=== PATIENT | female | born 1945 | race Caucasian/White ===

== ENCOUNTER → 2024-03-29 11:32 | Outpatient (REF) | payer MEDICARE, SELFPAY | LOC: RAD 11:32 | PROVIDERS: ATTENDING PHYSICIAN Internal Medicine Gastroenterology; FAMILY PHYSICIAN Nurse Practitioner Adult Health | DX: R63.4 Abnormal weight loss (principal) | CPT/HCPCS: 74176 ==

== ENCOUNTER → 2024-04-11 08:55 | Outpatient (REF) | payer MEDICARE, SELFPAY | LOC: RAD 08:55 | PROVIDERS: ATTENDING PHYSICIAN Internal Medicine Gastroenterology; FAMILY PHYSICIAN Nurse Practitioner Adult Health; REFERRING PHYSICIAN Internal Medicine Rheumatology | DX: R93.5 Abnormal findings on diagnostic imaging of other abdominal regions, including retroperitoneum (principal) | CPT/HCPCS: 74246 ==

== ENCOUNTER 2024-07-08 07:26 | Inpatient (IN) | payer MEDICARE, SELFPAY ==
[2024-07-07 23:28] VITALS: BP 122/85
[2024-07-08] VITALS (19 sets, daily range): BP systolic 82–179; BP diastolic 34–108; BMI 23.9; BMI 19.0
[2024-07-08 00:41] LABS: ALT (SGPT) 11 U/L (0-35); AST (SGOT) 27 U/L (14-36); Albumin 4.5 g/dl (3.5-5.0); Alkaline Phosphatase 62 U/L (38-126); Blood Urea Nitrogen 41 mg/dl (7-17); Calcium 9.6 mg/dl (8.4-10.2); Carbon Dioxide 23 mmol/L (22-30); Chloride 105 mmol/L (98-107); Glucose 106 mg/dl (70-99); Potassium 4.6 mmol/L (3.5-5.1); Sodium 137 mmol/L (135-145); Total Bilirubin 0.5 mg/dl (0.2-1.3); Total Protein 6.7 g/dl (6.3-8.2)
[2024-07-08 00:42] LABS: % Basophils 0.6 % (0-2); % Immature Granulocytes 0.3 % (0-0.5); % Lymphocytes 10.4 % (20.5-51.1); % Monocytes 7.2 % (1.7-9.3); % Neutrophils 81.5 % (42.2-75.2); Absolute Lymphocytes 0.4 10^3/uL (1.2-3.4); Absolute Monocytes 0.3 10^3/uL (0.1-0.6); Absolute Neutrophils 2.8 10^3/uL (1.4-6.5); Hematocrit 34.2 % (37.0-47.0); Hemoglobin 11.2 g/dL (12.0-16.0); Mean Corp Hgb Conc. 32.7 g/dL (33.0-37.0); Mean Corpuscular Hgb 29.6 pg (27.0-31.0); Mean Corpuscular Volume 90.2 fL (81.0-99.0); Mean Platelet Volume 10.8 fL (7.4-10.4); Nucleated Red Blood Cells % 0 %; Platelet Count 127 10^3/uL (130-400); Red Blood Cell Count 3.79 10^6/uL (4.20-5.40); Red Cell Dist. Width 12.5 % (11.5-14.5); White Blood Cell Count 3.5 10^3/uL (4.8-10.8)
[2024-07-08 00:43] LABS: COVID-19 Antigen Positive (Negative)
[2024-07-08] MEDS: NSS 1000 IV ×2 (01:50→05:08)
--- NOTE | 2024-07-08 04:37 | ED.GENMED ---
History of Present Illness
General
Chief Complaint: Weakness
Source: patient
Exam Limitations: none
Time Seen by Provider: 07/08/24 04:16
Nursing documentation reviewed up to this point in time: agreed with
History of Present Illness
History of Present Illness:
78-year-old female brought in by family for increased weakness. Nursing states that she was unable to stand up under her own power. Multiple headset to help her into the structure. Patient states that this morning she awakened and had difficulty
trying to make coffee. She states that she just felt entirely weak. Patient had a fall this morning slipping from the rollator onto the floor. Denies headache or loss of consciousness. Patient has had diarrhea. Denies fever or chills. Patient
was incontinent of stool tonight. She states that she attended a [employer] party where there were sick contacts.
Review of Systems
Review of Systems
Allergies reviewed?: Yes
All Other Systems: ROS reviewed and negative except as documented in HPI and ROS
Constitutional: Reports fatigue and sleep disturbance
ABD/GI: Reports abdominal pain and diarrhea
Psychiatric: Reports no symptoms
Phy Exam
General Physical Exam
General Presentation: well appearing and mild distress
General age: appears stated age
General Skin: warm and dry
General Habitus: elderly
General Mental: alert
General Hydration: dry mucous membranes
ENT Exam
ENT Exam: EOMI, pharynx normal, neck supple and normocephalic
Eye Exam
Eye Exam: PERRL, cornea clear and conjunctiva normal
Cardiovascular Exam
Cardiovascular Exam: regular rate/rhythm, no edema, no murmur and normal peripheral pulses
Pulmonary Exam
Pulmonary Exam: lungs clear and no respiratory distress
Cough: coarse cough and non productive cough
Gastrointestinal Exam
Gastrointestinal Exam: normal bowel sounds, non tender, soft, no organomegaly, no pulsatile mass and non distended
Neurological Exam
Neurological Exam: alert, oriented x3, no motor deficits and speech normal
Musculoskeletal Exam
Musculoskeletal Exam: full ROM and no edema
Skin Exam
Skin Exam: normal color, warm/dry, no rash and no petechia
Psychiatric Exam
Psychiatric Exam: normal mood/affect
Course
Orders/Labs/Results
Orders:
Orders
07/08/24 00:05
Electrocardiogram (*1) Urgent
Reason for Study: Fatigue / Weakness
EKG- Treatment ONCE
07/08/24 00:14
CMP [Comprehensive Metabolic Panel] Urgent
Complete Blood Count/With Diff Urgent
Troponin I Urgent
07/08/24 00:26
COVID-19 Antigen Urgent
Source: Nasal Swab
Influenza A+B Rapid Molecular Urgent
LETI Source: Nasal Swab
Specimen Description:
07/08/24 01:45
0.9% Sodium Chloride 1000 ml [Nss] 1,000 ml IV BOLUS
07/08/24 04:37
Ambulate Patient-Treatment ONCE
Abnormal Lab Results
07/08/24 07/08/24
00:14 00:26
WBC 3.5 L 10^3/uL
(4.8-10.8)
RBC 3.79 L 10^6/uL
(4.20-5.40)
Hgb 11.2 L g/dL
(12.0-16.0)
Hct 34.2 L %
(37.0-47.0)
MCHC 32.7 L g/dL
(33.0-37.0)
Plt Count 127 L 10^3/uL
(130-400)
MPV 10.8 H fL
(7.4-10.4)
Absolute Lymphs (auto) 0.4 L 10^3/uL
(1.2-3.4)
Neutrophils % 81.5 H %
(42.2-75.2)
Lymphocytes % 10.4 L %
(20.5-51.1)
BUN 41 H mg/dl
(7-17)
Creatinine 1.6 H mg/dL
(0.6-1.0)
Glucose 106 H mg/dl
(70-99)
SARS-CoV-2 Antigen Positive A
(Negative)
07/08/24 00:14
07/08/24 00:14
Vital Signs
Initial and Last Documented VS:
Initial Vital Signs
Temp Pulse Resp BP Pulse Ox
99.0 F 104 20 122/85 95
07/07/24 23:28 07/07/24 23:28 07/07/24 23:28 07/07/24 23:28 07/07/24 23:28
Last Documented Vital Signs
Temp Pulse Resp BP Pulse Ox
99.0 F 91 18 143/92 100
07/08/24 02:42 07/08/24 02:42 07/08/24 02:42 07/08/24 02:42 07/08/24 02:42
*Critical Care Note
Total Time (30-74mins, 75-104mins- exclusive of procedures): Not Applicable
Patient Management
Social determinants of health affecting care: Living situation and Strong social support
Escalation/DeEscalation of care consider admission/obs:
78-year-old female with new onset COVID. Unable to ambulate on her own. Lives with daughter and her family. Patient to be brought into the hospital for continued hydration and precautions that she cannot ambulate
ED Attending Note
-
Portions of this chart may have been created with voice recognition software.� Occasional wrong word or��sound alike� substitutions may have occurred due to the inherent limitations of voice recognition software.
Discharge Plan
Departure
Patient Disposition: Admit
Date of Disposition: 07/08/24
Time of Disposition: 04:56
Admit to: Telemetry
Presentation/result/management discussed w/ accepting MD/DO: Hospitalist
Covid-19: Confirmed COVID-19
Discharge Problem:
Ambulatory dysfunction, Generalized weakness, COVID-19
Instructions: Generalized Weakness (DC)
Referrals:
Jessie Gonzales CRNP [Family Provider] -
Interventions
Interventions:
*Risk Screen - Suicide Last Done: 07/07/24 23:28
*General Assessment Last Done: 07/07/24 23:28
*Neglect/Abuse Screening Last Done: 07/07/24 23:28
*ED COVID-19 Vaccine History Last Done: 07/07/24 23:28
Discharge Date and Time
Print Language: ALBANIAN
--- NOTE | 2024-07-08 06:18 | HPS.HSE ---
Addendum entered and electronically signed by Citlalli Parikh MD 07/15/24 21:38:
HOME MEDICATIONS addendum
Allergies
Allergy/AdvReac Type Severity Reaction Status Date / Time
ciprofloxacin Allergy Severe Hallucinati Verified 07/09/24 12:57
on
gabapentin Allergy Anaphylaxis Verified 07/07/24 23:27
Home Medications
ascorbic acid (vitamin C) 500 mg tablet (Vitamin C) 500 mg PO DAILY Supplement 07/08/24
brimonidine 0.2 %-timolol 0.5 % eye drops 1 drp BOTH EYES BID Eye Condition 07/08/24
cholecalciferol (vitamin D3) 50 mcg (2,000 unit) capsule (Vitamin D3) 50 mcg PO DAILY Supplement 07/08/24
cyanocobalamin (vitamin B-12) 100 mcg tablet (Vitamin B-12) 100 mcg PO DAILY Supplement 07/08/24
diltiazem HCl 120 mg capsule,extended release 24 hr, controlled (DILT-XR) 120 mg PO DAILY Rate control 07/08/24
docosahexaenoic acid (dha)-epa 120 mg-180 mg capsule (Fish Oil) 1 cap PO DAILY Supplement 07/08/24
fluticasone 100 mcg-salmeterol 50 mcg/dose blistr powdr for inhalation (Advair Diskus) 1 inh inhalation BID Lung/Breathing Issues 07/08/24
hydroxychloroquine 200 mg tablet 200 mg PO DAILY Rheumatoid arthritis 07/08/24
pravastatin 20 mg tablet 20 mg PO DAILY High Cholesterol 07/08/24
Original Note:
Family Physician
-
Family Physician: Jessie Gonzales
Chief Complaint
-
Generalized weakness
History of Present Illness
This is an 78-year-old female with past medical history of anemia, prior DVT, rheumatoid arthritis Plaquenil, history of heart block status post PPM presenting to the emergency department with generalized weakness.
Patient recalls that she started feeling sick about 1 days ago. She reports nasal stuffiness and congestion. She denies cough. She denies fevers or chills. She denies feeling short of breath. She lost her appetite and was not able to eat
anything today. She became very lethargic and unable to ambulate. Daughter noticed that she was having failure to thrive and decided bring her to the ED. She denies any dysuria hematuria. There has been no nausea vomiting but she does have prior
history of diarrhea recently. She reports history of mild dyspepsia. Denies any nausea or vomiting. After arriving in the emergency department the patient complained of right-sided hip pain. She pointed to her groin and anterior proximal femur.
She denied any falls. She had apparently slipped from a chair and scraped the back but did not have any fall. She denies any recent injuries or falls. She denies any lower extremity swelling numbness or tingling.
In the ED she was afebrile, blood pressure was 140/92 with a pulse of 91 and regular. She was satting 99% on room air. ECG shows sinus tachycardia at [address] or T wave changes. CBC was unremarkable. Chemistries were notable for
a BUN of 41 and creatinine of 1.6 (unknown baseline). COVID test was positive.
Medical History
Past Medical History
Past Medical History: Reports Arrhythmia (AV block status post pacemaker placement), HTN and Other (Rheumatoid arthritis)
Past Surgical History: Reports Appendectomy and Orthopedic (Right hip surgery)
Social History
Tobacco: Non-smoker
Alcohol: None
Drug: None
Personal:
Living: With Family
Employment: Retired
Family History
Family History: Not pertinent
Allergies / Home Medications
Allergies reflects when Allergies were last updated in [employer] ([employer]).
Home Medications with original date entered in [employer] ([employer])
Allergy/Medication List:
Allergies
Allergy/AdvReac Type Severity Reaction Status Date / Time
gabapentin Allergy Anaphylaxis Verified 07/07/24 23:27
Review of Systems
-
Constitutional: Reports Fatigue
EENT: Reports Runny Nose
Respiratory: Reports No Symptoms
Cardiac: Reports No Symptoms
Abdomen/GI: Reports No Symptoms
: Reports No Symptoms
Musculoskeletal: Reports No Symptoms
Skin: Reports No Symptoms
Neurological: Reports No Symptoms
Endocrine: Reports No Symptoms
Hematologic/Lymphatic: Reports No Symptoms
Psych: Reports No Symptoms
Physical Exam
Vital Signs
Vital Signs
Temp Pulse Resp BP Pulse Ox
98.6 F 103 18 173/103 98
07/08/24 05:00 07/08/24 06:00 07/08/24 06:00 07/08/24 06:00 07/08/24 06:00
Physical Exam
General: Well Developed and No Apparent Distress
HEENT: NormoCephalic, Anicteric, Moist mucous membranes, Atraumatic and PERRLA
Respiratory: Clear
Cardiac: S1/S2 and Regular Rhythm
Breast: Deferred by me
GI: Soft, Non Tender, Non Distended and Normal Bowel Sounds
Rectal: Deferred by Provider
Genito-urinary: Deferred by me
Musculoskeletal: No Clubbing, No Cyanosis, No Edema and Other (Right hip tenderness to palpation. Decreased range of motion on external rotation.)
Skin: Warm
Neuro: AO x 3
Hematologic/Lymphatic: No Lymphadenopathy
Psych: Calm
Laboratory Results
-
07/08/24 00:14
07/08/24 00:14
Laboratory Results
Total Bilirubin 0.5 mg/dl (0.2-1.3) 07/08/24 00:14
AST 27 U/L (14-36) 07/08/24 00:14
ALT 11 U/L (0-35) 07/08/24 00:14
Alkaline Phosphatase 62 U/L (38-126) 07/08/24 00:14
Troponin I 0.030 ng/ml 07/08/24 00:14
Data Reviewed
-
Lab Data: Labs Reviewed by me
Old Records: Reviewed
Impression/Plan
-
IMPRESSION:
78-year-old with COVID-19 infection, lethargy and ambulatory dysfunction. Found to have elevated creatinine but unknown baseline.
PLAN:
1. COVID 19 - Lethargic, but afebrile and has no oxygen requirement. Mostly nasal congestion and some rhinorrhea.
- admit to med/surg
- candidate for paxlovid treatment, will start renal dose regimen
- supportive care with nasal decongestion, antitussives and antiemetics
- continue gentle hydration
- DVT PPX with heparin sq
- PT evaluation
2. Renal dysfunction - Unclear baseline but suspect likely prerenal complicated CKD
- IV fluids, hold lisinopril
- renal bladder u/s
- obtain records from pmd
- follow i/o
3. HTN
- continue diltiazem 120 mg daiily
- prn hydralazine 20mg po q 8 hours for SBP > 180
4. Hip pain
- rule out occult fracture with CT pelvis w/o oral or iv contrast
Code status - Full Code
[2024-07-08] MEDS: CARDIZEM CD 120 MG PO (08:36)
[2024-07-08] MEDS: HEPARIN 5000 UNITS SC ×2 (08:37→17:29)
[2024-07-08] MEDS: VITAMIN D3 (cholecalciferol) 50 MCG PO (08:38)
[2024-07-08] MEDS: SYMBICORT 80/4.5 MCG INHALER 2 PUFF INH ×2 (08:51→20:11)
[2024-07-08] MEDS: ProAIR HFA INHALER 2 PUFF INH (08:56)
[2024-07-08] MEDS: LR 1000 IV (09:20)
[2024-07-08] MEDS: PLAQUENIL 200 MG PO (09:53)
[2024-07-08] MEDS: PAXLOVID 150-100 MG DOSE PACK 1 DOSE PO ×2 (09:54→21:10)
[2024-07-08] MEDS: TIMOPTIC 0.5% OPHTHALMIC SOLUTION 1 DROP BOTH EYES ×2 (09:59→21:10)
[2024-07-08] MEDS: ALPHAGAN 0.2% EYE DROPS 1 DROP BOTH EYES ×2 (09:59→21:10)
[2024-07-08] MEDS: TYLENOL 650 MG PO (10:22)
--- NOTE | 2024-07-08 10:30 | EDRN ---
Pt complained of groin and hip pain at 10:00. Pt was administered tylenol.
--- NOTE | 2024-07-08 10:58 | EDRN ---
Dr. Joiner in room w/pt.
--- NOTE | 2024-07-08 12:15 | EDRN ---
Pt eating the sandwich she ordered for lunch. Pt will be changed to hospital bed when done eating.
--- NOTE | 2024-07-08 13:00 | EDRN ---
Pt moved from ER stretcher to hospital bed. Pt was incontinent of large amount of urine and stool. Pt was cleansed w/ good evan care and placed on a purewyck. Pt was tilted facing toward her R w/ chair air cushion.
--- NOTE | 2024-07-08 13:10 | W.PN.UPDATE ---
Update Note
Progress Note Update
Patient seen and examined today. Refer to H&P dictated today a few hours ago. No changes to plan for now and will reevaluate tomorrow.
--- NOTE | 2024-07-08 14:40 | EDRN ---
Amanda from physical therapy in room w/ pt at this time. Family just arrived to visit w/ pt.
--- NOTE | 2024-07-08 15:00 | EDRN ---
Pt stated to this RN pt too weak to get up out of bed during their eval.
--- NOTE | 2024-07-08 15:24 | EDRN ---
Pt marquis some lower BPs while sleeping. Pt just transported in bed to admission room 2132 at this time.
--- NOTE | 2024-07-08 15:28 | EDRN ---
Pt's daughter called after pt said okay for this RN to speak to daughter at [phone]
[2024-07-08 17:05] LABS: Urine Albumin 1+ (Neg - Trace); Urine Bilirubin Negative (Negative); Urine Character Slightly Cloudy (Clear); Urine Color Yellow; Urine Glucose Negative (Negative); Urine Ketone Negative (Negative); Urine Leukocyte Trace (Negative); Urine Nitrite Negative (Negative); Urine Occult Blood 2+ (Negative); Urine Urobilinogen Negative (Neg - 1+)
[2024-07-08 17:24] LABS: Urine Bacteria Many (Negative); Urine White Cell 0-2 /HPF (0-5)
[2024-07-08 17:26] LABS: Urine Epithelial Cast 0-2 /LPF
[2024-07-08] MEDS: PRAVACHOL 20 MG PO (17:29)
[2024-07-09] MEDS: HEPARIN 5000 UNITS SC ×3 (00:54→17:11)
[2024-07-09] MEDS: ROBITUSSIN DM 10 ML PO ×2 (01:02→13:29)
[2024-07-09] MEDS: TYLENOL 650 MG PO ×3 (01:02→17:15)
[2024-07-09] MEDS: LR 1000 IV ×2 (01:05→17:13)
[2024-07-09 06:00] VITALS: BMI 18.8
[2024-07-09 06:52] LABS: % Basophils 0.6 % (0-2); % Eosinophils 0.9 % (0-6); % Immature Granulocytes 0.3 % (0-0.5); % Lymphocytes 18.8 % (20.5-51.1); % Monocytes 12.5 % (1.7-9.3); % Neutrophils 66.9 % (42.2-75.2); Absolute Lymphocytes 0.6 10^3/uL (1.2-3.4); Absolute Monocytes 0.4 10^3/uL (0.1-0.6); Absolute Neutrophils 2.2 10^3/uL (1.4-6.5); Hematocrit 35.4 % (37.0-47.0); Hemoglobin 11.7 g/dL (12.0-16.0); Mean Corp Hgb Conc. 33.1 g/dL (33.0-37.0); Mean Corpuscular Hgb 29.3 pg (27.0-31.0); Mean Corpuscular Volume 88.5 fL (81.0-99.0); Mean Platelet Volume 10.3 fL (7.4-10.4); Nucleated Red Blood Cells % 0 %; Platelet Count 99 10^3/uL (130-400); Red Cell Dist. Width 12.5 % (11.5-14.5); White Blood Cell Count 3.3 10^3/uL (4.8-10.8)
[2024-07-09 07:12] LABS: Blood Urea Nitrogen 29 mg/dl (7-17); Calcium 8.7 mg/dl (8.4-10.2); Carbon Dioxide 21 mmol/L (22-30); Chloride 105 mmol/L (98-107); Estimated Creatinine Clearance 30 ml/min; Glucose 89 mg/dl (70-99); Iron 62 ug/dl (37-170); Potassium 4.4 mmol/L (3.5-5.1); Sodium 134 mmol/L (135-145); eGFR 45.76
[2024-07-09 07:21] LABS: Percent Saturation 26 % (20-50); Total Iron Binding Capacity 232 ug/dl (265-497)
[2024-07-09 08:04] VITALS: BP 139/87
[2024-07-09] MEDS: SYMBICORT 80/4.5 MCG INHALER 2 PUFF INH ×2 (08:04→18:25)
[2024-07-09 08:23] LABS: Folate 6.9 ng/ml (2.76-20); Vitamin B12 341 pg/ml (239-931)
[2024-07-09] MEDS: PAXLOVID 150-100 MG DOSE PACK 1 DOSE PO ×2 (08:25→20:25)
[2024-07-09] MEDS: PLAQUENIL 200 MG PO (08:26)
[2024-07-09] MEDS: VITAMIN D3 (cholecalciferol) 50 MCG PO (08:26)
[2024-07-09] MEDS: CARDIZEM CD 120 MG PO (08:26)
[2024-07-09] MEDS: TIMOPTIC 0.5% OPHTHALMIC SOLUTION 1 DROP BOTH EYES ×2 (08:28→20:27)
[2024-07-09] MEDS: ALPHAGAN 0.2% EYE DROPS 1 DROP BOTH EYES ×2 (08:28→20:27)
--- NOTE | 2024-07-09 09:37 | W.PN.HOSP.TC ---
Today's Communication/Plan
-
IVF. IV antibiotics. PT OT
Assessment / Plan
Assessment / Plan
Physical exam:
General: Acutely ill
HEENT: Normocephalic, Atraumatic and Moist Mucous Membranes
Respiratory: Clear to Auscultation; Negative Wheezes, Rales or Rhonchi
Cardiac: Regular Rhythm and S1/S2
GI: Soft, Nontender and Nondistended
Musculoskeletal: No Clubbing, No Cyanosis and No Edema
Neuro: Awake, Alert and Oriented, generalized weakness, no gross neurodeficits
Psych: Calm
A/P:
COVID-19:
Continue Paxlovid renally dose
Add Cepacol lozenges
Supportive care
Discussed with daughter over the phone today
PT OT eval
UTI:
Started IV ceftriaxone today
Urine culture with gram-negative rods
Follow-up cultures and temperature curve
KAREN:
On IV fluids
Creatinine 1.2 today after hydration
Creatinine 1.6 yesterday
Avoid nephrotoxic
Monitor renal function
Pancytopenia:
All numbers remain low but stable
Continue to monitor
B12 normal
Obtain old records
Family states they can not r/o lymphoma as OP-by GI/radiology-recommend hematology as OP
Hyponatremia:
Continue to monitor
Rheumatoid arthritis:
Cont hydroxychloroquine 200 mg po daily
Recent fall:
CT pelvis no evidence of fracture
Family mention something about arms no extending all the way but she does not have any tenderness on shoulders at all or trauma so we will encourage to continue physical therapy.
Hypertension:
Continue diltiazem
Hyperlipidemia:
Continue pravastatin
COPD/asthma:
Continue Symbicort
DVT prophylaxis:
Heparin SQ
CODE STATUS:
Full code
Time spent 55 minutes
Anticipated Discharge: > 48 hours
Subjective/Interval History
-
Date of Service: July 09, 2024
Patient with generalized weakness, complains of sore throat, generalized malaise. Afebrile.
Objective Data
-
Labs:
Laboratory Results
07/09/24
05:48
WBC 3.3 L
Hgb 11.7 L
Hct 35.4 L
Plt Count 99 L D
Sodium 134 L
Potassium 4.4
Chloride 105
Carbon Dioxide 21 L
BUN 29 H
Creatinine 1.2 H
Glucose 89
Calcium 8.7
Vital Signs:
Vital Signs
Temp Pulse Resp BP Pulse Ox
97.7 F 66 16 139/87 96
07/09/24 08:04 07/09/24 08:26 07/09/24 08:13 07/09/24 08:26 07/09/24 08:13
I&O
07/08/24 07/09/24 07/10/24
06:59 06:59 06:59
Intake Total 1200 / 1200
Output Total 930 / 930
Balance 270 / 270
[2024-07-09] MEDS: ROCEPHIN 1000 MG IV (11:00)
[2024-07-09] MEDS: STERILE WATER FOR INJECTION 10 ML IV (11:00)
[2024-07-09] MEDS: FLUSH (NSS) 1 FLUSH IV ×2 (11:00)
[2024-07-09] MEDS: ANESTHETIC LOZENGE 1 LOZENGE PO ×2 (11:22→17:11)
[2024-07-09 12:24] VITALS: BP 102/57; PULSE 60; O2SAT 97
[2024-07-09 16:00] VITALS: BP 117/74
[2024-07-09] MEDS: PRAVACHOL 20 MG PO (17:11)
[2024-07-09 23:39] VITALS: BP 103/58
[2024-07-10] MEDS: HEPARIN 5000 UNITS SC ×3 (00:09→15:01)
[2024-07-10 06:55] LABS: % Basophils 0.5 % (0-2); % Eosinophils 3.3 % (0-6); % Monocytes 11.3 % (1.7-9.3); % Neutrophils 46.9 % (42.2-75.2); Absolute Eosinophils 0.1 10^3/uL (0-0.7); Absolute Lymphocytes 0.8 10^3/uL (1.2-3.4); Absolute Monocytes 0.2 10^3/uL (0.1-0.6); Hematocrit 31.7 % (37.0-47.0); Hemoglobin 10.9 g/dL (12.0-16.0); Mean Corp Hgb Conc. 34.4 g/dL (33.0-37.0); Mean Corpuscular Hgb 30.3 pg (27.0-31.0); Mean Corpuscular Volume 88.1 fL (81.0-99.0); Mean Platelet Volume 11.4 fL (7.4-10.4); Nucleated Red Blood Cells % 0 %; Platelet Count 86 10^3/uL (130-400); Red Cell Dist. Width 12.5 % (11.5-14.5); White Blood Cell Count 2.1 10^3/uL (4.8-10.8)
[2024-07-10 07:37] LABS: Blood Urea Nitrogen 25 mg/dl (7-17); Calcium 8.2 mg/dl (8.4-10.2); Carbon Dioxide 25 mmol/L (22-30); Chloride 106 mmol/L (98-107); Creatine Phosphokinase 36 U/L (30-135); Estimated Creatinine Clearance 28 ml/min; Glucose 84 mg/dl (70-99); Potassium 4.7 mmol/L (3.5-5.1); Sodium 137 mmol/L (135-145); eGFR 41.57
[2024-07-10] MEDS: PAXLOVID 150-100 MG DOSE PACK 1 DOSE PO ×2 (08:15→20:39)
[2024-07-10] MEDS: TIMOPTIC 0.5% OPHTHALMIC SOLUTION 1 DROP BOTH EYES ×2 (08:15→20:39)
[2024-07-10] MEDS: ALPHAGAN 0.2% EYE DROPS 1 DROP BOTH EYES ×2 (08:15→20:39)
[2024-07-10] MEDS: CARDIZEM CD 120 MG PO (08:16)
[2024-07-10] MEDS: VITAMIN D3 (cholecalciferol) 50 MCG PO (08:16)
[2024-07-10] MEDS: PLAQUENIL 200 MG PO (08:16)
[2024-07-10 08:17] VITALS: BP 150/84
--- NOTE | 2024-07-10 08:20 | W.PN.HOSP.TC ---
Addendum entered and electronically signed by Mikael Aranda MD 07/10/24 16:42:
Had some diarrhea (could be from covid)-->check noro virus, c diff, and orthostatics; give some fluid today.
Original Note:
Today's Communication/Plan
-
IV antibiotics. Continue Paxlovid.
Assessment / Plan
Assessment / Plan
Physical exam:
General: Acutely ill
HEENT: Normocephalic, Atraumatic and Moist Mucous Membranes
Respiratory: Clear to Auscultation; Negative Wheezes, Rales or Rhonchi
Cardiac: Regular Rhythm and S1/S2
GI: Soft, Nontender and Nondistended
Musculoskeletal: No Clubbing, No Cyanosis and No Edema
Neuro: Awake, Alert and Oriented, generalized weakness, no gross neurodeficits
Psych: Calm
A/P:
COVID-19:
Continue Paxlovid renally dose
Added Cepacol lozenges
Supportive care
Continue isolation
Discussed with daughter over the phone yesterday
PT OT recommend skilled rehab
UTI:
Continue IV ceftriaxone
Urine culture with E. coli, pansensitive
Follow-up WBC and temperature curve
KAREN on CKD stage III:
Stop IV fluids today and encourage oral intake
Creatinine 1.3 today after hydration
Creatinine 1.6 day before yesterday
Avoid nephrotoxic
Monitor renal function
Pancytopenia:
All numbers remain low but stable
Continue to monitor
B12 normal
Obtain old records
Family states they can not r/o lymphoma as OP-by GI/radiology
Recommend hematology as OP after current acute issues improved
Hyponatremia:
Continue to monitor
Rheumatoid arthritis:
Cont hydroxychloroquine 200 mg po daily
Recent fall:
CT pelvis no evidence of fracture
Family mention something about arms no extending all the way but she does not have any tenderness on shoulders at all or trauma so we will encourage to continue physical therapy.
Hypertension:
Continue diltiazem
Hyperlipidemia:
Continue pravastatin
COPD/asthma:
Continue Symbicort
DVT prophylaxis:
Heparin SQ
CODE STATUS:
Full code
Anticipated Discharge: 24 - 48 hours
Subjective/Interval History
-
Date of Service: July 10, 2024
Patient feels slightly better but not quite yet. Afebrile.
Objective Data
-
Labs:
Laboratory Results
07/10/24
05:29
WBC 2.1 L*
Hgb 10.9 L
Hct 31.7 L
Plt Count 86 L
Sodium 137
Potassium 4.7
Chloride 106
Carbon Dioxide 25
BUN 25 H
Creatinine 1.3 H
Glucose 84
Calcium 8.2 L
Vital Signs:
Vital Signs
Temp Pulse Resp BP Pulse Ox
97.5 F 67 14 150/84 96
07/10/24 08:17 07/10/24 08:17 07/10/24 08:17 07/10/24 08:17 07/10/24 08:17
I&O
07/09/24 07/10/24 07/11/24
06:59 06:59 06:59
Intake Total 1200 / 1200 1500 / 1500
Output Total 930 / 930
Balance 270 / 270 1500 / 1500
[2024-07-10] MEDS: ANESTHETIC LOZENGE 1 LOZENGE PO ×2 (08:21→13:56)
[2024-07-10] MEDS: ROBITUSSIN DM 10 ML PO ×2 (08:24→13:56)
[2024-07-10] MEDS: TYLENOL 650 MG PO ×2 (08:24→17:59)
[2024-07-10] MEDS: LR 1000 IV (08:32)
[2024-07-10] MEDS: SYMBICORT 80/4.5 MCG INHALER 2 PUFF INH ×2 (08:36→17:51)
[2024-07-10] MEDS: STERILE WATER FOR INJECTION 10 ML IV (09:56)
[2024-07-10] MEDS: ROCEPHIN 1000 MG IV (09:56)
[2024-07-10] MEDS: FLUSH (NSS) 1 FLUSH IV ×2 (09:57)
--- NOTE | 2024-07-10 15:32 | CM ---
Spoke with daughter Araceli to complete assessment
Pt lives in a guest house - 1 story dwelling, on daughters property; no steps to enter
Independent with ADL's, uses rollator to ambulate
DME - rollator
SNF -one in [facility] in past
HH - has has Pal in past
PCP - Jessie Gonzales
Pharm - [facility]
Discussed SNF options in area. Requested time to review. CM will follow for choice
Plan - anticipate SNF when bed obtained and medically ready
[2024-07-10 15:55] VITALS: BP 116/63
[2024-07-10] MEDS: NSS 250 IV (17:25)
[2024-07-10] MEDS: PRAVACHOL 20 MG PO (17:25)
[2024-07-10] MEDS: ProAIR HFA INHALER 2 PUFF INH (17:50)
[2024-07-10] MEDS: IMODIUM 2 MG PO (17:59)
--- NOTE | 2024-07-10 18:25 | PTCARENOTE ---
Patient OOB to chair for lunch this shift, x2 assist with RW, patient c/o generalized weakness when ambulating. BP sitting in chair taken three times by tech, 91/59 RUE, 72/53 RUE, 80/53 LUE. Patient c/o lightheadedness while sitting in chair,
assisted back to bed by this RN and tech, BP taken while patient supine 116/63 LUE HR 88. Patient states lightheadedness improved when back in bed. MD made aware of BP results, 250 ml NSS bolus ordered per MD. Stool sample sent earlier in shift by
this RN d/t patient having frequent loose stools, stool sample noro negative, cdiff antigen positive toxin negative. Patient denies any abd pain/nausea. MD aware. Patient with occasional wheezing, moist nonproductive cough, PRN resp treatment
administered by respiratory therapist.
[2024-07-10 23:28] VITALS: BP 116/77
[2024-07-11 07:37] LABS: Blood Urea Nitrogen 33 mg/dl (7-17); Calcium 8.5 mg/dl (8.4-10.2); Carbon Dioxide 24 mmol/L (22-30); Chloride 105 mmol/L (98-107); Estimated Creatinine Clearance 28 ml/min; Glucose 95 mg/dl (70-99); Potassium 4.7 mmol/L (3.5-5.1); Sodium 135 mmol/L (135-145); eGFR 41.57
[2024-07-11 07:45] LABS: Hematocrit 30.7 % (37.0-47.0); Hemoglobin 10.3 g/dL (12.0-16.0); Mean Corp Hgb Conc. 33.6 g/dL (33.0-37.0); Mean Corpuscular Hgb 29.5 pg (27.0-31.0); Mean Platelet Volume 11.5 fL (7.4-10.4); Platelet Count 93 10^3/uL (130-400); Red Blood Cell Count 3.49 10^6/uL (4.20-5.40); Red Cell Dist. Width 12.8 % (11.5-14.5); White Blood Cell Count 2.1 10^3/uL (4.8-10.8)
[2024-07-11 07:48] VITALS: BP 157/77
[2024-07-11] MEDS: SYMBICORT 80/4.5 MCG INHALER 2 PUFF INH ×2 (07:52→19:57)
[2024-07-11] MEDS: PAXLOVID 150-100 MG DOSE PACK 1 DOSE PO ×2 (09:38→21:15)
[2024-07-11] MEDS: ALPHAGAN 0.2% EYE DROPS 1 DROP BOTH EYES ×2 (09:39→20:39)
[2024-07-11] MEDS: CARDIZEM CD 120 MG PO (09:39)
[2024-07-11] MEDS: ROCEPHIN 1000 MG IV (09:39)
[2024-07-11] MEDS: TIMOPTIC 0.5% OPHTHALMIC SOLUTION 1 DROP BOTH EYES ×2 (09:39→20:40)
[2024-07-11] MEDS: STERILE WATER FOR INJECTION 10 ML IV (09:39)
[2024-07-11] MEDS: VITAMIN D3 (cholecalciferol) 50 MCG PO (09:40)
[2024-07-11] MEDS: PLAQUENIL 200 MG PO (09:40)
[2024-07-11] MEDS: HEPARIN 5000 UNITS SC ×3 (09:40→17:00)
[2024-07-11] MEDS: FLUSH (NSS) 1 FLUSH IV ×2 (09:44)
--- NOTE | 2024-07-11 10:58 | W.PN.HOSP.TC ---
Today's Communication/Plan
-
Discharge planning for rehab
Assessment / Plan
Assessment / Plan
COVID-19 viral infection
Continue Paxlovid renally dose
Added Cepacol lozenges
Supportive care
Continue isolation
PT OT recommend skilled rehab
Uncomplicated UTI
Finished 3 days of Rocephin, discontinue further antibiotic as patient is C. difficile antigen positive
Urine culture with E. coli, pansensitive
KAREN on CKD stage III:
Stop further IV fluid.
Renal function has stabilized around 1.3. Continue monitoring
Avoid nephrotoxic
Monitor renal function
Pancytopenia:
All numbers remain low but stable
Continue to monitor
B12 normal
Obtain old records
Family states they can not r/o lymphoma as OP-by GI/radiology
Recommend hematology as OP after current acute issues improved
C. difficile antigen positive
Chronic Diarrhea
Use as needed Imodium
Avoid unnecessary antibiotics
Probiotics ordered
Hyponatremia -resolved
Continue to monitor
Rheumatoid arthritis:
Cont hydroxychloroquine 200 mg po daily
Recent fall:
CT pelvis no evidence of fracture
Family mention something about arms no extending all the way but she does not have any tenderness on shoulders at all or trauma so we will encourage to continue physical therapy.
Hypertension:
Continue diltiazem
Hyperlipidemia:
Continue pravastatin
COPD/asthma:
Continue Symbicort
DVT prophylaxis:
Heparin SQ
CODE STATUS:
Full code
Anticipated Discharge: Within 24 hours
Subjective/Interval History
-
Date of Service: July 11, 2024
Clinical feeling better
having some diarrhea
afebrile in night
Objective Data
-
Labs:
Laboratory Results
07/11/24
06:17
WBC 2.1 L*
Hgb 10.3 L
Hct 30.7 L
Plt Count 93 L
Sodium 135
Potassium 4.7
Chloride 105
Carbon Dioxide 24
BUN 33 H
Creatinine 1.3 H
Glucose 95
Calcium 8.5
Vital Signs:
Vital Signs
Temp Pulse Resp BP Pulse Ox
97.8 F 89 16 157/77 96
07/11/24 07:48 07/11/24 09:39 07/11/24 08:02 07/11/24 09:39 07/11/24 08:02
I&O
07/10/24 07/11/24 07/12/24
06:59 06:59 06:59
Intake Total 1500 / 1500 780 / 780
Balance 1500 / 1500 780 / 780
Review of Systems
-
Respiratory: Reports No Symptoms
Cardiac: Reports No Symptoms
Abdomen/GI: Reports Diarrhea; Denies Abdominal Pain
Physical Exam
-
HEENT: Negative Oxygen
Respiratory: Clear to Auscultation
Cardiac: Regular Rhythm and S1/S2; Negative Murmur
GI: Soft, Nontender and Nondistended
Neuro: Awake, Alert and Oriented
[2024-07-11 11:09] LABS: % Basophils 0.5 % (0-2); % Eosinophils 2.4 % (0-6); % Lymphocytes 39.6 % (20.5-51.1); % Monocytes 11.6 % (1.7-9.3); % Neutrophils 45.9 % (42.2-75.2); Absolute Eosinophils 0.1 10^3/uL (0-0.7); Absolute Lymphocytes 0.8 10^3/uL (1.2-3.4); Absolute Monocytes 0.2 10^3/uL (0.1-0.6); Nucleated Red Blood Cells % 0 %
[2024-07-11] MEDS: IMODIUM 2 MG PO (11:26)
[2024-07-11] MEDS: VISBIOME 2 CAP PO (11:26)
[2024-07-11] MEDS: TYLENOL 650 MG PO (11:26)
--- NOTE | 2024-07-11 12:29 | PN.CDI ---
CDI
- -
CDI:
Physician Documentation Request
Admit Date: 07/08/24 07:26
Dear Doctor Ant,
Please review the following and provide your response in the progress notes.
Clinical Indicators:
Height: 5'5
Weight: 113lbs
BMI: 18.8
If possible, please provide an associated diagnosis related to the abnormal BMI, such as:
Cachectic
Underweight
BMI is not significant
Other (please specify)
Use of terms such as suspected, likely, concern for, or probable (associated with a specific diagnosis that is being evaluated, monitored, or treated as if it exists) are acceptable and can be coded in the inpatient setting, when documented at the
time of discharge.
Thank you,
Alyssa Denny RN
CDI Specialist
Please use your independent medical judgment in providing your response.
--- NOTE | 2024-07-11 14:21 | CM ---
Reviewed the chart notes and left voice message for the patient's daughter to discuss SNF/rehabs. No precert will be required. Barrier is that the patient is Covid + and will be limited to facilities willing to accept. CM continues to be
available to patient/family and is monitoring medical plan for needs at discharge.
Plan: Discharge to SNF/rehab once bed found. No precert required.
[2024-07-11 15:24] VITALS: BP 120/69; PULSE 69; O2SAT 97
[2024-07-11 16:12] VITALS: BP 120/69
[2024-07-11] MEDS: PRAVACHOL 20 MG PO (17:22)
[2024-07-11 23:55] VITALS: BP 119/76
[2024-07-12] MEDS: HEPARIN 5000 UNITS SC ×4 (00:37→23:41)
[2024-07-12 07:35] VITALS: BP 170/99
[2024-07-12] MEDS: SYMBICORT 80/4.5 MCG INHALER 2 PUFF INH ×2 (07:45→19:34)
[2024-07-12 08:25] LABS: Hematocrit 33.7 % (37.0-47.0); Mean Corp Hgb Conc. 32.6 g/dL (33.0-37.0); Mean Corpuscular Hgb 29.2 pg (27.0-31.0); Mean Corpuscular Volume 89.4 fL (81.0-99.0); Mean Platelet Volume 10.8 fL (7.4-10.4); Platelet Count 101 10^3/uL (130-400); Red Blood Cell Count 3.77 10^6/uL (4.20-5.40); Red Cell Dist. Width 12.8 % (11.5-14.5); White Blood Cell Count 2.3 10^3/uL (4.8-10.8)
[2024-07-12 08:40] LABS: Blood Urea Nitrogen 26 mg/dl (7-17); Calcium 8.7 mg/dl (8.4-10.2); Carbon Dioxide 24 mmol/L (22-30); Chloride 105 mmol/L (98-107); Estimated Creatinine Clearance 28 ml/min; Glucose 72 mg/dl (70-99); Potassium 4.9 mmol/L (3.5-5.1); Sodium 136 mmol/L (135-145); eGFR 41.57
[2024-07-12] MEDS: VISBIOME 2 CAP PO (09:40)
[2024-07-12] MEDS: CARDIZEM CD 120 MG PO (09:40)
[2024-07-12] MEDS: PLAQUENIL 200 MG PO (09:40)
[2024-07-12] MEDS: ALPHAGAN 0.2% EYE DROPS 1 DROP BOTH EYES ×2 (09:40→21:29)
[2024-07-12] MEDS: TIMOPTIC 0.5% OPHTHALMIC SOLUTION 1 DROP BOTH EYES ×2 (09:41→21:29)
[2024-07-12] MEDS: PAXLOVID 150-100 MG DOSE PACK 1 DOSE PO ×2 (09:41→21:30)
[2024-07-12] MEDS: VITAMIN D3 (cholecalciferol) 50 MCG PO (09:41)
[2024-07-12] MEDS: FLUSH (NSS) IV ×2 (09:57→10:39)
[2024-07-12 11:51] VITALS: BP 140/84; PULSE 76; O2SAT 98
--- NOTE | 2024-07-12 12:38 | W.PN.HOSP.TC ---
Today's Communication/Plan
-
d/c planning for snf rehab
Assessment / Plan
Assessment / Plan
COVID-19 viral infection
Continue Paxlovid renally dose
Added Cepacol lozenges
Supportive care
Continue isolation
PT OT recommend skilled rehab
Uncomplicated UTI
Finished 3 days of Rocephin, discontinue further antibiotic as patient is C. difficile antigen positive
Urine culture with E. coli, pansensitive
KAREN on CKD stage III:
Stop further IV fluid.
Renal function has stabilized around 1.3. Continue monitoring
Avoid nephrotoxic
Monitor renal function
Pancytopenia:
All numbers remain low but stable
Continue to monitor
B12 normal
Obtain old records
Family states they can not r/o lymphoma as OP-by GI/radiology
Recommend hematology as OP after current acute issues improved
C. difficile antigen positive
Chronic Diarrhea
Use as needed Imodium
Avoid unnecessary antibiotics
Probiotics ordered
Hyponatremia -resolved
Continue to monitor
Rheumatoid arthritis:
Cont hydroxychloroquine 200 mg po daily
Recent fall:
CT pelvis no evidence of fracture
Family mention something about arms no extending all the way but she does not have any tenderness on shoulders at all or trauma so we will encourage to continue physical therapy.
Hypertension:
Continue diltiazem
Hyperlipidemia:
Continue pravastatin
COPD/asthma:
Continue Symbicort
DVT prophylaxis: Heparin SQ
CODE STATUS: Full code
Anticipated Discharge: Today
Subjective/Interval History
-
Date of Service: July 12, 2024
no new issues overnight
diarrhea better
afebrile, off o2
Objective Data
-
Labs:
Laboratory Results
07/12/24
07:17
WBC 2.3 L*
Hgb 11.0 L
Hct 33.7 L
Plt Count 101 L
Sodium 136
Potassium 4.9
Chloride 105
Carbon Dioxide 24
BUN 26 H
Creatinine 1.3 H
Glucose 72
Calcium 8.7
Vital Signs:
Vital Signs
Temp Pulse Resp BP Pulse Ox
98.1 F 87 16 170/99 96
07/12/24 07:35 07/12/24 07:49 07/12/24 07:49 07/12/24 09:40 07/12/24 07:49
I&O
07/11/24 07/12/24 07/13/24
06:59 06:59 06:59
Intake Total 780 / 780 1620 / 1620
Balance 780 / 780 1620 / 1620
Review of Systems
-
Respiratory: Reports No Symptoms
Cardiac: Reports No Symptoms
Abdomen/GI: Reports No Symptoms
Physical Exam
-
HEENT: Negative Oxygen
Respiratory: Clear to Auscultation
Cardiac: Regular Rhythm and S1/S2; Negative Murmur
GI: Soft, Nontender and Nondistended
Neuro: Awake, Alert and Oriented
--- NOTE | 2024-07-12 13:16 | PTCARENOTE ---
pt a one assist in the room to the chair with PT. pt with urinary frequency and incontinence. pt is aaox and pleasant- full bed bath completed by pct this morning. See Worklist for proper documentation
--- NOTE | 2024-07-12 14:32 | CM ---
Addendum entered by Valeria Mederos RN 07/12/24 14:54:
IMM reviewed with the patient. Copy left at bedside.
Original Note:
Reviewed the chart notes and spoke with the patient and the patient's daughter via telephone. Patient's daughter requested referral be sent to [facility] unable to accept Covid + patient's. [facility] able to accept. Patient and daughter
agreeable to [facility] tomorrow. IMM reviewed. CM continues to be available to patient/family and is monitoring medical plan for needs at discharge.
Plan: Discharge to [facility] on Thursday.
Call report to: [phone]
Fax report to: [phone]
Medical necessity and transport form on chart.
[2024-07-12 15:25] VITALS: BP 102/68
[2024-07-12] MEDS: PRAVACHOL 20 MG PO (17:07)
[2024-07-12 23:24] VITALS: BP 103/54
[2024-07-13 07:30] VITALS: BP 136/78
[2024-07-13] MEDS: SYMBICORT 80/4.5 MCG INHALER 2 PUFF INH (07:37)
[2024-07-13 08:25] LABS: Hemoglobin 10.5 g/dL (12.0-16.0); Mean Corp Hgb Conc. 32.8 g/dL (33.0-37.0); Mean Corpuscular Hgb 29.5 pg (27.0-31.0); Mean Corpuscular Volume 89.9 fL (81.0-99.0); Mean Platelet Volume 10.7 fL (7.4-10.4); Platelet Count 112 10^3/uL (130-400); Red Blood Cell Count 3.56 10^6/uL (4.20-5.40); Red Cell Dist. Width 12.8 % (11.5-14.5)
[2024-07-13 08:48] LABS: Blood Urea Nitrogen 26 mg/dl (7-17); Calcium 8.8 mg/dl (8.4-10.2); Carbon Dioxide 25 mmol/L (22-30); Chloride 104 mmol/L (98-107); Estimated Creatinine Clearance 24 ml/min; Glucose 85 mg/dl (70-99); Potassium 4.7 mmol/L (3.5-5.1); Sodium 137 mmol/L (135-145); eGFR 35.01
[2024-07-13] MEDS: CARDIZEM CD 120 MG PO (09:08)
[2024-07-13] MEDS: PLAQUENIL 200 MG PO (09:08)
[2024-07-13] MEDS: VITAMIN D3 (cholecalciferol) 50 MCG PO (09:08)
[2024-07-13] MEDS: VISBIOME 2 CAP PO (09:08)
[2024-07-13] MEDS: ROBITUSSIN DM 10 ML PO ×2 (09:09→17:30)
[2024-07-13] MEDS: TYLENOL 650 MG PO (09:09)
[2024-07-13] MEDS: TIMOPTIC 0.5% OPHTHALMIC SOLUTION 1 DROP BOTH EYES (09:10)
[2024-07-13] MEDS: ALPHAGAN 0.2% EYE DROPS 1 DROP BOTH EYES (09:10)
[2024-07-13] MEDS: HEPARIN 5000 UNITS SC ×2 (09:10→17:27)
--- NOTE | 2024-07-13 13:58 | CM ---
Reviewed the chart notes and spoke with the patient's daughter at the bedside. Patient will be transported to [facility] today by ambulance at 6pm.
Plan: Discharge to [facility].
Call report to: [phone]
Fax report to: [phone]
Medical necessity and transport form on chart.
--- NOTE | 2024-07-13 14:02 | W.PN.HOSP.TC ---
Addendum entered and electronically signed by Crispin Cain MD 07/14/24 07:51:
Add on to diagnosis list:
Underweight
Original Note:
Today's Communication/Plan
-
d/c snf rehab
Assessment / Plan
Assessment / Plan
COVID-19 viral infection
finished paxlovid course
Added Cepacol lozenges
Supportive care
Continue isolation
PT OT recommend skilled rehab
Uncomplicated UTI
Finished 3 days of Rocephin, discontinue further antibiotic as patient is C. difficile antigen positive
Urine culture with E. coli, pansensitive
KAREN on CKD stage III:
Stop further IV fluid.
Renal function has stabilized around 1.3. Continue monitoring
Avoid nephrotoxic
f/u script for BMP provided
Pancytopenia:
All numbers remain low but stable
Continue to monitor
B12 normal
Obtain old records
Family states they can not r/o lymphoma as OP-by GI/radiology
Recommend hematology as OP after current acute issues improved
C. difficile antigen positive
Chronic Diarrhea
Use as needed Imodium
Avoid unnecessary antibiotics
Probiotics ordered
GI office number provided for follow up
Hyponatremia -resolved
Continue to monitor
Rheumatoid arthritis:
Cont hydroxychloroquine 200 mg po daily
Recent fall:
CT pelvis no evidence of fracture
Family mention something about arms no extending all the way but she does not have any tenderness on shoulders at all or trauma so we will encourage to continue physical therapy.
Hypertension:
Continue diltiazem
Hyperlipidemia:
Continue pravastatin
COPD/asthma:
Continue Symbicort
DVT prophylaxis: Heparin SQ
CODE STATUS: Full code
More than 30 minutes spent in discharge including
Final examination of the patient
Summarizing hospital stay
Instructions for continuing care to all relevant caregivers
Preparation of discharge records, prescriptions, and referral forms
Total time spent (in minutes): 38 mins
Anticipated Discharge: Today
Subjective/Interval History
-
Date of Service: July 13, 2024
no hypoxia
afebrile in night
no new reported issues
Objective Data
-
Labs:
Laboratory Results
07/13/24
07:46
WBC 3.0 L
Hgb 10.5 L
Hct 32.0 L
Plt Count 112 L
Sodium 137
Potassium 4.7
Chloride 104
Carbon Dioxide 25
BUN 26 H
Creatinine 1.5 H
Glucose 85
Calcium 8.8
Vital Signs:
Vital Signs
Temp Pulse Resp BP Pulse Ox
98.2 F 72 16 136/78 98
07/13/24 07:30 07/13/24 09:08 07/13/24 07:40 07/13/24 09:08 07/13/24 08:00
I&O
07/12/24 07/13/24 07/14/24
06:59 06:59 06:59
Intake Total 1620 / 1620 770 / 770
Balance 1620 / 1620 770 / 770
Review of Systems
-
Respiratory: Reports No Symptoms
Cardiac: Reports No Symptoms
Abdomen/GI: Reports No Symptoms
Physical Exam
-
General: Comfortable
HEENT: Negative Oxygen
Neuro: Awake, Alert, Oriented and No Motor Deficits
[2024-07-13 15:35] VITALS: BP 100/58
--- NOTE | 2024-07-13 16:34 | W.DCSUMMARY ---
Discharge Summary
Discharge Data
Date of Admission: 07/08/24
Date of Discharge: 07/13/24
-
Pending Results: No
Hospital Course
Discharging Physician : Dr Crispin Cain
Disposition : To SNF rehab
Primary care physician : Dr Jessie Gonzales
Principal Discharge diagnosis :
COVID-19 viral infection
Uncomplicated urinary tract infection from Escherichia coli
Acute kidney injury on chronic disease stage III
Clostridium difficile antigen positive
Hyponatremia
Chronic Discharge diagnosis :
Rheumatoid arthritis
Essential Hypertension
Hyperlipidemia
Chronic obstructive pulmonary disease
Hospital Course :
Patient is 78-year-old female with no mentioned past medical history came to ER for generalized weakness. Patient have reportedly some nasal stuffiness and congestion, no fever chills/shortness of breath reported. Patient was found to be
COVID-positive and was admitted for further care. Patient was started on Paxlovid therapy and finished a course in hospital. Patient did not require oxygen support during the stay. Patient also was noted to having uncomplicated urinary tract
infection from E. coli and finished 3-day course of Rocephin. Associated with this patient had acute kidney injury which resolved with IV fluid. Patient also have some persistent pancytopenia and B12/folate levels were within normal limit.
Patient will require follow-up with hematology in office for further testing with possibly need of bone marrow biopsy.
Patient also have chronic diarrhea and was found to be C. difficile antigen positive only. Patient will require follow-up with gastroenterology in office for further evaluation with possible colonoscopy and mucosal biopsy.
Post medical stabilization patient was discharged to residential facility for rehab.
Important imaging findings :
None
Procedure findings :
None
Discharge Plan
-
Patient Disposition: Custodial/SNF
Discharge Diagnosis/Procedures: COVID 19 viral infection
Condition: Fair
Diet: Regular
Activity: As tolerated
Driving Restrictions: No driving
Bathing Restrictions: OK to Shower
Activity Restrictions/Additional Instructions:
Please make an appointment with Dr Garcia ( laboratory monitor ) for evaluation of chronic diarrhea.
Referrals:
Jessie Gonzales CRNP [Family Provider] - in one week
Sofiya Garcia MD [Active] -
Prescriptions:
Continued
diltiazem HCl [DILT-XR] 120 mg capsule,ext.rel 24h degradable
120 mg PO DAILY
pravastatin 20 mg tablet
20 mg PO DAILY
hydroxychloroquine 200 mg tablet
200 mg PO DAILY
brimonidine-timolol 0.2-0.5 % drops
1 drp BOTH EYES BID
cyanocobalamin (vitamin B-12) [Vitamin B-12] 100 mcg Tablet
100 mcg PO DAILY
ascorbic acid (vitamin C) [Vitamin C] 500 mg Tablet
500 mg PO DAILY
fluticasone propion-salmeterol [Advair Diskus] 100-50 mcg/dose Blister With Device
1 inh INHALATION BID
Fish Oil 120-180 mg Capsule
1 cap PO DAILY
cholecalciferol (vitamin D3) [Vitamin D3] 50 mcg (2,000 unit) Capsule
50 mcg PO DAILY
Discontinued
lisinopril 5 mg tablet
5 mg PO DAILY
Discharge Orders:
Discharge Patient (As Directed); Ordered 07/13/24
Ordered By: Crispin Cain
Discharge Date and Time
Print Language: PASHTO
[2024-07-13] MEDS: PRAVACHOL 20 MG PO (17:27)
== END 2024-07-13 18:25 | DRG 178 ==
LOC: 2 NORTH 07:26
PROVIDERS: Hospitalist; ADMITTING PHYSICIAN Internal Medicine; ATTENDING PHYSICIAN Hospitalist; EMERGENCY PHYSICIAN Student in an Organized Health Care Education/Training Program; FAMILY PHYSICIAN Nurse Practitioner Adult Health
DX: U07.1 COVID-19 (principal); A04.72 Enterocolitis due to Clostridium difficile, not specified as recurrent; D61.818 Other pancytopenia; E87.1 Hypo-osmolality and hyponatremia; N17.9 Acute kidney failure, unspecified; N39.0 Urinary tract infection, site not specified; Z68.1 Body mass index [BMI] 19.9 or less, adult; B96.20 Unspecified Escherichia coli [E. coli] as the cause of diseases classified elsewhere; N18.30 Chronic kidney disease, stage 3 unspecified; M06.9 Rheumatoid arthritis, unspecified; I12.9 Hypertensive chronic kidney disease with stage 1 through stage 4 chronic kidney disease, or unspecified chronic kidney disease; E78.5 Hyperlipidemia, unspecified; J44.9 Chronic obstructive pulmonary disease, unspecified; R62.7 Adult failure to thrive; Z95.0 Presence of cardiac pacemaker; I44.30 Unspecified atrioventricular block; Z90.49 Acquired absence of other specified parts of digestive tract; R63.6 Underweight; W19.XXXA Unspecified fall, initial encounter; Z86.718 Personal history of other venous thrombosis and embolism
CPT/HCPCS: 72192; 80048; 80053; 81003; 81015; 82550; 82607; 82728; 82746; 83540; 83550; 84484; 85025; 85027; 87077; 87086; 87186; 87324; 87449; 87502; 87798; 87811; 93005; 94640; 97110; 97166; 97530

== ENCOUNTER 2024-07-20 11:35 | Inpatient (IN) | payer MEDICARE, SELFPAY ==
[2024-07-17] VITALS (13 sets, daily range): BP systolic 98–157; BP diastolic 58–94
--- NOTE | 2024-07-17 13:55 | ED.GENMED ---
History of Present Illness
<Ramya Hampton, INTERNATIONAL FLIGHT ATTENDANT - Last Filed: 07/18/24 20:57>
General
Chief Complaint: Change in Mental Status
Source: patient and ambulance crew
Time Seen by Provider: 07/17/24 13:55
Nursing documentation reviewed up to this point in time: agreed with
History of Present Illness
History of Present Illness:
78 yo female w h/o migraines, RA, HTN, HLD, COPD, pancytopenia, pacemaker, R hip replaced, presents via EMS from [facility] for reported increased confusion, urine frequency, transfer sheet stating 'generalized weakness.'Pt denies CP, SOB,
Abdominal pain.
Pt is oriented x 3 and states she is here because she feels weak, vomited 4 times this a.m. and does not feel like eating. Denies nausea presently, Denies CP, SOB or abdominal pain. Denies diarrhea. Pt denies dysuria, frequency or urgency.
Admitted 07/08-07/13: Covid, UTI, KAREN, Hyponatremia, DC'd to SNF where she has been since.
Past History
<Ramya Hampton, INTERNATIONAL FLIGHT ATTENDANT - Last Filed: 07/18/24 20:57>
Past History
ED Past Medical History: Other (migraines)
ED Past Surgical History: Cardiac (pacemaker)
Social History
Tobacco: Non-smoker
Alcohol: None
Living: assisted (rehab facility)
Review of Systems
<Ramya Hampton, INTERNATIONAL FLIGHT ATTENDANT - Last Filed: 07/18/24 20:57>
Review of Systems
Allergies reviewed?: Yes
All Other Systems: ROS reviewed and negative except as documented in HPI and ROS
Constitutional: Denies fever
Respiratory: Denies trouble breathing
Cardiac: Denies chest pain
ABD/GI: Reports vomiting (earlier today, none since); Denies abdominal pain or nausea
: Denies dysuria, frequency or difficulty voiding
Musculoskeletal: Denies edema
Skin: Reports no symptoms
Neurological: Reports weakness (generalized)
Phy Exam
<Ramya Hampton, INTERNATIONAL FLIGHT ATTENDANT - Last Filed: 07/18/24 20:57>
Physical Exam
Physical Exam:
GENERAL: No acute distress. A&Ox3.
CONSTITUTIONAL: Afebrile.
EYES: clear, conjunctivae normal
ENMT: moist mucus membranes, Pharynx nl
RESPIRATORY: Regular respirations, nonlabored, lungs clear.
CARDIOVASCULAR: Regular rate and rhythm, no murmurs, no rubs.
GI: Soft, nontender, normal BS
MUSCULOSKELETAL: Moves arms and left leg at baseline with adequate ROM for age, unable to lift right leg due to weakness No bony tenderness. Passive ROM of the leg with no pain of hip, knee, ankle. Leg flops to bed when lifted, unable to hold it up.
Well perfused. No edema
SKIN: Warm, dry, pink
PSYCH: Normal mood and affect. Well kept, interactive and appropriate
NEUROLOGIC: Awake, alert and oriented. speech clear, hand grasps equal. Strength LLE 4/5, able to lift leg off bed and hold it there, unable to lift right leg, states it hurts to move it. Plantar flexion intact and equal bilaterally strength 4/5.
Course
<Ramya Hampton, INTERNATIONAL FLIGHT ATTENDANT - Last Filed: 07/18/24 20:57>
Orders/Labs/Results
Orders:
Orders
07/17/24 13:56
Electrocardiogram (*1) Urgent
Reason for Study: Fatigue / Weakness
07/17/24 13:57
EKG- Treatment ONCE
07/17/24 13:58
Complete Blood Count/With Diff Urgent
Comprehensive Metabolic Panel Urgent
Urine Culture Reflexed from UA [Urinalysis Reflex To Culture] Urgent
Date Specimen was Collected: 07/17/24
Time Specimen was Collected: 13:54
07/17/24 14:56
0.9% Sodium Chloride 500 ml [Nss] 500 ml IV BOLUS
07/17/24 Dinner
Clear Liquid
At Your Request: Full Participation
07/17/24 15:26
CT Head W/o Iv Contrast Urgent
Comment:
Reason For Exam: R leg weakness, general weakness
CR Chest - 2 Views Urgent
Comment:
Reason For Exam: change in mental states
07/17/24 17:39
Admit/Transfer Patient As Directed
Co-Sign Provider:
Level of Care: Observation services
Assign to:: Medical/Surgical
Physician / Group: Kaela Hernandez
Diagnosis: viral gastroenteritis
07/17/24 17:40
Code Status As Directed
Resuscitation Status: Full Code
PRN Pain Medication Management As Directed
May give lesser potent ordered pain med per pt: Yes
preference::
Protocol:: Medication orders for pain may be administered in a
manner that supports deferring to patient preference
when the pt is:
- Requesting an ordered lesser potent pain medication.
Least to most potent pain medications are defined
as: acetaminophen < NSAID < tramadol < opioids
(morphine, oxycodone, hydromorphone).
- Requesting a lesser dose of the same medication IF
ORDERED.
- Requesting a less intrusive route of administration
if both routes are prescribed by the provider (PO <
IV).
07/17/24 21:15
0.9% Sodium Chloride 1000 ml [Nss] 1,000 ml IV 85 mls/hr
Acetaminophen [Tylenol] 650 mg PO Q4HPRN PRN
07/17/24 21:15
Activity As Directed
Activity Level: Out of Bed-Early Mobility
Vital Signs As Directed
Frequency: Per unit guidelines
Weight As Directed
Frequency: Once
DX Deep Vein Thrombosis Video Routine
07/18/24 00:00
Heparin 5,000 units SC Q8
07/18/24 08:00
Cholecalciferol (Vitamin D3) [VITAMIN D3 (cholecalciferol)] 50 mcg PO DAILY
Cyanocobalamin [Vitamin B-12] 100 mcg PO DAILY
Diltiazem Extended Release [Cardizem Cd] 120 mg PO DAILY
Hydroxychloroquine [Plaquenil] 200 mg PO DAILY
Lisinopril [Zestril] 5 mg PO DAILY
Pravastatin Sodium [Pravachol] 20 mg PO DAILY
docosahexaenoic acid-epa [Fish Oil] 1 cap PO DAILY
07/18/24 12:25
Brimonidine [Alphagan 0.2% Eye Drops] 1 drop BOTH EYES BID
Abnormal Lab Results
07/17/24
13:58
RBC 4.09 L 10^6/uL
(4.20-5.40)
Hct 36.5 L %
(37.0-47.0)
Absolute Neuts (auto) 8.0 H 10^3/uL
(1.4-6.5)
Absolute Lymphs (auto) 0.5 L 10^3/uL
(1.2-3.4)
Absolute Monos (auto) 0.8 H 10^3/uL
(0.1-0.6)
Neutrophils % 85.9 H %
(42.2-75.2)
Lymphocytes % 5.2 L %
(20.5-51.1)
BUN 28 H mg/dl
(7-17)
Creatinine 1.1 H mg/dL
(0.6-1.0)
Glucose 150 H mg/dl
(70-99)
07/17/24 13:58
07/17/24 13:58
Vital Signs
Initial and Last Documented VS:
Initial Vital Signs
Temp Pulse Resp BP Pulse Ox
98.1 F 120 20 147/89 99
07/17/24 13:55 07/17/24 13:55 07/17/24 13:55 07/17/24 13:55 07/17/24 13:55
Last Documented Vital Signs
Temp Pulse Resp BP Pulse Ox
100.1 F 80 18 137/77 94
07/18/24 15:17 07/18/24 20:46 07/18/24 20:46 07/18/24 15:17 07/18/24 20:46
<Susan Mercer, DO - Last Filed: 07/17/24 16:53>
Orders/Labs/Results
Orders:
Orders
07/17/24 13:56
Electrocardiogram (*1) Urgent
Reason for Study: Fatigue / Weakness
07/17/24 13:57
EKG- Treatment ONCE
07/17/24 13:58
Complete Blood Count/With Diff Urgent
Comprehensive Metabolic Panel Urgent
Urine Culture Reflexed from UA [Urinalysis Reflex To Culture] Urgent
Date Specimen was Collected: 07/17/24
Time Specimen was Collected: 13:54
07/17/24 14:56
0.9% Sodium Chloride 500 ml [Nss] 500 ml IV BOLUS
07/17/24 Dinner
Clear Liquid
At Your Request: Full Participation
07/17/24 15:26
CT Head W/o Iv Contrast Urgent
Comment:
Reason For Exam: R leg weakness, general weakness
CR Chest - 2 Views Urgent
Comment:
Reason For Exam: change in mental states
07/17/24 17:39
Admit/Transfer Patient As Directed
Co-Sign Provider:
Level of Care: Observation services
Assign to:: Medical/Surgical
Physician / Group: Kaela Hernandez
Diagnosis: viral gastroenteritis
07/17/24 17:40
Code Status As Directed
Resuscitation Status: Full Code
PRN Pain Medication Management As Directed
May give lesser potent ordered pain med per pt: Yes
preference::
Protocol:: Medication orders for pain may be administered in a
manner that supports deferring to patient preference
when the pt is:
- Requesting an ordered lesser potent pain medication.
Least to most potent pain medications are defined
as: acetaminophen < NSAID < tramadol < opioids
(morphine, oxycodone, hydromorphone).
- Requesting a lesser dose of the same medication IF
ORDERED.
- Requesting a less intrusive route of administration
if both routes are prescribed by the provider (PO <
IV).
07/17/24 21:15
0.9% Sodium Chloride 1000 ml [Nss] 1,000 ml IV 85 mls/hr
Acetaminophen [Tylenol] 650 mg PO Q4HPRN PRN
07/17/24 21:15
Activity As Directed
Activity Level: Out of Bed-Early Mobility
Vital Signs As Directed
Frequency: Per unit guidelines
Weight As Directed
Frequency: Once
DX Deep Vein Thrombosis Video Routine
07/18/24 00:00
Heparin 5,000 units SC Q8
07/18/24 08:00
Cholecalciferol (Vitamin D3) [VITAMIN D3 (cholecalciferol)] 50 mcg PO DAILY
Cyanocobalamin [Vitamin B-12] 100 mcg PO DAILY
Diltiazem Extended Release [Cardizem Cd] 120 mg PO DAILY
Hydroxychloroquine [Plaquenil] 200 mg PO DAILY
Lisinopril [Zestril] 5 mg PO DAILY
Pravastatin Sodium [Pravachol] 20 mg PO DAILY
docosahexaenoic acid-epa [Fish Oil] 1 cap PO DAILY
07/18/24 12:25
Brimonidine [Alphagan 0.2% Eye Drops] 1 drop BOTH EYES BID
Abnormal Lab Results
07/17/24
13:58
RBC 4.09 L 10^6/uL
(4.20-5.40)
Hct 36.5 L %
(37.0-47.0)
Absolute Neuts (auto) 8.0 H 10^3/uL
(1.4-6.5)
Absolute Lymphs (auto) 0.5 L 10^3/uL
(1.2-3.4)
Absolute Monos (auto) 0.8 H 10^3/uL
(0.1-0.6)
Neutrophils % 85.9 H %
(42.2-75.2)
Lymphocytes % 5.2 L %
(20.5-51.1)
BUN 28 H mg/dl
(7-17)
Creatinine 1.1 H mg/dL
(0.6-1.0)
Glucose 150 H mg/dl
(70-99)
07/17/24 13:58
07/17/24 13:58
Vital Signs
Initial and Last Documented VS:
Initial Vital Signs
Temp Pulse Resp BP Pulse Ox
98.1 F 120 20 147/89 99
07/17/24 13:55 07/17/24 13:55 07/17/24 13:55 07/17/24 13:55 07/17/24 13:55
Last Documented Vital Signs
Temp Pulse Resp BP Pulse Ox
100.1 F 80 18 137/77 94
07/18/24 15:17 07/18/24 20:46 07/18/24 20:46 07/18/24 15:17 07/18/24 20:46
<Ramya Hampton, INTERNATIONAL FLIGHT ATTENDANT - Last Filed: 07/18/24 20:57>
MDM/Problems Addressed
Differential Diagnosis Includes:
dehydration, UTI, CVA
MDM/Problems Addressed:
78 yo female w h/o migraines, RA, HTN, HLD, COPD, pancytopenia, pacemaker, R hip replaced, presents via EMS from [facility] for reported increased confusion, urine frequency, transfer sheet stating 'generalized weakness.'Pt denies CP, SOB,
Abdominal pain.
Pt is oriented x 3 and states she is here because she feels weak, vomited 4 times this a.m. and does not feel like eating. Denies nausea presently, Denies CP, SOB or abdominal pain. Denies diarrhea. Pt denies dysuria, frequency or urgency.
Admitted 07/08-07/13: Covid, UTI, KAREN, Hyponatremia, DC'd to SNF where she has been since.
Afebrile, mildly tachycardic,
CBC normal
CMP: BUN Creat 28/1.1 her baseline otherwise normal
Straight cathed U/A neg
IVFs infusing for tachycardia most likely mild dehydration
4:30 p.m.
Unremarkable workup save for right leg weakness. Dr. Mercer in to evaluate.
Daughter at bedside states for past 3 days she's been having pt do leg exercises and pt has been able to lift the legs equally, today she notes pt unable to lift the R leg.
Head CT: Radiology IMPRESSION:No acute intracranial abnormality noted. Mild atrophy. Severe periventricular small vessel ischemic disease.
CXR: NAD
<Ramya Hampton INTERNATIONAL FLIGHT ATTENDANT - Last Filed: 07/18/24 20:57>
*Critical Care Note
Total Time (30-74mins, 75-104mins- exclusive of procedures): Not Applicable
ED Attending Note
<Ramya Hampton INTERNATIONAL FLIGHT ATTENDANT - Last Filed: 07/18/24 20:57>
-
Portions of this chart may have been created with voice recognition software.� Occasional wrong word or��sound alike� substitutions may have occurred due to the inherent limitations of voice recognition software.
<Susan Mercer DO - Last Filed: 07/17/24 16:53>
ED Attending Note
Patient seen and examined by attending physician: Yes
I performed the substantive portion of visit, reviewed & personally made and approve the management plan that is documented in note by myself or JENNIE.: Yes
I performed a history and physical exam of patient and discussed management with resident, I reviewed resident's note and agree with documented findings and plan of care.: Yes
ED Attending Note:
78-year-old female history of hypertension, hyperlipidemia, arthritis with ambulatory issues at baseline presenting for generalized weakness. Patient presents from nursing facility where she was noted to be weak, frequent urination and had 4
episodes of vomiting. Patient had recent hospitalization from 07/08 to 07/13 for weakness, at which time she was found to be COVID-positive and also treated for UTI. Patient arrives with daughter who notes that yesterday patient was not moving her
right lower extremity which is not for her. Patient does agree that her right lower extremity feels weak. No report of recent fall or trauma. Denies pain to the right lower extremity. Patient denying any chest pain or difficulty breathing
Vital signs initially show tachycardia, however resolved without intervention. On exam patient is awake, alert, answering questions appropriately. Benign cardiac, pulmonary, abdominal exam. Patient does have a weakness to the right lower
extremity in comparison to the left which is reportedly new, however new from yesterday. CVA is a consideration, however will not be a tPA candidate given symptoms yesterday. Labs obtained prior to my assessment, unremarkable. Urine without sign
of infection. CT imaging obtained, no acute intracranial abnormality. Will clarify with nursing facility regarding patient's right lower extremity weakness, new versus chronic and determine admission needs.
Discharge Plan
Departure
Patient Disposition: Admit
Date of Disposition: 07/17/24
Time of Disposition: 16:59
Admit to: Med/Surg
Presentation/result/management discussed w/ accepting MD/DO: Hospitalist
Condition: Fair
Discharge Problem:
New onset RLE weakness, Right leg weakness, Generalized weakness
Interventions
Interventions:
*Risk Screen - Suicide Last Done: 07/17/24 13:55
*General Assessment Last Done: 07/17/24 13:55
*Neglect/Abuse Screening Last Done: 07/17/24 13:55
ED- Fall Risk Assessment Last Done: 07/17/24 23:24
*ED COVID-19 Vaccine History Last Done: 07/17/24 13:55
*Nursing Disposition Last Done: 07/18/24 06:44
ED- Pulmonary Assessment Last Done: 07/17/24 23:24
ED- Neurological Assessment Last Done: 07/17/24 23:24
ED- Cardiac Assessment Last Done: 07/17/24 14:04
ED Swallowing Screen Last Done: 07/17/24 14:24
[2024-07-17 14:20] LABS: % Basophils 0.2 % (0-2); % Eosinophils 0.1 % (0-6); % Immature Granulocytes 0.4 % (0-0.5); % Lymphocytes 5.2 % (20.5-51.1); % Monocytes 8.2 % (1.7-9.3); % Neutrophils 85.9 % (42.2-75.2); Absolute Lymphocytes 0.5 10^3/uL (1.2-3.4); Absolute Monocytes 0.8 10^3/uL (0.1-0.6); Hematocrit 36.5 % (37.0-47.0); Hemoglobin 12.1 g/dL (12.0-16.0); Mean Corp Hgb Conc. 33.2 g/dL (33.0-37.0); Mean Corpuscular Hgb 29.6 pg (27.0-31.0); Mean Corpuscular Volume 89.2 fL (81.0-99.0); Mean Platelet Volume 9.9 fL (7.4-10.4); Nucleated Red Blood Cells % 0 %; Platelet Count 167 10^3/uL (130-400); Red Blood Cell Count 4.09 10^6/uL (4.20-5.40); Red Cell Dist. Width 12.8 % (11.5-14.5); White Blood Cell Count 9.3 10^3/uL (4.8-10.8)
[2024-07-17 14:21] LABS: Urine Albumin Trace (Neg - Trace); Urine Bilirubin Negative (Negative); Urine Character Clear (Clear); Urine Color Yellow; Urine Glucose Negative (Negative); Urine Ketone Negative (Negative); Urine Leukocyte Negative (Negative); Urine Nitrite Negative (Negative); Urine Occult Blood Negative (Negative); Urine Specific Gravity 1.015 (<1.030); Urine Urobilinogen Negative (Neg - 1+); Urine pH 6.5 (5.0-9.0)
[2024-07-17 14:40] LABS: ALT (SGPT) 25 U/L (0-35); AST (SGOT) 31 U/L (14-36); Albumin 4.1 g/dl (3.5-5.0); Alkaline Phosphatase 70 U/L (38-126); Blood Urea Nitrogen 28 mg/dl (7-17); Calcium 9.2 mg/dl (8.4-10.2); Carbon Dioxide 26 mmol/L (22-30); Chloride 99 mmol/L (98-107); Glucose 150 mg/dl (70-99); Sodium 135 mmol/L (135-145); Total Bilirubin 0.9 mg/dl (0.2-1.3); Total Protein 6.4 g/dl (6.3-8.2)
[2024-07-17] MEDS: NSS 500 IV (15:01)
--- NOTE | 2024-07-17 17:08 | HPS.HSE ---
Family Physician
-
Family Physician: Jessie Gonzales
Chief Complaint
-
generalized weakness/vomiting
History of Present Illness
Patient is a 78-year-old female with past medical history significant for hypertension, hyperlipidemia, CKD, COPD, and RA who presented to [facility] for evaluation of generalized weakness and emesis this morning. Patient recently discharged
following stay for Covid, treated with Paxlovid. Although patient AAOx3, does limit answers with assessment. Patient states this morning she started feeling weaker and had vomited. She reports she has not vomited since and does not have any nausea.
She denies any fever, chills, cough, shortness of breath, chest pain, abdominal pain, constipation, diarrhea or urinary symptoms.
Medical History
Past Medical History
Past Medical History: Reports Other
Additional Past Medical History:
benign hypertension
hyperlipidemia
CKD
COPD
RA
Past Surgical History: Reports Other
Additional Past Surgical History:
pacemaker
right hip replacement
Social History
Tobacco: Non-smoker
Alcohol: None
Drug: None
Personal:
Living: Longterm
Employment: Retired
Family History
Family History: Not pertinent
Allergies / Home Medications
Allergies reflects when Allergies were last updated in [facility].
Home Medications with original date entered in [facility]
Allergy/Medication List:
Allergies
Allergy/AdvReac Type Severity Reaction Status Date / Time
ciprofloxacin Allergy Severe Hallucinati Verified 07/09/24 12:57
on
gabapentin Allergy Anaphylaxis Verified 07/07/24 23:27
Home Medications
brimonidine 0.2 %-timolol 0.5 % eye drops 1 drp BOTH EYES BID Eye Condition 07/08/24
cholecalciferol (vitamin D3) 50 mcg (2,000 unit) capsule (Vitamin D3) 50 mcg PO DAILY Supplement 07/08/24
cyanocobalamin (vitamin B-12) 100 mcg tablet (Vitamin B-12) 100 mcg PO DAILY Supplement 07/08/24
diltiazem HCl 120 mg capsule,extended release 24 hr, controlled (DILT-XR) 120 mg PO DAILY Rate control 07/08/24
docosahexaenoic acid (dha)-epa 120 mg-180 mg capsule (Fish Oil) 1 cap PO DAILY Supplement 07/08/24
fluticasone 100 mcg-salmeterol 50 mcg/dose blistr powdr for inhalation (Advair Diskus) 1 inh inhalation R BIDPRN PRN sob 07/08/24
hydroxychloroquine 200 mg tablet 200 mg PO DAILY Rheumatoid arthritis 07/08/24
pravastatin 20 mg tablet 20 mg PO DAILY High Cholesterol 07/08/24
lisinopril 5 mg tablet 5 mg PO DAILY 07/17/24
Review of Systems
-
History Source: Patient
Constitutional: Reports No Symptoms
EENT: Reports No Symptoms
Respiratory: Reports No Symptoms
Cardiac: Reports No Symptoms
Abdomen/GI: Reports Vomiting
: Reports No Symptoms
Musculoskeletal: Reports No Symptoms
Skin: Reports No Symptoms
Neurological: Reports Weakness
Endocrine: Reports No Symptoms
Hematologic/Lymphatic: Reports No Symptoms
Psych: Reports No Symptoms
Physical Exam
Vital Signs
Vital Signs
Temp Pulse Resp BP Pulse Ox
98.1 F 87 16 123/80 98
07/17/24 13:55 07/17/24 15:31 07/17/24 15:30 07/17/24 16:12 07/17/24 16:30
Physical Exam
General: Well Developed, Well Nourished, No Apparent Distress, Comfortable and Conversant
HEENT: NormoCephalic, Moist mucous membranes, Atraumatic, PERRLA, [place] Conjunctivae, Nose Appears Normal and Neck Nontender
Respiratory: Clear, Wheezes, Non Labored Respirations and Decreased Breath Sounds
Cardiac: S1/S2 and Regular Rhythm; No Murmur, Rub or Gallop
Breast: Deferred by me
GI: Soft, Non Tender, Non Distended and Normal Bowel Sounds; No Organomegaly
Rectal: Deferred by Provider
Genito-urinary: Deferred by me
Musculoskeletal: No Clubbing, No Cyanosis and No Edema
Skin: No Rash
Neuro: Awake, Alert, AO x 3 and Nonfocal/grossly intact
Hematologic/Lymphatic: No Lymphadenopathy
Psych: Calm
Laboratory Results
-
07/17/24 13:58
07/17/24 13:58
Laboratory Results
Total Bilirubin 0.9 mg/dl (0.2-1.3) 07/17/24 13:58
AST 31 U/L (14-36) 07/17/24 13:58
ALT 25 U/L (0-35) 07/17/24 13:58
Alkaline Phosphatase 70 U/L (38-126) 07/17/24 13:58
Data Reviewed
-
Diagnostic Radiology: Report Reviewed by me (CXR: No acute disease of the chest)
CT Scan: Report Reviewed by me (Head CT: No acute intracranial abnormality noted. Mild atrophy. Severe periventricular small vessel ischemic disease.)
Lab Data: Labs Reviewed by me
Impression/Plan
-
IMPRESSION/PLAN:
#viral gastroenteritis
Generalized weakness, emesis x4 this morning
- Admit to med/surg for observation
- rajendra IVF
- clear liquid diet as tolerated
#benign hypertension
- continue lisinopril
#AV block
s/p pacemaker placement
- continue diltiazem
#hyperlipidemia
- continue pravastatin
#CKD
BUN 28, Creat 1.1 (baseline)
- monitor BMP
#COPD
- continue Advair
#RA
- continue hydroxychloroquine
Code Status: Full Code
DVT Prophylaxis: Heparin Sq
--- NOTE | 2024-07-17 17:42 | W.PN.UPDATE ---
Update Note
Progress Note Update
This is an addendum to the H&P written by patient Janna on 07/17/2024.� Patient seen and examined independently with METALLURGICAL INSPECTOR.
78-year-old female past medical history of CKD 3, pancytopenia, C. difficile antigen positive, chronic diarrhea, rheumatoid arthritis, hypertension, hyperlipidemia, COPD/asthma, presenting with increased confusion, urinary frequency, generalized
weakness as per EMS.� She reports vomiting and decreased p.o. intake but denies urinary symptoms.� Also complains of cough.
Recent admission from 07/08 to 07/13 for COVID treated with Paxlovid.
Patient with normal blood pressure apart from isolated blood pressure of 98/60.
Chest x-ray unremarkable.
No focal neurological deficits.� Suspect possible mild viral gastroenteritis.� IV fluids.� Clear liquid diet, advance diet as tolerated.
[2024-07-17] MEDS: NSS 1000 IV (22:10)
[2024-07-18] VITALS: BP 102/59
[2024-07-18] MEDS: HEPARIN 5000 UNITS SC ×4 (00:51→23:33)
[2024-07-18] MEDS: NSS 1000 IV ×2 (08:24→22:12)
[2024-07-18] MEDS: TYLENOL 650 MG PO ×3 (08:26→23:48)
[2024-07-18] MEDS: PLAQUENIL 200 MG PO (08:27)
[2024-07-18] MEDS: VITAMIN B-12 100 MCG PO (08:30)
[2024-07-18] MEDS: CARDIZEM CD 120 MG PO (08:31)
[2024-07-18] MEDS: PRAVACHOL 20 MG PO (08:31)
[2024-07-18] MEDS: ZESTRIL 5 MG PO (08:32)
[2024-07-18] MEDS: VITAMIN D3 (cholecalciferol) 50 MCG PO (08:33)
[2024-07-18 08:43] VITALS: BP 136/74
--- NOTE | 2024-07-18 09:07 | PTCARENOTE ---
(+) Covid test 10 days ago, course of Paxlovid completed. C. Diff antigen (+), C. Diff antigen (-). Pt denying diarrhea. Cleared to standard precautions by Infection Prevention.
--- NOTE | 2024-07-18 09:27 | W.PN.HOSP.TC ---
Today's Communication/Plan
-
GI consult. Check inflammatory markers. PT OT eval
Assessment / Plan
Assessment / Plan
Physical exam:
General: Acute on chronically ill
HEENT: Normocephalic, Atraumatic and Moist Mucous Membranes
Respiratory: Clear to Auscultation; Negative Wheezes, Rales or Rhonchi
Cardiac: Regular Rhythm and S1/S2
GI: Soft, tender and Nondistended
Musculoskeletal: Joint deformities related to RA. No Clubbing, No Cyanosis and No Edema
Neuro: Awake, Alert and Oriented
Psych: Calm
A/P:
Recurrent nausea and vomiting:
Unclear etiology
On clear liquid diet
On IV fluid
History of recent C. difficile antigen positive and toxin negative
Monitor for recurrent symptoms
GI consult for further eval
PT OT eval
Generalized myalgias and arthralgias:
Possibility of COVID-19 rebound syndrome versus inflammatory poly-arthropathy
Will check sed rate and CRP; also check CPK while on statins
In any event, supportive treatment would be indicated. If Inflammatory markers elevated might consider steroids
Oral candidiasis:
Nystatin swish and swallow
Recent COVID-19:
Completed course of Paxlovid
Recent UTI:
Finished course of treatment with antibiotics recently
CKD:
Avoid nephrotoxic
Monitor renal function
Pancytopenia:
Chronic
Recommend hematology eval as outpatient
Hyponatremia:
Monitor trend
Rheumatoid arthritis:
Continue hydroxychloroquine 200 mg p.o. daily
Hypertension:
Continue usual meds
Hyperlipidemia:
Continue statins
COPD/asthma:
Continue inhalers
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
Underweight
DVT prophylaxis:
Heparin SQ
CODE STATUS:
Full code
Anticipated Discharge: 24 - 48 hours
Subjective/Interval History
-
Date of Service: July 18, 2024
Patient with abdominal discomfort nausea and vomiting. Afebrile. Reevaluated later in patient complains of generalized myalgia and arthralgias.
Objective Data
-
Vital Signs:
Vital Signs
Temp Pulse Resp BP Pulse Ox
99.1 F 86 20 136/74 98
07/18/24 08:43 07/18/24 08:43 07/18/24 08:43 07/18/24 08:43 07/18/24 08:43
[2024-07-18] MEDS: ADVAIR HFA 45/21 MCG INHALER 2 PUFF INH ×2 (09:53→20:44)
[2024-07-18 10:42] LABS: Blood Urea Nitrogen 35 mg/dl (7-17); Calcium 7.9 mg/dl (8.4-10.2); Carbon Dioxide 22 mmol/L (22-30); Chloride 105 mmol/L (98-107); Glucose 106 mg/dl (70-99); Potassium 4.5 mmol/L (3.5-5.1); Sodium 134 mmol/L (135-145); eGFR 41.57
[2024-07-18 10:46] LABS: % Basophils 0.2 % (0-2); % Immature Granulocytes 0.5 % (0-0.5); % Lymphocytes 5.4 % (20.5-51.1); % Monocytes 10.3 % (1.7-9.3); % Neutrophils 83.6 % (42.2-75.2); Absolute Lymphocytes 0.5 10^3/uL (1.2-3.4); Absolute Monocytes 0.9 10^3/uL (0.1-0.6); Hematocrit 29.4 % (37.0-47.0); Hemoglobin 9.6 g/dL (12.0-16.0); Mean Corp Hgb Conc. 32.7 g/dL (33.0-37.0); Mean Corpuscular Hgb 29.6 pg (27.0-31.0); Mean Corpuscular Volume 90.7 fL (81.0-99.0); Mean Platelet Volume 9.8 fL (7.4-10.4); Nucleated Red Blood Cells % 0 %; Platelet Count 152 10^3/uL (130-400); Red Blood Cell Count 3.24 10^6/uL (4.20-5.40); Red Cell Dist. Width 13.2 % (11.5-14.5); White Blood Cell Count 8.4 10^3/uL (4.8-10.8)
--- NOTE | 2024-07-18 11:46 | CON.GI ---
Addendum entered and electronically signed by Minerva Escoto DO 07/18/24 16:13:
The patient was seen and examined by me independently in collaboration with the nurse practitioner.
Past medical history/social history/medications/allergies/family history reviewed.
Lab data and imaging data reviewed.
Lisa is an 78-year-old female with past medical history of rheumatoid arthritis on Plaquenil, heart block status post pacemaker, anemia, hx DVT who was recently admitted to from 07/08-07/13 with COVID tx with paxlovid and UTI treated with Rocephin
who returns with myalgias, confusion and increased urinary frequency. There were reports of emesis prior to arrival. Currently, patient denies any nausea, vomiting, abdominal pain or diarrhea. She complains of left arm pain, then points to her
pelvis where she also has pain. She has a very difficult time describing the character and quality of pain. She also complains of head and neck pain.
Hgb initially 9.6, improved to 11 on repeat.
Unclear etiology of current symptoms but at this time patient does not offer GI complaints. Will defer further workup to primary team.
Original Note:
Consultation
-
Date/Time Consultation Requested: 07/18/24 1006
Date/Time Consultation Performed: 07/18/24 1140
Requesting Provider: Dr. Aranda
Performing Provider: Dr. Escoto/GIL Rojas
Reason for Consultation: N/V
Medical History
Chief Complaint / HPI
Chief Complaint: pain
History of Present Illness:
78-year-old female with past medical history of rheumatoid arthritis on Plaquenil, history of heart block status post pacemaker, anemia, prior DVT, who was recently admitted 07/08/2024 through 07/13/2024 for COVID treated with Paxlovid, UTI treated
with Rocephin x 3 days, C. difficile antigen positive toxin negative did not receive any treatment and KAREN. She was discharged to SNF for rehab. She presents back to the emergency room on 07/17/2024 for confusion, urinary frequency and weakness.
There was report that she had vomiting in the morning prior to arrival in the emergency room. She has had no further vomiting is asking to have something to eat. She has been placed on clear liquid diet yet to trial. The patient states to me that
she feels 'achy all over'. More specifically she states that her left shoulder and arm feel very sore. Both of her shoulders and upper body feel extremely sore. She has neck pain and head pain. Tmax here has been 99.6. She denies any further
nausea. She has had no vomiting here. She denies any abdominal pain. She has not had any bowel movements. Prior to yesterday she was eating and drinking without any difficulty but did have a poor appetite while at the SNF facility. She does
have some mild thrush on her tongue. WBC 8.4, hemoglobin 9.6, hematocrit 29.4, platelets 152, sodium 134, potassium 4.5, BUN 35, creatinine 1.3, glucose 106, total bilirubin 0.9, AST 31, ALT 25, alk phos 70, albumin 4.1. UA negative. The patient
does have a routine follow-up with Dr. Ortega planned on 07/29/2024 at 11:30 AM.
Past Medical History
Past Medical History: Other (Rheumatoid arthritis, heart block, DVT, anemia, COVID, UTI, C. difficile antigen positive)
Past Surgical History: Other (Pacemaker, appendectomy, right hip)
Social History
Tobacco: Non-Smoker
Alcohol: None
Drug: None
Personal:
Living: With Family
Family History
Family History: Other (Family history of gastrointestinal malignancy or IBD)
Allergies / Home Medications
Allergy/AdvReac Type Severity Reaction Status Date / Time
ciprofloxacin Allergy Severe Hallucinati Verified 07/09/24 12:57
on
gabapentin Allergy Anaphylaxis Verified 07/07/24 23:27
�Medication �Instructions �Recorded
brimonidine 0.2 %-timolol 0.5 % 1 drp BOTH EYES BID Eye Condition 07/08/24
eye drops
cholecalciferol (vitamin D3) 50 50 mcg PO DAILY Supplement 07/08/24
mcg (2,000 unit) capsule (Vitamin
D3)
cyanocobalamin (vitamin B-12) 100 100 mcg PO DAILY Supplement 07/08/24
mcg tablet (Vitamin B-12)
diltiazem HCl 120 mg 120 mg PO DAILY Rate control 07/08/24
capsule,extended release 24 hr,
controlled (DILT-XR)
docosahexaenoic acid (dha)-epa 120 1 cap PO DAILY Supplement 07/08/24
mg-180 mg capsule (Fish Oil)
fluticasone 100 mcg-salmeterol 50 1 inh inhalation R BIDPRN PRN sob 07/08/24
mcg/dose blistr powdr for
inhalation (Advair Diskus)
hydroxychloroquine 200 mg tablet 200 mg PO DAILY Rheumatoid 07/08/24
arthritis
pravastatin 20 mg tablet 20 mg PO DAILY High Cholesterol 07/08/24
lisinopril 5 mg tablet 5 mg PO DAILY 07/17/24
Review of Systems
-
All other systems: A 12 pt ROS was Negative except as stated above in HPI
Vital Signs
Temp Pulse Resp BP Pulse Ox
99.1 F 86 20 136/74 98
07/18/24 08:43 07/18/24 08:43 07/18/24 08:43 07/18/24 08:43 07/18/24 09:54
Physical Exam
Exam
General: Other (Appears weak)
HEENT: Anicteric
Respiratory: Clear (Anterior)
Cardiac: Regular Rhythm
GI: Soft, Non Tender, Non Distended and Normal Bowel Sounds
Musculoskeletal: Other (Rheumatoid changes to hands, left greater than right)
Skin: Warm and Dry
Neuro: AO x 3
Psych: Calm
Results
WBC 8.4 10^3/uL (4.8-10.8) 07/18/24 10:21
Hgb 9.6 g/dL (12.0-16.0) L D 07/18/24 10:21
Hct 29.4 % (37.0-47.0) L 07/18/24 10:21
MCV 90.7 fL (81.0-99.0) 07/18/24 10:21
Plt Count 152 10^3/uL (130-400) 07/18/24 10:21
Absolute Neuts (auto) 7.0 10^3/uL (1.4-6.5) H 07/18/24 10:21
Sodium 134 mmol/L (135-145) L 07/18/24 10:21
Potassium 4.5 mmol/L (3.5-5.1) 07/18/24 10:21
Chloride 105 mmol/L (98-107) 07/18/24 10:21
Carbon Dioxide 22 mmol/L (22-30) 07/18/24 10:21
BUN 35 mg/dl (7-17) H 07/18/24 10:21
Creatinine 1.3 mg/dL (0.6-1.0) H 07/18/24 10:21
Calcium 7.9 mg/dl (8.4-10.2) L 07/18/24 10:21
Total Bilirubin 0.9 mg/dl (0.2-1.3) 07/17/24 13:58
AST 31 U/L (14-36) 07/17/24 13:58
ALT 25 U/L (0-35) 07/17/24 13:58
Alkaline Phosphatase 70 U/L (38-126) 07/17/24 13:58
Diagnostic Image Results:
CXR 07/17/24:
IMPRESSION:
No acute disease of the chest
CT Head without IV contrast 07/18/24:
IMPRESSION:
No acute intracranial abnormality noted.
Mild atrophy.
Severe periventricular small vessel ischemic disease.
04/11/2024 UGI:
IMPRESSION: Mild gastroesophageal reflux disease.
No definitive abnormality in the region of the gastric antrum corresponding to the recent CT finding. Repeat CT examination is recommended. If the finding resolves, this suggests peristalsis or resolved gastritis. The patient states her symptoms are
less frequent but not completely resolved. If the CT finding persists, direct visualization again recommended.
Electronically signed by Lexie Heart DO, 04/11/2024 12:[address] abdomen and pelvis with oral contrast 03/29/2024:
IMPRESSION: Gastric wall thickening as described above. This may be due to gastritis or peristalsis. Other etiologies such as lymphoma cannot be excluded. Direct visualization recommended.
Findings suggesting fecal impaction.
Prior GI Procedures:
EGD: Never had
Colonoscopy: She had a colonoscopy in 2019 in [place] which was essentially unremarkable by report.
Assessment / Plan
-
78-year-old female with past medical history of rheumatoid arthritis on Plaquenil, history of heart block status post pacemaker, anemia, prior DVT, who was recently admitted 07/08/2024 through 07/13/2024 for COVID treated with Paxlovid, UTI treated
with Rocephin x 3 days, C. difficile antigen positive toxin negative did not receive any treatment and KAREN. She was discharged to SNF for rehab. She presents back to the emergency room on 07/17/2024 for confusion, urinary frequency and weakness.
There was report that she had vomiting in the morning prior to arrival in the emergency room. She has had no further vomiting is asking to have something to eat. She has been placed on clear liquid diet yet to trial. The patient states to me that
she feels 'achy all over'. More specifically she states that her left shoulder and arm feel very sore. Both of her shoulders and upper body feel extremely sore. She has neck pain and head pain. Tmax here has been 99.6. She denies any further
nausea. She has had no vomiting here. She denies any abdominal pain. She has not had any bowel movements.
Impression:
N/V-> prior to arrival
Mild thrush on tongue
Weakness
Recent Covid s/p Paxlovid treatment
Anemia
RA on Plaquenil
Recent UTI s/p Rocephin tx
Hx Diarrhea with CDiff Ag positive toxin Negative
Plan:
-Continue clear liquid, no red
-Recommend Nystatin swish and spit
-Repeat CBC as Hgb 9.6, not her baseline, but no signs of bleeding. Will check at 3 pm. Then in am.
-Add Famotidine 20 mg BID.
-If patient with diarrhea would check for CDiff as she has recent Abx use, Immunosuppressed.
-Patient has follow up appt with Dr. Villaseñor 07/29/24 at 11:30 am.
-Further recommendations to be forthcoming
-
-
Thank you for consultation and allowing me to participate in the patient's care. Please call the decontamination worker GI physician during the after hours with any questions or concerns.
[2024-07-18 11:47] VITALS: BP 102/54
--- NOTE | 2024-07-18 12:16 | TRANSFER ---
Pt admitted from ED, pulled over from stretcher to bed. AAOx3, complaining of generalized pain all over body but no nausea. Assisted patient in ordering clear liquid lunch. PRN tylenol to be give when due. Daughter Araceli updated over the phone, plan
of care ongoing.
[2024-07-18 12:20] VITALS: BMI 18.0
[2024-07-18] MEDS: MYCOSTATIN ORAL SUSPENSION 5 ML PO ×3 (12:46→22:14)
[2024-07-18] MEDS: TIMOPTIC 0.5% OPHTHALMIC SOLUTION 1 DROP OPHTH ×2 (13:21→20:23)
[2024-07-18 14:51] LABS: Hematocrit 33.2 % (37.0-47.0); Mean Corp Hgb Conc. 33.1 g/dL (33.0-37.0); Mean Corpuscular Hgb 29.7 pg (27.0-31.0); Mean Corpuscular Volume 89.7 fL (81.0-99.0); Mean Platelet Volume 10.1 fL (7.4-10.4); Platelet Count 179 10^3/uL (130-400); Red Cell Dist. Width 13.3 % (11.5-14.5); White Blood Cell Count 9.4 10^3/uL (4.8-10.8)
[2024-07-18 15:17] VITALS: BP 137/77
[2024-07-18] MEDS: ALPHAGAN 0.2% EYE DROPS 1 DROP BOTH EYES (20:23)
[2024-07-18] MEDS: PEPCID 20 MG PO (20:23)
[2024-07-18 23:15] VITALS: BP 114/56
[2024-07-19] MEDS: TYLENOL 650 MG PO ×4 (05:37→21:02)
[2024-07-19 05:55] LABS: COVID-19 Antigen Negative (Negative)
[2024-07-19 06:50] LABS: Urine Albumin Trace (Neg - Trace); Urine Bilirubin Negative (Negative); Urine Character Clear (Clear); Urine Color Yellow; Urine Glucose Negative (Negative); Urine Ketone Negative (Negative); Urine Leukocyte Negative (Negative); Urine Nitrite Negative (Negative); Urine Occult Blood Negative (Negative); Urine Specific Gravity 1.015 (<1.030); Urine Urobilinogen 1+ (Neg - 1+)
[2024-07-19 07:07] LABS: Hematocrit 29.5 % (37.0-47.0); Hemoglobin 9.9 g/dL (12.0-16.0); Mean Corp Hgb Conc. 33.6 g/dL (33.0-37.0); Mean Corpuscular Hgb 29.6 pg (27.0-31.0); Mean Corpuscular Volume 88.3 fL (81.0-99.0); Mean Platelet Volume 10.7 fL (7.4-10.4); Platelet Count 166 10^3/uL (130-400); Red Blood Cell Count 3.34 10^6/uL (4.20-5.40); Red Cell Dist. Width 13.2 % (11.5-14.5); White Blood Cell Count 9.9 10^3/uL (4.8-10.8)
[2024-07-19 07:51] VITALS: BP 108/63
[2024-07-19 08:13] LABS: ALT (SGPT) 17 U/L (0-35); AST (SGOT) 24 U/L (14-36); Alkaline Phosphatase 78 U/L (38-126); Blood Urea Nitrogen 27 mg/dl (7-17); Calcium 7.7 mg/dl (8.4-10.2); Carbon Dioxide 18 mmol/L (22-30); Chloride 106 mmol/L (98-107); Creatine Phosphokinase 139 U/L (30-135); Estimated Creatinine Clearance 35 ml/min; Glucose 89 mg/dl (70-99); Potassium 4.2 mmol/L (3.5-5.1); Sodium 135 mmol/L (135-145); Total Bilirubin 0.7 mg/dl (0.2-1.3); Total Protein 5.2 g/dl (6.3-8.2); Uric Acid 3.4 mg/dl (2.5-6.2); eGFR 56.95
[2024-07-19] MEDS: ADVAIR HFA 45/21 MCG INHALER 2 PUFF INH ×2 (08:14→20:44)
--- NOTE | 2024-07-19 08:26 | W.PN.HOSP.TC ---
Today's Communication/Plan
-
Doppler and x-rays LUE. GI reeval. Oncology evaluation
Assessment / Plan
Assessment / Plan
Physical exam:
General: Acute on chronically ill
HEENT: Normocephalic, Atraumatic and Moist Mucous Membranes
Respiratory: Clear to Auscultation; Negative Wheezes, Rales or Rhonchi
Cardiac: Regular Rhythm and S1/S2
GI: Soft, tender and Nondistended
Musculoskeletal: Joint deformities related to RA. No Clubbing, No Cyanosis and No Edema
Neuro: Awake, Alert and Oriented
Psych: Calm
A/P:
Recurrent nausea and vomiting:
Unclear etiology but seems to be improving overall
On Pepcid
Advance diet today
History of recent C. difficile antigen positive and toxin negative
Monitor for recurrent symptoms
GI consult-discussed in person
PT OT eval
Discussed with family at bedside including son who also has sister on the phone and [id number] and we had lengthy discussions.
Generalized myalgias and arthralgias:
Suspect rheumatoid arthritis flare
Ideally when she was started on steroids but hold off until her GI symptoms settle.
In the meantime we will check Doppler ultrasound and x-rays.
No evidence of COVID-19 rebound [id number] test negative
Checked sed rate and CRP and they are elevated; also check CPK while on statins and that is mildly elevated but not significantly.
Prior CT images brought up concerns for lymphoma:
Family request oncology evaluation- consult in place
Oral candidiasis:
Nystatin swish and swallow
Recent COVID-19:
Completed course of Paxlovid
Recent UTI:
Finished course of treatment with antibiotics recently
Rechecked UA and it is normal
CKD:
Avoid nephrotoxic
Monitor renal function
Pancytopenia:
Chronic
Recommend hematology eval as outpatient
Hyponatremia:
Monitor trend
Rheumatoid arthritis:
Continue hydroxychloroquine 200 mg p.o. daily
Hypertension:
Continue usual meds
Hyperlipidemia:
Continue statins
COPD/asthma:
Continue inhalers
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
Underweight
DVT prophylaxis:
Heparin SQ
CODE STATUS:
Full code
Total time spent on today's encounter was 52 minutes which included time spent in counseling the patient/family regarding diagnosis and treatment plan as listed above, goals of care, and symptom management. Case was discussed with nursing staff,
specialists, and care coordinators/case management. All labs and imaging personally reviewed by me. Remainder the time spent in detailed review of previous records, lab data, imaging, and other medical provider documentation.
Anticipated Discharge: 24 - 48 hours
Subjective/Interval History
-
Date of Service: July 19, 2024
Patient denies any nausea or vomiting today. Denies any abdominal pain to me. No chest pain or shortness of breath. Her main concern is pain in her left arm.
Objective Data
-
Labs:
Laboratory Results
07/19/24
06:12
WBC 9.9
Hgb 9.9 L
Hct 29.5 L
Plt Count 166
Sodium 135
Potassium 4.2
Chloride 106
Carbon Dioxide 18 L
BUN 27 H
Creatinine 1.0
Glucose 89
Calcium 7.7 L
Total Bilirubin 0.7
AST 24
ALT 17
Alkaline Phosphatase 78
Vital Signs:
Vital Signs
Temp Pulse Resp BP Pulse Ox
98.6 F 82 16 108/63 98
07/19/24 07:51 07/19/24 08:16 07/19/24 08:16 07/19/24 07:51 07/19/24 08:16
I&O
07/18/24 07/19/24 07/20/24
06:59 06:59 06:59
Intake Total 1979
Output Total 150 / 150
Balance 1829
[2024-07-19] MEDS: ZESTRIL PO (08:53)
[2024-07-19 08:55] LABS: TSH Reflex To Free T4 3.66 uIU/ml (0.47-4.68)
[2024-07-19] MEDS: VITAMIN B-12 100 MCG PO (08:59)
[2024-07-19] MEDS: MYCOSTATIN ORAL SUSPENSION 5 ML PO ×3 (08:59→21:02)
[2024-07-19] MEDS: HEPARIN 5000 UNITS SC ×3 (09:00→23:40)
[2024-07-19] MEDS: CARDIZEM CD 120 MG PO (09:00)
[2024-07-19] MEDS: PRAVACHOL 20 MG PO (09:00)
[2024-07-19] MEDS: VITAMIN D3 (cholecalciferol) 50 MCG PO (09:00)
[2024-07-19] MEDS: ALPHAGAN 0.2% EYE DROPS 1 DROP BOTH EYES ×2 (09:01→19:56)
[2024-07-19] MEDS: TIMOPTIC 0.5% OPHTHALMIC SOLUTION 1 DROP OPHTH ×2 (09:02→19:56)
[2024-07-19 09:17] LABS: Erythrocyte Sed Rate 54 mm/hour (0-20)
[2024-07-19 11:03] VITALS: BP 99/59; PULSE 71; O2SAT 100
--- NOTE | 2024-07-19 11:43 | CON.ONC ---
Impression
Impression
anemia, mild, with normal hgb at admission
RA
? abnormal gastric wall noted on 03/2024 CT scan, not appreciated on UGI series in 04/2024
Plan
Plan
No evidence for lymphoma at this time. It appears abnormality seen on CT in 03/2024 did not persist on UGI series. No plans for EGD at this time. She has f/u with Dr. Villaseñor later this month. GI has signed off.
Anemia is likely related to RA (high ESR/CRP noted), meds, recent COVID
Check iron stores, B12, folate, FOBT - ordered
Hematology will sign off, please call w/ questions
Patient History
History of Present Illness
This is an 78 yo F, recently admitted w/ COVID in early Jul 2024, now readmitted with weakness and vomiting.
Hematology consulted for 'anemia and concerns for lymphoma from prior abd images'
Hgb was 12.1 at admission on 07/17, down to 9.9 today[address]
She had CT scans done in 03/2024 for 'weight loss' which showed 'gastric wall thickening. This may be due to gastritis or peristalsis. Other etiologies such as lymphoma cannot be excluded. Direct visualization recommended.' She underwent UGI series
in Apr 2024, ordered by Dr. Villaseñor, which showed 'Mild gastroesophageal reflux disease. No definitive abnormality in the region of the gastric antrum corresponding to the recent CT finding. Repeat CT examination is recommended. If the finding
resolves, this suggests peristalsis or resolved gastritis. The patient states her symptoms are less frequent but not completely resolved. If the CT finding persists, direct visualization again recommended.'
She denies nausea at this time. She's fatigued from recent COVID. She also notes increased joint pain. She has a fruit plate on her bedside table.
Past-Medical/Surgical History
benign hypertension
hyperlipidemia
CKD
COPD
RA
Past Surgical History: Reports Other
Additional Past Surgical History:
pacemaker
right hip replacement
Social History
Tobacco: Non-smoker
Alcohol: None
Drug: None
Personal:
Living: Skilled Nursing
Employment: Retired
Family History
Family History: Not pertinent
Patient Medication
�Medication �Instructions �Recorded �Confirmed �Last Taken �Type
brimonidine 0.2 %-timolol 0.5 % 1 drp BOTH EYES BID Eye Condition 07/08/24 07/17/24 Unknown History
eye drops
cholecalciferol (vitamin D3) 50 50 mcg PO DAILY Supplement 07/08/24 07/17/24 Unknown History
mcg (2,000 unit) capsule (Vitamin
D3)
cyanocobalamin (vitamin B-12) 100 100 mcg PO DAILY Supplement 07/08/24 07/17/24 Unknown History
mcg tablet (Vitamin B-12)
diltiazem HCl 120 mg 120 mg PO DAILY Rate control 07/08/24 07/17/24 Unknown History
capsule,extended release 24 hr,
controlled (DILT-XR)
docosahexaenoic acid (dha)-epa 120 1 cap PO DAILY Supplement 07/08/24 07/17/24 Unknown History
mg-180 mg capsule (Fish Oil)
fluticasone 100 mcg-salmeterol 50 1 inh inhalation R BIDPRN PRN sob 07/08/24 07/17/24 Unknown History
mcg/dose blistr powdr for
inhalation (Advair Diskus)
hydroxychloroquine 200 mg tablet 200 mg PO DAILY Rheumatoid 07/08/24 07/17/24 Unknown History
arthritis
pravastatin 20 mg tablet 20 mg PO DAILY High Cholesterol 07/08/24 07/17/24 Unknown History
lisinopril 5 mg tablet 5 mg PO DAILY 07/17/24 07/17/24 Unknown History
Active Medications
Generic Name Dose Route Start Last Admin
Trade Name Freq PRN Reason Stop Dose Admin
Acetaminophen 650 mg 07/17/24 21:15 07/19/24 05:37
Acetaminophen 325 Mg Tablet PO 08/14/24 21:14 650 mg
Q4HPRN PRN Administration
mild pain/MAY/temp> 100.4F
Brimonidine Tartrate 0 drop 07/18/24 12:28 07/19/24 09:01
Brimonidine 0.2% (Ophthalmic Solution) Bottle BOTH EYES 08/15/24 12:24 1 drop
BID PATTY Administration
Cholecalciferol 50 mcg 07/18/24 08:00 07/19/24 09:00
Cholecalciferol (Vitamin D3) 50 Mcg Tablet (2,000 Units) PO 08/15/24 07:59 50 mcg
DAILY PATTY Administration
Cyanocobalamin 100 mcg 07/18/24 08:00 07/19/24 08:59
Cyanocobalamin (Vitamin B-12) 100 Mcg Tablet PO 08/15/24 07:59 100 mcg
DAILY PATTY Administration
Diltiazem HCl 120 mg 07/18/24 08:00 07/19/24 09:00
Diltiazem 120 Mg Extended Release (24 H) Capsule PO 08/15/24 07:59 120 mg
DAILY PATTY Administration
Famotidine 20 mg 07/18/24 20:00 07/18/24 20:23
Famotidine 20 Mg Tablet PO 08/15/24 19:59 20 mg
Q48H PATTY Administration
Heparin Sodium 5,000 units 07/18/24 00:00 07/19/24 09:00
Heparin 5,000 Units/Ml 1 Ml Vial SC 08/15/24 00:00 5,000 units
Q8 PATTY Administration
Hydroxychloroquine Sulfate 200 mg 07/18/24 08:00 07/18/24 08:27
Hydroxychloroquine 200 Mg Tablet PO 08/15/24 07:59 200 mg
DAILY PATTY Administration
Lisinopril 5 mg 07/18/24 08:00 07/19/24 08:53
Lisinopril 5 Mg Tablet PO 08/15/24 07:59 Not Given
DAILY PATTY
Nystatin 5 ml 07/18/24 13:00 07/19/24 08:59
Nystatin Oral Suspension 500,000 Units/5 Ml PO 08/15/24 12:59 5 ml
QID PATTY Administration
Pravastatin Sodium 20 mg 07/18/24 08:00 07/19/24 09:00
Pravastatin 20 Mg Tablet PO 08/15/24 07:59 20 mg
DAILY PATTY Administration
Fluticasone/Salmeterol 2 puff 07/18/24 08:00 07/19/24 08:14
Advair Hfa 45/21 Inhaler INH 08/15/24 07:59 2 puff
R BID PATTY Administration
Sodium Chloride 0 flush 07/17/24 22:00
Sodium Chloride 0.9% (Flush) Syringe IV 08/14/24 21:59
PER PROTOCOL PATTY
Timolol Maleate 0 drop 07/18/24 12:26 07/19/24 09:02
Timolol 0.5% (Ophthalmic Solution) Bottle OPHTH 08/15/24 12:25 1 drop
BID PATTY Administration
Review of Systems
-
All Other Systems: Not reviewed unless documented
Physical Exam
-
General: No Apparent Distress; Negative Well Developed
HEENT: Negative Jaundice
Skin: Warm; Negative No Ecchymosis
Psych: Intact Judgement/Insight
Labs
Lab Results
WBC 9.9 10^3/uL (4.8-10.8) 07/19/24 06:12
RBC 3.34 10^6/uL (4.20-5.40) L 07/19/24 06:12
Hgb 9.9 g/dL (12.0-16.0) L 07/19/24 06:12
Hct 29.5 % (37.0-47.0) L 07/19/24 06:12
MCV 88.3 fL (81.0-99.0) 07/19/24 06:12
MCH 29.6 pg (27.0-31.0) 07/19/24 06:12
MCHC 33.6 g/dL (33.0-37.0) 07/19/24 06:12
RDW 13.2 % (11.5-14.5) 07/19/24 06:12
Plt Count 166 10^3/uL (130-400) 07/19/24 06:12
MPV 10.7 fL (7.4-10.4) H 07/19/24 06:12
Abs Immat Gran (auto) 0.0 10^3/uL (0-0.05) 07/18/24 10:21
Absolute Neuts (auto) 7.0 10^3/uL (1.4-6.5) H 07/18/24 10:21
Absolute Lymphs (auto) 0.5 10^3/uL (1.2-3.4) L 07/18/24 10:21
Absolute Monos (auto) 0.9 10^3/uL (0.1-0.6) H 07/18/24 10:21
Absolute Eos (auto) 0.0 10^3/uL (0-0.7) 07/18/24 10:21
Absolute Basos (auto) 0.0 10^3/uL (0-0.2) 07/18/24 10:21
Immature Gran % 0.5 % (0-0.5) 07/18/24 10:21
Neutrophils % 83.6 % (42.2-75.2) H 07/18/24 10:21
Lymphocytes % 5.4 % (20.5-51.1) L 07/18/24 10:21
Monocytes % 10.3 % (1.7-9.3) H 07/18/24 10:21
Eosinophils % 0.0 % (0-6) 07/18/24 10:21
Basophils % 0.2 % (0-2) 07/18/24 10:21
Creatinine 1.0 mg/dL (0.6-1.0) 07/19/24 06:12
Vital Signs
Vital Signs
Temp Pulse Resp BP Pulse Ox
98.6 F 82 16 108/63 98
07/19/24 07:51 07/19/24 08:16 07/19/24 08:16 07/19/24 07:51 07/19/24 08:16
[2024-07-19] MEDS: PLAQUENIL 200 MG PO (12:32)
[2024-07-19 12:37] LABS: Total Iron Binding Capacity 197 ug/dl (265-497)
[2024-07-19 12:39] LABS: Iron < 20 ug/dl (37-170)
--- NOTE | 2024-07-19 13:52 | CM ---
Initial assessment completed. Admitted for generalized weakness/vomiting.
Pt lives w/ daughter in an in law suite- no steps to enter. Pt prev independent w/ walker to ambulate. No other DME identified
Pt recently was at [facility] for skilled rehab. No VN/PT hx.
Address, point of contact and insurance verified. Son, Magdi to be added to contact list ([phone]). Magdi currently resides in [place], [place]. Left message for admissions to update.
Pt's daughter who is listed as contact, primarily is the decision maker for pt. Magdi is currently working on getting access to pt's care portal.
PCP: Dr. Gonzales
Pharmacy: [facility]
PT/OT evaluated pt and is currently recommending skilled rehab at this time.
Pt currently admitted in OBS status. MARTINEZ form reviewed, copy in chart.
CM spoke w/ son, Magdi, at length regarding potential d/c plan for pt.
Magdi stated pt was previously at [facility] for rehab but only for a couple of days. Pt disliked the food and essentially became worse while she was there. Family is unsure at this time if they will explore rehab as it is being recommended
again. Magdi shared he and his family are possibly leaning more towards pt to d/c home w/ home PT and VN. Magdi stated pt would need support going to the bathroom and would need some support in the home. CM discussed the option of caregivers/[employer]
for additional support in the home for pt. CM provided information on [employer] and [employer]. Magdi stated he will have to discuss w/ family and begin researching caregivers as well as contacting pt's insurance to see
her coverage benefits w/ home care support.
Plan: SNF (being recommended) VS Home w/ HH and caregiver/[employer] support. Family will have to confirm plan of choice closer to d/c
--- NOTE | 2024-07-19 14:16 | W.PN.UPDATE ---
Update Note
Progress Note Update
Discussed with patient son Carlos Kerns, he was unaware of GI follow up on 07/29/[address] Villaseñor. He would like to keep that appt and will come with her. Please call back if GI can be of further assistance.
[2024-07-19] MEDS: MYCOSTATIN ORAL SUSPENSION PO (14:20)
[2024-07-19] MEDS: NSS IV (14:21)
[2024-07-19 15:27] VITALS: BP 107/65
[2024-07-19] MEDS: SOLU-CORTEF 50 MG IV ×2 (16:18→19:55)
[2024-07-19 16:28] LABS: Folate 8.7 ng/ml (2.76-20); Vitamin B12 367 pg/ml (239-931)
[2024-07-19 22:37] VITALS: BP 96/52
[2024-07-20] MEDS: TYLENOL 650 MG PO ×2 (05:31→20:17)
[2024-07-20 07:37] LABS: % Basophils 0.1 % (0-2); % Immature Granulocytes 0.3 % (0-0.5); % Lymphocytes 2.9 % (20.5-51.1); % Monocytes 4.3 % (1.7-9.3); % Neutrophils 92.4 % (42.2-75.2); Absolute Lymphocytes 0.3 10^3/uL (1.2-3.4); Absolute Monocytes 0.4 10^3/uL (0.1-0.6); Absolute Neutrophils 8.6 10^3/uL (1.4-6.5); Hemoglobin 10.5 g/dL (12.0-16.0); Mean Corp Hgb Conc. 33.9 g/dL (33.0-37.0); Mean Corpuscular Volume 88.6 fL (81.0-99.0); Mean Platelet Volume 10.9 fL (7.4-10.4); Nucleated Red Blood Cells % 0 %; Platelet Count 188 10^3/uL (130-400); Red Cell Dist. Width 13.2 % (11.5-14.5); White Blood Cell Count 9.3 10^3/uL (4.8-10.8)
[2024-07-20 08:08] VITALS: BP 123/68
[2024-07-20 08:10] LABS: Blood Urea Nitrogen 31 mg/dl (7-17); Calcium 8.4 mg/dl (8.4-10.2); Carbon Dioxide 19 mmol/L (22-30); Chloride 106 mmol/L (98-107); Estimated Creatinine Clearance 32 ml/min; Glucose 122 mg/dl (70-99); Potassium 4.9 mmol/L (3.5-5.1); Sodium 136 mmol/L (135-145)
[2024-07-20] MEDS: ADVAIR HFA 45/21 MCG INHALER 2 PUFF INH ×2 (08:12→20:25)
[2024-07-20] MEDS: ALPHAGAN 0.2% EYE DROPS 1 DROP BOTH EYES ×2 (08:25→20:08)
[2024-07-20] MEDS: SOLU-CORTEF 50 MG IV ×2 (08:26→20:08)
[2024-07-20] MEDS: MYCOSTATIN ORAL SUSPENSION 5 ML PO ×4 (08:27→21:04)
[2024-07-20] MEDS: ZESTRIL 5 MG PO (08:29)
[2024-07-20] MEDS: HEPARIN 5000 UNITS SC ×3 (08:29→23:10)
[2024-07-20] MEDS: PRAVACHOL 20 MG PO (08:29)
[2024-07-20] MEDS: VITAMIN D3 (cholecalciferol) 50 MCG PO (08:29)
[2024-07-20] MEDS: PLAQUENIL 200 MG PO (08:29)
[2024-07-20] MEDS: VITAMIN B-12 100 MCG PO (08:29)
[2024-07-20] MEDS: CARDIZEM CD 120 MG PO (08:30)
[2024-07-20] MEDS: TIMOPTIC 0.5% OPHTHALMIC SOLUTION 1 DROP OPHTH ×2 (08:31→20:08)
--- NOTE | 2024-07-20 09:48 | W.PN.HOSP.TC ---
Today's Communication/Plan
-
IV steroids. PT OT.
Assessment / Plan
Assessment / Plan
Physical exam:
General: Acute on chronically ill
HEENT: Normocephalic, Atraumatic and Moist Mucous Membranes
Respiratory: Clear to Auscultation; Negative Wheezes, Rales or Rhonchi
Cardiac: Regular Rhythm and S1/S2
GI: Soft, Non-tender and Nondistended
Musculoskeletal: Joint deformities related to RA. Left upper extremity less swollen and less pain. No Clubbing, No Cyanosis and No Edema
Neuro: Awake, Alert and Oriented
Psych: Calm
A/P:
Rheumatoid arthritis flare:
Initiated on IV Solu-Cortef 50 mg every 12 hours since yesterday and plan to switch to oral tomorrow
Inflammatory markers elevated
X-rays no fracture
Doppler no DVT
PT OT eval
Discussed with son at bedside today
Acute gastritis:
On Pepcid
GI will follow-up as outpatient
Previous images with concerns of lymphoma but unclear at this point:
Oncology consult appreciated
Follow-up with oncology and GI as outpatient for further evaluation if required
Oral candidiasis:
Nystatin swish and swallow
Recent COVID-19:
Completed course of Paxlovid
Repeated COVID-19 test negative
No issues with rebound
Recent UTI:
Finished course of treatment with antibiotics recently
Rechecked UA and it is normal
CKD:
Avoid nephrotoxic
Monitor renal function
Pancytopenia:
Chronic
Recommend hematology eval as outpatient
Hyponatremia:
Monitor trend
Rheumatoid arthritis:
Continue hydroxychloroquine 200 mg p.o. daily
Hypertension:
Continue usual meds
Hyperlipidemia:
Continue statins
COPD/asthma:
Continue inhalers
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
Underweight
DVT prophylaxis:
Heparin SQ
CODE STATUS:
Full code
Anticipated Discharge: 24 - 48 hours
Subjective/Interval History
-
Date of Service: July 20, 2024
Patient feels her arm pain is much improved today. She has some generalized fatigue. Afebrile
Objective Data
-
Labs:
Laboratory Results
07/20/24
06:36
WBC 9.3
Hgb 10.5 L
Hct 31.0 L
Plt Count 188
Sodium 136
Potassium 4.9
Chloride 106
Carbon Dioxide 19 L
BUN 31 H
Creatinine 1.1 H
Glucose 122 H
Calcium 8.4
Vital Signs:
Vital Signs
Temp Pulse Resp BP Pulse Ox
97.7 F 78 16 123/68 99
07/20/24 08:08 07/20/24 08:14 07/20/24 08:14 07/20/24 08:08 07/20/24 08:14
I&O
07/19/24 07/20/24 07/21/24
06:59 06:59 06:59
Intake Total 1979 / 1979 100 / 100
Output Total 150 / 150
Balance 1830 / 1830 100 / 100
[2024-07-20 15:00] VITALS: BP 95/52
--- NOTE | 2024-07-20 15:50 | CM ---
account development manager reviewed patient's chart and met with patient and reviewed patient progress with physical therapy and patient is currently Max assist X 2, and physical therapy are recommending skilled placement, patient's son, Carlos does not want
skilled placement but wants home with [facility] visiting nurses. Per sonCarlos plan is to hire private caregivers also for patient.
Plan; Home with [facility] visiting Nurses v's skilled placement.
[2024-07-20] MEDS: PEPCID 20 MG PO (20:07)
[2024-07-20 23:14] VITALS: BP 107/58
[2024-07-21] MEDS: TYLENOL 650 MG PO ×2 (03:48→08:04)
[2024-07-21 07:00] VITALS: BP 136/75
[2024-07-21] MEDS: ADVAIR HFA 45/21 MCG INHALER 2 PUFF INH ×2 (07:24→19:33)
[2024-07-21] MEDS: SOLU-CORTEF 50 MG IV (08:05)
[2024-07-21] MEDS: HEPARIN 5000 UNITS SC ×3 (08:06→23:50)
[2024-07-21] MEDS: PLAQUENIL 200 MG PO (08:09)
[2024-07-21] MEDS: ZESTRIL 5 MG PO (08:09)
[2024-07-21] MEDS: VITAMIN B-12 100 MCG PO (08:09)
[2024-07-21] MEDS: MYCOSTATIN ORAL SUSPENSION 5 ML PO ×4 (08:09→21:06)
[2024-07-21] MEDS: VITAMIN D3 (cholecalciferol) 50 MCG PO (08:09)
[2024-07-21] MEDS: PRAVACHOL 20 MG PO (08:09)
[2024-07-21] MEDS: ALPHAGAN 0.2% EYE DROPS 1 DROP BOTH EYES ×2 (08:10→19:53)
[2024-07-21] MEDS: TIMOPTIC 0.5% OPHTHALMIC SOLUTION 1 DROP OPHTH ×2 (08:10→19:54)
[2024-07-21] MEDS: CARDIZEM CD 120 MG PO (08:11)
--- NOTE | 2024-07-21 08:57 | W.PN.HOSP.TC ---
Today's Communication/Plan
-
Oral steroids and muscle relaxant
Assessment / Plan
Assessment / Plan
Physical exam:
General: Acute on chronically ill
HEENT: Normocephalic, Atraumatic and Moist Mucous Membranes
Respiratory: Clear to Auscultation; Negative Wheezes, Rales or Rhonchi
Cardiac: Regular Rhythm and S1/S2
GI: Soft, Non-tender and Nondistended
Musculoskeletal: Joint deformities related to RA. Left upper extremity less swollen and less pain. No Clubbing, No Cyanosis and No Edema
Neuro: Awake, Alert and Oriented
Psych: Calm
A/P:
Rheumatoid arthritis flare:
Initiated on IV Solu-Cortef 50 mg every 12 hours since yesterday and plan to switch to oral today
Add Flexeril
Inflammatory markers elevated
X-rays no fracture
Doppler no DVT
PT OT eval
Discussed with son at bedside today
Acute gastritis:
On Pepcid
GI will follow-up as outpatient
Previous images with concerns of lymphoma but unclear at this point:
Oncology consult appreciated
Follow-up with oncology and GI as outpatient for further evaluation if required
Oral candidiasis:
Nystatin swish and swallow
Recent COVID-19:
Completed course of Paxlovid
Repeated COVID-19 test negative
No issues with rebound
Recent UTI:
Finished course of treatment with antibiotics recently
Rechecked UA and it is normal
CKD:
Avoid nephrotoxic
Monitor renal function
Pancytopenia:
Chronic
Recommend hematology eval as outpatient
Hyponatremia:
Monitor trend
Rheumatoid arthritis:
Continue hydroxychloroquine 200 mg p.o. daily
Hypertension:
Continue usual meds
Hyperlipidemia:
Continue statins
COPD/asthma:
Continue inhalers
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
Underweight
DVT prophylaxis:
Heparin SQ
CODE STATUS:
Full code
Anticipated Discharge: 24 - 48 hours
Subjective/Interval History
-
Date of Service: July 21, 2024
Her pain fluctuates up and down. Could not sleep well last night. Afebrile
Objective Data
-
Vital Signs:
Vital Signs
Temp Pulse Resp BP Pulse Ox
97.6 F 76 16 107/58 98
07/20/24 23:14 07/21/24 07:25 07/21/24 07:25 07/20/24 23:14 07/21/24 07:25
I&O
07/20/24 07/21/24 07/22/24
06:59 06:59 06:59
Intake Total 100 / 100 960 / 960
Balance 100 / 100 960 / 960
[2024-07-21 10:46] VITALS: BP 116/66; O2SAT 98
--- NOTE | 2024-07-21 12:03 | CM ---
Addendum entered by Mindy Hunter 07/21/24 14:18:
Per son and daughter they are also interested in referrals to [facility] and [facility], referrals sent.
Addendum entered by Mindy Hunter 07/21/24 12:12:
[facility]
[phone]

Original Note:
Updated physical therapy completed recommendation is still for skilled placement discharge planning options reviewed with daughter and son Carlos and they have decided to take patient home with [facility] visiting nurses, and private caregivers, they are
hoping that patient will be cleared for discharge tomorrow, and they are having the laboratory aide come to the hospital tomorrow, after to 2pm to meet with patient.
Plan; Home with [facility] visiting nurses and laboratory aide
[2024-07-21] MEDS: DELTASONE 40 MG PO (12:36)
[2024-07-21] MEDS: FLEXERIL 10 MG PO (12:37)
[2024-07-21 15:00] VITALS: BP 131/76
[2024-07-21] MEDS: TYLENOL 1000 MG PO ×2 (15:46→23:49)
[2024-07-21] MEDS: MELATONIN 5 MG PO (21:05)
[2024-07-21 23:40] VITALS: BP 118/74
[2024-07-22 07:00] VITALS: BP 132/95
[2024-07-22] MEDS: ADVAIR HFA 45/21 MCG INHALER 2 PUFF INH (08:17)
[2024-07-22] MEDS: TYLENOL 1000 MG PO ×2 (08:56→15:16)
[2024-07-22] MEDS: MYCOSTATIN ORAL SUSPENSION 5 ML PO ×2 (08:56→13:57)
[2024-07-22] MEDS: DELTASONE 40 MG PO (08:57)
[2024-07-22] MEDS: ZESTRIL 5 MG PO (08:58)
[2024-07-22] MEDS: VITAMIN B-12 100 MCG PO (08:58)
[2024-07-22] MEDS: VITAMIN D3 (cholecalciferol) 50 MCG PO (08:59)
[2024-07-22] MEDS: ALPHAGAN 0.2% EYE DROPS 1 DROP BOTH EYES (08:59)
[2024-07-22] MEDS: CARDIZEM CD 120 MG PO (08:59)
[2024-07-22] MEDS: PRAVACHOL 20 MG PO (08:59)
[2024-07-22] MEDS: PLAQUENIL 200 MG PO (08:59)
[2024-07-22] MEDS: HEPARIN 5000 UNITS SC ×2 (09:00→15:16)
[2024-07-22] MEDS: TIMOPTIC 0.5% OPHTHALMIC SOLUTION 1 DROP OPHTH (09:00)
--- NOTE | 2024-07-22 10:23 | W.PN.HOSP.TC ---
Addendum entered and electronically signed by Mikael Aranda MD 07/22/24 17:01:
Underweight
Original Note:
Today's Communication/Plan
-
Discharge planning
Assessment / Plan
Assessment / Plan
Physical exam:
General: Acute on chronically ill
HEENT: Normocephalic, Atraumatic and Moist Mucous Membranes
Respiratory: Clear to Auscultation; Negative Wheezes, Rales or Rhonchi
Cardiac: Regular Rhythm and S1/S2
GI: Soft, Non-tender and Nondistended
Musculoskeletal: Joint deformities related to RA. Left upper extremity less swollen and less pain. No Clubbing, No Cyanosis and No Edema
Neuro: Awake, Alert and Oriented
Psych: Calm
A/P:
Rheumatoid arthritis flare:
Initiated on IV Solu-Cortef 50 mg every 12 hours and yesterday transitioned to oral
Added Flexeril
Inflammatory markers elevated
X-rays no fracture
Doppler no DVT
PT OT eval
Discussed with son at bedside prior
Acute gastritis:
On Pepcid
GI will follow-up as outpatient
Previous images with concerns of lymphoma but unclear at this point:
Oncology consult appreciated
Follow-up with oncology and GI as outpatient for further evaluation if required
Oral candidiasis:
Nystatin swish and swallow
Recent COVID-19:
Completed course of Paxlovid
Repeated COVID-19 test negative
No issues with rebound
Recent UTI:
Finished course of treatment with antibiotics recently
Rechecked UA and it is normal
CKD:
Avoid nephrotoxic
Monitor renal function
Pancytopenia:
Chronic
Recommend hematology eval as outpatient
Hyponatremia:
Monitor trend
Rheumatoid arthritis:
Continue hydroxychloroquine 200 mg p.o. daily
Hypertension:
Continue usual meds
Hyperlipidemia:
Continue statins
COPD/asthma:
Continue inhalers
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
Underweight
DVT prophylaxis:
Heparin SQ
CODE STATUS:
Full code
Anticipated Discharge: Today
Subjective/Interval History
-
Date of Service: July 22, 2024
Patient feels medications that I started her yesterday are working very well. Afebrile
Objective Data
-
Vital Signs:
Vital Signs
Temp Pulse Resp BP Pulse Ox
97.9 F 78 20 132/95 100
07/22/24 07:00 07/22/24 07:00 07/22/24 07:00 07/22/24 07:00 07/22/24 07:00
I&O
07/21/24 07/22/24 07/23/24
06:59 06:59 06:59
Intake Total 960 / 960 720 / 720
Balance 960 / 960 720 / 720
--- NOTE | 2024-07-22 13:39 | W.DCSUMMARY ---
Discharge Summary
Discharge Data
Date of Admission: 07/20/24
Date of Discharge: 07/22/24
-
Pending Results: No
Hospital Course
Patient 78 years old female with history of hypertension, hyperlipidemia, CKD, COPD, rheumatoid arthritis came into the hospital with nausea and found generalized myalgias and significant amount of pain in left upper extremity neck and other major
joints. This was a readmission since patient had a recent hospitalization with UTI, nausea and vomiting, and COVID-19. This time she was tested for COVID-19 and it was negative and also she had a clean UA. Patient was seen by GI in consultation.
She was started on H2 abiola and was advised to follow-up with GI as outpatient. She also was seen by hematology oncology due to concerns of images suggestive of lymphoma and she will follow-up also with oncology as outpatient to be evaluated
further workup would be required. Patient was diagnosed with a flare of her rheumatoid arthritis along with consistent elevated inflammatory markers. She was started on IV steroids and switched to oral steroids and she was placed on antispasmodics
and pain medications. She did improve with these measures. PT OT worked with her and she is a candidate for rehab since she is going to a skilled facility. Otherwise, patient is hemodynamically stable and afebrile. She will be discharged to
skilled facility for further rehabilitation.
Discharge duration: 35 minutes
Discharge Plan
-
Patient Disposition: [facility]SNF
Discharge Diagnosis/Procedures: Rheumatoid arthritis flare. Acute gastritis. Oral candidiasis.
Diet: Low Cholesterol
Activity: As tolerated
Referrals:
Klaus Villaseñor MD [Active] - 07/29/24
Laura Mckeon MD [Active] - in two to four weeks
Jessie Gonzales CRNP [Family Provider] - in less than 1 week
Prescriptions:
New
melatonin 5 mg Tablet
5 mg PO HS Qty: 30 0RF
nystatin 100,000 unit/mL Suspension
5 ml PO QID 5 Days Qty: 100 0RF
acetaminophen [Tylenol Extra Strength] 500 mg Tablet
1,000 mg PO Q8H 14 Days Qty: 84 0RF
cyclobenzaprine 10 mg Tablet
5 mg PO Q8HPRN PRN (Reason: muscle spasm) 10 Days Qty: 14 0RF
famotidine 20 mg Tablet
20 mg PO Q48H 30 Days Qty: 15 0RF
prednisone 10 mg Tablet
See Rx Instructions .ROUTE .COMPLEX Qty: 45 0RF
Rx Instructions:
Take By Mouth:
50 mg daily x3 days, 40 mg daily x3 days,
30 mg daily x3 days, 20 mg daily x3 days,
10 mg daily x3 days
Continued
diltiazem HCl [DILT-XR] 120 mg capsule,ext.rel 24h degradable
120 mg PO DAILY
pravastatin 20 mg tablet
20 mg PO DAILY
hydroxychloroquine 200 mg tablet
200 mg PO DAILY
brimonidine-timolol 0.2-0.5 % drops
1 drp BOTH EYES BID
cyanocobalamin (vitamin B-12) [Vitamin B-12] 100 mcg Tablet
100 mcg PO DAILY
fluticasone propion-salmeterol [Advair Diskus] 100-50 mcg/dose Blister With Device
1 inh INHALATION R BIDPRN PRN (Reason: sob)
Fish Oil 120-180 mg Capsule
1 cap PO DAILY
cholecalciferol (vitamin D3) [Vitamin D3] 50 mcg (2,000 unit) Capsule
50 mcg PO DAILY
lisinopril 5 mg Tablet
5 mg PO DAILY
Discharge Orders:
Discharge Patient (As Directed); Ordered 07/22/24
Ordered By: Mikael Aranda
Discharge Date and Time
Discharge Date/Time: 07/22/24 18:01
Print Language: LUXEMBOURGER
[2024-07-22] MEDS: FLUAD (65 yr+) 2024-2025 FORMULA 0.5 ML IM (13:57)
--- NOTE | 2024-07-22 14:01 | CM ---
Patient is now for skilled placement at [facility], patient has been approved and bed is available today at [facility]. supervisor capacitor processing by w/braulio pickens has been arranged for 4:45pm, IMM completed.
Plan; Patient to transfer to [facility] today 4:45pm sisal picker.
[facility]
Report [phone]
[2024-07-22 15:00] VITALS: BP 108/75
--- NOTE | 2024-07-22 16:43 | PN.CDI ---
CDI
- -
CDI:
Physician Documentation Request
Admit Date: 07/20/24 11:35
Dear Doctor Manoj ,
Please review the following and provide your response in the progress notes.
Clinical Indicators:
Height: 5 ft 6 in
Weight:108 lb
BMI:17
Other Clinical Notes:
Nutrition consult 07/18 ' BMI 18-underweight. As per current clinical data pt indciated wt loss greater than 33lbs and eating poorly. RD reviewed previous admission wts- note on 07/09 pt weighed 113lbs 1.6oz (BMI18.8) and per external medical summary
report pt weighed on 04/05/24-114lbs. CBW reflects 5lbs loss or 4% change in 8 days- suspect related to fluid loss'
If possible, please provide an associated diagnosis related to the abnormal BMI, such as:
BMI < or = to 19
Underweight
Cachectic
Use of terms such as suspected, likely, concern for, or probable (associated with a specific diagnosis that is being evaluated, monitored, or treated as if it exists) are acceptable and can be coded in the inpatient setting, when documented at the
time of discharge.
Thank you,
Susan Polanco RN
CDI Specialist
[facility]
Please use your independent medical judgment in providing your response.
== END 2024-07-22 18:01 | DRG 546 ==
LOC: 4 WEST ACU 11:35
PROVIDERS: Nurse Practitioner; ADMITTING PHYSICIAN Hospitalist; ATTENDING PHYSICIAN Hospitalist; CONSULT PHYSICIAN Internal Medicine; EMERGENCY PHYSICIAN Student in an Organized Health Care Education/Training Program; FAMILY PHYSICIAN Nurse Practitioner Adult Health; OTHER PHYSICIAN Internal Medicine Hematology & Oncology
PROC: 3E02340 Introduction of Influenza Vaccine into Muscle, Percutaneous Approach (ICD-10-PCS; 2024-07-22)
DX: M06.89 Other specified rheumatoid arthritis, multiple sites (principal); B37.0 Candidal stomatitis; E87.1 Hypo-osmolality and hyponatremia; Z68.1 Body mass index [BMI] 19.9 or less, adult; D61.818 Other pancytopenia; M06.9 Rheumatoid arthritis, unspecified; J44.9 Chronic obstructive pulmonary disease, unspecified; E78.00 Pure hypercholesterolemia, unspecified; D63.8 Anemia in other chronic diseases classified elsewhere; I12.9 Hypertensive chronic kidney disease with stage 1 through stage 4 chronic kidney disease, or unspecified chronic kidney disease; N18.9 Chronic kidney disease, unspecified; G43.909 Migraine, unspecified, not intractable, without status migrainosus; I44.30 Unspecified atrioventricular block; K21.9 Gastro-esophageal reflux disease without esophagitis; K29.00 Acute gastritis without bleeding; N18.30 Chronic kidney disease, stage 3 unspecified; J44.89 Other specified chronic obstructive pulmonary disease; R63.6 Underweight; Z88.1 Allergy status to other antibiotic agents; Z79.899 Other long term (current) drug therapy; Z11.52 Encounter for screening for COVID-19; Z96.641 Presence of right artificial hip joint; Z95.0 Presence of cardiac pacemaker; Z86.718 Personal history of other venous thrombosis and embolism; Z86.16 Personal history of COVID-19; Z79.51 Long term (current) use of inhaled steroids; Z23 Encounter for immunization
CPT/HCPCS: 70450; 71046; 73030; 73080; 73100; 80048; 80053; 81003; 82550; 82607; 82728; 82746; 83540; 83550; 84443; 84550; 85025; 85027; 85652; 86140; 87502; 87811; 93005; 93971; 94640; 96360; 97163; 97167; 97530; 99285

== ENCOUNTER → 2024-08-12 11:44 | Outpatient (REF) | payer OTHER, MEDICARE, SELFPAY ==
[2024-08-12 12:07] LABS: % Basophils 0.5 % (0-2); % Eosinophils 2.2 % (0-6); % Immature Granulocytes 0.7 % (0-0.5); % Lymphocytes 21.6 % (20.5-51.1); Absolute Eosinophils 0.1 10^3/uL (0-0.7); Absolute Lymphocytes 0.9 10^3/uL (1.2-3.4); Absolute Monocytes 0.4 10^3/uL (0.1-0.6); Absolute Neutrophils 2.7 10^3/uL (1.4-6.5); Hematocrit 29.8 % (37.0-47.0); Hemoglobin 9.6 g/dL (12.0-16.0); Mean Corp Hgb Conc. 32.2 g/dL (33.0-37.0); Mean Corpuscular Hgb 30.1 pg (27.0-31.0); Mean Corpuscular Volume 93.4 fL (81.0-99.0); Mean Platelet Volume 10.8 fL (7.4-10.4); Nucleated Red Blood Cells % 0 %; Platelet Count 108 10^3/uL (130-400); Red Blood Cell Count 3.19 10^6/uL (4.20-5.40)
[2024-08-12 12:41] LABS: ALT (SGPT) 24 U/L (0-35); AST (SGOT) 25 U/L (14-36); Albumin 2.8 g/dl (3.5-5.0); Alkaline Phosphatase 97 U/L (38-126); Blood Urea Nitrogen 27 mg/dl (7-17); Calcium 8.6 mg/dl (8.4-10.2); Carbon Dioxide 25 mmol/L (22-30); Chloride 108 mmol/L (98-107); GGTP 24 U/L (12-43); Glucose 117 mg/dl (70-99); Lipase 123 U/L (23-300); Potassium 4.7 mmol/L (3.5-5.1); Sodium 136 mmol/L (135-145); Total Bilirubin 0.4 mg/dl (0.2-1.3); eGFR 56.95
== END ==
LOC: OLABN 11:44
PROVIDERS: ATTENDING PHYSICIAN Student in an Organized Health Care Education/Training Program
DX: D64.9 Anemia, unspecified (principal); J44.9 Chronic obstructive pulmonary disease, unspecified; N18.9 Chronic kidney disease, unspecified; E46 Unspecified protein-calorie malnutrition; R10.12 Left upper quadrant pain
CPT/HCPCS: 36415; 80053; 82977; 83690; 85025

== ENCOUNTER → 2024-09-09 11:28 | Outpatient (REF) | payer OTHER, MEDICARE, SELFPAY ==
[2024-09-09 12:54] LABS: % Basophils 1.2 % (0-2); % Eosinophils 3.2 % (0-6); % Immature Granulocytes 0.3 % (0-0.5); % Lymphocytes 31.5 % (20.5-51.1); % Monocytes 12.9 % (1.7-9.3); % Neutrophils 50.9 % (42.2-75.2); Absolute Eosinophils 0.1 10^3/uL (0-0.7); Absolute Lymphocytes 1.1 10^3/uL (1.2-3.4); Absolute Monocytes 0.4 10^3/uL (0.1-0.6); Absolute Neutrophils 1.7 10^3/uL (1.4-6.5); Hematocrit 26.2 % (37.0-47.0); Hemoglobin 8.4 g/dL (12.0-16.0); Mean Corp Hgb Conc. 32.1 g/dL (33.0-37.0); Mean Corpuscular Hgb 29.4 pg (27.0-31.0); Mean Corpuscular Volume 91.6 fL (81.0-99.0); Mean Platelet Volume 10.6 fL (7.4-10.4); Nucleated Red Blood Cells % 0 %; Platelet Count 157 10^3/uL (130-400); Red Blood Cell Count 2.86 10^6/uL (4.20-5.40); Red Cell Dist. Width 14.2 % (11.5-14.5); White Blood Cell Count 3.4 10^3/uL (4.8-10.8)
[2024-09-09 12:57] LABS: ALT (SGPT) < 10 U/L (0-35); AST (SGOT) 19 U/L (14-36); Alkaline Phosphatase 78 U/L (38-126); Blood Urea Nitrogen 26 mg/dl (7-17); Calcium 9.1 mg/dl (8.4-10.2); Carbon Dioxide 21 mmol/L (22-30); Chloride 108 mmol/L (98-107); Glucose 84 mg/dl (70-99); Magnesium 1.9 mg/dl (1.6-2.3); Potassium 4.8 mmol/L (3.5-5.1); Sodium 136 mmol/L (135-145); Total Bilirubin 0.6 mg/dl (0.2-1.3); Total Protein 5.2 g/dl (6.3-8.2)
== END ==
LOC: OLABN 11:28
PROVIDERS: ATTENDING PHYSICIAN Student in an Organized Health Care Education/Training Program
DX: D64.9 Anemia, unspecified (principal); N18.9 Chronic kidney disease, unspecified; E87.1 Hypo-osmolality and hyponatremia
CPT/HCPCS: 36415; 80053; 83735; 85025

== ENCOUNTER 2024-10-27 20:04 | Inpatient (IN) | payer MEDICARE, SELFPAY ==
[2024-10-27] VITALS (36 sets, daily range): BP systolic 65–151; BP diastolic 40–129; PULSE 2–135; BMI 18.4
--- NOTE | 2024-10-27 17:18 | ED.GENMED ---
History of Present Illness
General
Chief Complaint: Breathing Problem
Time Seen by Provider: 10/27/24 17:09
History of Present Illness
History of Present Illness:
TIME OF INITIAL ENCOUNTER: 5:15 PM
HPI: patient came in by ambulance due to severe shortness of breath. Due to the acuity of condition, the details are very limited at this time. She cannot tell me that she was never intubated in the past but would agree for intubation if her
symptoms continue to worsen. She denies using CPAP or BiPAP in the past as well. She denies weight gain or swelling.
At 6 PM: I spoke to the daughter who tells me the patient was doing well this morning and at some point between 12 and 4 PM she developed rather significant shortness of breath. Of note there was an injury to her left hand as she does have a small
cut and swelling without bony tenderness that was present upon arrival that we suspect is related to EMS.
EXAM:
GENERAL: The patient is ill-appearing in severe respiratory distress
HEENT: Moist oral mucosa
CARDIOVASCULAR: No murmurs, normal heart rate, regular rhythm, No chest wall tenderness
PULMONARY: Severe respiratory distress, breath sounds are equally decreased with wheeze heard more on the left
ABDOMEN: Soft with no peritoneal signs, no tenderness
NEUROLOGIC: Fair strength all extremities, no coordination deficits
PSYCHIATRIC: Appears somewhat anxious
EXTREMITIES: Left hand soft tissue swelling with small laceration does not require repair and there is no bony tenderness
SKIN: No rash, no lesions
NUMBER AND COMPLEXITY OF PROBLEMS ADDRESSED AT THE ENCOUNTER
� Chronic conditions affecting care: Has pacemaker related to syncope, high blood pressure, hyperlipidemia, CKD, asthma (COPD is listed in the chart however the daughter states that she does not have COPD)
� Acute Exacerbation and/or Progression of Chronic Illness: This is an acute problem
� Differential Diagnosis includes: Asthma exacerbation dysrhythmia, volume overload, CHF
AMOUNT AND/OR COMPLEXITY OF DATA TO BE REVIEWED AND ANALYZED
� I performed an independent evaluation of and my interpretation is:
EKG: Sinus versus SVT, ventricular rate 144, on 07/17/2024, the patient was in sinus tachycardia with a rate of 108
CT:
X-rays: Chest x-ray shows right-sided pneumonia; left hand x-ray unremarkable
Laboratory Studies: White count normal, hemoglobin normal, ABG 7.38/
Other:
� Review of other/old records: She was admitted here in July 2024 and was felt to have a flare of her rheumatoid arthritis and was on steroids and analgesia
� Clinical information was obtained by an independent historian: EMS
� Prescriptions/Medications Considered but not given:
� Further testing considered but not performed:
RISK OF COMPLICATIONS AND/OR MORBIDITY OR MORTALITY OF PATIENT MANAGEMENT
� Social determinants of health affecting care: Lives in the guest house on her daughter's property
� Discussion with other providers: Dr. Salamanca for admission
� Escalation of care including admission/observation vs risk of discharge considered: The patient was ill-appearing upon arrival. She had increased work of breathing and was tachycardic and tachypneic. She had decreased breath
sounds with wheeze. She has history of either asthma and/or COPD. We have ordered nebs and steroids. She did receive 2 nebs prior to arrival as well. Given the severity of illness, I have also ordered magnesium.
ANY OTHER UPDATES:
Chest x-ray shows signs of pneumonia. Will place on antibiotics. She has not been in the hospital for just over 90 days. Given the persistently elevated heart rate, will add diltiazem. The patient is found to be at least borderline febrile�I
have ordered Tylenol and fluids. She is overall improved on BiPAP. Blood pressures did drop while in the emergency department. She was given 2 L of fluid which is over 30 mL/kg.
Past History
Past History
ED Past Medical History: Other (migraines)
ED Past Surgical History: Cardiac (pacemaker)
Social History
Tobacco: Non-smoker
Alcohol: None
[facility]
Phy Exam
Physical Exam
Physical Exam:
See HPI
Scores
Heart Failure Risk
Heart Failure Risk Score: Not Applicable
Sepsis
Sepsis Screening
Sepsis Assessment: Severe Sepsis
Sepsis Screening: Lactate >2mmol/L and Hypotension
Sepsis Screen
Sepsis Screen: Severe Sepsis
Date: 10/27/24
Time: 19:58
Course
Orders/Labs/Results
Orders:
Orders
10/27/24 17:12
Electrocardiogram (*1) Urgent
Reason for Study: Other
Other Reason for Exam: Respiratory Distress
Electrocardiogram (*1) Urgent
Reason for Study: Shortness of Breath
Cardiac Monitoring- Treatment ONCE
EKG- Treatment ONCE
IV Insert/Care/Rem.- Treatment PRN
CR Chest Portable - 1 View Urgent
Comment:
Reason For Exam: respiratory distress
Reason Study Needs to be Portable: Patient Unstable
O2 Therapy [RESP] Urgent
Titrate/Wean O2 to maintain O2 sat greater than (%): 93
Special Instructions: TO MAINTAIN CONTINUOUS O2 SATS >/= 93%
Pulse Ox/cont/shift [RESP] Urgent
Quantity: 1
Special Instructions: continuous pulse ox
10/27/24 17:16
Ipratropium/Albuterol Sulfate [Duoneb] 3 ml INH R NOW STA
MethylPREDNISolone PF [Solu-Medrol Pf] 125 mg IV NOW STA
Bipap [RESP] Urgent
Patient to use own unit?: No
Inspiratory Pressure (cm H2O): 12
Expiratory Pressure (cm H2O): 5
10/27/24 17:17
Magnesium Sulfate 2 Gram/50 ml [Magnesium Sulfate] 2 gram in 50 ml IV NOW
10/27/24 17:39
CR Hand - Left Min 3 Views Urgent
Comment:
Reason For Exam: trauma
10/27/24 17:41
Complete Blood Count/With Diff Urgent
Comprehensive Metabolic Panel Urgent
Lactic Acid Q4H
Comment: WITH 1ST SET OF BLOOD CULTURES,CANCEL 2ND LACTIC ACID IF FIRST <2
Magnesium Urgent
NT-proBNP Urgent
Troponin I Urgent
10/27/24 17:47
ABG [Arterial Blood Gas] Urgent
%Oxygen/Room Air: 60%
10/27/24 17:58
Diltiazem HCl [Cardizem] 10 mg IV NOW STA
10/27/24 18:00
Diltiazem 125 mg/125 ml Nss [Cardizem] 125 mg in 125 ml IV PER PROTOCOL
Initial dose in mg/hr, then titrate:: 5
Titrate to keep:: Heart rate 80-100 bpm
Titrate by mg/hr:: 5 mg/hr
Frequency of titrations (minutes):: 15
Maximum dose in mg/hr:: 15
10/27/24 18:02
Azithromycin 500 mg/250 ml [Zithromax Infusion] 500 mg in 250 ml IV NOW
CefTRIAXone [Rocephin] 1,000 mg IV NOW STA
10/27/24 18:14
Acetaminophen [Tylenol] 1,000 mg PO NOW STA
10/27/24 18:15
0.9% Sodium Chloride 1000 ml [Nss] 1,000 ml IV BOLUS
10/27/24 18:36
Blood Culture Q30M
LETI Source: Blood/Venous
Specimen Description:
Blood Culture Q30M
LETI Source: Blood/Venous
Specimen Description:
10/27/24 18:53
COVID-19 Antigen Stat
Source: Nasal Swab
Influenza A+B Rapid Molecular Stat
LETI Source: Nasal Swab
Specimen Description:
10/27/24 19:01
0.9% Sodium Chloride 1000 ml [Nss] 1,000 ml IV BOLUS
10/27/24 19:15
0.9% Sodium Chloride 1000 ml [Nss] 1,000 ml IV 100 mls/hr
NORepinephrine 4 MG/250 ML [Levophed] 4 mg in 250 ml IV PER PROTOCOL
Initial dose in mcg/min, then titrate:: 2
Titrate to keep:: MAP > 65 mmHg
Titrate by mcg/min:: 1-2 mcg/min
Frequency of titrations (minutes):: 5
Maximum dose in ICU in mcg/min:: 30
Maximum dose in IMU in mcg/min:: 8
Maximum dose in IVU in mcg/min:: 4
Begin to taper infusion when:: Remained at goal for 4hrs
Taper by mcg/min:: 1-2 mcg/min
Frequency of taper (minutes) if patient maintains goal:: 30
Taper to off?: Yes
If infusion off & no longer maintaining goal:: Contact Provider
10/27/24 19:18
Admit/Transfer Patient As Directed
Co-Sign Provider:
Level of Care: Inpatient admission
Assign to:: ICU
Physician / Group: hospitalist
Diagnosis: sepsis
Reason for Hospitalization: sepsis
Expected length of stay greater than two midnights?: Yes
ELOS- Estimated Length of Stay in days: 2
I certify the patient meets the requirements for IP care: Yes
10/27/24 19:22
PRN Pain Medication Management As Directed
May give lesser potent ordered pain med per pt: Yes
preference::
Protocol:: Medication orders for pain may be administered in a
manner that supports deferring to patient preference
when the pt is:
- Requesting an ordered lesser potent pain medication.
Least to most potent pain medications are defined
as: acetaminophen < NSAID < tramadol < opioids
(morphine, oxycodone, hydromorphone).
- Requesting a lesser dose of the same medication IF
ORDERED.
- Requesting a less intrusive route of administration
if both routes are prescribed by the provider (PO <
IV).
10/27/24 19:23
Code Status As Directed
Resuscitation Status: Full Code
10/27/24 19:28
STOOL [C difficile Antigen & Toxins] Stat
LETI Source: Feces/Stool
Specimen Description:
Stool Culture Stat
LETI Source: Feces/Stool
Specimen Description:
Stool For WBC Stat
LETI Source: Feces/Stool
Specimen Description:
10/27/24 21:15
Lactic Acid Q4H
Comment: WITH 1ST SET OF BLOOD CULTURES,CANCEL 2ND LACTIC ACID IF FIRST <2
Abnormal Lab Results
10/27/24 10/27/24
17:41 17:47
MCHC 32.8 L g/dL
(33.0-37.0)
Neutrophils % 79.6 H %
(42.2-75.2)
Lymphocytes % 16.1 L %
(20.5-51.1)
pCO2 26 L mmHg
(32-35)
pO2 75 L mmHg
(83-108)
HCO3 15.4 L* mmol/L
(21-28)
Carbon Dioxide 20 L mmol/L
(22-30)
BUN 36 H mg/dl
(7-17)
Creatinine 1.1 H mg/dL
(0.6-1.0)
Glucose 172 H mg/dl
(70-99)
Lactic Acid 2.2 H mmol/L
(0.7-2.0)
Troponin I 0.037 H* ng/ml
10/27/24 17:41
10/27/24 17:41
Vital Signs
Initial and Last Documented VS:
Initial Vital Signs
Temp Pulse Resp BP Pulse Ox
37.7 C 143 30 151/129 88
10/27/24 17:15 10/27/24 17:15 10/27/24 17:15 10/27/24 17:15 10/27/24 17:15
Last Documented Vital Signs
Temp Pulse Resp BP Pulse Ox
37.7 C 107 25 71/60 97
10/27/24 17:15 10/27/24 19:30 10/27/24 19:30 10/27/24 19:30 10/27/24 19:20
*Pulse Oximetry
Patient hypoxic: yes
*Critical Care Note
Total Time (30-74mins, 75-104mins- exclusive of procedures): 60min
comment:
The patient was in moderate to severe distress upon arrival. She was immediately placed on BiPAP and is overall improving. Will admit to the hospital for pneumonia. She has history of asthma and was also emergently given nebs, steroids as well as
magnesium.
ED Attending Note
-
Portions of this chart may have been created with voice recognition software.� Occasional wrong word or��sound alike� substitutions may have occurred due to the inherent limitations of voice recognition software.
Discharge Plan
Departure
Patient Disposition: Admit
Date of Disposition: 10/27/24
Time of Disposition: 19:41
Presentation/result/management discussed w/ accepting MD/DO: Hospitalist
Discharge Problem:
Sepsis due to pneumonia
Prescriptions:
No Action
diltiazem HCl [DILT-XR] 120 mg capsule,ext.rel 24h degradable
120 mg PO DAILY
pravastatin 20 mg tablet
20 mg PO DAILY
hydroxychloroquine 200 mg tablet
200 mg PO DAILY
brimonidine-timolol 0.2-0.5 % drops
1 drp BOTH EYES BID
cyanocobalamin (vitamin B-12) [Vitamin B-12] 100 mcg Tablet
100 mcg PO DAILY
fluticasone propion-salmeterol [Advair Diskus] 100-50 mcg/dose Blister With Device
1 inh INHALATION R BIDPRN PRN (Reason: sob)
Fish Oil 120-180 mg Capsule
1 cap PO DAILY
cholecalciferol (vitamin D3) [Vitamin D3] 50 mcg (2,000 unit) Capsule
50 mcg PO DAILY
lisinopril 5 mg Tablet
5 mg PO DAILY
melatonin 5 mg Tablet
5 mg PO HS Qty: 30 0RF
nystatin 100,000 unit/mL Suspension
5 ml PO QID 5 Days Qty: 100 0RF
acetaminophen [Tylenol Extra Strength] 500 mg Tablet
1,000 mg PO Q8H 14 Days Qty: 84 0RF
cyclobenzaprine 10 mg Tablet
5 mg PO Q8HPRN PRN (Reason: muscle spasm) 10 Days Qty: 14 0RF
famotidine 20 mg Tablet
20 mg PO Q48H 30 Days Qty: 15 0RF
prednisone 10 mg Tablet
See Rx Instructions .ROUTE .COMPLEX Qty: 45 0RF
Rx Instructions:
Take By Mouth:
50 mg daily x3 days, 40 mg daily x3 days,
30 mg daily x3 days, 20 mg daily x3 days,
10 mg daily x3 days
Referrals:
Jessie Gonzales CRNP [Family Provider] -
Interventions
Interventions:
*Risk Screen - Suicide Last Done: 10/27/24 17:15
*General Assessment Last Done: 10/27/24 17:15
*Neglect/Abuse Screening Last Done: 10/27/24 17:15
*ED- Fall Risk Assessment Last Done: 10/27/24 17:15
*ED COVID-19 Vaccine History Last Done: 10/27/24 17:15
ED- Cardiac Assessment Last Done: 10/27/24 17:28
ED- Pulmonary Assessment Last Done: 10/27/24 17:28
Discharge Date and Time
Print Language: POLISH
[2024-10-27] MEDS: MAGNESIUM SULFATE 50 IV (17:22)
[2024-10-27] MEDS: DUONEB 3 ML INH (17:22)
[2024-10-27] MEDS: SOLU-MEDROL PF 125 MG IV (17:23)
[2024-10-27 17:57] LABS: Hematocrit 40.2 % (37.0-47.0); Hemoglobin 13.2 g/dL (12.0-16.0); Mean Corp Hgb Conc. 32.8 g/dL (33.0-37.0); Mean Corpuscular Hgb 30.1 pg (27.0-31.0); Mean Corpuscular Volume 91.8 fL (81.0-99.0); Mean Platelet Volume 10.3 fL (7.4-10.4); Platelet Count 244 10^3/uL (130-400); Red Blood Cell Count 4.38 10^6/uL (4.20-5.40); White Blood Cell Count 7.5 10^3/uL (4.8-10.8)
[2024-10-27 18:04] LABS: B.E. -8.1 mmol/L; O2 Saturation % 97.4 % (94-98); PCO2 26 mmHg (32-35); PO2 75 mmHg (83-108); pH 7.38 (7.35-7.45)
[2024-10-27 18:05] LABS: HCO3 15.4 mmol/L (21-28)
[2024-10-27 18:08] LABS: Lactic Acid 2.2 mmol/L (0.7-2.0)
[2024-10-27 18:09] LABS: ALT (SGPT) 14 U/L (0-35); AST (SGOT) 24 U/L (14-36); Alkaline Phosphatase 76 U/L (38-126); Blood Urea Nitrogen 36 mg/dl (7-17); Calcium 9.5 mg/dl (8.4-10.2); Carbon Dioxide 20 mmol/L (22-30); Chloride 106 mmol/L (98-107); Estimated Creatinine Clearance 34 ml/min; Glucose 172 mg/dl (70-99); Magnesium 1.7 mg/dl (1.6-2.3); Potassium 4.8 mmol/L (3.5-5.1); Sodium 138 mmol/L (135-145); Total Bilirubin 0.7 mg/dl (0.2-1.3); Total Protein 6.3 g/dl (6.3-8.2)
[2024-10-27 18:12] LABS: % Basophils 0.5 % (0-2); % Eosinophils 0.8 % (0-6); % Immature Granulocytes 0.1 % (0-0.5); % Lymphocytes 16.1 % (20.5-51.1); % Monocytes 2.9 % (1.7-9.3); % Neutrophils 79.6 % (42.2-75.2); Absolute Eosinophils 0.1 10^3/uL (0-0.7); Absolute Lymphocytes 1.2 10^3/uL (1.2-3.4); Absolute Monocytes 0.2 10^3/uL (0.1-0.6); Nucleated Red Blood Cells % 0 %
[2024-10-27 18:22] LABS: NT-proBNP 147 pg/ml; Troponin I 0.037 ng/ml
[2024-10-27] MEDS: NSS 1000 IV ×3 (18:41→20:55)
[2024-10-27] MEDS: TYLENOL 1000 MG PO (18:41)
[2024-10-27] MEDS: ZITHROMAX INFUSION 250 IV (18:44)
[2024-10-27] MEDS: CARDIZEM 10 MG IV (18:44)
[2024-10-27] MEDS: ROCEPHIN 1000 MG IV (18:44)
[2024-10-27] MEDS: CARDIZEM 125 IV (18:45)
--- NOTE | 2024-10-27 19:06 | HPS.HSE ---
Family Physician
-
Family Physician: Jessie Gonzales
Chief Complaint
-
Acute respiratory distress
History of Present Illness
This is a 78 y.o female with past medical history significant for asthma/COPD (not on home oxygen and remote history of smoking, denies COPD), hypertension, hyperlipidemia, rheumatoid arthritis, recent admission in July for COVID-19 infection who
presents to the emergency department with acute respiratory distress.
Patient lives with daughter. She has a history of intermittent diarrhea for which she has been on Imodium. Daughter reports that since 2 days ago she has been having increased diarrhea and has been using more doses of Imodium. She has loose
nonbloody stools. She has not had fevers or chills at home. Apparently she awoke her usual state of health this a.m. but has been having weakness. Was showing images of her walking with a walker at noon.
Immediately after noon the patient became acutely short of breath. They denied any complaints of chest pain. They denied measured fevers at home. There is no known sick contacts. Patient decompensated rapidly and was immediately transferred to
the emergency department. There was question of being transferred to the emergency department about a day or 2 ago as well.
On arrival in the ED she was hypoxic and placed on BiPAP currently satting 97% on supplemental oxygen and BiPAP. Blood pressure has trended down to the 70s systolic with MAP of 68, she was tachycardic to the 130s, temp was 100 �F. ECG shows
irregular's supraventricular tachycardia anemia, unclear whether this is sinus versus atrial flutter, troponin was 0.037. BNP was negative. Chest x-ray shows a right basilar infiltrate. CBC was completely unremarkable stop electrolytes
BUN/creatinine were stable compared to prior.
Medical History
Past Medical History
Past Medical History: Reports Other
Additional Past Medical History:
benign hypertension
hyperlipidemia
CKD
COPD
RA
Past Surgical History: Reports Other
Additional Past Surgical History:
pacemaker
right hip replacement
Social History
Tobacco: Non-smoker
Alcohol: None
Drug: None
Personal:
Living: Long Term
Employment: Retired
Family History
Family History: Not pertinent
Allergies / Home Medications
Allergies reflects when Allergies were last updated in [facility].
Home Medications with original date entered in [facility]
Allergy/Medication List:
Allergies
Allergy/AdvReac Type Severity Reaction Status Date / Time
ciprofloxacin Allergy Severe Hallucinati Verified 07/09/24 12:57
on
gabapentin Allergy Anaphylaxis Verified 07/07/24 23:27
Home Medications
brimonidine 0.2 %-timolol 0.5 % eye drops 1 drp BOTH EYES BID Eye Condition 07/08/24
cholecalciferol (vitamin D3) 50 mcg (2,000 unit) capsule (Vitamin D3) 50 mcg PO DAILY Supplement 07/08/24
cyanocobalamin (vitamin B-12) 100 mcg tablet (Vitamin B-12) 100 mcg PO DAILY Supplement 07/08/24
diltiazem HCl 120 mg capsule,extended release 24 hr, controlled (DILT-XR) 120 mg PO DAILY Rate control 07/08/24
docosahexaenoic acid (dha)-epa 120 mg-180 mg capsule (Fish Oil) 1 cap PO DAILY Supplement 07/08/24
fluticasone 100 mcg-salmeterol 50 mcg/dose blistr powdr for inhalation (Advair Diskus) 1 inh inhalation R BIDPRN PRN sob 07/08/24
hydroxychloroquine 200 mg tablet 200 mg PO DAILY Rheumatoid arthritis 07/08/24
pravastatin 20 mg tablet 20 mg PO DAILY High Cholesterol 07/08/24
lisinopril 5 mg tablet 5 mg PO DAILY 07/17/24
acetaminophen 500 mg tablet (Tylenol Extra Strength) 1,000 mg (2 x 500 mg) PO Q8H 14 days #84 tabs 07/22/24
cyclobenzaprine 10 mg tablet 5 mg (1/2 x 10 mg) PO Q8HPRN PRN muscle spasm 10 days #14 tabs 07/22/24
famotidine 20 mg tablet 20 mg PO Q48H 30 days #15 tabs 07/22/24
melatonin 5 mg tablet 5 mg PO HS #30 tabs 07/22/24
nystatin 100,000 unit/mL oral suspension 5 ml PO QID 5 days #100 mL 07/22/24
prednisone 10 mg tablet See Rx Instructions .Route .COMPLEX #45 tabs 07/22/24
Review of Systems
-
Unable to obtain full review of systems at this time due to: Acuity
Physical Exam
Vital Signs
Vital Signs
Temp Pulse Resp BP Pulse Ox
100 F 136 25 88/64 93
10/27/24 17:15 10/27/24 18:44 10/27/24 18:00 10/27/24 18:44 10/27/24 17:30
Physical Exam
General: Well Developed and No Apparent Distress
HEENT: NormoCephalic, Anicteric, Moist mucous membranes, Atraumatic, PERRLA and Oxygen
Respiratory: Clear, Accessory Resp Muscle Use and Decreased Breath Sounds
Cardiac: S1/S2 and Regular Rhythm
Breast: Deferred by me
GI: Soft, Non Tender, Non Distended and Normal Bowel Sounds
Rectal: Deferred by Provider
Genito-urinary: Deferred by me
Musculoskeletal: No Clubbing, No Cyanosis, No Edema and Other (Right hip tenderness to palpation. Decreased range of motion on external rotation.)
Skin: Warm
Neuro: Alert and Nonfocal/grossly intact
Hematologic/Lymphatic: No Lymphadenopathy
Psych: Calm
Laboratory Results
-
10/27/24 17:41
10/27/24 17:41
Laboratory Results
pH 7.38 (7.35-7.45) 10/27/24 17:47
pCO2 26 mmHg (32-35) L 10/27/24 17:47
pO2 75 mmHg (83-108) L 10/27/24 17:47
HCO3 15.4 mmol/L (21-28) L* 10/27/24 17:47
Lactic Acid Cancelled 10/27/24 22:15
Total Bilirubin 0.7 mg/dl (0.2-1.3) 10/27/24 17:41
AST 24 U/L (14-36) 10/27/24 17:41
ALT 14 U/L (0-35) 10/27/24 17:41
Alkaline Phosphatase 76 U/L (38-126) 10/27/24 17:41
Troponin I Cancelled 10/27/24 23:15
Data Reviewed
-
Diagnostic Radiology: Image Personally Visualized and interpreted and Report Reviewed by me
Medical Tests (Nuc Med, Echo, EKG etc): Image Personally Visualized and interpreted
Lab Data: Labs Reviewed by me
Old Records: Reviewed
Impression/Plan
-
IMPRESSION:
Acute respiratory failure on BIPAP. Patient not wheezing, moving air and ABG is acceptable with mixed picture of metabolic acidosis with incomplete respiratory compensation. Suspect Pneumonia (likely of viral etiology) as the primary process. No
evidence of CHF. She is septic with low grade temps, tachycardia, hypotensive and respiratory failure.
PLAN:
1. Sepsis - Suspect secondary to bacterial pneumonia. Recent history of diarrhea and patient may have additional hypovolemia contributing.
- admit to ICU given multiorgan dysfunction
- Will give 30ml/kg crystalloid with additional 500 ml bolus and continue at 100 ml/hr given h/o diarrhea
- blood cultures sent, check am procalcitonin (sepsis vs hypovolemia)
- Given recent hospitalizations will treat with cefepime/azithromycin and vancomycin pending MRSA swab
- stool studies
2. Respiratory failure - Pneumonia, mild evidence for asthma
- BIPAP for now to reduce wob
- repeat gas in 2 hours (respiratory rate ok for now)
- NPO for now
- checking covid/flu
- minimal wheezing will continue nebs and solumderol 40 q 6
- keep sat > 93
- mortgage loan interviewer consult
3. Uncontrolled tachycardia - h/o SVT but no known afib/flutter. When slowed down, sinus tachy. Suspect hypovolemic/sepsis related rate changes
- IV fluids and pressors as above
- no diltiazem for now, if BP improves will restart home cardizem in am
4. NIMI/NSTEMI - Trop 0.037. Suspect hypoxia induced but cannot rule out stemi. No h/o CP. No acute edema. BNP still normal.
- treating underlying causes as above
- trend trops
- echo
- cardiology consultation
DVT PPX - heparin sq
Code status - Full Code
[2024-10-27] MEDS: LEVOPHED 250 IV (19:10)
[2024-10-27 20:14] LABS: Glucose - Point of Care 130 mg/dl (70-99)
--- NOTE | 2024-10-27 20:34 | W.PN.SEPSIS ---
Sepsis
Vital Signs
Temp Pulse Resp BP Pulse Ox
99.0 F 109 22 74/45 97
10/27/24 20:16 10/27/24 20:15 10/27/24 20:15 10/27/24 20:15 10/27/24 19:20
Physical Exam
Physical Exam:
A focused exam was performed after fluid resuscitation.
Capillary Refill
Bilateral Upper Extremity:
Meche Time: Less than 3 sec
Bilateral Lower Extremity:
Meche Time: Less than 3 sec
Pulse Evaluation
Bilateral Radial:
Pulse Evaluation: Present
Bilateral Dorsalis Pedis:
Pulse Evaluation: Present
--- NOTE | 2024-10-27 20:54 | PHA.VAN.IN ---
Assessment
- Assessment
Renal Function: Appears similar to baseline (08/12/24 BASELINE SCR: 1.0)
Concomitant Antimicrobials: CEFEPIME, DOXYCYCLINE
- Previous Dosing Experience
Previous Regimen: NONE
AUC Dosing Plan
- Dosing Variables
Dosing Weight (kg): 61.6
Dosing CrCl (ml/min): 40
Vd coefficient (L/kg): 0.7
- Empiric Dosing
Initial / Loading Dose: 1500MG
Maintenance Regimen: 750MG IV Q24H
Estimated AUC (mcg*h/mL): 471
Estimated Peak (mcg*h/mL): 29.3
Estimated Trough (mcg/ml): 12.3
Estimated Half Life (H): 18.4
Pharmacokinetics Vancomycin I
- -
Patient Age: 78
Patient Sex: Female
Vancomycin Day #: 1
Indication: Pulmonary/Respiratory (SEPSIS)
Requesting Provider: REJI
Pertinent Antimicrobial Allergies:
Allergies
ciprofloxacin Allergy (Verified 10/27/24 20:36)
Hallucination
Extreme Fatigue, Confusion
Height / Weight:
Height 5 ft 7 in
Actual Weight 53.3 kg
IBW in k.6
- Vital Signs / Lab Results
Temp Pulse Resp BP Pulse Ox
99.0 F 109 22 74/45 97
10/27/24 20:16 10/27/24 20:15 10/27/24 20:15 10/27/24 20:15 10/27/24 19:20
Lab Results - Hematology
10/27/24
17:41
WBC 7.5
Lab Results - Chemistry
10/27/24
17:41
BUN 36 H
Creatinine 1.1 H
Estimated Creat Clear 34
Albumin 4.0
10/27/24 10/27/24 10/27/24
17:41 18:15 22:15
Lactic Acid 2.2 H Cancelled Cancelled
--- NOTE | 2024-10-27 21:00 | PTCARENOTE ---
Received patient AAOx3, following commands, denying pain. NS/ST 80s-100s. Titrating norepinephrine to maintain MAP>65. Normothermic, weak pedal pulses b/l. On bipap /, denture and mouth care provided. Saturating 100%, lung sounds diminished
throughout. Abdomen soft, positive bowel sounds, patient reports ongoing diarrhea. Stress incontinence of urine, purewick in place. Left hand has multiple skin tears present on admission, cleansed with saline and band aid applied. PIVs patent, WNL.
Labs sent, flu/covid/MRSA sent, blood cultures x2 sent. IVF bolus and gtt hung. Vancomycin hung. CHG bath done, repositioned. Daughter at bedside updated, questions answered. Call yang within reach.
[2024-10-27 21:20] LABS: Lactic Acid 1.5 mmol/L (0.7-2.0)
[2024-10-27] MEDS: VANCOCIN 530 MG IV (21:43)
[2024-10-27] MEDS: ALPHAGAN 0.2% EYE DROPS 1 DROP BOTH EYES (21:43)
[2024-10-27] MEDS: NSS 500 IV (21:43)
[2024-10-27] MEDS: TIMOPTIC 0.5% OPHTHALMIC SOLUTION 1 DROP BOTH EYES (21:44)
[2024-10-27 22:06] LABS: COVID-19 Antigen Negative (Negative)
[2024-10-27] MEDS: PEPCID 20 MG PO (22:12)
[2024-10-28] VITALS (95 sets, daily range): BP systolic 65–123; BP diastolic 43–96; PULSE 2–121; BMI 18.6
[2024-10-28] MEDS: MAXIPIME 1000 MG IV ×4 (00:06→22:24)
[2024-10-28] MEDS: STERILE WATER FOR INJECTION 10 ML IV ×4 (00:06→22:24)
[2024-10-28] MEDS: HEPARIN 5000 UNITS SC ×2 (00:06→08:18)
[2024-10-28] MEDS: LEVOPHED 250 IV (00:07)
[2024-10-28 00:25] LABS: Venous Blood Gas B.E. -11.4 mmol/L (-4 to +4); Venous Blood Gas HCO3 13.9 mmol/L (22-27); Venous Blood Gas pCO2 29 mmHg (35-48); Venous Blood Gas pH 7.29 (7.32-7.43); Venous Blood Gas pO2 172 mmHg (30-50)
--- NOTE | 2024-10-28 00:30 | PTCARENOTE ---
Patient assessment unchanged from previous, labs sent. Bladder scanned for 105 mls for decreased urine output. Patient resting comfortably, call yang within reach.
[2024-10-28 00:35] LABS: Venous Blood Gas O2 Therapy 100
[2024-10-28] MEDS: SODIUM BICARBONATE 1150 MEQ IV (01:46)
[2024-10-28 04:14] LABS: Venous Blood Gas B.E. -7.5 mmol/L (-4 to +4); Venous Blood Gas HCO3 17.3 mmol/L (22-27); Venous Blood Gas O2 Sat % 99.8 %; Venous Blood Gas pCO2 32 mmHg (35-48); Venous Blood Gas pH 7.34 (7.32-7.43); Venous Blood Gas pO2 143 mmHg (30-50)
[2024-10-28 04:23] LABS: INR 1.18; PT 15.5 Sec (11.4-14.6)
[2024-10-28 04:24] LABS: APTT 30.7 Sec (23.4-35.0)
[2024-10-28 04:31] LABS: Venous Blood Gas O2 Therapy BIPAP
[2024-10-28 04:32] LABS: Hematocrit 30.5 % (37.0-47.0); Hemoglobin 10.3 g/dL (12.0-16.0); Mean Corp Hgb Conc. 33.8 g/dL (33.0-37.0); Mean Corpuscular Hgb 30.6 pg (27.0-31.0); Mean Corpuscular Volume 90.5 fL (81.0-99.0); Mean Platelet Volume 10.1 fL (7.4-10.4); Platelet Count 171 10^3/uL (130-400); Red Blood Cell Count 3.37 10^6/uL (4.20-5.40); Red Cell Dist. Width 13.2 % (11.5-14.5); White Blood Cell Count 17.9 10^3/uL (4.8-10.8)
[2024-10-28 04:59] LABS: Procalcitonin 12.06 ng/ml (0.0-0.25)
[2024-10-28 05:03] LABS: Phosphorus 3.5 mg/dl (2.5-4.5)
[2024-10-28 05:12] LABS: Cortisol, Random 31.3 ug/dl
[2024-10-28] MEDS: VANCOCIN 150 IV (05:13)
[2024-10-28] MEDS: SOLU-MEDROL PF 40 MG IV (05:13)
[2024-10-28] MEDS: MORPHINE SULFATE 1 MG IV (06:06)
--- NOTE | 2024-10-28 06:19 | PTCARENOTE ---
Patient off norepinephrine drip since 0500, maintaining MAP>65. Urine labs sent. Patient reporting chest pain with inspiration, EKG done, morphine given. Repositioned, incontinence care done, mouth care done. Call yang within reach.
[2024-10-28 06:29] LABS: Urine Albumin 2+ (Neg - Trace); Urine Bilirubin Negative (Negative); Urine Character Clear (Clear); Urine Color Yellow; Urine Glucose Negative (Negative); Urine Ketone 1+ (Negative); Urine Leukocyte Negative (Negative); Urine Nitrite Negative (Negative); Urine Occult Blood Negative (Negative); Urine Specific Gravity 1.025 (<1.030); Urine Urobilinogen Negative (Neg - 1+)
--- NOTE | 2024-10-28 07:36 | W.PN.HOSP.TC ---
Today's Communication/Plan
-
See plan
Assessment / Plan
Assessment / Plan
Physical Exam
General: Well Developed and No Apparent Distress
HEENT: Normocephalic
Respiratory: Clear to Auscultation Bilaterally
Cardiac: S1/S2 and Regular Rhythm
GI: Soft, Non Tender, Non Distended and Normal Bowel Sounds
Musculoskeletal: No Cyanosis. No Edema and Other (Right hip tenderness to palpation. Decreased range of motion on external rotation.)
Skin: Warm. Dry.
Neuro: Alert and Nonfocal/grossly intact
Psych: Calm
Assessment/Plan
78 y.o female with past medical history significant for asthma/COPD (not on home oxygen and remote history of smoking, denies COPD), hypertension, hyperlipidemia, rheumatoid arthritis, recent admission in July for COVID-19 infection and history
of intermittent diarrhea for which she has been on Imodium, who presented to the emergency department with acute respiratory distress. Patient lives with daughter. Daughter reports that since 2 days ago she has been having increased diarrhea and has
been using more doses of Imodium. She has loose nonbloody stools. She has not had fevers or chills at home. More generalized weakness. Immediately after noon the patient became acutely short of breath. They denied any complaints of chest pain.
They denied measured fevers at home. Patient decompensated rapidly and was immediately transferred to the emergency department. On arrival in the ED she was hypoxic and placed on BiPAP. Blood pressure trended down to the 70s systolic with MAP of 68,
she was tachycardic to the 130s, temp was 100 �F. ECG shows irregular's supraventricular tachycardia anemia, unclear whether this was sinus versus atrial flutter, troponin was 0.037. BNP was negative. Chest x-ray showed a right basilar
infiltrate. CBC was completely unremarkable stop electrolytes BUN/creatinine were stable compared to prior.
Presentation with worsening shortness of breath
Acute hypoxic respiratory failure with right lower lobe pneumonia
Septic and Hypovolemic Shock Secondary to Pneumonia and Diarrhea
Lactic Acidosis - IMPROVING
- COVID and Influenza negative
- Initially needed BiPAP, now off BiPAP and doing well
- Vasopressors have been weaned off
- IV fluids given
- Follow blood cultures
- Given recent hospitalizations will treat with cefepime/azithromycin and vancomycin pending MRSA swab
- Stool studies
Asthma
-Questionable asthma exacerbation
-Decrease Solumedrol to daily
-Switch Advair to scheduled twice daily, and add albuterol on an as-needed basis
Acute on Chronic Diarrhea, Severe Dehydration
-Possibly Legionella? Since pneumonia and diarrhea.
-Continue Azithromycin
-Continue IV fluids but with Lactated Ringer's IV fluids
NSTEMI
-Troponin noted to be above 2, patient currently chest pain-free and EKG without any ST elevation.
-Aspirin given, initiated on heparin infusion considering patient reported left-sided transient chest pain earlier
-Continue to trend troponin, add statin, cardiology consultation, echocardiogram ordered
-Patient not on beta-blockers due to hypotension and brief pressor requirement
History of rheumatoid arthritis
-Takes Hydroxychloroquine at home and Prednisone
-Currently on Solumedrol
DVT Prophylaxis: Heparin Drip
Code Status: Full Code
Anticipated Discharge: > 48 hours
Subjective/Interval History
-
Date of Service: October 28, 2024
Patient was seen and examined. No new symptoms or complaints.
Objective Data
-
Labs:
Laboratory Results
10/28/24
04:05
WBC 17.9 H
Hgb 10.3 L D
Hct 30.5 L
Plt Count 171 D
PT 15.5 H
INR 1.18
APTT 30.7
Vital Signs:
Vital Signs
Temp Pulse Resp BP Pulse Ox
97 F 68 17 81/61 100
10/28/24 04:10 10/28/24 06:30 10/28/24 06:30 10/28/24 06:30 10/28/24 06:30
I&O
10/27/24 10/28/24 10/29/24
06:59 06:59 06:59
Intake Total 2455.0 / 2455.0
Output Total 300 / 300
Balance 2155.0 / 2155.0
[2024-10-28 08:06] LABS: Urine Bacteria Moderate (Negative)
[2024-10-28 08:07] LABS: Urine Red Blood Cell None Seen /HPF (0-2)
[2024-10-28 08:08] LABS: Urine Hyaline Cast 0-2 /LPF (0-2)
--- NOTE | 2024-10-28 08:14 | CON.INTV ---
Consultation
Consultation Request
Date/Time Consultation Requested: 10/27/2024
Date/Time Consultation Performed: 10/28/2024
Medical History
-
Chief Complaint: sepsis
History of Present Illness:
Ms. Lisa Kerns is an 78yoF pmh HTN, HLD, CKD, asthma who presented to ED with dyspnea and increased diarrhea. Pt septic with low grade temperatures, tachycardia, HoTN, and respiratory. Placed on BiPAP, transferred to the ICU for respiratory
failure. Denies melena, +weakness, -fever, no known sick contacts. Overnight, pt endorsed L-sided CP which resolved with morphine. Additionally, she required a levophed drip for HoTN, but no longer requires it.
Past Medical History
Past Medical History: Asthma, HTN, Hypercholesterolemia and Other (pacemaker for syncope, CKD, rheumatoid arthritis)
Past Surgical History: Cardiac (pacemaker )
Social History
Tobacco: Former Smoker
Alcohol: None
Drug: None
Personal:
Living: With Family
Employment: Retired
Family History
Family History: Reviewed & Not Pertinent
Allergies / Home Medications
Allergies
Allergy/AdvReac Type Severity Reaction Status Date / Time
ciprofloxacin Allergy Hallucinati Verified 10/27/24 20:36
on
gabapentin Allergy Anaphylaxis Verified 07/07/24 23:27
Home Medications
�Medication �Instructions �Recorded �Confirmed �Last Taken �Type
brimonidine 0.2 %-timolol 0.5 % 1 drp BOTH EYES BID Eye Condition 07/08/24 07/17/24 Unknown History
eye drops
cholecalciferol (vitamin D3) 50 50 mcg PO DAILY Supplement 07/08/24 07/17/24 Unknown History
mcg (2,000 unit) capsule (Vitamin
D3)
cyanocobalamin (vitamin B-12) 100 100 mcg PO DAILY Supplement 07/08/24 07/17/24 Unknown History
mcg tablet (Vitamin B-12)
diltiazem HCl 120 mg 120 mg PO DAILY Rate control 07/08/24 07/17/24 Unknown History
capsule,extended release 24 hr,
controlled (DILT-XR)
docosahexaenoic acid (dha)-epa 120 1 cap PO DAILY Supplement 07/08/24 07/17/24 Unknown History
mg-180 mg capsule (Fish Oil)
fluticasone 100 mcg-salmeterol 50 1 inh inhalation R BIDPRN PRN sob 07/08/24 07/17/24 Unknown History
mcg/dose blistr powdr for
inhalation (Advair Diskus)
hydroxychloroquine 200 mg tablet 200 mg PO DAILY Rheumatoid 07/08/24 07/17/24 Unknown History
arthritis
pravastatin 20 mg tablet 20 mg PO DAILY High Cholesterol 07/08/24 07/17/24 Unknown History
lisinopril 5 mg tablet 5 mg PO DAILY 07/17/24 07/17/24 Unknown History
acetaminophen 500 mg tablet 1,000 mg (2 x 500 mg) PO Q8H 14 07/22/24 Unknown Rx
(Tylenol Extra Strength) days #84 tabs
cyclobenzaprine 10 mg tablet 5 mg (1/2 x 10 mg) PO Q8HPRN PRN 07/22/24 Unknown Rx
muscle spasm 10 days #14 tabs
famotidine 20 mg tablet 20 mg PO Q48H 30 days #15 tabs 07/22/24 Unknown Rx
melatonin 5 mg tablet 5 mg PO HS #30 tabs 07/22/24 Unknown Rx
nystatin 100,000 unit/mL oral 5 ml PO QID 5 days #100 mL 07/22/24 Unknown Rx
suspension
prednisone 10 mg tablet See Rx Instructions .Route 07/22/24 Unknown Rx
.COMPLEX #45 tabs
Review of Systems
-
History Source: Patient
Constitutional: No Symptoms
EENT: No Symptoms
Respiratory: No Symptoms
Cardiac: No Symptoms
Abdomen/GI: Diarrhea
: No Symptoms
Musculoskeletal: No Symptoms
Skin: No Symptoms
Neuro: No Symptoms
Hematologic/Lymphatic: No Symptoms
Vitals / Labs / Diagnostic Testing
Vital Signs
Temp Pulse Resp BP Pulse Ox
97 F 68 17 81/61 100
10/28/24 04:10 10/28/24 06:30 10/28/24 06:30 10/28/24 06:30 10/28/24 06:30
Lab Data
10/28/24 04:05
Laboratory Results
10/27/24 10/28/24
17:47 04:05
PT 15.5 H
INR 1.18
APTT 30.7
pH 7.38
pCO2 26 L
pO2 75 L
HCO3 15.4 L*
O2 Delivery Level
Microbiology
10/27/24 21:19 Nasal Swab Influenza Types A & B (FEDERICO) - Final
Negative for Influenza A & B, NAAT
Negative results must be combined with clinical observations
and patient history.
Nucleic Acid Amplification test (NAAT)performed on the
[employer] NOW platform.
Diagnostic Testing:
Physical Exam
-
HEENT: Normocephalic and Anicteric
Cardiovascular: S1/S2 and Regular Rhythm
Respiratory: Clear and Accessory Resp Muscle Use
GI: Soft, Non Distended, Flat, Non Tender and Normal Bowel Sounds
Neurology: Awake and AO x 3
Skin: Warm and Dry
Assessment
-
Assessment: 78yoF pmh HTN, HLD, CKD, asthma who presented to ED with dyspnea and increased diarrhea. Pt septic with low rad temperatures, tacchycardia, HoTN, and respiratory. Placed on BiPAP, transferred to the ICU for respiratory failure.
Plan:
Sepsis likely secondary to pneumonia
- SIRS: tachycardia, leukocytosis, HoTN
- 1g ancef in ED
- IVF
- blood cx pending
- stool studies pending
- procalcitonin elevated
- cefepime, doxycycline, vancomycin
HoTN
- IVF
- required levophed overnight
Respiratory failure likely secondary to pneumonia and asthma
- BiPAP to reduce work of breathing
- Covid/flu A/B
- vbg: improving
- CXR: right basilar pneumonia
- nebulizer, solumedrol
Uncontrolled tachycardia
- hx of SVT
- monitor
Undifferentiated chest pain syndrome
- Troponins elevated and rising to 2.5
- L sided CP overnight, but currently denying CP/N/V/abd pain
- repeat ECG unremarkable for ischemia
- BNP wnl
- trend troponins
- echo pending
- ASA, heparin drip
- cardiology consulted
Rheumatoid arthritis
- hold hydroxychloroquine
- on prednisone at home
- random cortisol 31
- receiving steroid w fluticasone/salmeterol inhaler
Normocytic anemia
- monitor
- repeat CBC
HTN/HLD
- hold home cardizem for HoTN
- hold home statin
Diet: regular
DVT ppx: heparin
Code status: full code
Data Reviewed
-
EKG: Tracing personally visualized and interpreted
Radiology: Image personally visualized and interpreted
Labs: Labs reviewed by me
[2024-10-28] MEDS: VIBRAMYCIN 260 MG IV (08:18)
[2024-10-28] MEDS: PROTONIX IV 40 MG IV (08:18)
[2024-10-28] MEDS: TIMOPTIC 0.5% OPHTHALMIC SOLUTION 1 DROP BOTH EYES ×2 (08:20→20:51)
[2024-10-28] MEDS: ALPHAGAN 0.2% EYE DROPS 1 DROP BOTH EYES ×2 (08:20→20:51)
--- NOTE | 2024-10-28 08:27 | VNURNOTE ---
Chart reviewed. Patient is current with [facility] nursing, PT, OT. Will continue to follow hospital course and DC plans.
--- NOTE | 2024-10-28 08:40 | PTCARENOTE ---
Assumed care of pt at 0715 following shift report. Pt awake and resting quietly on BiPap. TT to Resp Therapy to remove Bipap. Pt denies c/o pain or SOB. Physical assessment completed as documented. Turned/repositioned, comfort care and hygiene
provided. Call yang w/in pt reach and safe environment maintained. Returned dtrs phone call - updated on pt's present condition and plan of care.
[2024-10-28 09:02] LABS: Blood Urea Nitrogen 30 mg/dl (7-17); Calcium 7.5 mg/dl (8.4-10.2); Carbon Dioxide 22 mmol/L (22-30); Chloride 110 mmol/L (98-107); Estimated Creatinine Clearance 42 ml/min; Glucose 176 mg/dl (70-99); Potassium 4.6 mmol/L (3.5-5.1); Sodium 137 mmol/L (135-145); eGFR > 60.00
--- NOTE | 2024-10-28 09:44 | PHA.VAN.FU ---
Vancomycin Assessment / Plan
- Assessment
Renal Function: Stable (0.9)
WBC's are: Trending Up (7.5->17.9)
In the past 24 hrs, patient has been: Afebrile
Concomitant Antimicrobials: Cefepime, Doxycycline
- Dosing Plan
Continue: Vanco 750mg Q24H
- Monitoring Plan
No level(s) ordered at this time: Consider in the next few days
- Follow Up
Pharmacy will continue to follow.
Vancomycin Follow UP
- -
Patient Age: 78
Patient Sex: Female
Vancomycin Day #: 1
Indication: Pulmonary/Respiratory (SEPSIS)
Requesting Provider: REJI
Pertinent Antimicrobial Allergies:
Allergies
ciprofloxacin Allergy (Verified 10/27/24 20:36)
Hallucination
Extreme Fatigue, Confusion
Height / Weight:
Height 5 ft 7 in
Actual Weight 53.9 kg
IBW in k.6
- Vital Signs / Lab Results
Temp Pulse Resp BP Pulse Ox
97.8 F 68 17 81/61 100
10/28/24 08:00 10/28/24 06:30 10/28/24 06:30 10/28/24 06:30 10/28/24 06:30
Lab Results - Hematology
10/27/24 10/28/24
17:41 04:05
WBC 7.5 17.9 H
Lab Results - Chemistry
10/27/24 10/28/24
17:41 08:42
BUN 36 H 30 H
Creatinine 1.1 H 0.9
Estimated Creat Clear 34 42
Albumin 4.0
10/27/24 10/27/24 10/27/24
17:41 18:15 21:04
Lactic Acid 2.2 H Cancelled 1.5
10/27/24 10/27/2425
21:04 22:15 00:06
Lactic Acid Cancelled Cancelled Cancelled
10/28/24 10/28/24
04:06 08:06
Lactic Acid Cancelled Cancelled
Lab Results - Urine
10/28/24
06:05
Urine Nitrite (Reflex) Negative
Leukocyte Esterase Rfl Negative
Ur Squamous Epith Cells 3-5
Microbiology Results
10/27/24 21:19 Influenza Types A & B (FEDERICO) - Final
Nasal Swab Negative for Influenza A & B, NAAT
Negative results must be combined with clinical observations
and patient history.
Nucleic Acid Amplification test (NAAT)performed on the
[employer] NOW platform.
[2024-10-28] MEDS: ASPIRIN 325 MG PO (09:56)
[2024-10-28] MEDS: HEPARIN 25000 UNITS/250 ML IV (09:58)
[2024-10-28] MEDS: LR 1000 IV (10:00)
--- NOTE | 2024-10-28 11:00 | PTCARENOTE ---
Echo in progress at bedside. Pt continues to rest quietly w/o noted changes or new complaints received. Zohaib Montenegro and Consuelo in to evaluate pt.
--- NOTE | 2024-10-28 11:01 | PHANOTE ---
Med Rec Note:
Pt unsure of medications, states her daughter would know them. Pt states daughter is working currently and will be in later. [facility] sent over home medications list. Home med list compiled from Dr Mason and [facility]ERI med list.
--- NOTE | 2024-10-28 11:28 | CON.CAR ---
Consultation
Consultation Request
Date/Time Consultation Requested: October 28, 2024 7:30 AM
Date/Time Consultation Performed: October 28, 2024 9 am
Requesting Provider: Hospitalist
Performing Provider: Blayne Cordero
Reason for Consultation: Elevated troponin
Medical History
-
Chief Complaint: Shortness of breath
History of Present Illness:
78-year-old female with history of CHB s/p PPM, paroxysmal a tach, asthma/COPD, hypertension, hyperlipidemia, RA, who is here because of worsening shortness of breath. She is lives with her daughter and is not the best historian. Majority of HPI
is from chart review. She tells me that she has some diarrhea over the last several days. However, yesterday she then developed worsening shortness of breath and appeared unwell. She was then transferred to the emergency room.
Overnight, she reported some chest heaviness with deep inspiration and troponin and ECG were obtained. Troponins were found to be elevated.
Past Medical History
Past Medical History: Other (CHB s/p PPM, paroxysmal a tach, asthma/COPD, hypertension, hyperlipidemia, RA)
Past Surgical History: Other (PPM R hip replacement )
Social History
Tobacco: Non-Smoker
Alcohol: None
Drug: None
Personal:
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
Employment: Retired
Family History
Family History: Reviewed & Not Pertinent
Allergies / Home Medications
Allergy/AdvReac Type Severity Reaction Status Date / Time
ciprofloxacin Allergy Hallucinati Verified 10/27/24 20:36
on
gabapentin Allergy Anaphylaxis Verified 07/07/24 23:27
�Medication �Instructions �Recorded �Confirmed �Type
brimonidine 0.2 %-timolol 0.5 % 1 drp BOTH EYES BID Eye Condition 07/08/24 10/28/24 History
eye drops
cholecalciferol (vitamin D3) 50 50 mcg PO DAILY Supplement 07/08/24 10/28/24 History
mcg (2,000 unit) capsule (Vitamin
D3)
cyanocobalamin (vitamin B-12) 100 100 mcg PO DAILY Supplement 07/08/24 10/28/24 History
mcg tablet (Vitamin B-12)
diltiazem HCl 120 mg 120 mg PO DAILY Rate control 07/08/24 10/28/24 History
capsule,extended release 24 hr,
controlled (DILT-XR)
docosahexaenoic acid (dha)-epa 120 1 cap PO DAILY Supplement 07/08/24 10/28/24 History
mg-180 mg capsule (Fish Oil)
fluticasone 100 mcg-salmeterol 50 1 inh inhalation R BIDPRN PRN sob 07/08/24 10/28/24 History
mcg/dose blistr powdr for
inhalation (Advair Diskus)
hydroxychloroquine 200 mg tablet 200 mg PO DAILY Rheumatoid 07/08/24 10/28/24 History
arthritis
lisinopril 5 mg tablet 5 mg PO DAILY 07/17/24 10/28/24 History
melatonin 5 mg tablet 5 mg PO HS #30 tabs 07/22/24 10/28/24 Rx
Saccharomyces boulardii 250 mg 250 mg PO DAILY 10/28/24 10/28/24 History
capsule (Florastor)
lidocaine 4 % topical patch 1 patch topical DAILY both knees 10/28/24 10/28/24 History
loperamide 2 mg tablet (Imodium 2 mg PO USEASDIRECTD PRN loose 10/28/24 10/28/24 History
A-D) stool
ondansetron 4 mg disintegrating 4 mg PO Q6HPRN PRN nausea/vomiting 10/28/24 10/28/24 History
tablet
rosuvastatin 5 mg tablet 5 mg PO DAILY 10/28/24 10/28/24 History
simethicone 80 mg chewable tablet 80 mg PO Q6HPRN PRN gas 10/28/24 10/28/24 History
Review of Systems
-
All other systems: Negative unless noted
Physical Exam
Vital Signs
Temp Pulse Resp BP Pulse Ox
97.8 F 68 17 81/61 100
10/28/24 08:00 10/28/24 06:30 10/28/24 06:30 10/28/24 06:30 10/28/24 06:30
Lab Results
10/28/24 08:42
Troponin I 2.520 ng/ml H* D 10/28/24 07:16
Rxy-O-Znllounocpc Pept 147 pg/ml 10/27/24 17:41
Physical Exam
General: No Apparent Distress and Comfortable
HEENT: Normocephalic
Respiratory: Non Labored Respirations and Other (coarse b/s)
Cardiac: Regular Rhythm
GI: Soft
Musculoskeletal: No Cyanosis and No Edema
Skin: Warm and Dry
Neuro: Awake, Alert and Oriented
Psych: Calm
Impression / Plan
-
A/P: 78-year-old female with history of CHB s/p PPM, paroxysmal a tach, asthma/COPD, hypertension, hyperlipidemia, RA, who is here because of worsening shortness of breath.
Elevated troponin
- likely non-ischemic myocardial injury given sepsis with hypotension
- will update echo; trend trop to peak
PNA and sepsis
- on abx
- close monitoring in ICU
- per primary
HTN
- holding BP meds given hypotension
CHB
- PPM in place stable
Hypoxic RF 2/2 asthma and PNA
- per primary
RA
Anemia
HLD
- statin as able
Data Reviewed
-
EKG: Tracing Personally Visualized and interpreted (paced)
Medical Tests (Nuc Med, Echo etc): Report Reviewed by me
Labs: Labs Reviewed by me
--- NOTE | 2024-10-28 12:49 | CM ---
CM following re: discharge planning.
Reviewed pt's chart, met with pt.
Pt is an 78 year old female, admitted with primary dx of Sepsis - Suspect secondary to bacterial pneumonia. PMH includes: significant for asthma/COPD (not on home oxygen and remote history of smoking, denies COPD), hypertension, hyperlipidemia,
rheumatoid arthritis.
Pt reports she was born and raised in [place], immigrated to [place] at the age of 22 and resided with family in [facility]. Pt reports she lives in in law suite attached to daughter's house, no steps, has 4 supportive living children, daughter
at the age of 39. Emotional support offered and provided. Pt reports she ambulates with a walker, known to [facility] and was recently at [facility] for a short term rehab. Pt reports she will prefer to return back home with Fundology and at
the same time pt stated she will go to [facility] if recommended.
PT and OT will evaluate the pt to determine a level of acre at discharge.
PCP: Jessie Gonzales
Pharmacy: [facility]
D/C plan: uncertain at this time: home with [employer] vs [facility].
CM will follow with discharge plan updates as hospitalization progresses
[2024-10-28] MEDS: LR 500 IV (14:38)
--- NOTE | 2024-10-28 15:05 | CARDSERVLU ---
Echocardiogram with [facility] completed after protocol screening completed. Allergies verified.
Patent IV site: 20 g in RAC (existing)
IV site flushed with 0.9% NaCl pre and post administration.
Diluted bolus method utilized to enhance visualization of ventricular monge.
Total volume given: 3 mL
Patient tolerated all procedures well without complications.
--- NOTE | 2024-10-28 16:15 | PTCARENOTE ---
Dr Coleman notified of urine output for shift and need to restart Levophed to maintain MAP >65. Order for LR bolus received and given per SEP. After receiving bolus, pt c/o SOB w/ RA Pox 95%> RR low 20's. Dr Coleman in room to evaluate pt. IVF placed
on hold. CXR ordered and obtained. Pt conts to deny c/o pain.
[2024-10-28 17:01] LABS: APTT 127.3 Sec (23.4-35.0)
[2024-10-28] MEDS: LIPITOR 40 MG PO (18:14)
--- NOTE | 2024-10-28 18:42 | PTCARENOTE ---
Echo in progress at bedside. Pt continues to rest quietly w/o noted changes or new complaints received. Zohaib Montenegro and Consuelo in to evaluate pt.
[2024-10-28] MEDS: ADVAIR HFA 45/21 MCG INHALER 2 PUFF INH (19:07)
[2024-10-28] MEDS: ProAIR HFA INHALER 2 PUFF INH (19:11)
[2024-10-28] MEDS: VIBRAMYCIN 100 MG PO (19:39)
--- NOTE | 2024-10-28 20:00 | PTCARENOTE ---
Received patient at 1900. Pt. currently in bed. Awake, alert, and oriented. Denies pain/discomfort. Afebrile. Heart rhythm sinus. Levophed gtt infusing to maintain MAP >65. Currently on room air. Lungs sound diminished. PO diet, okay appetite. Pure
wick drainage device in place, voiding without issue. Skin as documented. Discussed plan of care with patient and her daughter at bedside. Vital signs stable at this time.
[2024-10-29] VITALS (32 sets, daily range): BP systolic 106–139; BP diastolic 55–88; BMI 19.7
[2024-10-29] LABS: APTT 101.1 Sec (23.4-35.0)
--- NOTE | 2024-10-29 00:25 | PTCARENOTE ---
Pt. assessment unchanged. PTT result therapeutic. Pt. sleeping comfortably. Vital signs stable at this time.
[2024-10-29] MEDS: STERILE WATER FOR INJECTION 10 ML IV ×3 (05:22→22:39)
[2024-10-29] MEDS: MAXIPIME 1000 MG IV ×3 (05:23→22:39)
[2024-10-29] MEDS: VANCOCIN 150 IV (05:49)
[2024-10-29 06:33] LABS: Hematocrit 29.1 % (37.0-47.0); Hemoglobin 9.7 g/dL (12.0-16.0); Mean Corp Hgb Conc. 33.3 g/dL (33.0-37.0); Mean Corpuscular Volume 90.1 fL (81.0-99.0); Mean Platelet Volume 10.2 fL (7.4-10.4); Platelet Count 133 10^3/uL (130-400); Red Blood Cell Count 3.23 10^6/uL (4.20-5.40); Red Cell Dist. Width 13.1 % (11.5-14.5); White Blood Cell Count 14.7 10^3/uL (4.8-10.8)
[2024-10-29 06:40] LABS: APTT 60.7 Sec (23.4-35.0)
[2024-10-29 07:07] LABS: Blood Urea Nitrogen 32 mg/dl (7-17); Calcium 8.1 mg/dl (8.4-10.2); Carbon Dioxide 22 mmol/L (22-30); Chloride 113 mmol/L (98-107); Estimated Creatinine Clearance 45 ml/min; Glucose 146 mg/dl (70-99); Potassium 4.6 mmol/L (3.5-5.1); Sodium 141 mmol/L (135-145); eGFR > 60.00
--- NOTE | 2024-10-29 07:22 | W.PN.HOSP.TC ---
Today's Communication/Plan
-
Stopped Vancomycin
See plan
Assessment / Plan
Assessment / Plan
Physical Exam
General: Well Developed and No Apparent Distress
HEENT: Normocephalic
Respiratory: Clear to Auscultation Bilaterally
Cardiac: S1/S2 and Regular Rhythm
GI: Soft, Non Tender, Non Distended and Normal Bowel Sounds
Musculoskeletal: No Cyanosis. No Edema and Other (Right hip tenderness to palpation. Decreased range of motion on external rotation.)
Skin: Warm. Dry.
Neuro: Alert and Nonfocal/grossly intact
Psych: Calm
Assessment/Plan
78 y.o female with past medical history significant for asthma/COPD (not on home oxygen and remote history of smoking, denies COPD), hypertension, hyperlipidemia, rheumatoid arthritis, recent admission in July for COVID-19 infection and history
of intermittent diarrhea for which she has been on Imodium, who presented to the emergency department with acute respiratory distress. Patient lives with daughter. Daughter reports that since 2 days ago she has been having increased diarrhea and has
been using more doses of Imodium. She has loose nonbloody stools. She has not had fevers or chills at home. More generalized weakness. Immediately after noon the patient became acutely short of breath. They denied any complaints of chest pain.
They denied measured fevers at home. Patient decompensated rapidly and was immediately transferred to the emergency department. On arrival in the ED she was hypoxic and placed on BiPAP. Blood pressure trended down to the 70s systolic with MAP of 68,
she was tachycardic to the 130s, temp was 100 �F. ECG shows irregular's supraventricular tachycardia anemia, unclear whether this was sinus versus atrial flutter, troponin was 0.037. BNP was negative. Chest x-ray showed a right basilar
infiltrate. CBC was completely unremarkable stop electrolytes BUN/creatinine were stable compared to prior.
Presentation with worsening shortness of breath
Acute hypoxic respiratory failure with right lower lobe pneumonia
Septic and Hypovolemic Shock Secondary to Pneumonia and Diarrhea
Pneumonia
Diarrhea
Lactic Acidosis - IMPROVING
- COVID and Influenza negative
- Initially needed BiPAP, now off BiPAP and doing well
- Vasopressors have been weaned off
- IV fluids given
- Follow blood cultures -- initial grew CoNS but repeat cultures are negative
- Given recent hospitalizations continue treatment with cefepime/azithromycin
- Stop Vancomycin given negative MRSA swab
- Stool studies if possible -- but no further diarrhea since patient has been in ICU
Asthma
-Questionable asthma exacerbation
-Decrease Solumedrol to daily
-Switch Advair to scheduled twice daily, and add albuterol on an as-needed basis
Acute on Chronic Diarrhea, Severe Dehydration
-Possibly Legionella? Since pneumonia and diarrhea.
-Continue Azithromycin
-Continue IV fluids but with Lactated Ringer's IV fluids
NSTEMI
-Troponin noted to be above 2, patient currently chest pain-free and EKG without any ST elevation.
-Aspirin given, continue heparin infusion considering patient reported left-sided transient chest pain earlier
-Continue statin, cardiology consultation, echocardiogram ordered
-Patient not on beta-blockers due to hypotension and brief pressor requirement
-Left heart cath when patient is more stable
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
- Echocardiogram suggestive of possible stress cardiomyopathy
- Follow-up chest x-ray in a.m.
- Cardiac cardiac catheterization once more stable as above
History of rheumatoid arthritis
-Takes Hydroxychloroquine at home and Prednisone
-Currently on Solumedrol, will taper in coming days
DVT Prophylaxis: Heparin Drip
Code Status: Full Code
Anticipated Discharge: > 48 hours
Subjective/Interval History
-
Date of Service: October 29, 2024
Patient was seen and examined. She reported feeling better, still with some shortness of breath and cough.
Objective Data
-
Labs:
Laboratory Results
10/28/24 10/29/24 10/29/24
23:27 05:37 06:19
WBC Cancelled 14.7 H
Hgb Cancelled 9.7 L
Hct Cancelled 29.1 L
Plt Count Cancelled 133 D
APTT 101.1 H 31.0 60.7 H
Sodium Cancelled 141
Potassium Cancelled 4.6
Chloride Cancelled 113 H
Carbon Dioxide Cancelled 22
BUN Cancelled 32 H
Creatinine Cancelled 0.9
Glucose Cancelled 146 H
Calcium Cancelled 8.1 L
10/29/24
13:00
WBC
Hgb
Hct
Plt Count
APTT Pending
Sodium
Potassium
Chloride
Carbon Dioxide
BUN
Creatinine
Glucose
Calcium
Vital Signs:
Vital Signs
Temp Pulse Resp BP Pulse Ox
98 F 75 23 139/88 97
10/28/24 23:26 10/29/24 05:30 10/29/24 05:30 10/29/24 05:30 10/29/24 05:30
I&O
10/28/24 10/29/24 10/30/24
06:59 06:59 06:59
Intake Total 2455.0 / 2580.0 /
Output Total 300 / 300 650 / 650
Balance 2155.0 / 2280.0 14407.30 /
--- NOTE | 2024-10-29 07:30 | W.PN.INTV ---
Today's Communication / Plan
Recommendations
- Off Levophed, on room air
- Continue current antibiotics and anticoagulation
- Follow-up chest x-ray, BNP and electrolytes in a.m.
- If stays off pressors, can be downgraded later today or in a.m.
- Pulmonary team will continue to follow
Assessment
-
In brief, patient is a 78-year-old female with known history of asthma who presented to emergency room for the increased shortness of breath as well as worsening diarrhea. Patient was noted to have a right lower lobe infiltrate and hypotension
requiring pressor support after fluid resuscitation. She was also noted to be quite dehydrated with diarrhea. In view of shock requiring vasopressors, patient was admitted to the ICU and recreational therapy aide consultation was requested for further input.
#1. Acute respiratory failure with septic shock with right lower lobe pneumonia.
- Shock improved, patient is off pressors now. She responded well to IV fluid resuscitation. Lactate was 2.2 on admission, 1.5 on repeat testing
- Continue broad-spectrum antibiotics as ordered, vancomycin, cefepime and azithromycin. Await cultures, MRSA screen. Influenza AB screen negative. COVID-19 screen negative.
- In view of GI symptoms and pneumonia, checked Legionella urine antigen, continue azithromycin for now
- Continue ICU level of care
- Patient required BiPAP initially for increased work of breathing, currently off BiPAP and doing well, on room air now
- Bacteremia noted however cultures show coagulase-negative Staphylococcus, likely contaminant, follow-up cultures.
#2. Diarrhea with severe dehydration.
- Responded well to fluid resuscitation, appears euvolemic now
- Saline lock
- No further diarrhea since patient has been in the ICU
#3. Non-ST elevation [place], suspect type II. Troponin noted to be above 2, patient currently chest pain-free and EKG without any ST elevation.
- Continue aspirin, heparin infusion
- Plan for left heart cath once patient is more stable, cardiology service on case
-Patient not on beta-blockers due to hypotension and brief pressor requirement
#3a. 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 Echocardiogram suggestive of possible stress cardiomyopathy
- Saline lock, does not appear to be volume overloaded on exam
- Follow-up chest x-ray in a.m.
- Cardiac cardiac catheterization once more stable
#4. History of asthma.
- Reportedly patient had wheezing on admission, ?asthma exacerbation in the setting of pneumonia
- Currently no wheezing on exam, continue Solu-Medrol 40 daily
- Continue Advair twice daily and as needed albuterol
#5. History of rheumatoid arthritis. Patient takes HCQZ at home. Also takes prednisone on an as-needed basis
- Currently on Solu-Medrol 40 IV daily for asthma exacerbation, will taper over coming days
Diet: regular
DVT ppx: heparin drip
Code status: full code
Critical Care time 73 mins -- The patient is admitted for acute critical illness for the treatment of vital organ failure and/or prevention of further life-threatening conditions. Total care includes time spent in review of history, physical exam,
medications, hemodynamic/ventilator parameters, laboratory data, imaging and discussion with house staff, pharmacy, respiratory therapy, testing engineer, and nursing.
Subjective Dataa
Subjective Data
Date of Service:
Date of Service: October 29, 2024
Subjective:
Patient comfortably lying in bed, in no acute distress, off Levophed and on room air.
Review of Systems
Genitourinary: Other (All 14 systems reviewed and negative except as stated above in the history of present illness.)
Objective Data
Data Reviewed
Vital Signs / I&O / Oxygen:
Vital Signs
Temp Pulse Resp BP Pulse Ox
97.9 F 75 23 139/88 97
10/29/24 07:26 10/29/24 05:30 10/29/24 05:30 10/29/24 05:30 10/29/24 05:30
Intake and Output
10/28/24 10/29/24 10/30/24
06:59 06:59 06:59
Intake Total 2455.0 / 2580.0 2090. / 2090.
Output Total 300 / 300 650 / 650
Balance 2155.0 / 2280.0 1441.25 / 144.
SaO2 97
Nasal Cannula flow liters per 2
minute
Physical Exam
General: Comfortable
HEENT: Normocephalic
Cardiovascular: S1-S2
Respiratory: Non-Labored Respirations and Other (Rhonchi in the right lower lobe, overall good air entry on the left side.)
GI: Soft and Non Distended
Neurology: Awake and Alert
Skin: Warm
Labs/Micro/Reports
Lab Data
10/29/24 06:19
10/29/24 06:19
Laboratory Results
10/28/24 10/28/24 10/28/24
08:52 16:40 23:27
APTT Cancelled 127.3 H 101.1 H
10/29/24 10/29/24
05:37 06:19
APTT 31.0 60.7 H
Microbiology
10/27/24 22:08 Blood/Venous Blood Culture - Preliminary
No Growth in 24 hours- Final report to follow
10/27/24 22:08 Blood/Venous Blood Culture - Preliminary
No Growth in 24 hours- Final report to follow
10/27/24 18:36 Blood/Venous Blood Culture - Preliminary
No Growth in 24 hours- Final report to follow
10/27/24 18:36 Blood/Venous Blood Culture - Preliminary
Positive culture in progress
10/27/24 18:36 Blood/Venous Gram Stain - Preliminary
10/28/24 13:58 Urine Legionella Urinary Antigen - Final
Negative for Legionella pneumophila Serogroup 1 antigen.
A negative result does not rule out the possiblity of
Legionella infection due to other serogroups or species of
Legionella. Clinical correlation is recommended.
10/27/24 21:19 Nose Nasal Screen MRSA (PCR) - Final
10/27/24 21:19 Nasal Swab Influenza Types A & B ([facility]) - Final
Negative for Influenza A & B, NAAT
Negative results must be combined with clinical observations
and patient history.
Nucleic Acid Amplification test (NAAT)performed on the
[employer] platform.
[2024-10-29] MEDS: ADVAIR HFA 45/21 MCG INHALER 2 PUFF INH ×2 (08:06→19:20)
[2024-10-29] MEDS: ASPIR LOW (ENTERIC COATED) 81 MG PO (08:28)
[2024-10-29] MEDS: TIMOPTIC 0.5% OPHTHALMIC SOLUTION 1 DROP BOTH EYES ×2 (08:28→20:51)
[2024-10-29] MEDS: VIBRAMYCIN 100 MG PO ×2 (08:28→19:31)
[2024-10-29] MEDS: PROTONIX IV 40 MG IV (08:28)
[2024-10-29] MEDS: SOLU-MEDROL PF 40 MG IV (08:28)
[2024-10-29] MEDS: ALPHAGAN 0.2% EYE DROPS 1 DROP BOTH EYES ×2 (08:28→20:51)
--- NOTE | 2024-10-29 08:52 | PTCARENOTE ---
Assumed care of pt from shift engineer SUN. Shelbie3. [employer]. A-paced on tele, HRs 70s-100. SpO2 96% on room air. Levophed remains off. BP 120/77. Heparin gtt infusing at 750 units/hr. PTT due at 1300. Speech and Swallow consult placed. Pt coughing with oral
intake and had difficulty swallowing yesterday. Assessment documented. Plan for downgrade out of ICU later today if able to remain off Levophed.
--- NOTE | 2024-10-29 11:23 | PHA.VAN.FU ---
Vancomycin Assessment / Plan
- Assessment
Renal Function: Stable
WBC's are: Trending Down
In the past 24 hrs, patient has been: Afebrile
Concomitant Antimicrobials: Cefepime, doxycycline
- Dosing Plan
Continue: Vanc 750mg IV Q24H
- Monitoring Plan
Peak Level: 10/30 at 0830
Trough Level: 10/31 at 0530
- Follow Up
Pharmacy will continue to follow.
Vancomycin Follow UP
- -
Patient Age: 78
Patient Sex: Female
Vancomycin Day #: 3
Indication: Pulmonary/Respiratory (SEPSIS)
Requesting Provider: REJI
Pertinent Antimicrobial Allergies:
Allergies
ciprofloxacin Allergy (Verified 10/27/24 20:36)
Hallucination
Extreme Fatigue, Confusion
Height / Weight:
Height 5 ft 7 in
Actual Weight 57.1 kg
IBW in k.6
- Vital Signs / Lab Results
Temp Pulse Resp BP Pulse Ox
97.9 F 83 20 132/86 97
10/29/24 07:26 10/29/24 10:00 10/29/24 10:00 10/29/24 10:00 10/29/24 10:00
Lab Results - Hematology
10/27/24 10/28/24 10/28/24
17:41 04:05 08:52
WBC 7.5 17.9 H Cancelled
10/29/24 10/29/24
05:37 06:19
WBC Cancelled 14.7 H
Lab Results - Chemistry
10/27/24 10/28/24 10/29/24
17:41 08:42 05:37
BUN 36 H 30 H Cancelled
Creatinine 1.1 H 0.9 Cancelled
Estimated Creat Clear 34 42 Cancelled
Albumin 4.0
10/29/24
06:19
BUN 32 H
Creatinine 0.9
Estimated Creat Clear 45
Albumin
10/27/24 10/27/24 10/27/24
17:41 18:15 21:04
Lactic Acid 2.2 H Cancelled 1.5
10/27/24 10/27/24 10/28/24
21:04 22:15 00:06
Lactic Acid Cancelled Cancelled Cancelled
10/28/24 10/28/24
04:06 08:06
Lactic Acid Cancelled Cancelled
Microbiology Results
10/27/24 18:36 Blood Culture - Preliminary
Blood/Venous Coagulase neg. staphylococcus
Additional testing on request
Gram Stain - Preliminary
10/28/24 06:05 Urine Culture - Final
Urine NO GROWTH
10/27/24 21:19 MRSA Screen - Final
Nose No Methicillin Resistant Staphylococcus aureus isolated.
10/27/24 22:08 Blood Culture - Preliminary
Blood/Venous No Growth in 24 hours- Final report to follow
10/27/24 22:08 Blood Culture - Preliminary
Blood/Venous No Growth in 24 hours- Final report to follow
10/27/24 18:36 Blood Culture - Preliminary
Blood/Venous No Growth in 24 hours- Final report to follow
10/28/24 13:58 Legionella Urinary Antigen - Final
Urine Negative for Legionella pneumophila Serogroup 1 antigen.
A negative result does not rule out the possiblity of
Legionella infection due to other serogroups or species of
Legionella. Clinical correlation is recommended.
10/27/24 21:19 Nasal Screen MRSA (PCR) - Final
Nose
10/27/24 21:19 Influenza Types A & B ([facility]) - Final
Nasal Swab Negative for Influenza A & B, NAAT
Negative results must be combined with clinical observations
and patient history.
Nucleic Acid Amplification test (NAAT)performed on the
[employer] platform.
--- NOTE | 2024-10-29 13:11 | W.PN.CD ---
Today's Communication / Plan
-
Off levo
Start some diuresis 40 mg IV this afternoon
cath thursday
Impression / Plan
-
A/P: 78-year-old female with history of CHB s/p PPM, paroxysmal a tach, asthma/COPD, hypertension, hyperlipidemia, RA, who is here because of worsening shortness of breath.
Elevated troponin NSTEMI vs Stress induced STAFF ATTORNEY
- Echo below
- plan for cath Thursday
HFrEF EF 30%
- possible stress induced STAFF ATTORNEY
- IV diuresis today
- Cath thursday
- GDMT as able starting tomorrow
PNA and sepsis
- on abx
- close monitoring in ICU
- per primary
HTN
- holding BP meds given hypotension
CHB
- PPM in place stable
Hypoxic RF 2/2 asthma and PNA
- per primary
RA
Anemia
HLD
- statin as able
Subjective: feels much improved today
Physical Exam
Vital Signs/Labs
Vital Signs
Temp Pulse Resp BP Pulse Ox
98.7 F 70 17 121/69 95
10/29/24 12:30 10/29/24 12:00 10/29/24 12:00 10/29/24 12:00 10/29/24 12:00
10/28/24 10/29/24 10/30/24
06:59 06:59 06:59
Actual Weight 118 lb 13.266 oz 125 lb 14.143 oz
10/29/24 06:19
10/29/24 06:19
PT 15.5 Sec (11.4-14.6) H 10/28/24 04:05
INR 1.18 10/28/24 04:05
APTT 60.7 Sec (23.4-35.0) H 10/29/24 06:19
Magnesium 2.0 mg/dl (1.6-2.3) 10/28/24 04:05
10/27/24
17:41
Hgw-M-Affawfjtiyj Pept 147
LAB Results
10/27/24 10/27/24 10/27/24
17:41 17:41 23:15
Troponin I 0.037 H* Cancelled Cancelled
10/28/24 10/28/24 10/28/24
00:14 07:16 13:58
Troponin I 1.970 H* D 2.520 H* D 2.660 H*
10/28/24 10/29/24
23:27 05:37
Troponin I 1.530 H* 1.150 H*
Physical Exam
Constitutional: No acute distress and Comfortable
EENT: Anicteric
Cardiovascular: Rhythm & rate is regular and Pedal edema is absent
Respiratory: Respiratory effort normal and Crackles Present
GI: Soft
Neuro/Psych: AO x 3
Data Reviewed
-
Date of Service: October 29, 2024
EKG: Tracing Personally Visualized and interpreted (paced)
Echo: Tracing Personally Visualized and interpreted and Report Reviewed by me
Labs: Labs Reviewed by me
[2024-10-29 14:08] LABS: APTT 68.2 Sec (23.4-35.0)
[2024-10-29] MEDS: LASIX 40 MG IV (14:25)
--- NOTE | 2024-10-29 16:30 | PTCARENOTE ---
Assessment unchanged. Pt remains off Levophed. BPs stable. Heparin gtt @ 850 units/hr. Next PTT duet at 2030.
[2024-10-29] MEDS: LIPITOR 40 MG PO (17:16)
--- NOTE | 2024-10-29 19:00 | PTCARENOTE ---
Received pt. at 1900. Pt. currently awake resting in bed. Awake, alert, and oriented. Denies pain/discomfort. Heart rhythm paced. Blood pressure normotensive. Currently on room air. Lungs sound diminished. Regular diet, okay appetite. Pure wick
drainage device in place. Skin as documented. Discussed plan of care with patient. Vital signs stable at this time.
[2024-10-29] MEDS: ProAIR HFA INHALER 2 PUFF INH (19:21)
[2024-10-29 20:27] LABS: APTT 92.9 Sec (23.4-35.0)
[2024-10-29] MEDS: HEPARIN 25000 UNITS/250 ML IV (22:40)
[2024-10-29] MEDS: PEPCID 20 MG PO (22:40)
[2024-10-30] VITALS (17 sets, daily range): BP systolic 110–144; BP diastolic 62–89; PULSE 61–63; O2SAT 97; BMI 19.0
--- NOTE | 2024-10-30 00:15 | PTCARENOTE ---
Pt. assessment unchanged. Heparin gtt infusing. Most recent PTT assessment shows therapeutic level. Pt. resting comfortably. Vital signs stable at this time.
[2024-10-30 02:53] LABS: Hematocrit 29.5 % (37.0-47.0); Hemoglobin 10.1 g/dL (12.0-16.0); Mean Corp Hgb Conc. 34.2 g/dL (33.0-37.0); Mean Corpuscular Hgb 30.7 pg (27.0-31.0); Mean Corpuscular Volume 89.7 fL (81.0-99.0); Mean Platelet Volume 10.7 fL (7.4-10.4); Platelet Count 134 10^3/uL (130-400); Red Blood Cell Count 3.29 10^6/uL (4.20-5.40); White Blood Cell Count 13.4 10^3/uL (4.8-10.8)
[2024-10-30 03:02] LABS: APTT 84.8 Sec (23.4-35.0)
[2024-10-30 03:11] LABS: ALT (SGPT) 21 U/L (0-35); AST (SGOT) 32 U/L (14-36); Albumin 3.2 g/dl (3.5-5.0); Alkaline Phosphatase 66 U/L (38-126); Blood Urea Nitrogen 36 mg/dl (7-17); Calcium 8.7 mg/dl (8.4-10.2); Carbon Dioxide 22 mmol/L (22-30); Chloride 110 mmol/L (98-107); Direct Bilirubin 0.4 mg/dl (0.0-0.4); Estimated Creatinine Clearance 37 ml/min; Glucose 137 mg/dl (70-99); NT-proBNP 18100 pg/ml; Potassium 4.8 mmol/L (3.5-5.1); Sodium 140 mmol/L (135-145); Total Bilirubin 0.5 mg/dl (0.2-1.3); Total Protein 5.3 g/dl (6.3-8.2)
--- NOTE | 2024-10-30 03:55 | PTCARENOTE ---
Pt. assessment remains unchanged. AM labs drawn. Vital signs stable at this time.
[2024-10-30] MEDS: STERILE WATER FOR INJECTION 10 ML IV ×3 (05:46→22:50)
[2024-10-30] MEDS: MAXIPIME 1000 MG IV ×3 (05:46→22:50)
[2024-10-30] MEDS: ADVAIR HFA 45/21 MCG INHALER 2 PUFF INH ×2 (07:31→19:32)
[2024-10-30] MEDS: ZESTRIL 2.5 MG PO (08:21)
[2024-10-30] MEDS: ALPHAGAN 0.2% EYE DROPS 1 DROP BOTH EYES ×2 (08:21→20:24)
[2024-10-30] MEDS: TIMOPTIC 0.5% OPHTHALMIC SOLUTION 1 DROP BOTH EYES ×2 (08:21→20:24)
[2024-10-30] MEDS: VIBRAMYCIN 100 MG PO ×2 (08:22→20:24)
[2024-10-30] MEDS: LASIX 40 MG PO (08:22)
[2024-10-30] MEDS: TOPROL XL 25 MG PO (08:22)
[2024-10-30] MEDS: ASPIR LOW (ENTERIC COATED) 81 MG PO (08:22)
[2024-10-30] MEDS: PROTONIX 40 MG PO (08:22)
[2024-10-30] MEDS: DELTASONE 30 MG PO (08:22)
--- NOTE | 2024-10-30 08:40 | W.PN.INTV ---
Addendum entered and electronically signed by Winifred Coleman MD 10/30/24 16:28:
- d/w Rubber Compounder, tentative cardiac cath in 2-3 days
- d/w Hospitalist. Pulmonary service will follow the patient
Original Note:
Today's Communication / Plan
Recommendations
- Change Lasix to 40 mg p.o. daily
- Start Toprol XL 25 mg daily, lisinopril 2.5 mg daily
- Switch Solu-Medrol to prednisone 30 mg daily for 4 more days
- Change IV Protonix to oral
- Transfer out of ICU, orders placed for telemetry floor
Assessment
-
In brief, patient is a 78-year-old female with known history of asthma who presented to emergency room for the increased shortness of breath as well as worsening diarrhea. Patient was noted to have a right lower lobe infiltrate and hypotension
requiring pressor support after fluid resuscitation. She was also noted to be quite dehydrated with diarrhea. In view of shock requiring vasopressors, patient was admitted to the ICU and legal aide consultation was requested for further input.
#1. Acute respiratory failure with septic shock with right lower lobe pneumonia.
- Shock improved, patient is off pressors now. She responded well to IV fluid resuscitation. Lactate was 2.2 on admission, 1.5 on repeat testing
- Continue antibiotics as ordered, cefepime and azithromycin. Await cultures, MRSA screen negative, vancomycin was discontinued. Influenza A, B screen negative. COVID-19 screen negative.
- In view of GI symptoms and pneumonia, checked Legionella urine antigen, negative
- Patient required BiPAP initially for increased work of breathing, currently off BiPAP and doing well, on room air now
- Bacteremia noted however cultures show coagulase-negative Staphylococcus, likely contaminant, follow-up cultures
- Patient has been off pressors for more than 24 hours, saturating well on room air, transfer out of ICU to telemetry floor.
#2. Diarrhea with severe dehydration.
- Responded well to fluid resuscitation, appears euvolemic now
- Saline lock
- No further diarrhea since patient has been in the ICU
#3. Non-ST elevation [place], suspect type II. Troponin noted to be above 2, patient currently chest pain-free and EKG without any ST elevation.
- Continue aspirin, heparin infusion
- Plan for left heart cath in AM, cardiology service on caset
#3a. 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 Echocardiogram suggestive of possible stress cardiomyopathy, LVEF 30%
- Cardiac cardiac catheterization in AM
- Start GM DT, Toprol-XL 25 mg, lisinopril 2.5 mg, Lasix 40 mg p.o. daily. Labs in AM.
#4. History of asthma.
- Reportedly patient had wheezing on admission, ?asthma exacerbation in the setting of pneumonia
- Change Solu-Medrol to prednisone 30 mg daily for another 4 days
- Continue Advair twice daily and as needed albuterol
#5. History of rheumatoid arthritis. Patient takes HCQZ at home. Also takes prednisone on an as-needed basis
- Currently on prednisone daily for asthma exacerbation, will taper over coming days
Diet: regular
DVT ppx: heparin drip
Code status: full code
Critical Care time 46 mins -- The patient is admitted for acute critical illness for the treatment of vital organ failure and/or prevention of further life-threatening conditions. Total care includes time spent in review of history, physical exam,
medications, hemodynamic/ventilator parameters, laboratory data, imaging and discussion with house staff, pharmacy, respiratory therapy, intelligence chief, and nursing.
Subjective Dataa
Subjective Data
Date of Service:
Date of Service: October 30, 2024
Subjective:
Patient comfortably lying in bed, in no acute distress. Reports overall feeling better. No chest pain this morning.
Review of Systems
Genitourinary: Other (All 14 systems reviewed and negative except as stated above in the history of present illness.)
Objective Data
Data Reviewed
Vital Signs / I&O / Oxygen:
Vital Signs
Temp Pulse Resp BP Pulse Ox
98.2 F 64 18 144/85 96
10/30/24 07:11 10/30/24 08:21 10/30/24 07:35 10/30/24 08:21 10/30/24 07:35
Intake and Output
10/29/24 10/30/24 10/31/24
06:59 06:59 06:59
Intake Total 2091.25 / 2248.75 826.0 / 834.5 257.0 / 257.0
Output Total 650 / 650 2400 / 2400
Balance 1441.25 / 1598.75 -1574.0 / -1565.5 257.0 / 257.0
SaO2 96
Nasal Cannula flow liters per 2
minute
Physical Exam
General: Comfortable
HEENT: Normocephalic
Cardiovascular: S1-S2
Respiratory: Non-Labored Respirations and Other (Rhonchi in the right lower lobe, overall good air entry on the left side.)
GI: Soft and Non Distended
Neurology: Awake and Alert
Skin: Warm
Labs/Micro/Reports
Lab Data
10/30/24 02:37
10/30/24 02:37
Laboratory Results
10/29/24 10/29/24 10/30/24
13:38 20:03 02:37
APTT 68.2 H 92.9 H 84.8 H
Microbiology
10/27/24 22:08 Blood/Venous Blood Culture - Preliminary
No Growth in 48 hours- Final report to follow
10/27/24 22:08 Blood/Venous Blood Culture - Preliminary
No Growth in 48 hours- Final report to follow
10/27/24 18:36 Blood/Venous Blood Culture - Preliminary
No Growth in 48 hours- Final report to follow
10/28/24 18:27 Blood/Venous Blood Culture - Preliminary
No Growth in 24 hours- Final report to follow
10/28/24 18:23 Blood/Venous Blood Culture - Preliminary
No Growth in 24 hours- Final report to follow
10/27/24 18:36 Blood/Venous Blood Culture - Preliminary
Coagulase neg. staphylococcus
Additional testing on request
10/27/24 18:36 Blood/Venous Gram Stain - Preliminary
10/28/24 06:05 Urine Urine Culture - Final
NO GROWTH
10/27/24 21:19 Nose MRSA Screen - Final
No Methicillin Resistant Staphylococcus aureus isolated.
10/28/24 13:58 Urine Legionella Urinary Antigen - Final
Negative for Legionella pneumophila Serogroup 1 antigen.
A negative result does not rule out the possiblity of
Legionella infection due to other serogroups or species of
Legionella. Clinical correlation is recommended.
10/27/24 21:19 Nose Nasal Screen MRSA (PCR) - Final
10/27/24 21:19 Nasal Swab Influenza Types A & B ([facility]) - Final
Negative for Influenza A & B, NAAT
Negative results must be combined with clinical observations
and patient history.
Nucleic Acid Amplification test (NAAT)performed on the
[employer] platform.
--- NOTE | 2024-10-30 12:19 | W.PN.CD ---
Today's Communication / Plan
-
BB started
pricing Entresto and sglt2i
cath either likely Thursday or Thursday
Impression / Plan
-
A/P: 78-year-old female with history of CHB s/p PPM, paroxysmal a tach, asthma/COPD, hypertension, hyperlipidemia, RA, who is here because of worsening shortness of breath.
Elevated troponin NSTEMI vs Stress induced LAP GRINDER
- Echo below
- plan for cath Thursday or Thursday; will allow some recovery from sepsis
HFrEF EF 30%
- possible stress induced LAP GRINDER
- IV diuresis today
- Cath later this week
- Pricing of Entresto and sglt2i's; start BB, will start Valsartan likely tomorrow as got veronika-i today,
PNA and sepsis
- on abx
- close monitoring in ICU
- per primary
HTN
- resume some GDMT
CHB
- PPM in place stable
Hypoxic RF 2/2 asthma and PNA
- per primary
RA
Anemia
HLD
- statin as able
Subjective: Continues feeling well
Physical Exam
Vital Signs/Labs
Vital Signs
Temp Pulse Resp BP Pulse Ox
98.2 F 64 19 144/85 96
10/30/24 07:11 10/30/24 08:30 10/30/24 08:30 10/30/24 08:21 10/30/24 08:30
10/29/24 10/30/24 10/31/24
06:59 06:59 06:59
Actual Weight 125 lb 14.143 oz 121 lb 4.068 oz
10/30/24 02:37
10/30/24 02:37
PT 15.5 Sec (11.4-14.6) H 10/28/24 04:05
INR 1.18 10/28/24 04:05
APTT 84.8 Sec (23.4-35.0) H 10/30/24 02:37
Magnesium 2.0 mg/dl (1.6-2.3) 10/30/24 02:37
10/27/24 10/30/24
17:41 02:37
Kdn-L-Mtkcyganjye Pept 147 [id number]
LAB Results
10/27/24 10/27/24 10/27/24
17:41 17:41 23:15
Troponin I 0.037 H* Cancelled Cancelled
10/28/24 10/28/24 10/28/24
00:14 07:16 13:58
Troponin I 1.970 H* D 2.520 H* D 2.660 H*
10/28/24 10/29/24
23:27 05:37
Troponin I 1.530 H* 1.150 H*
Physical Exam
Constitutional: No acute distress and Comfortable
EENT: Anicteric
Cardiovascular: Rhythm & rate is regular and Pedal edema is absent
Respiratory: Respiratory effort normal and Lungs clear to auscul.
GI: Soft
Neuro/Psych: AO x 3
Data Reviewed
-
Date of Service: October 30, 2024
Medical Decision Making: Reviewed Test Results
EKG: Tracing Personally Visualized and interpreted (paced)
Echo: Report Reviewed by me
Labs: Labs Reviewed by me
--- NOTE | 2024-10-30 13:33 | PTCARENOTE ---
Assumed care of pt from assistant casino shift manager RN. AAOx3. A-paced on tele, HRs 60s-70s. SpO2 96% on room air. BPs remain stable off of Levophed. IV medications transitioned to oral, with exception of Heparin gtt. Pt is therapeutic on Heparin gtt at 850
units/hr. Plan is to transfer out of ICU today and for cardiac cath later this week. Assessment documented. Pt resting in chair with family at bedside.
--- NOTE | 2024-10-30 14:31 | CM ---
CM consulted for mendez check for Entresto, Farxiga, Jardiance. Unable to get pricing for Farxiga
Entresto for 90 days- $623.58
Jardiance for 30 days- $386.56, 90 days- $543.62
Updated ordering physician
--- NOTE | 2024-10-30 16:22 | W.PN.HOSP.TC ---
Today's Communication/Plan
-
Patient is doing better
Continue Lasix, Beta Jorge Luis, antibiotics
Cardiac cath in 2 to 3 days
Assessment / Plan
Assessment / Plan
Physical Exam
General: Well Developed and No Apparent Distress
HEENT: Normocephalic
Respiratory: Clear to Auscultation Bilaterally
Cardiac: S1/S2 and Regular Rhythm
GI: Soft, Non Tender, Non Distended and Normal Bowel Sounds
Musculoskeletal: No Cyanosis. No Edema and Other (Right hip tenderness to palpation. Decreased range of motion on external rotation.)
Skin: Warm. Dry.
Neuro: Alert and Nonfocal/grossly intact
Psych: Calm
Assessment/Plan
78 y/o female with past medical history significant for asthma/COPD (not on home oxygen and remote history of smoking, denies COPD), hypertension, hyperlipidemia, rheumatoid arthritis, recent admission in July for COVID-19 infection and history
of intermittent diarrhea for which she has been on Imodium, who presented to the emergency department with acute respiratory distress. Patient lives with daughter. Daughter reports that since 2 days ago she has been having increased diarrhea and has
been using more doses of Imodium. She has loose nonbloody stools. She has not had fevers or chills at home. More generalized weakness. Immediately after noon the patient became acutely short of breath. They denied any complaints of chest pain.
They denied measured fevers at home. Patient decompensated rapidly and was immediately transferred to the emergency department. On arrival in the ED she was hypoxic and placed on BiPAP. Blood pressure trended down to the 70s systolic with MAP of 68,
she was tachycardic to the 130s, temp was 100 �F. ECG shows irregular's supraventricular tachycardia anemia, unclear whether this was sinus versus atrial flutter, troponin was 0.037. BNP was negative. Chest x-ray showed a right basilar
infiltrate. CBC was completely unremarkable stop electrolytes BUN/creatinine were stable compared to prior.
Presentation with worsening shortness of breath
Acute hypoxic respiratory failure with right lower lobe pneumonia
Septic and Hypovolemic Shock Secondary to Pneumonia and Diarrhea
Pneumonia
Diarrhea
Lactic Acidosis - IMPROVING
- COVID and Influenza negative
- Initially needed BiPAP for work of breathing, now off BiPAP and doing well
- Vasopressors have been weaned off
- IV fluids given
- Follow blood cultures -- initial grew CoNS (likely contaminant) --> repeat cultures are negative
- Given recent hospitalizations continue treatment with Cefepime and Azithromycin
- Stopped Vancomycin on 10/29/24 given negative MRSA swab
- Stool studies if possible -- but no further diarrhea since patient has been in ICU
- Legionella negative.
Asthma
-Questionable asthma exacerbation
-Solumedrol --> Prednisone 30 mg daily for 4 more days
-Switch Advair to scheduled twice daily (at home takes prn), and add albuterol on an as-needed basis
Acute on Chronic Diarrhea, Severe Dehydration
-Possibly Legionella? Since pneumonia and diarrhea.
-Continue Azithromycin
-IV fluids were given
NSTEMI
-Currently, no chest pain
-Troponin noted to be above 2, patient currently chest pain-free and EKG without any ST elevation.
-Aspirin given, continue heparin infusion considering patient reported left-sided transient chest pain earlier
-Continue statin, cardiology consultation, echocardiogram ordered
-Toprol started as hypotension resolved
-Left heart cath in 2 to 3 days to allow for recovery from sepsis
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
- Echocardiogram suggestive of possible stress cardiomyopathy with LV ejection fraction of 30%
- Cardiac cardiac catheterization in 2 to 3 days to allow for recovery from sepsis
- Continue Toprol and Lasix
History of rheumatoid arthritis
-Takes Hydroxychloroquine at home and Prednisone
-Currently on steroids, will taper in coming days as above
DVT Prophylaxis: Heparin Drip
Code Status: Full Code
Anticipated Discharge: > 48 hours
Subjective/Interval History
-
Date of Service: October 30, 2024
Patient was seen and examined. She reported doing okay, denied any new complaints.
Objective Data
-
Vital Signs:
Vital Signs
Temp Pulse Resp BP Pulse Ox
98.4 F 61 16 131/71 98
10/30/24 15:06 10/30/24 15:06 10/30/24 15:06 10/30/24 15:06 10/30/24 15:06
I&O
10/29/24 10/30/24 10/31/24
06:59 06:59 06:59
Intake Total 2091.25 / 2248.75 826.0 / 834.5 291.0 / 291.0
Output Total 650 / 650 2400 / 2400 1150 / 1150
Balance 1441.25 / 1598.75 -1574.0 / -1565.5 -859.0 / -859.0
[2024-10-30] MEDS: LIPITOR 40 MG PO (17:04)
[2024-10-30] MEDS: FLUSH (NSS) 1 FLUSH IV (22:51)
[2024-10-31] VITALS (7 sets, daily range): BP systolic 110–144; BP diastolic 68–84; BMI 19.0
[2024-10-31] MEDS: HEPARIN 25000 UNITS/250 ML IV (04:28)
[2024-10-31] MEDS: MAXIPIME 1000 MG IV ×3 (05:12→21:37)
[2024-10-31] MEDS: STERILE WATER FOR INJECTION 10 ML IV ×3 (05:12→21:38)
[2024-10-31 06:23] LABS: % Basophils 0.2 % (0-2); % Eosinophils 0.2 % (0-6); % Immature Granulocytes 1.7 % (0-0.5); % Lymphocytes 10.8 % (20.5-51.1); % Monocytes 5.5 % (1.7-9.3); % Neutrophils 81.6 % (42.2-75.2); Absolute Immature Granulocytes 0.2 10^3/uL (0-0.05); Absolute Lymphocytes 1.2 10^3/uL (1.2-3.4); Absolute Monocytes 0.6 10^3/uL (0.1-0.6); Hematocrit 29.9 % (37.0-47.0); Mean Corp Hgb Conc. 33.4 g/dL (33.0-37.0); Mean Corpuscular Hgb 30.5 pg (27.0-31.0); Mean Corpuscular Volume 91.2 fL (81.0-99.0); Mean Platelet Volume 10.5 fL (7.4-10.4); Nucleated Red Blood Cells % 0 %; Platelet Count 140 10^3/uL (130-400); Red Blood Cell Count 3.28 10^6/uL (4.20-5.40); Red Cell Dist. Width 12.8 % (11.5-14.5)
[2024-10-31 06:38] LABS: APTT 86.7 Sec (23.4-35.0)
[2024-10-31 07:19] LABS: Blood Urea Nitrogen 38 mg/dl (7-17); Carbon Dioxide 26 mmol/L (22-30); Chloride 107 mmol/L (98-107); Estimated Creatinine Clearance 35 ml/min; Glucose 99 mg/dl (70-99); Potassium 4.6 mmol/L (3.5-5.1); Sodium 139 mmol/L (135-145)
[2024-10-31] MEDS: ADVAIR HFA 45/21 MCG INHALER 2 PUFF INH ×2 (07:38→19:41)
[2024-10-31] MEDS: ProAIR HFA INHALER 2 PUFF INH (07:39)
--- NOTE | 2024-10-31 08:05 | W.PN.CD ---
Today's Communication / Plan
-
continue ASA, heparin drip with plan for cardiac cath tomorrow
Impression / Plan
-
A/P: 78-year-old female with history of CHB s/p PPM, paroxysmal a tach, asthma/COPD, hypertension, hyperlipidemia, RA, who is here because of worsening shortness of breath.
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
-severe, threat to life
- With EF 30%
-peak trop 2.66
-continue ASA, heparin drip with plan for cardiac cath tomorrow
-requires monitoring of Hgb and tele
HFrEF EF 30%
- possible stress induced cardiomyopathy
-with mild/mod MR and TR
- now on lasix 40mg PO daily with baseline CKD3a noted (Cr 1.1)
-no coverage for entresto, SGLT2i
-cont Toprol XL
-add valsartan
-assess for aldactone after cath, pending Cr trend
PNA and sepsis
- on abx
HTN
- trend with GDMT
CHB
- PPM in place: stable on tele
RA
Anemia
HLD
- statin
Physical Exam
Vital Signs/Labs
Vital Signs
Temp Pulse Resp BP Pulse Ox
97.8 F 68 16 135/71 97
10/31/24 03:35 10/31/24 07:39 10/31/24 07:39 10/31/24 03:35 10/31/24 03:35
10/30/24 10/31/24 11/01/24
06:59 06:59 06:59
Actual Weight 55 kg
10/31/24 06:03
10/31/24 06:03
PT 15.5 Sec (11.4-14.6) H 10/28/24 04:05
INR 1.18 10/28/24 04:05
APTT 86.7 Sec (23.4-35.0) H 10/31/24 06:03
Magnesium 2.0 mg/dl (1.6-2.3) 10/30/24 02:37
10/27/24 10/30/24
17:41 02:37
Hjk-J-Hsgvspegdql Pept 147 [id number]
LAB Results
10/28/24 10/28/24 10/29/24
13:58 23:27 05:37
Troponin I 2.660 H* 1.530 H* 1.150 H*
Physical Exam
Constitutional: No acute distress and Comfortable
EENT: Moist mucous membranes
Cardiovascular: Rhythm & rate is regular, Pedal edema is absent, JVD pressure is normal and Systolic murmur present
Respiratory: Respiratory effort normal
Neuro/Psych: AO x 3
Data Reviewed
-
Date of Service: October 31, 2024
EKG: Other (Tele: mostly A paced 60)
Labs: Labs Reviewed by me
--- NOTE | 2024-10-31 08:26 | W.PN.PUL3 ---
Today's Communication / Plan
-
Continue with antibiotics x 10-14 days total given she was in septic shock
Maintain MAP>65
NPO p MN for C in AM
Continue heparin gtt + ASA + statin
Defer GDMT to cardiology
Replete K>4, Mg>2
Advair with prn albuterol
Prednisone taper
Encourage incentive spirometer use
Pulmonary service will continue to follow along
Assessment
-
In brief, patient is a 78-year-old female with known history of asthma who presented to emergency room for the increased shortness of breath as well as worsening diarrhea. Patient was noted to have a right lower lobe infiltrate and hypotension
requiring pressor support after fluid resuscitation. She was also noted to be quite dehydrated with diarrhea. In view of shock requiring vasopressors, patient was admitted to the ICU and bilingual administrative assistant consultation was requested for further input.
#1. Acute respiratory failure with septic shock with right lower lobe pneumonia
- Shock state resolved -she responded well to IV fluid resuscitation. Lactate was 2.2 on admission, 1.5 on repeat testing
- Continue antibiotics as ordered, cefepime and doxy s/p zithromax on 10/27 and s/p IV vanco (10/27 - 10/29/2024); all cultures have been negative except for initial blood culture on 10/27/2024 which was likely a contaminant (coagulase-negative staph);
MRSA screen negative --> vancomycin was discontinued. Influenza A, B screen negative. COVID-19 screen negative.
- In view of GI symptoms and pneumonia, Legionella urine antigen checked --> negative
- Patient required BiPAP initially for increased work of breathing, currently off BiPAP and doing well, on room air now
#2. Diarrhea with severe dehydration.
- Responded well to fluid resuscitation, appears euvolemic now
- Saline lock
- No further diarrhea since patient has been in the ICU
- Continue to monitor
#3. Non-ST elevation HI, suspect type II. Troponin noted to be above 2, patient currently chest pain-free and EKG without any ST elevation.
- Continue aspirin, statin and heparin infusion
- Plan for left heart cath tomorrow AM (11/01), cardiology service on case
#3a. 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 Echocardiogram suggestive of possible stress cardiomyopathy with hyperkinetic base and hypo-/akinetic distal LV, LVEF 30%
- Cardiac cardiac catheterization tomorrow AM
- Defer GDMT to cardiology
- Replete K>4, Mg>2
- Trend UOP and maintain strict I/O
#4. History of asthma.
- Reportedly patient had wheezing on admission, ?asthma exacerbation in the setting of pneumonia
- Changed Solu-Medrol to prednisone 30 mg daily for 4 days
- Continue Advair twice daily and as needed albuterol
#5. History of rheumatoid arthritis. Patient takes HCQZ at home. Also takes prednisone on an as-needed basis
- Currently on prednisone daily for asthma exacerbation, will taper over coming days
Diet: regular --> change to cardiac diet
DVT ppx: heparin drip
Code status: full code
Pulmonary service will continue to follow along
Total time spent today was 39 minutes for this encounter. Time includes reviewing laboratory test/imaging results, reviewing pertinent medical records, obtaining and reviewing medical history, performing an appropriate exam, ordering medications,
tests and procedures. Time also includes documentation of this encounter, coordinating patient care and communicating with other healthcare professionals. Total time does not include separately billed tests performed on this date of service.
Subjective Data
-
Date of Service:
Date of Service: October 31, 2024
Chief Complaint: Pulmonary Follow Up
Subjective:
Patient was seen today at bedside. Currently resting in bed on room air breathing comfortably. She said she was short of breath earlier this morning but currently feels well. Denies chest pain, MAY, nausea, fevers or chills.
Review of Systems
General: Other (Negative unless mentioned above)
Objective Data
Data Reviewed
Vital Signs / I&O / Oxygen:
Vital Signs
Temp Pulse Resp BP Pulse Ox
97.8 F 68 16 135/71 97
10/31/24 03:35 10/31/24 07:39 10/31/24 07:39 10/31/24 03:35 10/31/24 03:35
Intake and Output
10/30/24 10/31/24 11/01/24
06:59 06:59 06:59
Intake Total 826.0 / 834.5 633.0 / 633.0
Output Total 2400 / 2400 1150 / 1150
Balance -1574.0 / -1565.5 -517.0 / -517.0
SaO2 97
Nasal Cannula flow liters per 2
minute
Physical Exam
General: Respiratory Distress (negative), Comfortable, Chills (negative) and Sweats (negative)
HEENT: Normocephalic and Anicteric
Cardiovascular: S1-S2 and Peripheral Edema (negative)
Respiratory: Wheeze (negative), Crackles (Bibasilar (R >L)), Rhonchi (negative) and Non-Labored Respirations
GI: Soft, Non Distended, Non Tender and Normal Bowel Sounds
Neurology: AO x 3 and Tremors (negative)
Skin: Warm, Dry, Cyanosis (negative) and Jaundice (negative)
Labs/Micro/Reports
Lab Data
10/31/24 06:03
10/31/24 06:03
Laboratory Results
10/31/24
06:03
APTT 86.7 H
Microbiology
10/27/24 22:08 Blood/Venous Blood Culture - Preliminary
No Growth in 72 hours- Final report to follow
10/27/24 22:08 Blood/Venous Blood Culture - Preliminary
No Growth in 72 hours- Final report to follow
10/27/24 18:36 Blood/Venous Blood Culture - Preliminary
No Growth in 72 hours- Final report to follow
10/28/24 18:27 Blood/Venous Blood Culture - Preliminary
No Growth in 48 hours- Final report to follow
10/28/24 18:23 Blood/Venous Blood Culture - Preliminary
No Growth in 48 hours- Final report to follow
10/27/24 18:36 Blood/Venous Blood Culture - Preliminary
Coagulase neg. staphylococcus
Additional testing on request
10/27/24 18:36 Blood/Venous Gram Stain - Preliminary
10/28/24 06:05 Urine Urine Culture - Final
NO GROWTH
10/27/24 21:19 Nose MRSA Screen - Final
No Methicillin Resistant Staphylococcus aureus isolated.
10/28/24 13:58 Urine Legionella Urinary Antigen - Final
Negative for Legionella pneumophila Serogroup 1 antigen.
A negative result does not rule out the possiblity of
Legionella infection due to other serogroups or species of
Legionella. Clinical correlation is recommended.
10/27/24 21:19 Nose Nasal Screen MRSA (PCR) - Final
--- NOTE | 2024-10-31 08:35 | PTOTSP ---
Speech Language Pathology
Pt seen for clinical bedside swallow evaluation. Coughing reported by staff earlier in admission. Pt confirmed this, stating it was related to globus sensation with solids. P.O. trials of regular solids and thin liquids provided. Adequate
mastication, bolus formation, and A-P transit noted with no oral residue. No overt signs of aspiration. Question whether observations by staff related to possible esophageal issues. Will continue to monitor and can complete instrumental
swallowing assessment as indicated.
Recommend:
(1) Regular solids/thin liquids
(2) Aspiration precautions: slow rate, moisten dry foods, alternate solids, and liquids, sit upright during meals and for at least 30 minutes post meals
(3) Meds crushed in puree (this is baseline)
(4) SLIDE ATTENDANT to continue to follow
[2024-10-31] MEDS: ALPHAGAN 0.2% EYE DROPS 1 DROP BOTH EYES ×2 (09:54→20:00)
[2024-10-31] MEDS: LASIX 40 MG PO (09:55)
[2024-10-31] MEDS: PROTONIX 40 MG PO (09:55)
[2024-10-31] MEDS: DELTASONE 30 MG PO (09:55)
[2024-10-31] MEDS: VIBRAMYCIN 100 MG PO ×2 (09:55→19:59)
[2024-10-31] MEDS: ASPIR LOW (ENTERIC COATED) 81 MG PO (09:55)
[2024-10-31] MEDS: TOPROL XL 25 MG PO (09:55)
[2024-10-31] MEDS: DIOVAN 40 MG PO (09:56)
[2024-10-31] MEDS: TIMOPTIC 0.5% OPHTHALMIC SOLUTION 1 DROP BOTH EYES ×2 (09:56→20:00)
--- NOTE | 2024-10-31 11:46 | CM ---
As per cardiology pt for a cardiac cath tomorrow.
PT OT will need to be reordered post procedure.
PT OT indicate SNF at this time.
Maintained on Heparin Gtt.and IV antibiotics.
CM will continue to assess and assist as needed.
PLAN Watch for SNF needs
[2024-10-31] MEDS: PEPCID 20 MG PO (12:41)
[2024-10-31] MEDS: FLUSH (NSS) 2 FLUSH IV (14:25)
--- NOTE | 2024-10-31 17:13 | W.PN.HOSP.TC ---
Today's Communication/Plan
-
Maintained on antibiotic
Requip for possible restless leg syndrome
Heparin drip/GDMT per cardiology
Possible heart catheterization tomorrow
Assessment / Plan
Assessment / Plan
1. Acute hypoxic respiratory failure
Right lower lobe pneumonia
Septic shock
-COVID/influenza./legionella negative
-Patient required vasopressor support and was able to be weaned off
-Blood culture grew contaminant, repeat cultures negative
-Antibiotics has been consolidated to cefepime and doxycycline at this stage
2. Asthma
- Patient started on empiric steroid for questionable flareup
- Currently on oral prednisone 30 mg daily, 2/4 doses given
- maintain on nebulizer therapy
3. NSTEMI
- Elevated troponin max of 2.66, without any significant EKG changes
- Echocardiogram showing ejection fraction of 30% with concern of possible Takotsubo cardiomyopathy
- Cardiology is following along and considering to do left heart catheterization
- Currently on aspirin/heparin drip
- Patient getting diuretic therapy
4. Complete heart block
History of pacemaker placement
- Currently on diltiazem for tachycardia?
- cardio managing
5. History of rheumatoid arthritis
- Patient on Plaquenil 200mg/d at home
6. Possible restless leg syndrome
- Complaining leg jumping while sleeping
- Will try small dose of Requip tonight
7. Sore throat
- COVID check negative. Maintain on Cepacol lozenges
- already on doxycycline fro atypical organism coverage.
- Further testing if not improved
DVT Prophylaxis: Heparin Drip
Code Status: Full Code
Anticipated Discharge: > 48 hours
Subjective/Interval History
-
Date of Service: October 31, 2024
Patient complaining some restless leg like activity
Complain of some sore throat
afebrile overnight
no other issues reported
Objective Data
-
Labs:
Laboratory Results
10/31/24
06:03
WBC 11.0 H
Hgb 10.0 L
Hct 29.9 L
Plt Count 140
APTT 86.7 H
Sodium 139
Potassium 4.6
Chloride 107
Carbon Dioxide 26
BUN 38 H
Creatinine 1.1 H
Glucose 99
Calcium 9.0
Vital Signs:
Vital Signs
Temp Pulse Resp BP Pulse Ox
98.1 F 60 18 133/77 97
10/31/24 15:03 10/31/24 15:03 10/31/24 15:03 10/31/24 15:03 10/31/24 15:03
I&O
10/30/24 10/31/24 11/01/24
06:59 06:59 06:59
Intake Total 826.0 / 834.5 633.0 / 633.0
Output Total 2400 / 2400 1150 / 1150
Balance -1574.0 / -1565.5 -517.0 / -517.0
Review of Systems
-
Respiratory: Reports Cough
Cardiac: Reports No Symptoms
Abdomen/GI: Reports No Symptoms
Physical Exam
-
General: No Apparent Distress and Comfortable
HEENT: Oxygen
Respiratory: Clear to Auscultation
Cardiac: Regular Rhythm and S1/S2; Negative Murmur or Rub
GI: Soft, Nontender and Nondistended
Musculoskeletal: No Edema
Neuro: Awake, Alert, Oriented, No Motor Deficits and Nonfocal/Grossly Intact
Psych: Calm
[2024-10-31] MEDS: LIPITOR 40 MG PO (17:40)
[2024-10-31] MEDS: REQUIP 0.25 MG PO (20:10)
[2024-11-01] VITALS (25 sets, daily range): BP systolic 80–151; BP diastolic 54–89; PULSE 62; BMI 17.8
[2024-11-01] MEDS: MAXIPIME 1000 MG IV ×3 (05:20→21:25)
[2024-11-01] MEDS: STERILE WATER FOR INJECTION 10 ML IV ×3 (05:21→21:25)
[2024-11-01 06:16] LABS: Blood Urea Nitrogen 39 mg/dl (7-17); Calcium 9.3 mg/dl (8.4-10.2); Carbon Dioxide 28 mmol/L (22-30); Chloride 102 mmol/L (98-107); Estimated Creatinine Clearance 33 ml/min; Glucose 95 mg/dl (70-99); Potassium 4.7 mmol/L (3.5-5.1); Sodium 138 mmol/L (135-145)
[2024-11-01] MEDS: ADVAIR HFA 45/21 MCG INHALER 2 PUFF INH ×2 (07:14→19:29)
[2024-11-01 07:18] LABS: % Basophils 0.3 % (0-2); % Eosinophils 0.2 % (0-6); % Immature Granulocytes 3.2 % (0-0.5); % Lymphocytes 11.6 % (20.5-51.1); % Monocytes 5.3 % (1.7-9.3); % Neutrophils 79.4 % (42.2-75.2); Absolute Immature Granulocytes 0.3 10^3/uL (0-0.05); Absolute Lymphocytes 1.2 10^3/uL (1.2-3.4); Absolute Monocytes 0.5 10^3/uL (0.1-0.6); Hematocrit 34.4 % (37.0-47.0); Hemoglobin 11.6 g/dL (12.0-16.0); Mean Corp Hgb Conc. 33.7 g/dL (33.0-37.0); Mean Corpuscular Hgb 30.1 pg (27.0-31.0); Mean Corpuscular Volume 89.4 fL (81.0-99.0); Mean Platelet Volume 10.6 fL (7.4-10.4); Nucleated Red Blood Cells % 0 %; Platelet Count 171 10^3/uL (130-400); Red Blood Cell Count 3.85 10^6/uL (4.20-5.40); Red Cell Dist. Width 12.7 % (11.5-14.5); White Blood Cell Count 10.1 10^3/uL (4.8-10.8)
[2024-11-01] MEDS: ALPHAGAN 0.2% EYE DROPS 1 DROP BOTH EYES ×2 (08:01→20:08)
[2024-11-01] MEDS: TIMOPTIC 0.5% OPHTHALMIC SOLUTION 1 DROP BOTH EYES ×2 (08:01→20:08)
[2024-11-01] MEDS: VIBRAMYCIN 100 MG PO ×2 (08:02→20:08)
[2024-11-01] MEDS: PROTONIX 40 MG PO (08:02)
[2024-11-01] MEDS: PEPCID 20 MG PO (08:02)
[2024-11-01] MEDS: LASIX 40 MG PO (08:02)
[2024-11-01] MEDS: ASPIR LOW (ENTERIC COATED) 81 MG PO (08:02)
[2024-11-01] MEDS: TOPROL XL 25 MG PO (08:02)
[2024-11-01] MEDS: DIOVAN 40 MG PO (08:02)
[2024-11-01] MEDS: DELTASONE 30 MG PO (08:02)
--- NOTE | 2024-11-01 08:18 | W.PN.PUL3 ---
Today's Communication / Plan
-
Continue with antibiotics x 10-14 days total given she was in septic shock
Maintain MAP>65
NPO for [facility] this afternoon
Continue heparin gtt + ASA + statin
Defer GDMT to cardiology
Replete K>4, Mg>2
Advair with prn albuterol
Prednisone taper with last dose tomorrow
Encourage incentive spirometer use
Pulmonary service will continue to follow along
Assessment
-
In brief, patient is a 78-year-old female with known history of asthma who presented to emergency room for the increased shortness of breath as well as worsening diarrhea. Patient was noted to have a right lower lobe infiltrate and hypotension
requiring pressor support after fluid resuscitation. She was also noted to be quite dehydrated with diarrhea. In view of shock requiring vasopressors, patient was admitted to the ICU and director mobile media solutions consultation was requested for further input.
#1. Acute respiratory failure with septic shock with right lower lobe pneumonia
- Shock state resolved -she responded well to IV fluid resuscitation. Lactate was 2.2 on admission, 1.5 on repeat testing
- Continue antibiotics as ordered, cefepime and doxy s/p zithromax on 10/27 and s/p IV vanco (10/27 - 10/29/2024); all cultures have been negative except for initial blood culture on 10/27/2024 which was likely a contaminant (coagulase-negative staph);
MRSA screen negative --> vancomycin was discontinued. Influenza A, B screen negative. COVID-19 screen negative.
- In view of GI symptoms and pneumonia, Legionella urine antigen checked --> negative
- Patient required BiPAP initially for increased work of breathing, currently off BiPAP and doing well, on room air now
#2. Diarrhea with severe dehydration.
- Responded well to fluid resuscitation, appears euvolemic now
- Saline lock
- No further diarrhea since patient has been in the ICU
- Continue to monitor
#3. Non-ST elevation CA, suspect type II. Troponin noted to be above 2, patient currently chest pain-free and EKG without any ST elevation.
- Continue aspirin, statin and heparin infusion
- Plan for left heart cath today later in the afternoon (11/01), cardiology service on case
#3a. 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 Echocardiogram suggestive of possible stress cardiomyopathy with hyperkinetic base and hypo-/akinetic distal LV, LVEF 30%
- Cardiac cardiac catheterization tomorrow AM
- Defer GDMT to cardiology
- Replete K>4, Mg>2
- Trend UOP and maintain strict I/O
#4. History of asthma.
- Reportedly patient had wheezing on admission, ?asthma exacerbation in the setting of pneumonia
- Changed Solu-Medrol to prednisone 30 mg daily for 4 days - last dose tomorrow
- Continue Advair twice daily and as needed albuterol
#5. History of rheumatoid arthritis. Patient takes HCQZ at home. Also takes prednisone on an as-needed basis
- Currently on prednisone daily for asthma exacerbation, will taper over coming days
Diet: regular --> change to cardiac diet
DVT ppx: heparin drip
Code status: full code
Pulmonary service will continue to follow along
Total time spent today was 41 minutes for this encounter. Time includes reviewing laboratory test/imaging results, reviewing pertinent medical records, obtaining and reviewing medical history, performing an appropriate exam, ordering medications,
tests and procedures. Time also includes documentation of this encounter, coordinating patient care and communicating with other healthcare professionals. Total time does not include separately billed tests performed on this date of service.
Subjective Data
-
Date of Service:
Date of Service: November 01, 2024
Chief Complaint: Pulmonary Follow Up
Subjective:
Patient was seen and evaluated this morning. Going for left heart cath today. No acute overnight events. Remains on heparin drip. Currently on room air breathing comfortably, saturating 95%. She denies chest pain, MAY, nausea, fevers or chills.
Review of Systems
General: Other (Negative unless mentioned above)
Objective Data
Data Reviewed
Vital Signs / I&O / Oxygen:
Vital Signs
Temp Pulse Resp BP Pulse Ox
98.3 F 64 16 130/85 95
11/01/24 03:40 11/01/24 07:15 11/01/24 07:15 11/01/24 03:40 11/01/24 03:40
Intake and Output
10/31/24 11/01/24 11/02/24
06:59 06:59 06:59
Intake Total 633.0 / 633.0 660 / 660
Output Total 1150 / 1150 1900 / 1900
Balance -517.0 / -517.0 -1240 / -1240
SaO2 95
Nasal Cannula flow liters per 2
minute
Physical Exam
General: Respiratory Distress (negative), Comfortable, Chills (negative) and Sweats (negative)
HEENT: Normocephalic and Anicteric
Cardiovascular: S1-S2 and Peripheral Edema (negative)
Respiratory: Wheeze (negative), Crackles (Bibasilar (R >L)), Rhonchi (negative) and Non-Labored Respirations
GI: Soft, Non Distended, Non Tender and Normal Bowel Sounds
Neurology: AO x 3 and Tremors (negative)
Skin: Warm, Dry, Cyanosis (negative) and Jaundice (negative)
Labs/Micro/Reports
Lab Data
11/01/24 05:28
11/01/24 05:28
Laboratory Results
11/01/24
05:28
APTT 73.0 H
Microbiology
10/27/24 22:08 Blood/Venous Blood Culture - Preliminary
No Growth in 4 days- Final report to follow
10/27/24 22:08 Blood/Venous Blood Culture - Preliminary
No Growth in 4 days- Final report to follow
10/27/24 18:36 Blood/Venous Blood Culture - Preliminary
No Growth in 4 days- Final report to follow
10/28/24 18:27 Blood/Venous Blood Culture - Preliminary
No Growth in 72 hours- Final report to follow
10/28/24 18:23 Blood/Venous Blood Culture - Preliminary
No Growth in 72 hours- Final report to follow
10/27/24 18:36 Blood/Venous Blood Culture - Preliminary
Coagulase neg. staphylococcus
Additional testing on request
10/27/24 18:36 Blood/Venous Gram Stain - Preliminary
10/28/24 06:05 Urine Urine Culture - Final
NO GROWTH
10/27/24 21:19 Nose MRSA Screen - Final
No Methicillin Resistant Staphylococcus aureus isolated.
[2024-11-01] MEDS: NSS 155 ML IV (11:00)
[2024-11-01] MEDS: ZOFRAN 4 MG IV (13:16)
--- NOTE | 2024-11-01 14:05 | W.PN.HOSP.TC ---
Today's Communication/Plan
-
for [facility] today
keep an abx
Assessment / Plan
Assessment / Plan
1. Acute hypoxic respiratory failure
Right lower lobe pneumonia
Septic shock
-COVID/influenza./legionella negative
-Patient required vasopressor support and was able to be weaned off
-Blood culture grew contaminant, repeat cultures negative
-Antibiotics has been consolidated to cefepime and doxycycline at this stage
2. Asthma
- Patient started on empiric steroid for questionable flareup
- Currently on oral prednisone 30 mg daily, 2/4 doses given
- maintain on nebulizer therapy
3. NSTEMI
- Elevated troponin max of 2.66, without any significant EKG changes
- Echocardiogram showing ejection fraction of 30% with concern of possible Takotsubo cardiomyopathy
- Cardiology is following along and considering to do left heart catheterization
- For [facility] today
- Patient getting diuretic therapy
4. Complete heart block
History of pacemaker placement
- Currently on diltiazem for tachycardia?
- cardio managing
5. History of rheumatoid arthritis
- Patient on Plaquenil 200mg/d at home
6. Possible restless leg syndrome
- Complaining leg jumping while sleeping
- Will try small dose of Requip tonight
7. Sore throat
- COVID check negative. Maintain on Cepacol lozenges
- already on doxycycline fro atypical organism coverage.
- Further testing if not improved
DVT Prophylaxis: Heparin Drip
Code Status: Full Code
Anticipated Discharge: 24 - 48 hours
Subjective/Interval History
-
Date of Service: November 01, 2024
patient down for heart cath
Objective Data
-
Labs:
Laboratory Results
11/01/24
05:28
WBC 10.1
Hgb 11.6 L
Hct 34.4 L
Plt Count 171 D
APTT 73.0 H
Sodium 138
Potassium 4.7
Chloride 102
Carbon Dioxide 28
BUN 39 H
Creatinine 1.1 H
Glucose 95
Calcium 9.3
Vital Signs:
Vital Signs
Temp Pulse Resp BP Pulse Ox
97.7 F 66 16 140/88 97
11/01/24 11:01 11/01/24 13:12 11/01/24 13:12 11/01/24 13:12 11/01/24 13:12
I&O
10/31/24 11/01/24 11/02/24
06:59 06:59 06:59
Intake Total 633.0 / 633.0 660 / 660 155 / 155
Output Total 1150 / 1150 1900 / 1900
Balance -517.0 / -517.0 -1240 / -1240 155 / 155
[2024-11-01] MEDS: NSS 1000 IV (15:59)
--- NOTE | 2024-11-01 16:08 | PTCARENOTE ---
Telephone report to Leni at ext [phone]. Pt departed recovery at 1408.
--- NOTE | 2024-11-01 16:15 | PTCARENOTE ---
received from slab polisher in bed. right brachial dressing dry and intact. right radial distal site with dressing dry and intact, right radial proximal dressing with R-band intact- some ecchymosis present, no tense edema, finger pink but cool to touch,
good capillary refill. POX on right hand 95%. patient denies pain at r band site. vitals noted. call yang in reach. plan of care on going.
--- NOTE | 2024-11-01 16:28 | ITS.CL.PN ---
Protective Services Social Worker - Procedure Note
Procedure
Procedure Note:
CARDIAC CATHETERIZATION REPORT
Date of Procedure: 11/01/2024
Referring: Dr. Jose Markham MD
Indication: NSTEMI, newly reduced EF
PROCEDURE(S)
1. right heart catheterization
2. left heart catheterization
3. coronary angiography
ACCESS
1. 6F right radial artery (closure: radial band)
2. 5F right antecubital vein (closure: manual hemostasis)
CATHETERS
1. 5F Felt-Brayan
2. 6F JR4
3. 6F JL3.5
MODERATE SEDATION: 35 minutes of moderate sedation was utilized. An independent medical research assistant was present to assist with and help manage the patient's level of consciousness and physiologic status.
HEMODYNAMIC DATA
LV 103/7 (EDP 10) mmHg
AO 122/66 (mean 88) mmHg
RA 3 mmHg
RV 15/3 (EDP 4) mmHg
PA 18/6 (mean 12) mmHg
PCWP 6 mmHg
SaO2 94.7 %
SvO2 59.1%
Hb 11.8 g/dL
CO/CI 3.47/2.19 L/min/m2
SVR 1959 dsc*-5
PVR 1.7 Wood units
CORONARY ANGIOGRAPHY
Dominance: Right
LM: Short, normal
LAD: Large vessel giving rise to a moderate caliber branching D2 before wrapping around the apex. There are mild luminal irregularities.
LCx: Large vessel giving rise to a large OM1 and small OM 2. There are mild luminal irregularities.
RCA: Large vessel giving rise to a medium caliber RPDA. The proximal vessel is patulous and there is a 50% calcified ostial stenosis with very mild pressure dampening on engagement.
RADIATION: dose 174.84 mGy; DAP 14.6519 Gy*cm2; fluoroscopy time 7.0 min
CONCLUSIONS
1. Single-vessel coronary artery disease in a right dominant system as described.
2. Normal filling pressures and low normal cardiac index
RECOMMENDATIONS
1. Medical management of stress cardiomyopathy with GDMT, no further diuresis needed
2. Secondary prevention of coronary artery disease
Copy to: Dr. Jose Markham MD (mold machine operator); Jessie Gonzales NP (PCP)
Signed: Demetri Torres MD, PhD
[2024-11-01] MEDS: LIPITOR 40 MG PO (17:02)
[2024-11-01] MEDS: FLUSH (NSS) 2 FLUSH IV (17:02)
[2024-11-01] MEDS: REQUIP 0.25 MG PO (20:08)
[2024-11-02] VITALS (8 sets, daily range): BP systolic 89–128; BP diastolic 52–76; BMI 17.5
[2024-11-02] MEDS: MAXIPIME 1000 MG IV (05:38)
[2024-11-02] MEDS: STERILE WATER FOR INJECTION 10 ML IV (05:38)
[2024-11-02 06:56] LABS: % Basophils 0.2 % (0-2); % Eosinophils 0.3 % (0-6); % Immature Granulocytes 4.3 % (0-0.5); % Lymphocytes 14.2 % (20.5-51.1); % Monocytes 6.4 % (1.7-9.3); % Neutrophils 74.6 % (42.2-75.2); Absolute Immature Granulocytes 0.5 10^3/uL (0-0.05); Absolute Lymphocytes 1.8 10^3/uL (1.2-3.4); Absolute Monocytes 0.8 10^3/uL (0.1-0.6); Absolute Neutrophils 9.4 10^3/uL (1.4-6.5); Hematocrit 34.2 % (37.0-47.0); Hemoglobin 11.6 g/dL (12.0-16.0); Mean Corp Hgb Conc. 33.9 g/dL (33.0-37.0); Mean Corpuscular Hgb 30.3 pg (27.0-31.0); Mean Corpuscular Volume 89.3 fL (81.0-99.0); Mean Platelet Volume 10.7 fL (7.4-10.4); Nucleated Red Blood Cells % 0 %; Platelet Count 194 10^3/uL (130-400); Red Blood Cell Count 3.83 10^6/uL (4.20-5.40); Red Cell Dist. Width 12.8 % (11.5-14.5); White Blood Cell Count 12.6 10^3/uL (4.8-10.8)
[2024-11-02 07:24] LABS: Blood Urea Nitrogen 46 mg/dl (7-17); Calcium 9.3 mg/dl (8.4-10.2); Carbon Dioxide 29 mmol/L (22-30); Chloride 98 mmol/L (98-107); Estimated Creatinine Clearance 28 ml/min; Glucose 83 mg/dl (70-99); Potassium 4.7 mmol/L (3.5-5.1); Sodium 137 mmol/L (135-145); eGFR 41.57
[2024-11-02] MEDS: ADVAIR HFA 45/21 MCG INHALER 2 PUFF INH ×2 (07:52→19:21)
[2024-11-02] MEDS: PEPCID 20 MG PO (07:57)
[2024-11-02] MEDS: TIMOPTIC 0.5% OPHTHALMIC SOLUTION 1 DROP BOTH EYES ×2 (07:57→20:02)
[2024-11-02] MEDS: VIBRAMYCIN 100 MG PO (07:57)
[2024-11-02] MEDS: ALPHAGAN 0.2% EYE DROPS 1 DROP BOTH EYES ×2 (07:57→20:01)
[2024-11-02] MEDS: PROTONIX 40 MG PO (07:57)
[2024-11-02] MEDS: DIOVAN 40 MG PO (07:58)
[2024-11-02] MEDS: DELTASONE 30 MG PO (07:58)
[2024-11-02] MEDS: ASPIR LOW (ENTERIC COATED) 81 MG PO (07:58)
[2024-11-02] MEDS: TOPROL XL 25 MG PO (07:58)
--- NOTE | 2024-11-02 08:18 | W.PN.CD ---
Today's Communication / Plan
-
- PCWP was only 6 yesterday; diuresis discontinued--compensated on examination.
- Continue Toprol-XL and valsartan.
- Continue treatment of pneumonia as per primary team.
- No further cardiac recommendations at this time; can follow-up with cardiology as an outpatient.
Impression / Plan
-
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
Takotsubo cardiomyopathy (EF 30%):
-severe, threat to life
-peak trop 2.66
-Troponin elevation is acute nonischemic myocardial injury in the setting of Takotsubo cardiomyopathy.
- PCWP was only 6 yesterday; diuresis discontinued--compensated on examination.
- Continue Toprol-XL and valsartan.
- No coverage for entresto or SGLT2i.
- No aldactone due to blood pressure limitations and renal sufficiency.
- Reassess LVEF in 3 months to determine need for ICD (primary prevention of sudden cardiac .
PNA and sepsis
- on abx; continue management as per primary team.
HTN
- Stable/controlled.
CHB/PPM:
- Remains stable on tele
RA
Anemia
HLD
- Continue statin.
Physical Exam
Vital Signs/Labs
Vital Signs
Temp Pulse Resp BP Pulse Ox
98.3 F 66 16 121/71 93
11/02/24 05:45 11/02/24 07:58 11/02/24 07:53 11/02/24 07:58 11/02/24 07:53
11/01/24 11/02/24 11/03/24
06:59 06:59 06:59
Actual Weight 51.511 kg 50.621 kg
11/02/24 05:33
11/02/24 05:33
PT 15.5 Sec (11.4-14.6) H 10/28/24 04:05
INR 1.18 10/28/24 04:05
APTT 73.0 Sec (23.4-35.0) H 11/01/24 05:28
Magnesium 2.0 mg/dl (1.6-2.3) 10/30/24 02:37
10/27/24 10/30/24
17:41 02:37
[facility] Pept [id number]
Physical Exam
Constitutional: No acute distress and Comfortable
EENT: Anicteric
Cardiovascular: Rhythm & rate is regular, Pedal edema is absent, Systolic murmur present (Soft 2/) and S1S2 is normal
Respiratory: Respiratory effort normal
GI: Soft and Non tender
Neuro/Psych: AO x 3
Other: Skin (Warm, dry, intact)
Data Reviewed
-
Date of Service: November 02, 2024
EKG: Tracing Personally Visualized and interpreted (Telemetry: A paced.)
Echo: Report Reviewed by me (EF 30%)
Medical Tests (PFT, Pathology etc): Report Reviewed by me (Cardiac catheterization 11/01/2024: 50% RCA; PCWP 6)
Labs: Labs Reviewed by me
--- NOTE | 2024-11-02 09:14 | W.PN.PUL3 ---
Today's Communication / Plan
-
Last day of ABx today (which is 7th day)
Maintain MAP>65
Defer GDMT to cardiology
Continue ASA + statin
Replete K>4, Mg>2
Continue Advair with prn albuterol; resume home inhalers upon discharge
Prednisone taper with last dose today
Encourage incentive spirometer use
No additional recommendations at this time. Pulmonary service will now sign off. I will arrange for outpatient pulmonary office follow-up with our office given her history of asthma, and also to obtain repeat imaging to assure her right lower lobe
pneumonia improves/resolves. Please reconsult if there are any additional questions/concerns, or if patient's respiratory status deteriorates.
Assessment
-
In brief, patient is a 78-year-old female with known history of asthma who presented to emergency room for the increased shortness of breath as well as worsening diarrhea. Patient was noted to have a right lower lobe infiltrate and hypotension
requiring pressor support after fluid resuscitation. She was also noted to be quite dehydrated with diarrhea. In view of shock requiring vasopressors, patient was admitted to the ICU and protective services case worker consultation was requested for further input.
#1. Acute respiratory failure with septic shock with right lower lobe pneumonia
- Shock state resolved -she responded well to IV fluid resuscitation. Lactate was 2.2 on admission, 1.5 on repeat testing
- Last day of antibiotics today with cefepime and doxy s/p zithromax on 10/27 and s/p IV vanco (10/27 - 10/29/2024); all cultures have been negative except for initial blood culture on 10/27/2024 which was likely a contaminant (coagulase-negative
staph); MRSA screen negative --> vancomycin was discontinued. Influenza A, B screen negative. COVID-19 screen negative.
- In view of GI symptoms and pneumonia, Legionella urine antigen checked --> negative
- Patient required BiPAP initially for increased work of breathing, currently off BiPAP and doing well - remains on room air for few days now
#2. Diarrhea with severe dehydration.
- Responded well to fluid resuscitation, appears euvolemic now
- Saline lock
- No further diarrhea since patient has been in the ICU
- Continue to monitor
#3. Non-ST elevation FL, suspect type II. Troponin noted to be above 2, patient currently chest pain-free and EKG without any ST elevation.
- Continue aspirin + statin; now off heparin infusion given no culprit lesion seen on LHC from yesterday
- RHC/LHC from 11/01/2024 showed 50% calcified ostial stenosis of the RCA with very mild pressure dampening on engagement. Cardiology recommends medical management. Cardiac output was low at 3.47 with PCWP WNL at 6 mmHg. mPAP was 10 with PVR 1.7
Wood units. No need to continue diuresis; monitor I/O and UOP with daily weight
#3a. 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 Echocardiogram suggestive of possible stress cardiomyopathy with hyperkinetic base and hypo-/akinetic distal LV, LVEF 30%
- Continue medical management of her single-vessel CAD
- Defer GDMT to cardiology for her stress cardiomyopathy; expect her LVEF to improve hopefully within 3-6 months
- Replete K>4, Mg>2
- Trend UOP and maintain strict I/O
#4. History of asthma.
- Reportedly patient had wheezing on admission, ?asthma exacerbation in the setting of pneumonia
- Changed Solu-Medrol to prednisone 30 mg daily for 4 days - last dose today
- Continue Advair twice daily and as needed albuterol; resume her home inhalers upon discharge
#5. History of rheumatoid arthritis. Patient takes HCQZ at home. Also takes prednisone on an as-needed basis
- Currently on prednisone daily for asthma exacerbation - last dose today
Diet: regular --> cardiac diet
DVT ppx: heparin drip now off; start HSQ
Code status: full code
No additional recommendations at this time. Pulmonary service will now sign off. I will arrange for outpatient pulmonary office follow-up with our office given her history of asthma, and also to obtain repeat imaging to assure her right lower lobe
pneumonia improves/resolves. Thank you for allowing us to be involved in the care of this patient. Please reconsult if there are any additional questions/concerns, or if patient's respiratory status deteriorates.
Total time spent today was 38 minutes for this encounter. Time includes reviewing laboratory test/imaging results, reviewing pertinent medical records, obtaining and reviewing medical history, performing an appropriate exam, ordering medications,
tests and procedures. Time also includes documentation of this encounter, coordinating patient care and communicating with other healthcare professionals. Total time does not include separately billed tests performed on this date of service.
Subjective Data
-
Date of Service:
Date of Service: November 02, 2024
Chief Complaint: Pulmonary Follow Up
Subjective:
Patient was seen and evaluated today at bedside. Sitting in chair in no acute distress although she has multiple complaints saying that she is tired and wants to sit back in the bed, also not hungry and she just does not feel well overall.
Currently on room air breathing comfortably.
Review of Systems
General: Other (Negative unless mentioned above)
Objective Data
Data Reviewed
Vital Signs / I&O / Oxygen:
Vital Signs
Temp Pulse Resp BP Pulse Ox
97.2 F 66 16 121/71 93
11/02/24 07:05 11/02/24 07:58 11/02/24 07:53 11/02/24 07:58 11/02/24 07:53
Intake and Output
11/01/24 11/02/24 11/03/24
06:59 06:59 06:59
Intake Total 660 / 660 1365 / 1365
Output Total 1900 / 1900 1300 / 1300
Balance -1240 / -1240 65 / 65
SaO2 93
Nasal Cannula flow liters per 2
minute
Physical Exam
General: Respiratory Distress (negative), Comfortable, Chills (negative) and Sweats (negative)
HEENT: Normocephalic and Anicteric
Cardiovascular: S1-S2 and Peripheral Edema (negative)
Respiratory: Wheeze (negative), Crackles (Right base), Rhonchi (negative) and Non-Labored Respirations
GI: Soft, Non Distended, Non Tender and Normal Bowel Sounds
Neurology: AO x 3 and Tremors (negative)
Skin: Warm, Dry, Cyanosis (negative) and Jaundice (negative)
Labs/Micro/Reports
Lab Data
11/02/24 05:33
11/02/24 05:33
Microbiology
10/27/24 22:08 Blood/Venous Blood Culture - Final
No Growth - Final Report
10/27/24 22:08 Blood/Venous Blood Culture - Final
No Growth - Final Report
10/27/24 18:36 Blood/Venous Blood Culture - Final
No Growth - Final Report
10/28/24 18:27 Blood/Venous Blood Culture - Preliminary
No Growth in 4 days- Final report to follow
10/28/24 18:23 Blood/Venous Blood Culture - Preliminary
No Growth in 4 days- Final report to follow
--- NOTE | 2024-11-02 13:05 | CM ---
Pt had Cardiac cath yesterday.
PT OT indicate SNF need at dc.
Spoke with dgt Ganga [phone]. Reviewed PT OT and she requested referral for [facility].
Referral in [facility].
Pt has medicare.
PLAN To Snf after located and medically ready
--- NOTE | 2024-11-02 14:22 | W.PN.HOSP.TC ---
Today's Communication/Plan
-
discharge planning for rehab
Assessment / Plan
Assessment / Plan
[facility]
1. Single-vessel coronary artery disease in a right dominant system as described.
2. Normal filling pressures and low normal cardiac index

1. Acute hypoxic respiratory failure - Improved
Right lower lobe pneumonia
Septic shock
-COVID/influenza./legionella negative
-Patient required vasopressor support and was able to be weaned off
-Blood culture grew contaminant, repeat cultures negative
-Discontinue further Rocephin/doxycycline, patient finished 6-day of abx
2. Asthma
- Patient started on empiric steroid for questionable flare-up
- Finished short course of oral steroid 30mg/d
- maintain on nebulizer therapy
3. Non-STEMI
- Elevated troponin max of 2.66, without any significant EKG changes
- Echocardiogram showing ejection fraction of 30% with concern of possible Takotsubo cardiomyopathy
- Cardiology is following along and considering to do left heart catheterization
- [facility] showed single vessel coronary artery disease, no stenting needed
- Heparin discontinued .
4. Complete heart block
History of pacemaker placement
- Currently on diltiazem for tachycardia?
- cardio managing
5. History of rheumatoid arthritis
- Patient on Plaquenil 200mg/d at home
6. Possible restless leg syndrome
- Complaining leg jumping while sleeping
- Increase dose of requip
7. Sore throat
- COVID check negative. Maintain on Cepacol lozenges
- already on doxycycline fro atypical organism coverage.
- Further testing if not improved
DVT Prophylaxis: Heparin Drip
Code Status: Full Code
Anticipated Discharge: Within 24 hours
Subjective/Interval History
-
Date of Service: November 02, 2024
Sitting comfortably in chair
denies chest discomfort or shortness of breath
No other problems overnight
Objective Data
-
Labs:
Laboratory Results
11/02/24
05:33
WBC 12.6 H
Hgb 11.6 L
Hct 34.2 L
Plt Count 194
Sodium 137
Potassium 4.7
Chloride 98
Carbon Dioxide 29
BUN 46 H
Creatinine 1.3 H
Glucose 83
Calcium 9.3
Vital Signs:
Vital Signs
Temp Pulse Resp BP Pulse Ox
98.7 F 58 16 95/56 97
11/02/24 11:10 11/02/24 11:10 11/02/24 11:10 11/02/24 11:10 11/02/24 11:10
I&O
11/01/24 11/02/24 11/03/24
06:59 06:59 06:59
Intake Total 660 / 660 1365 / 1365
Output Total 1900 / 1900 1300 / 1300
Balance -1240 / -1240 65 / 65
Review of Systems
-
All other systems: Reviewed and negative (Except presented in subjective)
Physical Exam
-
General: No Apparent Distress and Comfortable
HEENT: Oxygen
Respiratory: Clear to Auscultation
Cardiac: Regular Rhythm and S1/S2; Negative Murmur or Rub
GI: Soft, Nontender and Nondistended
Musculoskeletal: No Edema
Neuro: Awake, Alert, Oriented, No Motor Deficits and Nonfocal/Grossly Intact
Psych: Calm
[2024-11-02] MEDS: HEPARIN 5000 UNITS SC ×2 (16:16→23:51)
--- NOTE | 2024-11-02 16:28 | PTCARENOTE ---
Pt AAO x3, forgetful at times. Per pt 's daughter pt seems more confused that yesterday prior to cardiac cath. DR. Cain notified. Pt CHAUDHARI; OOB to chair with assist x1/walker, needs much encouragement to participate in OOB activity. VSS.
Telemetry: A paced rhythm. On room air- pulse ox 94%, no SOB noted. Abd soft, sl rounded, pt lincoln PO; appetite poor. Incont urine. Rt radial and brachial site dsgs D/I; circ/neuro check to RUE WNL. Resting in bed at present. Will continue to
monitor.
[2024-11-02 17:08] LABS: COVID-19 Antigen Negative (Negative)
[2024-11-02] MEDS: LIPITOR 40 MG PO (18:14)
[2024-11-03] VITALS (11 sets, daily range): BP systolic 80–127; BP diastolic 49–79; PULSE 89; BMI 17.7
[2024-11-03] MEDS: ADVAIR HFA 45/21 MCG INHALER 2 PUFF INH ×2 (07:46→19:31)
[2024-11-03 08:46] LABS: Mean Corp Hgb Conc. 34.3 g/dL (33.0-37.0); Mean Corpuscular Hgb 30.4 pg (27.0-31.0); Mean Corpuscular Volume 88.6 fL (81.0-99.0); Platelet Count 195 10^3/uL (130-400); Red Blood Cell Count 3.95 10^6/uL (4.20-5.40); White Blood Cell Count 16.6 10^3/uL (4.8-10.8)
--- NOTE | 2024-11-03 09:06 | PN.CDI ---
CDI
- -
CDI:
Physician Documentation Request
Admit Date: 10/27/24 20:04
Dear Doctor Ant,
Clinical Indicators:
Patient admitted with Sepsis due to Pneumonia.
11/02 Cardiology PN, 'Troponin elevation is acute nonischemic myocardial injury in the setting of Takotsubo cardiomyopathy.'
11/02 PN, 'Non-STEMI- Elevated troponin max of 2.66, without any significant EKG changes...LHC showed single vessel coronary artery disease, no stenting needed'
Troponin trend:
10/27/24 10/28/24 10/29/24
17:41 13:58 05:37
Troponin I 0.037 H* 2.660 H* 1.150 H*
Due to potentially conflicting documentation, please clarify the etiology of the troponin elevation:
Nonischemic Myocardial Injury
Non -STEMI (documentation complete)
Other, please specify
Use of terms such as suspected, likely, concern for, or probable (associated with a specific diagnosis that is being evaluated, monitored, or treated as if it exists) are acceptable and can be coded in the inpatient setting, when documented at the
time of discharge.
Thank you,
MICHAEL Garcia RN
CDI Specialist
available via tiger text
Please use your independent medical judgment in providing your response.
--- NOTE | 2024-11-03 09:13 | PN.CDI ---
CDI
- -
CDI:
Physician Documentation Request
Admit Date: 10/27/24 20:04
Dear Doctor Ant,
Clinical Indicators:
Height: 5 ft 7 in
Weight: 111 lbs 9.6 oz
BMI:
11/02/24
06:00
Body Mass Index (BMI) 17.5
11/01 note/assessment, 'Current BW: (11/01) 113 lbs 9 oz BMI 17.8 underweight range...'
If possible, please provide an associated diagnosis related to the abnormal BMI (BMI < or = to 19), such as:
Underweight
BMI is not significant
Other, please specify
Use of terms such as suspected, likely, concern for, or probable (associated with a specific diagnosis that is being evaluated, monitored, or treated as if it exists) are acceptable and can be coded in the inpatient setting, when documented at the
time of discharge.
Thank you,
MICHAEL Garcia RN
CDI Specialist
available via tiger text
Please use your independent medical judgment in providing your response.
[2024-11-03 09:32] LABS: Blood Urea Nitrogen 57 mg/dl (7-17); Calcium 9.6 mg/dl (8.4-10.2); Carbon Dioxide 25 mmol/L (22-30); Chloride 102 mmol/L (98-107); Estimated Creatinine Clearance 24 ml/min; Glucose 92 mg/dl (70-99); Potassium 4.2 mmol/L (3.5-5.1); Sodium 137 mmol/L (135-145); eGFR 35.01
[2024-11-03] MEDS: DIOVAN PO (09:51)
[2024-11-03] MEDS: PROTONIX 40 MG PO (09:53)
[2024-11-03] MEDS: HEPARIN 5000 UNITS SC ×2 (09:53→17:21)
[2024-11-03] MEDS: SENOKOT-S 1 TABLET PO ×2 (09:57→20:42)
[2024-11-03] MEDS: PEPCID 20 MG PO (09:57)
[2024-11-03] MEDS: ASPIR LOW (ENTERIC COATED) 81 MG PO (09:57)
[2024-11-03] MEDS: ALPHAGAN 0.2% EYE DROPS 1 DROP BOTH EYES ×2 (09:59→20:42)
[2024-11-03] MEDS: TIMOPTIC 0.5% OPHTHALMIC SOLUTION 1 DROP BOTH EYES ×2 (09:59→20:43)
[2024-11-03] MEDS: TOPROL XL PO (11:01)
[2024-11-03] MEDS: DULCOLAX 10 MG PO (11:21)
--- NOTE | 2024-11-03 12:16 | W.PN.HOSP.TC ---
Addendum entered and electronically signed by Crispin Cain MD 11/04/24 07:50:
Add on to diagnosis list:
Underweight
NSTEMI ruled out - Troponin elevation of Nonischemic myocardial injury
Original Note:
Today's Communication/Plan
-
d/c postponed tomorrow
continue monitoring mentation improvement
see note
Assessment / Plan
Assessment / Plan
[facility]
1. Single-vessel coronary artery disease in a right dominant system as described.
2. Normal filling pressures and low normal cardiac index

1. Acute hypoxic respiratory failure - Improved
Right lower lobe pneumonia
Septic shock -resolved
-COVID/influenza./legionella negative
-Patient required vasopressor support and was able to be weaned off
-Blood culture grew contaminant, repeat cultures negative
-Discontinue further Rocephin/doxycycline, patient finished 6-day of abx
2. Asthma
- Patient started on empiric steroid for questionable flare-up
- Finished short course of oral steroid 30mg/d
- maintain on nebulizer therapy
3. Non-STEMI
- Elevated troponin max of 2.66, without any significant EKG changes
- Echocardiogram showing ejection fraction of 30% with concern of possible Takotsubo cardiomyopathy
- Cardiology is following along and considering to do left heart catheterization
- C showed single vessel coronary artery disease, no stenting needed
- Heparin discontinued .
4. Complete heart block
History of pacemaker placement
- Currently on diltiazem for tachycardia?
- cardio managing
5. History of rheumatoid arthritis
- Patient on Plaquenil 200mg/d at home
6. Possible restless leg syndrome
- Complaining leg jumping while sleeping
- discontinued requip for now.
7. Sore throat
- COVID check negative. Maintain on Cepacol lozenges
- already on doxycycline fro atypical organism coverage.
- Further testing if not improved
8. Mild toxic encephalopathy - Improved
- stopped Requip
- covid neg.
- Avoid sedative medication
9. KAREN
- renal function up-trending
- may be hypotension and nephrotoxic meds related
- hold Diovan/Toprol xl for now
- bladder scan showing some retention of ~ 200ml., monitor
10. Constipation
- added oral dulcolax and rectal suppository
DVT Prophylaxis: subq heparin
Code Status: Full Code
Anticipated Discharge: Within 24 hours
Subjective/Interval History
-
Date of Service: November 03, 2024
Patient mentation bit better today
no reported hallucination/confusion episode
complaining of some neck pain
Objective Data
-
Labs:
Laboratory Results
11/03/24
08:01
WBC 16.6 H
Hgb 12.0
Hct 35.0 L
Plt Count 195
Sodium 137
Potassium 4.2
Chloride 102
Carbon Dioxide 25
BUN 57 H
Creatinine 1.5 H
Glucose 92
Calcium 9.6
Vital Signs:
Vital Signs
Temp Pulse Resp BP Pulse Ox
98 F 64 18 89/52 98
11/03/24 11:07 11/03/24 11:07 11/03/24 11:07 11/03/24 11:07 11/03/24 11:07
I&O
11/02/24 11/03/24 11/04/24
06:59 06:59 06:59
Intake Total 1365 / 1365 420 / 420 180 / 180
Output Total 1300 / 1300 250 / 250
Balance 65 / 65 170 / 170 180 / 180
Review of Systems
-
Respiratory: Reports No Symptoms
Cardiac: Reports No Symptoms
Abdomen/GI: Reports No Symptoms
Physical Exam
-
General: No Apparent Distress and Comfortable
HEENT: Oxygen
Respiratory: Clear to Auscultation
Cardiac: Regular Rhythm and S1/S2; Negative Murmur or Rub
GI: Soft, Nontender and Nondistended
Musculoskeletal: No Edema
Neuro: Awake, Alert, Oriented, No Motor Deficits and Nonfocal/Grossly Intact
Psych: Calm
[2024-11-03 16:34] LABS: Urine Albumin 2+ (Neg - Trace); Urine Bilirubin Negative (Negative); Urine Character Clear (Clear); Urine Color Yellow; Urine Glucose Negative (Negative); Urine Ketone Negative (Negative); Urine Leukocyte Negative (Negative); Urine Nitrite Negative (Negative); Urine Occult Blood 1+ (Negative); Urine Specific Gravity 1.015 (<1.030); Urine Urobilinogen Negative (Neg - 1+)
[2024-11-03 17:20] LABS: Urine Bacteria Moderate (Negative); Urine Red Blood Cell 0-2 /HPF (0-2)
[2024-11-03] MEDS: LIPITOR 40 MG PO (17:21)
--- NOTE | 2024-11-03 17:27 | CM ---
As per dgt Referrals placed for [facility] and [facility] .
Tresa from [facility] said she does not have a bed this week .
spoke with Amanda at [facility] .
Amanda offered a bed at [facility] tomorrow if medically ready .
On room air.
PLAN Assess for ready for dc Thursday [facility] bed available
[2024-11-04] MEDS: HEPARIN 5000 UNITS SC ×4 (00:42→23:25)
[2024-11-04 03:15] VITALS: BP 112/65
[2024-11-04] MEDS: DULCOLAX 10 MG PO (04:49)
[2024-11-04 05:35] VITALS: BMI 17.4
[2024-11-04 06:27] LABS: Hematocrit 36.7 % (37.0-47.0); Hemoglobin 12.2 g/dL (12.0-16.0); Mean Corp Hgb Conc. 33.2 g/dL (33.0-37.0); Mean Corpuscular Volume 90.4 fL (81.0-99.0); Platelet Count 215 10^3/uL (130-400); Red Blood Cell Count 4.06 10^6/uL (4.20-5.40)
[2024-11-04 06:56] LABS: Blood Urea Nitrogen 53 mg/dl (7-17); Calcium 9.8 mg/dl (8.4-10.2); Carbon Dioxide 26 mmol/L (22-30); Chloride 103 mmol/L (98-107); Estimated Creatinine Clearance 22 ml/min; Glucose 99 mg/dl (70-99); Potassium 4.8 mmol/L (3.5-5.1); Sodium 137 mmol/L (135-145)
[2024-11-04 07:10] VITALS: BP 118/74
[2024-11-04] MEDS: ADVAIR HFA 45/21 MCG INHALER 2 PUFF INH ×2 (08:17→17:54)
--- NOTE | 2024-11-04 08:40 | PTOTSP ---
Speech Language Pathology
Pt seen for dysphagia tx. P.O. trials of regular solids and thin liquids provided. Adequate mastication, bolus formation, and A-P transit noted with no oral residue. No overt signs of aspiration. Pt also seen for med pass with meds whole in
puree (which is baseline) with no difficulty noted.
Recommend:
(1) Regular solids/thin liquids
(2) General aspiration precautions
(3) Meds as tolerated
(4) [employer] to sign off. Please reconsult as indicated
[2024-11-04] MEDS: TIMOPTIC 0.5% OPHTHALMIC SOLUTION 1 DROP BOTH EYES ×2 (08:45→20:42)
[2024-11-04] MEDS: SENOKOT-S 1 TABLET PO (08:45)
[2024-11-04] MEDS: ALPHAGAN 0.2% EYE DROPS 1 DROP BOTH EYES ×2 (08:45→20:42)
[2024-11-04] MEDS: TOPROL XL 25 MG PO (08:46)
[2024-11-04] MEDS: PEPCID 20 MG PO (08:46)
[2024-11-04] MEDS: ASPIR LOW (ENTERIC COATED) 81 MG PO (08:46)
[2024-11-04] MEDS: PROTONIX 40 MG PO (08:46)
[2024-11-04] MEDS: FLOMAX 0.4 MG PO (08:47)
[2024-11-04] MEDS: FLUSH (NSS) 1 FLUSH IV ×2 (08:48→14:11)
[2024-11-04 11:09] VITALS: BP 116/76
[2024-11-04] MEDS: CITROMA 300 ML PO (11:42)
--- NOTE | 2024-11-04 13:39 | W.PN.HOSP.TC ---
Today's Communication/Plan
-
see note
possible d/c tomorrow if renal function better
Assessment / Plan
Assessment / Plan
[facility]
1. Single-vessel coronary artery disease in a right dominant system as described.
2. Normal filling pressures and low normal cardiac index

1. Acute hypoxic respiratory failure - Improved
Right lower lobe pneumonia
Septic shock -resolved
-COVID/influenza./legionella negative
-Patient required vasopressor support and was able to be weaned off
-Blood culture grew contaminant, repeat cultures negative
-Discontinue further Rocephin/doxycycline, patient finished 6-day of abx
2. Asthma
- Patient started on empiric steroid for questionable flare-up
- Finished short course of oral steroid 30mg/d
- maintain on nebulizer therapy
3. Non-STEMI
- Elevated troponin max of 2.66, without any significant EKG changes
- Echocardiogram showing ejection fraction of 30% with concern of possible Takotsubo cardiomyopathy
- Cardiology is following along and considering to do left heart catheterization
- [facility] showed single vessel coronary artery disease, no stenting needed
- Heparin discontinued .
4. Complete heart block
History of pacemaker placement
- Currently on diltiazem for tachycardia?
- cardio managing
5. History of rheumatoid arthritis
- Patient on Plaquenil 200mg/d at home
6. Possible restless leg syndrome
- Complaining leg jumping while sleeping
- discontinued requip for now.
7. Sore throat
- COVID check negative. Maintain on Cepacol lozenges
- already on doxycycline fro atypical organism coverage.
- Further testing if not improved
8. Mild toxic encephalopathy - Improved
- stopped Requip
- covid neg.
- Avoid sedative medication
9. KAREN
- renal function remains elevated.
- off of nephrotoxic meds/hypotension better
- Contrast exposure on 11/01 and suspecting component of RUSLAN
- hold Diovan/Toprol xl for now
- bladder scan showing < 200ml volume at best
- Nephro evaluation requested as well
10. Constipation - Improved
- was having abd discomfort/nausea in the morning
- Failed to have bowel movement with Dulcolax suppository x2
- Had moderate soft bowel movement with soapsuds enema
- Providing oral mag citrate to maximize
DVT Prophylaxis: subq heparin
Code Status: Full Code
Anticipated Discharge: Within 24 hours
Subjective/Interval History
-
Date of Service: November 04, 2024
having abd discomfort from constipation
reported nausea and minimal vomiting
no other issues
Objective Data
-
Labs:
Laboratory Results
11/04/24
05:25
WBC 15.0 H
Hgb 12.2
Hct 36.7 L
Plt Count 215
Sodium 137
Potassium 4.8
Chloride 103
Carbon Dioxide 26
BUN 53 H
Creatinine 1.6 H
Glucose 99
Calcium 9.8
Vital Signs:
Vital Signs
Temp Pulse Resp BP Pulse Ox
98 F 86 22 116/76 94
11/04/24 11:09 11/04/24 11:09 11/04/24 11:09 11/04/24 11:09 11/04/24 11:09
I&O
11/03/24 11/04/24 11/05/24
06:59 06:59 06:59
Intake Total 420 / 420 500 / 500
Output Total 250 / 250
Balance 170 / 170 500 / 500
Review of Systems
-
Respiratory: Reports No Symptoms
Cardiac: Reports No Symptoms
Abdomen/GI: Reports Abdominal Pain, Nausea, Vomiting and Constipated
Physical Exam
-
General: Negative Appears in Distress
HEENT: Negative Oxygen
GI: Soft, Normal Bowel Sounds, Tender and Distended
Musculoskeletal: No Edema
Neuro: Awake, Alert, Oriented and No Motor Deficits
Psych: Calm
[2024-11-04] MEDS: LR 1000 IV (14:11)
[2024-11-04 15:23] VITALS: BP 85/46
--- NOTE | 2024-11-04 15:36 | PTCARENOTE ---
Pt sleeping for long intervals; easily arousable;alert, oriented x3 when awake. Forgetful at times. CHAUDHARI; weak. VSS. On room air- pulse ox 97%, no SOB noted. Abd soft, sl rounded, poor PO intake; taking only small amts fluids with much
encouragement. Pt icont small amts soft/loose brown BM since soapsuds enema given earlier; no c/o abd discomfort at present. Incont urine. pt with IVF's RL @ 125 ml/hr infusing via lt forearm site without sx of infiltration. Will continue to
monitor.
[2024-11-04 16:16] VITALS: BP 100/57
--- NOTE | 2024-11-04 17:03 | CM ---
indicated pt can be discharged to SNF.
Spoke with son Bryce he indicated that medicare would pay for Keytruda while he is at SNF.
Spoke with Amanda at [facility] asked her if pt can be accepted tomorrow with or without Keytruda.
[facility] Amanda said she could not get answer from [facility] about Keytruda coverage.
[facility] can not accept pt.
Spoke with Bryce he said he is aware of above. He requested [facility] referral.
Lm with [facility] and referral placed.
IMM copy given explained signed on chart.
PLAN To SNF after located
--- NOTE | 2024-11-04 17:54 | CM ---
Spoke with Amanda at [facility] .She offered bed at [facility].
Spoke with Ganga [phone] she is aware [facility] can accept if dc tomorrow Sta..
Dgt requested ambulance .
[facility]
report [phone]
fax [phone]
PLAN : [facility]
[2024-11-04] MEDS: LIPITOR 40 MG PO (18:00)
--- NOTE | 2024-11-04 18:07 | W.CON.NEPH ---
Consultation
-
Date/Time Consultation Requested: November 04, 2024 at 1300
Date/Time Consultation Performed: November 04, 2024 at 6 PM
Requesting Provider: Dr. Cain
Performing Provider: Dr. Boone
Reason for Consultation: Acute kidney injury
Medical History
-
Chief Complaint: Acute kidney injury
History of Present Illness:
78-year-old female with history of CHB s/p PPM, paroxysmal a tach, asthma/COPD, hypertension, hyperlipidemia, RA, who is here because of worsening shortness of breath. She ultimately had a left and right heart catheterization on 11/01. She
developed acute kidney injury on chronic kidney disease. She had septic shock requiring pressor support which has resolved
Renal consult for acute kidney injury. She had IV contrast.
Past Medical History
CHB s/p PPM, paroxysmal a tach, asthma/COPD, hypertension, hyperlipidemia, RA,
Social History
Tobacco: Non-Smoker
Alcohol: None
Family History
Family History: Not Pertinent
Allergies / Home Medications
Allergy/AdvReac Type Severity Reaction Status Date / Time
ciprofloxacin Allergy Hallucinati Verified 10/27/24 20:36
on
gabapentin Allergy Anaphylaxis Verified 07/07/24 23:27
�Medication �Instructions �Recorded �Confirmed �Type
brimonidine 0.2 %-timolol 0.5 % 1 drp BOTH EYES BID Eye Condition 07/08/24 10/28/24 History
eye drops
cholecalciferol (vitamin D3) 50 50 mcg PO DAILY Supplement 07/08/24 10/28/24 History
mcg (2,000 unit) capsule (Vitamin
D3)
cyanocobalamin (vitamin B-12) 100 100 mcg PO DAILY Supplement 07/08/24 10/28/24 History
mcg tablet (Vitamin B-12)
diltiazem HCl 120 mg 120 mg PO DAILY Rate control 07/08/24 10/28/24 History
capsule,extended release 24 hr,
controlled (DILT-XR)
docosahexaenoic acid (dha)-epa 120 1 cap PO DAILY Supplement 07/08/24 10/28/24 History
mg-180 mg capsule (Fish Oil)
fluticasone 100 mcg-salmeterol 50 1 inh inhalation R BIDPRN PRN sob 07/08/24 10/28/24 History
mcg/dose blistr powdr for
inhalation (Advair Diskus)
hydroxychloroquine 200 mg tablet 200 mg PO DAILY Rheumatoid 07/08/24 10/28/24 History
arthritis
lisinopril 5 mg tablet 5 mg PO DAILY Blood Pressure 07/17/24 10/28/24 History
melatonin 5 mg tablet 5 mg PO HS #30 tabs 07/22/24 10/28/24 Rx
Saccharomyces boulardii 250 mg 250 mg PO DAILY Gastrointestinal 10/28/24 10/28/24 History
capsule (Florastor) Issue
lidocaine 4 % topical patch 1 patch topical DAILY both knees 10/28/24 10/28/24 History
loperamide 2 mg tablet (Imodium 2 mg PO USEASDIRECTD PRN loose 10/28/24 10/28/24 History
A-D) stool
ondansetron 4 mg disintegrating 4 mg PO Q6HPRN PRN nausea/vomiting 10/28/24 10/28/24 History
tablet
rosuvastatin 5 mg tablet 5 mg PO DAILY High Cholesterol 10/28/24 10/28/24 History
simethicone 80 mg chewable tablet 80 mg PO Q6HPRN PRN gas 10/28/24 10/28/24 History
Review of Systems
-
Constipation otherwise no chest pain or shortness of breath
All other systems: Negative unless noted
Physical Exam
Vital Signs
Vital Signs
Temp Pulse Resp BP Pulse Ox
98.1 F 86 18 100/57 97
11/04/24 15:23 11/04/24 17:56 11/04/24 17:56 11/04/24 16:16 05/02/25 17:56
Lab Results
WBC 15.0 10^3/uL (4.8-10.8) H 11/04/24 05:25
RBC 4.06 10^6/uL (4.20-5.40) L 11/04/24 05:25
Hgb 12.2 g/dL (12.0-16.0) 11/04/24 05:25
Hct 36.7 % (37.0-47.0) L 11/04/24 05:25
Plt Count 215 10^3/uL (130-400) 11/04/24 05:25
Sodium 137 mmol/L (135-145) 11/04/24 05:25
Potassium 4.8 mmol/L (3.5-5.1) 11/04/24 05:25
Chloride 103 mmol/L (98-107) 11/04/24 05:25
Carbon Dioxide 26 mmol/L (22-30) 11/04/24 05:25
BUN 53 mg/dl (7-17) H 11/04/24 05:25
Creatinine 1.6 mg/dL (0.6-1.0) H 11/04/24 05:25
eGFR 32.40 11/04/24 05:25
Glucose 99 mg/dl (70-99) 11/04/24 05:25
Calcium 9.8 mg/dl (8.4-10.2) 11/04/24 05:25
Phosphorus 3.5 mg/dl (2.5-4.5) 10/28/24 04:05
Pkm-C-Zupuhjczrbz Pept 43591 pg/ml 10/30/24 02:37
Albumin 3.2 g/dl (3.5-5.0) L 10/30/24 02:37
Physical Exam
General no acute distress
HEENT no cephalic atraumatic extraocular muscle intact no scleral icterus no JVD neck supple
lungs clear to auscultation bilateral
heart regular S1-S2 positive
abdomen soft nontender positive bowel sounds
extremities no edema pulses present bilateral
Neurologically nonfocal alert and oriented x 3
Skin no lesions no abrasions no petechiae
Psych normal affect no bizarre behavior
Data Reviewed
-
Radiology: Image Personally Visualized and interpreted
Labs: Labs Reviewed by me, Discussed with Nurse and Discussed with Patient
Assessment/Plan
-
78-year-old female with history of CHB s/p PPM, paroxysmal a tach, asthma/COPD, hypertension, hyperlipidemia, RA, who is here because of worsening shortness of breath.
Status post left and right heart catheterization
Developed KAREN
Impression.
Acute on chronic kidney disease stage IIIb at baseline. Creatinine 1.6 post IV contrast and hypotension.
CAD status post left and right heart cath no signs of elevated pressures.
Status post PPM.
COPD.
CHF EF 30%
Plan.
Acuity multifactorial IV contrast in the setting of hypotension.
Holding Diovan.
Agree with IV fluids
Monitor pulmonary status closely with diminished ejection fraction.
Hold diuretics
Urinalysis bland
BMP in the morning
If renal function does not improve will check bladder scan
[2024-11-04] MEDS: SENOKOT-S PO ×2 (20:44→21:09)
[2024-11-04 23:01] VITALS: BP 136/108
[2024-11-05 05:24] VITALS: BMI 17.3
[2024-11-05 05:45] LABS: Hemoglobin 11.4 g/dL (12.0-16.0); Mean Corp Hgb Conc. 33.5 g/dL (33.0-37.0); Mean Corpuscular Hgb 30.2 pg (27.0-31.0); Mean Corpuscular Volume 90.2 fL (81.0-99.0); Mean Platelet Volume 10.7 fL (7.4-10.4); Platelet Count 188 10^3/uL (130-400); Red Blood Cell Count 3.77 10^6/uL (4.20-5.40); Red Cell Dist. Width 13.2 % (11.5-14.5); White Blood Cell Count 10.7 10^3/uL (4.8-10.8)
[2024-11-05 06:09] LABS: Blood Urea Nitrogen 48 mg/dl (7-17); Carbon Dioxide 26 mmol/L (22-30); Chloride 104 mmol/L (98-107); Estimated Creatinine Clearance 24 ml/min; Glucose 111 mg/dl (70-99); Potassium 4.3 mmol/L (3.5-5.1); Sodium 137 mmol/L (135-145); eGFR 35.01
[2024-11-05 07:10] VITALS: BP 107/61
[2024-11-05] MEDS: ADVAIR HFA 45/21 MCG INHALER 2 PUFF INH (07:30)
[2024-11-05] MEDS: PEPCID 20 MG PO (09:23)
[2024-11-05] MEDS: FLOMAX 0.4 MG PO (09:23)
[2024-11-05] MEDS: TOPROL XL 25 MG PO (09:23)
[2024-11-05] MEDS: ASPIR LOW (ENTERIC COATED) 81 MG PO (09:24)
[2024-11-05] MEDS: PROTONIX 40 MG PO (09:24)
[2024-11-05] MEDS: HEPARIN 5000 UNITS SC (09:24)
[2024-11-05] MEDS: ALPHAGAN 0.2% EYE DROPS 1 DROP BOTH EYES (09:26)
[2024-11-05] MEDS: SENOKOT-S PO (09:30)
[2024-11-05] MEDS: TIMOPTIC 0.5% OPHTHALMIC SOLUTION 1 DROP BOTH EYES (09:37)
--- NOTE | 2024-11-05 11:15 | CM ---
Addendum entered by REGINALDO Bautista 11/05/24 13:44:
Spoke with patient's daughter who is agreeable to discharge. Met with patient who signed IMM. Ambulance p/u scheduled for 15:00.
Original Note:
Received notification from attending that patient is medically stable and can be transferred today to [facility]F. No auth needed. Placed a call to 4th floor, where patient has a bed, per Amanda in admissions. Spoke with an RN named,
Keena, who confirmed that bed will be available for patient after 15:00 today. Will speak with daughter to update. Will complete medical necessity and transfer sheet for [facility] unit aid to set patient up for after 3 today.
Will review IMM with patient's daughter, will have her sign and place on chart.
# For report [phone] and [phone]
Plan: Case management will continue to follow and assist with discharge planning. Transfer to [facility] today.
--- NOTE | 2024-11-05 12:07 | W.PN.NEPH.PH ---
Today's Communication / Plan
-
Discontinue IV fluid
Assessment/Plan
-
78-year-old female with history of CHB s/p PPM, paroxysmal a tach, asthma/COPD, hypertension, hyperlipidemia, RA, who is here because of worsening shortness of breath.
Status post left and right heart catheterization
Developed KAREN
Impression.
Acute on chronic kidney disease stage IIIb at baseline. Creatinine 1.6 post IV contrast and hypotension.
CAD status post left and right heart cath no signs of elevated pressures.
Status post PPM.
COPD.
CHF EF 30%
Plan.
Acuity multifactorial IV contrast in the setting of hypotension.
Holding Diovan.
Hold diuretics
Urinalysis bland
BMP in the morning
Creatinine better at 1.5
Does not need any more IV fluid
Okay for discharge from renal standpoint
-
-
Date of Service: November 05, 2024
CC / HPI / ROS
-
Chief Complaint:
Acute kidney
History of Present Illness:
Acute kidney injury secondary to low blood pressure contra
Review of Systems:
No chest pain or shortness of breath
Labs
-
Labs:
WBC 10.7 10^3/uL (4.8-10.8) 11/05/24 04:28
RBC 3.77 10^6/uL (4.20-5.40) L 11/05/24 04:28
Hgb 11.4 g/dL (12.0-16.0) L 11/05/24 04:28
Hct 34.0 % (37.0-47.0) L 11/05/24 04:28
Plt Count 188 10^3/uL (130-400) 11/05/24 04:28
Sodium 137 mmol/L (135-145) 11/05/24 04:28
Potassium 4.3 mmol/L (3.5-5.1) 11/05/24 04:28
Chloride 104 mmol/L (98-107) 11/05/24 04:28
Carbon Dioxide 26 mmol/L (22-30) 11/05/24 04:28
BUN 48 mg/dl (7-17) H 11/05/24 04:28
Creatinine 1.5 mg/dL (0.6-1.0) H 11/05/24 04:28
eGFR 35.01 11/05/24 04:28
Glucose 111 mg/dl (70-99) H 11/05/24 04:28
Calcium 9.0 mg/dl (8.4-10.2) 11/05/24 04:28
Phosphorus 3.5 mg/dl (2.5-4.5) 10/28/24 04:05
Ofp-X-Ofbgulpgqjv Pept 91906 pg/ml 10/30/24 02:37
Albumin 3.2 g/dl (3.5-5.0) L 10/30/24 02:37
Physical Exam
-
Vital Signs:
Vital Signs
Temp Pulse Resp BP Pulse Ox
97.9 F 70 15 116/60 98
11/05/24 07:10 11/05/24 09:23 11/05/24 07:34 11/05/24 09:23 11/05/24 09:30
Respiratory:: Bilateral: CTA
Lung Excursion:: Normal
Abdomen:: Soft
Bowel Sounds:: Normal
Extremity Edema:: None: Bilateral:
--- NOTE | 2024-11-05 13:40 | W.PN.HOSP.TC ---
Today's Communication/Plan
-
d/c snf rehab
Assessment / Plan
Assessment / Plan
[facility]
1. Single-vessel coronary artery disease in a right dominant system as described.
2. Normal filling pressures and low normal cardiac index

1. Acute hypoxic respiratory failure - Improved
Right lower lobe pneumonia
Septic shock -resolved
-COVID/influenza./legionella negative
-Patient required vasopressor support and was able to be weaned off
-Blood culture grew contaminant, repeat cultures negative
-Discontinue further Rocephin/doxycycline, patient finished 6-day of abx
2. Asthma
- Patient started on empiric steroid for questionable flare-up
- Finished short course of oral steroid 30mg/d
- maintain on nebulizer therapy
3. Non-STEMI
- Elevated troponin max of 2.66, without any significant EKG changes
- Echocardiogram showing ejection fraction of 30% with concern of possible Takotsubo cardiomyopathy
- Cardiology is following along and considering to do left heart catheterization
- [facility] showed single vessel coronary artery disease, no stenting needed
- Heparin discontinued .
4. Complete heart block
History of pacemaker placement
- Currently on diltiazem for tachycardia?
- cardio managing
5. History of rheumatoid arthritis
- Patient on Plaquenil 200mg/d at home
6. Possible restless leg syndrome
- Complaining leg jumping while sleeping
- discontinued requip for now.
7. Sore throat
- COVID check negative. Maintain on Cepacol lozenges
- already on doxycycline fro atypical organism coverage.
- Further testing if not improved
8. Mild toxic encephalopathy - Improved
- stopped Requip
- covid neg.
- Avoid sedative medication
9. KAREN - Improving
- renal function remains elevated.
- off of nephrotoxic meds/hypotension better
- Contrast exposure on 11/01 and suspecting component of RUSLAN
- At discharge discontinuing Diovan. Toprol with holding parameter
- bladder scan showing < 200ml volume at best
- F/u with labs in rehab
10. Constipation - Improved
- was having abd discomfort/nausea in the morning
- Failed to have bowel movement with Dulcolax suppository x2
- Patient had bowel movement after enema yesterday. Requesting repeat round with good result again today
DVT Prophylaxis: subq heparin
Code Status: Full Code
More than 30 minutes spent in discharge including
Final examination of the patient
Summarizing hospital stay
Instructions for continuing care to all relevant caregivers
Preparation of discharge records, prescriptions, and referral forms
Total time spent (in minutes): 39 mins
Anticipated Discharge: Today
Subjective/Interval History
-
Date of Service: November 05, 2024
Abdominal pain better, still have some discomfort
No nausea or vomiting
No other reported acute issues
Objective Data
-
Labs:
Laboratory Results
11/05/24
04:28
WBC 10.7
Hgb 11.4 L
Hct 34.0 L
Plt Count 188
Sodium 137
Potassium 4.3
Chloride 104
Carbon Dioxide 26
BUN 48 H
Creatinine 1.5 H
Glucose 111 H
Calcium 9.0
Vital Signs:
Vital Signs
Temp Pulse Resp BP Pulse Ox
97.9 F 70 15 116/60 98
11/05/24 07:10 11/05/24 09:23 11/05/24 07:34 11/05/24 09:23 11/05/24 09:30
I&O
11/04/24 11/05/24 11/06/24
06:59 06:59 06:59
Intake Total 500 / 500 1779
Balance 500 / 500 1779
Review of Systems
-
Respiratory: Reports No Symptoms
Cardiac: Reports No Symptoms
Abdomen/GI: Denies Abdominal Pain, Nausea or Vomiting
Physical Exam
-
General: Negative Appears in Distress
HEENT: Negative Oxygen
GI: Soft, Normal Bowel Sounds, Tender and Distended
Musculoskeletal: No Edema
Neuro: Awake, Alert, Oriented and No Motor Deficits
Psych: Calm
[2024-11-05 15:00] VITALS: BP 96/60
--- NOTE | 2024-11-05 15:50 | PTCARENOTE ---
Received patient this am AAOx3. Pt forgetful. Pt tolerated diet well. Senna held this am secondary to patient having loose liquid stool over night after an enema. Pt continued to say she felt like she needed to have a bowel movement. Dr. Cain Made
aware. Pt given a soap suds enema as ordered with adequate results. Pt had a large soft bowel movement. Pt offered no complaints. Made patient comfortable. Cont to assess patient status.
--- NOTE | 2024-11-06 15:10 | W.DCSUMMARY ---
Discharge Summary
Discharge Data
Date of Admission: 10/27/24
Date of Discharge: 11/05/24
-
Pending Results: No
Hospital Course
Discharging Physician : Dr Crispin Cain
Disposition : SNF rehab
Primary care physician :
Principal Discharge diagnosis :
Acute hypoxic respiratory failure
Right lower lobe pneumonia
Septic shock
Takotsubo cardiomyopathy
Asthma exacerbation
Mild toxic encephalopathy
Acute kidney injury
Severe constipation
Chronic Discharge diagnosis :
History of complete heart block with pacemaker placement
Possible restless leg syndrome
Hyperlipidemia
Rheumatoid arthritis
Gastroesophageal reflux disease
Hospital Course :
Patient is a 78-year-old female with no mentioned past medical history came to ER for having increased shortness of breath and some diarrhea. In ER patient was noted to be hypoxic and required BiPAP support.
-Acute hypoxic respiratory failure/right lower lobe pneumonia/septic shock -at admission patient was noted to be septic in shock. Possible source was felt to be right lower lobe pneumonia. COVID/influenza/Legionella was negative. Patient did
require vasopressor support and IV antibiotics. Patient finished course of antibiotics in the hospital. No clear causative organism identified through culture data.
- Non-STEMI -patient was having elevated troponin although not voicing any chest discomfort at admission. Echocardiogram showing low ejection fraction of 30% with possible concern of Takotsubo cardiomyopathy. Cardiology took patient to left heart
catheterization which showed single-vessel coronary artery disease which did not require any stenting. Cardiology recommended medical management with patient to follow-up in office.
- Asthma exacerbation -in light of patient pneumonia and requirement of oxygen patient was also provided empiric course of steroid. Patient finished course of steroid in the hospital. Pulmonology was following along during the hospital stay.
- Acute kidney injury -patient had some renal dysfunction at admit which improved. Post heart catheterization patient had new elevation in renal function. This was felt to be possibly mild contrast-induced nephropathy. Patient was provided IV
fluid and with which renal function improved. Patient TOM/ARB were discontinued at discharge, may consider to be restarted based on renal function improvement on cardiology follow-up.
- Toxic metabolic encephalopathy -patient likely have restless leg syndrome, was started on Requip from which patient started having confusion/hallucination. This was discontinued and mentation normalized.
- Severe constipation -patient was having significant abdominal pain/nausea with constipation. Failed oral laxative around and required enema to help improve the constipation.
Post medical stabilization [facility].
Important imaging findings :
None
Procedure findings :
None
Discharge Plan
-
Patient Disposition: [facility]/SNF
Discharge Diagnosis/Procedures: Hypoxic respiratory failure, Right lower lobe pneumonia, Systolic HF, h/o heart block, pacemaker, bari, constipation
Condition: Fair
Diet: 2 Gram Sodium and Other diet
Activity: As tolerated
Driving Restrictions: No driving
Bathing Restrictions: OK to Shower
Blood Work: BMP in 1 week to be done at rehab
Other Services: VN and PT
Stand Alone Forms: DC Instructions- Cath/EP Lab
Referrals:
Edwar Markham MD [Active] - 11/04/24 2:20 pm
Gary Vo MD [Active] -
(4 weeks with Vo or Jared
Needs CXR in 4 weeks prior to visit to confirm resolution of pneumonia
hx of asthma noted)
Radha Sampson CRNP [Specified Professional Personl] - 11/23/24 8:40 am
Jessie Gonzales CRNP [Family Provider] - in one week
Prescriptions:
New
bisacodyl 5 mg Tablet,Delayed Release (Dr/Ec)
10 mg PO DAILYPRN PRN (Reason: no BM with oral meds) Qty: 14 0RF
famotidine 20 mg Tablet
20 mg PO Q48H Qty: 30 0RF
tamsulosin 0.4 mg Capsule
0.4 mg PO DAILY Qty: 14 0RF
Rx Instructions:
Can discontinue once discharged from rehab
sennosides-docusate sodium 8.6-50 mg Tablet
1 tab PO BID Qty: 60 0RF
aspirin 81 mg Tablet,Delayed Release (Dr/Ec)
81 mg PO DAILY Qty: 30 0RF
metoprolol succinate 25 mg Tablet Extended Release 24 Hr
25 mg PO DAILY Qty: 30 0RF
Continued
hydroxychloroquine 200 mg tablet
200 mg PO DAILY
brimonidine-timolol 0.2-0.5 % drops
1 drp BOTH EYES BID
cyanocobalamin (vitamin B-12) [Vitamin B-12] 100 mcg Tablet
100 mcg PO DAILY
fluticasone propion-salmeterol [Advair Diskus] 100-50 mcg/dose Blister With Device
1 inh INHALATION R BIDPRN PRN (Reason: sob)
Fish Oil 120-180 mg Capsule
1 cap PO DAILY
cholecalciferol (vitamin D3) [Vitamin D3] 50 mcg (2,000 unit) Capsule
50 mcg PO DAILY
melatonin 5 mg Tablet
5 mg PO HS Qty: 30 0RF
lidocaine 4 % Adhesive Patch,Medicated
1 patch TOPICAL DAILY
loperamide [Imodium A-D] 2 mg Tablet
2 mg PO USEASDIRECTD MDD 8mg/24hrs PRN (Reason: loose stool)
Rx Instructions:
take 2 caps after first loose stool, 1 cap after each subsequent loose stool. no more tahn 4 caps in 24hrs
ondansetron 4 mg Tablet,Disintegrating
4 mg PO Q6HPRN PRN (Reason: nausea/vomiting)
simethicone 80 mg Tablet,Chewable
80 mg PO Q6HPRN PRN (Reason: gas)
Saccharomyces boulardii [Florastor] 250 mg capsule
250 mg PO DAILY
Changed
rosuvastatin 5 mg tablet
10 mg PO DAILY Qty: 0 0RF
Discontinued
diltiazem HCl [DILT-XR] 120 mg capsule,ext.rel 24h degradable
120 mg PO DAILY
lisinopril 5 mg Tablet
5 mg PO DAILY
Discharge Orders:
Discharge Patient (As Directed); Ordered 11/05/24
Ordered By: Crispin Cain
Discharge Date and Time
Discharge Date/Time: 11/05/24 15:52
Print Language: SETSWANA
== END 2024-11-05 15:52 | DRG 871 ==
LOC: 4 EAST ACU 20:04
PROVIDERS: Hospitalist; Nurse Practitioner Family; Student in an Organized Health Care Education/Training Program; ADMITTING PHYSICIAN Internal Medicine; ATTENDING PHYSICIAN Hospitalist; CONSULT PHYSICIAN Internal Medicine; CONSULT PHYSICIAN Internal Medicine Cardiovascular Disease; CONSULT PHYSICIAN Internal Medicine Nephrology; EMERGENCY PHYSICIAN Emergency Medicine; FAMILY PHYSICIAN Nurse Practitioner Adult Health
PROC: 5A09357 Assistance with Respiratory Ventilation, Less than 24 Consecutive Hours, Continuous Positive Airway Pressure (ICD-10-PCS; 2024-10-27)
PROC: B2111ZZ Fluoroscopy of Multiple Coronary Arteries using Low Osmolar Contrast (ICD-10-PCS; 2024-11-01)
PROC: 4A023N8 Measurement of Cardiac Sampling and Pressure, Bilateral, Percutaneous Approach (ICD-10-PCS; 2024-11-01)
DX: A41.89 Other specified sepsis (principal); G92.8 Other toxic encephalopathy; J18.9 Pneumonia, unspecified organism; R65.21 Severe sepsis with septic shock; J96.01 Acute respiratory failure with hypoxia; I51.81 Takotsubo syndrome; J45.901 Unspecified asthma with (acute) exacerbation; N17.9 Acute kidney failure, unspecified; I13.0 Hypertensive heart and chronic kidney disease with heart failure and stage 1 through stage 4 chronic kidney disease, or unspecified chronic kidney disease; I47.10 Supraventricular tachycardia, unspecified; E87.20 Acidosis, unspecified; I50.20 Unspecified systolic (congestive) heart failure; I5A Non-ischemic myocardial injury (non-traumatic); Z68.1 Body mass index [BMI] 19.9 or less, adult; N18.32 Chronic kidney disease, stage 3b; K59.00 Constipation, unspecified; E78.00 Pure hypercholesterolemia, unspecified; M06.9 Rheumatoid arthritis, unspecified; D64.9 Anemia, unspecified; E86.1 Hypovolemia; R19.7 Diarrhea, unspecified; E86.0 Dehydration; G25.81 Restless legs syndrome; K21.9 Gastro-esophageal reflux disease without esophagitis; I25.10 Atherosclerotic heart disease of native coronary artery without angina pectoris; N14.11 Contrast-induced nephropathy; T50.8X5A Adverse effect of diagnostic agents, initial encounter; J02.9 Acute pharyngitis, unspecified; R63.6 Underweight; Z87.891 Personal history of nicotine dependence; Z86.16 Personal history of COVID-19; Z95.0 Presence of cardiac pacemaker; Z11.52 Encounter for screening for COVID-19
CPT/HCPCS: 71045; 73130; 80048; 80053; 81003; 81015; 82248; 82533; 82805; 82962; 83605; 83735; 83880; 84100; 84145; 84484; 85025; 85027; 85610; 85730; 87040; 87070; 87086; 87150; 87205; 87449; 87502; 87641; 87811; 92526; 92610; 93005; 93306; 93460; 94640; 94660; 96365; 96367; 96375; 97116; 97163; 97167; 97530; 97535; 99152; 99153; 99291; C1769; C1894; Q9950; Q9967

== ENCOUNTER 2024-11-09 08:27 | Inpatient (IN) | payer MEDICARE, SELFPAY ==
[2024-11-06] VITALS (45 sets, daily range): BP systolic 64–147; BP diastolic 38–86; BMI 18.9; BMI 19.0
--- NOTE | 2024-11-06 18:06 | ED.GENMED ---
History of Present Illness
General
Chief Complaint: Blood Pressure Problem
Source: patient, records and ambulance crew
Exam Limitations: none
Time Seen by Provider: 11/06/24 17:58
Nursing documentation reviewed up to this point in time: agreed with
History of Present Illness
History of Present Illness:
78-year-old female with history of asthma, pacemaker, rheumatoid arthritis, hypertension, hyperlipidemia who presents to the emergency department from [facility] (where she is currently staying for rehab after prolonged recent
hospitalization)�presents for evaluation of hypotension. Patient had 9-day hospitalization 10/30 until 11/05�was discharged yesterday to [facility] rehab. Her admission was for sepsis secondary to pneumonia and acute hypoxic respiratory failure;
initially with septic shock requiring vasopressors. She was also treated for asthma exacerbation with steroids, had workup for NSTEMI including cardiac cath and echocardiogram (no stenting required, nonobstructive disease on cardiac cath; echo
showed diminished EF 30%). Completed course of antibiotics while in the hospital and was discharged to rehab. Apparently patient was noted to be hypotensive with systolic blood pressure in the 60s earlier today. This was monitored throughout the
day at the residential but she was apparently persistently hypotensive which prompted them to finally referred to the ER for evaluation. Patient says that aside from having some loose stools this morning she has been feeling well. She denies any
chest pain, abdominal pain, nausea, vomiting. Denies any shortness of breath. She does have mild persistent cough but she says generally improving. She has not felt fever or chills. She denies any other complaints. Per EMS report her initial
blood pressure was 60 systolic she was given 300 cc of IV fluid on the way to the hospital and blood pressure improved to the 80s.
Past History
Past History
ED Past Medical History: Other (migraines)
ED Past Surgical History: Cardiac (pacemaker)
Social History
Tobacco: Non-smoker
Alcohol: None
Living: residential (rehab facility)
Review of Systems
Review of Systems
All Other Systems: ROS reviewed and negative except as documented in HPI and ROS
Constitutional: Denies fever or chills
Respiratory: Reports cough; Denies trouble breathing
Cardiac: Denies chest pain or palpitations
ABD/GI: Reports diarrhea; Denies abdominal pain, nausea, vomiting or constipated
: Denies flank pain
Musculoskeletal: Denies edema, neck pain or back pain
Neurological: Denies dizzy or headache
Phy Exam
Physical Exam
Physical Exam:
General: Awake, alert, oriented x3; no acute distress
Head: Normocephalic, atraumatic
Eyes: Conjunctiva normal, sclera anicteric
Throat: Airway intact, handling secretions
Neck: Trachea midline, no JVD
Lungs: Clear to auscultation bilaterally, no wheezing, rales, rhonchi
Heart: Regular rate and rhythm, no murmurs, gallops, or rubs
Abd: Soft, non distended, nontender
Neuro: No gross deficits
Skin: no rash
Extremities: No edema in extremities, equal pulses in all extremities
Scores
Heart Failure Risk
Heart Failure Risk Score: Not Applicable
Heart Score for Chest Pain Patients
STEMI patient?: Not applicable
Withdrawal Assessment of Alcohol
Withdrawal Assessment Completed?: Not applicable
Course
Orders/Labs/Results
Orders:
Orders
11/06/24 17:59
EKG [Electrocardiogram (*1)] Urgent
Reason for Study: Fatigue / Weakness
11/06/24 18:00
EKG- Treatment ONCE
11/06/24 18:04
Urinalysis Reflex To Culture Urgent
11/06/24 18:05
Interrogate Pacemaker- Treatment ONCE
0.9% Sodium Chloride 500 ml [Nss] 500 ml IV BOLUS
CR Chest Portable - 1 View Urgent
Comment:
Reason For Exam: hypotension
Reason Study Needs to be Portable: Patient Unstable
11/06/24 18:11
COVID-19 Antigen Urgent
Source: Nasal Swab
Complete Blood Count/With Diff Urgent
Comprehensive Metabolic Panel Urgent
Lactate Level [Lactic Acid] Urgent
Lipase Urgent
Magnesium Urgent
NT-proBNP Urgent
Troponin I Urgent
Blood Culture Q30M
LETI Source: Blood/Venous
Specimen Description:
Influenza A+B Rapid Molecular Urgent
LETI Source: Nasal Swab
Specimen Description:
11/06/24 18:45
Blood Culture Q30M
LETI Source: Blood/Venous
Specimen Description:
Abnormal Lab Results
11/06/24
18:11
RBC 3.26 L 10^6/uL
(4.20-5.40)
Hgb 10.0 L g/dL
(12.0-16.0)
Hct 29.9 L %
(37.0-47.0)
Abs Immat Gran (auto) 0.2 H 10^3/uL
(0-0.05)
Absolute Lymphs (auto) 1.0 L 10^3/uL
(1.2-3.4)
Immature Gran % 2.0 H %
(0-0.5)
Neutrophils % 75.3 H %
(42.2-75.2)
Lymphocytes % 13.5 L %
(20.5-51.1)
Potassium 5.2 H mmol/L
(3.5-5.1)
BUN 48 H mg/dl
(7-17)
Creatinine 1.8 H mg/dL
(0.6-1.0)
Troponin I 0.061 H* ng/ml
Total Protein 4.8 L g/dl
(6.3-8.2)
Albumin 2.8 L g/dl
(3.5-5.0)
11/06/24 18:11
11/06/24 18:11
Vital Signs
Blood pressure: 102/80
Initial and Last Documented VS:
Initial Vital Signs
Temp Pulse Resp BP Pulse Ox
37.0 C 63 20 87/52 96
11/06/24 18:01 11/06/24 18:01 11/06/24 18:01 11/06/24 18:01 11/06/24 18:01
Last Documented Vital Signs
Temp Pulse Resp BP Pulse Ox
37.0 C 63 20 102/80 96
11/06/24 18:01 11/06/24 18:01 11/06/24 18:01 11/06/24 19:02 11/06/24 18:01
MDM/Problems Addressed
Differential Diagnosis Includes:
Hypovolemia (dehydration, anemia, etc), distributive shock (sepsis would be most likely), cardiogenic shock less likely without overt signs of heart failure, obstructive shock less likely based on physical exam (PE would be a consideration after
recent hospitalization but she has no shortness of breath or chest pain, no tachycardia, no hypoxia, no tachypnea, no signs of DVT on exam which makes this diagnosis very unlikely)
MDM/Problems Addressed:
78-year-old female presents to the emergency room after recent prolonged hospitalization for septic shock secondary to pneumonia; she presents today for evaluation of persistent hypotension. She had blood pressure in the 60s for most of the day
according to staff report at intermediate facility; EMS at their initial blood pressure was in the 60s and she was given 300 cc of IV fluid. Her initial blood pressure here is 87/52. Her heart rate is in the 60s. Rest of vitals normal.
Physical exam as above. Will plan to place an IV check labs including a CBC and a CMP, troponin, proBNP. Check lactate and blood cultures. Will check EKG, chest x-ray. Interrogate device. Provide additional IV fluids. Will monitor very closely
reassess after the above.
Labs reviewed: CBC shows stable anemia, CMP shows mild KAREN with a creatinine of 1.8 from prior value of 1.4. Marginal hyperkalemia. Elevated BUN/creatinine ratio. Her troponin is slightly elevated but actually downtrending compared to elevation
from recent admission. Will trend flat. proBNP marginal. Chest x-ray reviewed by me shows no acute disease. Her EKG shows sinus rhythm. A few runs of NSVT but no significant events otherwise on device report. She has not had fever,
leukocytosis. While she did have some loose stools today this is a chronic issue for over 2 years aside (although recently was constipated while hospitalized)�she says this is no different than what she will typically get. She sees Dr. Ortega for
GI for this issue; lower suspicion that this is an acute infectious process. Can send off stool cultures if she has another episode. Very low clinical suspicion that her hypotension is sepsis related based on full clinical picture so far; she does
not meet SIRS criteria. Hold on antibiotics for now. With fluids her blood pressure has improved now 102/80. Suspect likely some hypovolemia; she was also apparently recently started on metoprolol after recent hospitalization which is likely
contributing. Will plan to admit for observation of vital signs and continued fluids overnight. Hold metoprolol for now. Discussed with hospitalist for admission.
*Radiology
Radiology exam reviewed: preliminary read by ED provider
*Pulse Oximetry
Patient hypoxic: no
*EKG
Interpreted by ED Provider?: Yes
Heart Rate: 61
Rate: normal
Rhythm: other (atrial paced)
Interval: normal interval
Ischemia: no ischemia
*Critical Care Note
Total Time (30-74mins, 75-104mins- exclusive of procedures): 31
comment:
Critical care statement: A total of 31 minutes of critical care time was provided for this patient. This includes management of unstable vital signs, evaluation of the patient at bedside, frequent reassessment, discussion with
consultants/hospitalist, and review of pertinent medical records. This time was separate from time utilized to perform any aforementioned documented procedures
Data Reviewed
Review of Other/Old Records Reveals: Labs, Records and Discharge Summary
Source: patient, records, family (Daughter) and ambulance crew
Patient Management
Discussion with other providers: Hospitalist (Discussed with hospitalist)
Escalation/DeEscalation of care consider admission/obs:
Admission indicated
ED Attending Note
-
Portions of this chart may have been created with voice recognition software.� Occasional wrong word or��sound alike� substitutions may have occurred due to the inherent limitations of voice recognition software.
Discharge Plan
Departure
Patient Disposition: Admit
Date of Disposition: 11/06/24
Time of Disposition: 19:09
Admit to doctor: Josep
Presentation/result/management discussed w/ accepting MD/DO: Hospitalist
Discharge Problem:
Hypovolemia, Hypotension, KAREN (acute kidney injury)
Prescriptions:
No Action
hydroxychloroquine 200 mg tablet
200 mg PO DAILY
brimonidine-timolol 0.2-0.5 % drops
1 drp BOTH EYES BID
cyanocobalamin (vitamin B-12) [Vitamin B-12] 100 mcg Tablet
100 mcg PO DAILY
fluticasone propion-salmeterol [Advair Diskus] 100-50 mcg/dose Blister With Device
1 inh INHALATION R BIDPRN PRN (Reason: sob)
Fish Oil 120-180 mg Capsule
1 cap PO DAILY
cholecalciferol (vitamin D3) [Vitamin D3] 50 mcg (2,000 unit) Capsule
50 mcg PO DAILY
melatonin 5 mg Tablet
5 mg PO HS Qty: 30 0RF
lidocaine 4 % Adhesive Patch,Medicated
1 patch TOPICAL DAILY
loperamide [Imodium A-D] 2 mg Tablet
2 mg PO USEASDIRECTD MDD 8mg/24hrs PRN (Reason: loose stool)
Rx Instructions:
take 2 caps after first loose stool, 1 cap after each subsequent loose stool. no more tahn 4 caps in 24hrs
ondansetron 4 mg Tablet,Disintegrating
4 mg PO Q6HPRN PRN (Reason: nausea/vomiting)
simethicone 80 mg Tablet,Chewable
80 mg PO Q6HPRN PRN (Reason: gas)
Saccharomyces boulardii [Florastor] 250 mg capsule
250 mg PO DAILY
bisacodyl 5 mg Tablet,Delayed Release (Dr/Ec)
10 mg PO DAILYPRN PRN (Reason: no BM with oral meds) Qty: 14 0RF
famotidine 20 mg Tablet
20 mg PO Q48H Qty: 30 0RF
tamsulosin 0.4 mg Capsule
0.4 mg PO DAILY Qty: 14 0RF
Rx Instructions:
Can discontinue once discharged from rehab
sennosides-docusate sodium 8.6-50 mg Tablet
1 tab PO BID Qty: 60 0RF
aspirin 81 mg Tablet,Delayed Release (Dr/Ec)
81 mg PO DAILY Qty: 30 0RF
metoprolol succinate 25 mg Tablet Extended Release 24 Hr
25 mg PO DAILY Qty: 30 0RF
rosuvastatin 5 mg tablet
10 mg PO DAILY Qty: 0 0RF
Interventions
Interventions:
*Risk Screen - Suicide Last Done: 11/06/24 18:06
*Neglect/Abuse Screening Last Done: 11/06/24 18:06
*ED COVID-19 Vaccine History Last Done: 11/06/24 18:51
ED- Cardiac Assessment Last Done: 11/06/24 18:50
ED- Neurological Assessment Last Done: 11/06/24 18:50
ED- Pulmonary Assessment Last Done: 11/06/24 18:51
Discharge Date and Time
Print Language: OCCITAN
[2024-11-06] MEDS: NSS 500 IV (18:22)
[2024-11-06 18:23] LABS: % Basophils 0.1 % (0-2); % Eosinophils 0.9 % (0-6); % Lymphocytes 13.5 % (20.5-51.1); % Monocytes 8.2 % (1.7-9.3); % Neutrophils 75.3 % (42.2-75.2); Absolute Eosinophils 0.1 10^3/uL (0-0.7); Absolute Immature Granulocytes 0.2 10^3/uL (0-0.05); Absolute Monocytes 0.6 10^3/uL (0.1-0.6); Absolute Neutrophils 5.6 10^3/uL (1.4-6.5); Hematocrit 29.9 % (37.0-47.0); Mean Corp Hgb Conc. 33.4 g/dL (33.0-37.0); Mean Corpuscular Hgb 30.7 pg (27.0-31.0); Mean Corpuscular Volume 91.7 fL (81.0-99.0); Mean Platelet Volume 10.3 fL (7.4-10.4); Nucleated Red Blood Cells % 0 %; Platelet Count 160 10^3/uL (130-400); Red Blood Cell Count 3.26 10^6/uL (4.20-5.40); Red Cell Dist. Width 13.2 % (11.5-14.5); White Blood Cell Count 7.4 10^3/uL (4.8-10.8)
[2024-11-06 18:35] LABS: ALT (SGPT) 28 U/L (0-35); AST (SGOT) 27 U/L (14-36); Albumin 2.8 g/dl (3.5-5.0); Alkaline Phosphatase 75 U/L (38-126); Blood Urea Nitrogen 48 mg/dl (7-17); Calcium 8.9 mg/dl (8.4-10.2); Carbon Dioxide 25 mmol/L (22-30); Chloride 107 mmol/L (98-107); Estimated Creatinine Clearance 21 ml/min; Glucose 87 mg/dl (70-99); Lipase 192 U/L (23-300); Magnesium 1.9 mg/dl (1.6-2.3); Potassium 5.2 mmol/L (3.5-5.1); Sodium 137 mmol/L (135-145); Total Bilirubin 0.6 mg/dl (0.2-1.3); Total Protein 4.8 g/dl (6.3-8.2); eGFR 28.13
[2024-11-06 18:46] LABS: Lactic Acid 0.7 mmol/L (0.7-2.0)
[2024-11-06 18:55] LABS: NT-proBNP 619 pg/ml; Troponin I 0.061 ng/ml
[2024-11-06 18:58] LABS: COVID-19 Antigen Negative (Negative)
--- NOTE | 2024-11-06 19:43 | HPS.HSE ---
Family Physician
-
Family Physician: Angela Baird DO
Chief Complaint
-
Fatigue, Hypotension
History of Present Illness
Patient is an 78y F with PMH significant for RA, hypertension and recent hospitalization who presents to ED from [facility] for evaluation of fatigue and hypotension. Patient was hospitalized from 10/27 - 11/05 due to pneumonia and septic shock. Her
stay was complicated by NSTEMI / Takotsubo's cardiomyopathy, KAREN and constipation. She completed her course of antibiotics during her hospitalization and was discharged to [facility] for rehab on 11/05/24. Patient was noted today to be very fatigued /
sleepy. Her BP at the SC was reportedly in the 60s systolic all day. This prompted her return to the ED for further evaluation. Patient received NSS en route from EMS. Her BP on arrival here was 87/52.
Patient reports occasional crampy abdominal pain and loose stools since her discharge. Intermittent diarrhea is a chronic issue for her - though she had constipation during her recent hospital stay.
She was treated with bowel regimen and enemas during the hospitalization and has had some loose stools since.
She is now taking PRN Imodium. She states she has had one loose stool today.
Patient denies fevers / chills, chest pain, cough / SOB, N/V or urinary complaints.
Medical History
Past Medical History
Past Medical History: Reports Other
Additional Past Medical History:
Hypertension
Asthma
RA
Takotsubo's Cardiomyopathy
ASCVD
IBS-D
Past Surgical History: Reports Other
Additional Past Surgical History:
R OC
PPM Placement
Social History
Tobacco: Non-smoker
Alcohol: None
Drug: None
Personal:
Living: [facility]
Employment: Retired
Family History
Family History: Not pertinent
Allergies / Home Medications
Allergies reflects when Allergies were last updated in [employer]
Home Medications with original date entered in [employer]
Allergy/Medication List:
Allergies
Allergy/AdvReac Type Severity Reaction Status Date / Time
ciprofloxacin Allergy Hallucinati Verified 10/27/24 20:36
on
gabapentin Allergy Anaphylaxis Verified 07/07/24 23:27
Home Medications
brimonidine 0.2 %-timolol 0.5 % eye drops 1 drp BOTH EYES BID Eye Condition 07/08/24
cholecalciferol (vitamin D3) 50 mcg (2,000 unit) capsule (Vitamin D3) 50 mcg PO DAILY Supplement 07/08/24
cyanocobalamin (vitamin B-12) 100 mcg tablet (Vitamin B-12) 100 mcg PO DAILY Supplement 07/08/24
docosahexaenoic acid (dha)-epa 120 mg-180 mg capsule (Fish Oil) 1 cap PO DAILY Supplement 07/08/24
fluticasone 100 mcg-salmeterol 50 mcg/dose blistr powdr for inhalation (Advair Diskus) 1 inh inhalation R BIDPRN PRN sob 07/08/24
hydroxychloroquine 200 mg tablet 200 mg PO DAILY Rheumatoid arthritis 07/08/24
melatonin 5 mg tablet 5 mg PO HS #30 tabs 07/22/24
Saccharomyces boulardii 250 mg capsule (Florastor) 250 mg PO DAILY Gastrointestinal Issue 10/28/24
lidocaine 4 % topical patch 1 patch topical DAILY both knees 10/28/24
loperamide 2 mg tablet (Imodium A-D) 2 mg PO USEASDIRECTD PRN loose stool 10/28/24
ondansetron 4 mg disintegrating tablet 4 mg PO Q6HPRN PRN nausea/vomiting 10/28/24
simethicone 80 mg chewable tablet 80 mg PO Q6HPRN PRN gas 10/28/24
aspirin 81 mg tablet,delayed release 81 mg PO DAILY #30 tabs 11/05/24
bisacodyl 5 mg tablet,delayed release 10 mg (2 x 5 mg) PO DAILYPRN PRN no BM with oral meds #14 tabs 11/05/24
famotidine 20 mg tablet 20 mg PO Q48H #30 tabs 11/05/24
metoprolol succinate 25 mg tablet,extended release 24 hr 25 mg PO DAILY #30 tabs 11/05/24
rosuvastatin 5 mg tablet 10 mg (2 x 5 mg) PO DAILY High Cholesterol #0 tabs 11/05/24
sennosides 8.6 mg-docusate sodium 50 mg tablet 1 tab PO BID #60 tabs 11/05/24
tamsulosin 0.4 mg capsule 0.4 mg PO DAILY #14 caps 11/05/24
Review of Systems
-
History Source: Patient and Family
A 12 point ROS was completed and negative except as noted: Yes
Constitutional: Reports Fatigue; Denies Fever or Chills
Respiratory: Denies Cough or Trouble Breathing
Cardiac: Denies Chest Pain or Palpitations
Abdomen/GI: Reports Abdominal Pain and Diarrhea; Denies Nausea, Vomiting, Bloody Stools, Black Stools or Anorexia
: Denies Dysuria, Frequency or Flank Pain
Musculoskeletal: Denies Joint Pain or Edema
Neurological: Denies Dizzy or Headache
Psych: Denies Depression or Anxiety
Physical Exam
Vital Signs
Vital Signs
Temp Pulse Resp BP Pulse Ox
98.6 F 66 19 102/80 79
11/06/24 18:01 11/06/24 19:00 11/06/24 19:00 11/06/24 19:02 11/06/24 19:00
Physical Exam
General: Other (78y F in no acute distress.)
HEENT: Moist mucous membranes and PERRLA
Respiratory: Clear; No Wheezes, Rales or Rhonchi
Cardiac: S1/S2 and Regular Rhythm; No Murmur
GI: Soft, Non Tender, Non Distended and Normal Bowel Sounds
Musculoskeletal: No Clubbing, No Cyanosis and No Edema
Neuro: AO x 3
Laboratory Results
-
11/06/24 18:11
11/06/24 18:11
Laboratory Results
Lactic Acid 0.7 mmol/L (0.7-2.0) 11/06/24 18:11
Total Bilirubin 0.6 mg/dl (0.2-1.3) 11/06/24 18:11
AST 27 U/L (14-36) 11/06/24 18:11
ALT 28 U/L (0-35) 11/06/24 18:11
Alkaline Phosphatase 75 U/L (38-126) 11/06/24 18:11
Troponin I 0.061 ng/ml H* 11/06/24 18:
Lipase 192 U/L (23-300) 11/06/24 18:11
Impression/Plan
-
A/P: Patient is an 78y F with PMH significant for RA, asthma and recent complicated hospitalization who presents to ED for evaluation of hypotension and fatigue.
Hypotension
KAREN
- Observe overnight for further evaluation and treatment.
- Hold metoprolol which was newly added during her recent admission.
- Continue IVF overnight and follow for stable BP.
- SCr = 1.8 compared to recent discharge value of 1.5 and prior baseline of 0.9.
- Follow for improvement with IVFs / avoidance of hypotension.
Diarrhea
IBS-D
- Patient has chronic loose stools and takes Imodium PRN.
- Developed constipation during recent hospital stay requiring bowel regimen / enema.
- Now with diarrhea again.
- Would avoid aggressive bowel regimen or anti-diarrheals for now and follow clinically.
NSTEMI
Takotsubo's Cardiomyopathy
ASCVD
- Stable. No chest pain or dyspnea.
- Troponin continues to trend down (0.061 today compared to discharge value of 1.15 and peak of 2.66).
- Cath done during recent admission showed single-vessel coronary disease - no intervention performed.
- Hold metoprolol as noted above due to hypotension.
- Continue daily ASA, statin, etc.
Asthma
- No wheezing or complaints of dyspnea at present.
- s/p steroid course during recent hospital stay.
- Continue usual Advair. Albuterol PRN.
Rheumatoid Arthritis
- Stable. No active joint pain, swelling, etc.
- Continue Plaquenil.
DVT Prophylaxis: SCDs
Code Status: Full
[2024-11-06] MEDS: NSS 250 IV (20:29)
[2024-11-06] MEDS: GlucaGen 3 MG IV (20:53)
[2024-11-06] MEDS: GlucaGen 3 ML IV (20:53)
[2024-11-06] MEDS: NSS 1000 IV (20:59)
[2024-11-06] MEDS: LEVOPHED 250 IV (21:38)
[2024-11-06] MEDS: GlucaGen 5 ML IV (22:09)
[2024-11-06] MEDS: GlucaGen 5 MG IV (22:09)
[2024-11-06] MEDS: ZOFRAN 4 MG IV (22:23)
--- NOTE | 2024-11-06 23:59 | PTCARENOTE ---
Pt received from ED via stretcher. Assisted into bed and made comfortable. Levophed gtt titrated to keep MAP >65. Currently on 10 mcg/min. House [facility] notified and Pt to be transferred to ICU. Will continue to monitor closely.
[2024-11-07] VITALS (63 sets, daily range): BP systolic 63–175; BP diastolic 40–161; PULSE 67–69; O2SAT 97; BMI 19.3
[2024-11-07 00:08] LABS: Glucose - Point of Care 193 mg/dl (70-99)
[2024-11-07] MEDS: MELATONIN PO (00:40)
--- NOTE | 2024-11-07 02:17 | PTCARENOTE ---
Pt transferred to ICU via bed after report given to Ariela GARSIA
[2024-11-07 02:44] LABS: Glucose - Point of Care 171 mg/dl (70-99)
--- NOTE | 2024-11-07 02:57 | PTCARENOTE ---
Received pt from IMU RN. Pt AAOx3. Apaced on the monitor. Received pt on 8 mcgs of levo, levo tapered to 6 mcgs, goal for MAP >65 (see worklist). Pt on RA O2 sat 98%, lungs diminished. Pt incont. SCDs in place. NS infusing at 80 ml/hr. Safe
environment maintained. Call yang in reach.
[2024-11-07 04:25] LABS: INR 1.02; PT 13.7 Sec (11.4-14.6)
[2024-11-07 04:26] LABS: APTT 22.8 Sec (23.4-35.0)
[2024-11-07 04:29] LABS: Blood Urea Nitrogen 44 mg/dl (7-17); Calcium 8.4 mg/dl (8.4-10.2); Carbon Dioxide 22 mmol/L (22-30); Chloride 112 mmol/L (98-107); Estimated Creatinine Clearance 25 ml/min; Glucose 163 mg/dl (70-99); Hematocrit 30.3 % (37.0-47.0); Hemoglobin 10.3 g/dL (12.0-16.0); Magnesium 1.9 mg/dl (1.6-2.3); Mean Corpuscular Hgb 30.3 pg (27.0-31.0); Mean Corpuscular Volume 89.1 fL (81.0-99.0); Mean Platelet Volume 10.5 fL (7.4-10.4); Platelet Count 195 10^3/uL (130-400); Potassium 5.2 mmol/L (3.5-5.1); Red Cell Dist. Width 13.2 % (11.5-14.5); Sodium 138 mmol/L (135-145); White Blood Cell Count 10.3 10^3/uL (4.8-10.8); eGFR 35.01
[2024-11-07 08:09] LABS: Urine Albumin 2+ (Neg - Trace); Urine Bilirubin Negative (Negative); Urine Character Slightly Cloudy (Clear); Urine Color Yellow; Urine Glucose Negative (Negative); Urine Ketone Negative (Negative); Urine Leukocyte 1+ (Negative); Urine Nitrite Negative (Negative); Urine Occult Blood 1+ (Negative); Urine Urobilinogen Negative (Neg - 1+)
[2024-11-07 08:26] LABS: Urine Bacteria Few (Negative); Urine Red Blood Cell 0-2 /HPF (0-2)
[2024-11-07] MEDS: ALPHAGAN 0.2% EYE DROPS 1 DROP BOTH EYES ×2 (09:16→20:09)
[2024-11-07] MEDS: TIMOPTIC 0.5% OPHTHALMIC SOLUTION 1 DROP BOTH EYES ×2 (09:16→20:09)
[2024-11-07] MEDS: LIDOCAINE 4% PATCH 1 PATCH TOPICAL (09:16)
[2024-11-07] MEDS: VITAMIN B-12 100 MCG PO (09:16)
[2024-11-07] MEDS: TYLENOL 650 MG PO (09:17)
[2024-11-07] MEDS: FLORASTOR 250 MG PO (09:18)
[2024-11-07] MEDS: PLAQUENIL 200 MG PO (09:18)
[2024-11-07] MEDS: VITAMIN D3 (cholecalciferol) 50 MCG PO (09:18)
[2024-11-07] MEDS: ASPIR LOW (ENTERIC COATED) 81 MG PO (09:18)
[2024-11-07] MEDS: CRESTOR 10 MG PO (09:18)
--- NOTE | 2024-11-07 10:44 | PTCARENOTE ---
Received report at 0700. VSS. Levo gtt turned off. Assessment as noted. A-Paced, Map >65. Requests bedpan to void. Tolerated breakfast without issue. Discussed plan of care with pt, son and daughter by phone.
[2024-11-07] MEDS: NSS IV (11:15)
--- NOTE | 2024-11-07 13:42 | PTCARENOTE ---
Low BP noted. Pt without mental status change, no light-headedness, no nausea or visual changes. Levophed gtt started.
--- NOTE | 2024-11-07 15:09 | W.PN.HOSP.TC ---
Today's Communication/Plan
-
holding bb
f/u cultures
weaned off pressors - if recurrent need- add empiric abx at this time
Assessment / Plan
Assessment / Plan
Physical Exam
General: Other (78y F in no acute distress.)
HEENT: Moist mucous membranes and PERRLA
Respiratory: Clear; No Wheezes, Rales or Rhonchi
Cardiac: S1/S2 and Regular Rhythm; No Murmur
GI: Soft, Non Tender, Non Distended and Normal Bowel Sounds
Musculoskeletal: No Clubbing, No Cyanosis and No Edema
Neuro: AO x 3
A/P: Patient is an 78y F with PMH significant for RA, asthma and recent complicated hospitalization who presents to ED for evaluation of hypotension and fatigue.
Hypotension
KAREN
Shock, unknown type
- Hold metoprolol which was newly added during her recent admission.
- Continue IVF overnight and follow for stable BP.
- SCr = 1.8 compared to recent discharge value of 1.5 and prior baseline of 0.9.
- Follow for improvement with IVFs / avoidance of hypotension.
-Wean pressors, quickly weaned off
-F/u Cultures
-MAP goal >65
-Empiric abx if needing pressors again
-MRSA swab
Diarrhea
IBS-D
- Patient has chronic loose stools and takes Imodium PRN.
- Developed constipation during recent hospital stay requiring bowel regimen / enema.
- Now with diarrhea again.
- Would avoid aggressive bowel regimen or anti-diarrheals for now and follow clinically.
-F/u stool cultures; has not had diarrhea yet - dc c diff
NSTEMI
Takotsubo's Cardiomyopathy
ASCVD
- Stable. No chest pain or dyspnea.
- Troponin continues to trend down (0.061 today compared to discharge value of 1.15 and peak of 2.66).
- Cath done during recent admission showed single-vessel coronary disease - no intervention performed.
- Hold metoprolol as noted above due to hypotension.
- Continue daily ASA, statin, etc.
-Holding BB with hypotension
Asthma
- No wheezing or complaints of dyspnea at present.
- s/p steroid course during recent hospital stay.
- Continue usual Advair. Albuterol PRN.
Rheumatoid Arthritis
- Stable. No active joint pain, swelling, etc.
- Continue Plaquenil.
DVT Prophylaxis: hsq
Code Status: Full
Total time spent on today's encounter was 50 minutes which included time spent in counseling the patient/family regarding diagnosis and treatment plan as listed above, goals of care, and symptom management. Case was discussed with nursing staff,
specialists, and care coordinators/case management. All labs and imaging personally reviewed by me. Remainder the time spent in detailed review of previous records, lab data, imaging, and other medical provider documentation.
Anticipated Discharge: > 48 hours
Subjective/Interval History
-
Date of Service: November 07, 2024
no acute events, mentating well
Objective Data
-
Labs:
Laboratory Results
11/07/24
03:19
WBC 10.3
Hgb 10.3 L
Hct 30.3 L
Plt Count 195 D
PT 13.7
INR 1.02
APTT 22.8 L
Sodium 138
Potassium 5.2 H
Chloride 112 H
Carbon Dioxide 22
BUN 44 H
Creatinine 1.5 H
Glucose 163 H
Calcium 8.4
Vital Signs:
Vital Signs
Temp Pulse Resp BP Pulse Ox
97.9 F 62 19 91/48 98
11/07/24 07:30 11/07/24 13:33 11/07/24 13:33 11/07/24 13:33 11/07/24 13:33
I&O
11/06/24 11/07/24 11/08/24
06:59 06:59 06:59
Intake Total 597.5 / 685.0 491.5 / 491.5
Balance 597.5 / 685.0 491.5 / 491.5
Review of Systems
-
History Source: Patient
All other systems: Not reviewed unless documented
Physical Exam
-
General: Negative Appears in Distress
HEENT: Negative Oxygen
GI: Soft, Normal Bowel Sounds, Tender and Distended
Musculoskeletal: No Edema
Neuro: Awake, Alert, Oriented and No Motor Deficits
Psych: Calm
Data Reviewed
-
Diagnostic Radiology: Report Reviewed by me
Labs: Labs Reviewed by me
--- NOTE | 2024-11-07 17:14 | CON.INTV ---
Consultation
Consultation Request
Date/Time Consultation Requested: 11/06/2024
Date/Time Consultation Performed: 11/07/2024
Requesting Provider: Ortiz Car
Performing Provider: Winifred Coleman
Reason for Consultation: Hypotension
Medical History
-
Chief Complaint: Fatigue
History of Present Illness:
Patient is a very pleasant 78-year-old female with known history of rheumatoid arthritis, hypertension who was recently admitted at Home for pneumonia and septic shock. Patient was admitted for about 10 days and stay was complicated by
elevated troponin and diagnosis of non-ST elevation MO. Patient had an echocardiogram which was suggestive of Takotsubo cardiomyopathy and subsequent angiogram showed single-vessel coronary artery disease which was managed medically. Patient was
treated with aspirin and heparin during hospitalization as well as antibiotics for pneumonia. After patient was discharged on 11/05, patient reports feeling fatigued tired and blood pressure at senior care was reported to be low in mid 60s. That
led to return to the emergency room for further evaluation. Patient did receive some fluid resuscitation and was subsequently started on low-dose pressors and admitted to the ICU. Pain Management Nurse Practitioner consult was requested for further input. Patient does
report some diarrhea lately without any hematochezia, melena or abdominal pain.
Past Medical History
Past Medical History: Reports Other
Additional Past Medical History:
Hypertension
Asthma
RA
Takotsubo's Cardiomyopathy
ASCVD
IBS-D
Past Surgical History: Reports Other
Additional Past Surgical History:
R OC
PPM Placement
Social History
Tobacco: Non-smoker
Alcohol: None
Drug: None
Personal:
Living: Detention
Employment: Retired
Family History
Family History: Not pertinent
Allergies / Home Medications
Allergies / Home Medications
Allergies
Allergy/AdvReac Type Severity Reaction Status Date / Time
ciprofloxacin Allergy Hallucinati Verified 10/27/24 20:36
on
gabapentin Allergy Anaphylaxis Verified 07/07/24 23:27
Home Medications
�Medication �Instructions �Recorded �Confirmed �Last Taken �Type
brimonidine 0.2 %-timolol 0.5 % 1 drp BOTH EYES BID Eye Condition 07/08/24 11/06/24 Unknown History
eye drops
cholecalciferol (vitamin D3) 50 50 mcg PO DAILY Supplement 07/08/24 11/06/24 Unknown History
mcg (2,000 unit) capsule (Vitamin
D3)
cyanocobalamin (vitamin B-12) 100 100 mcg PO DAILY Supplement 07/08/24 11/06/24 Unknown History
mcg tablet (Vitamin B-12)
docosahexaenoic acid (dha)-epa 120 1 cap PO DAILY Supplement 07/08/24 11/06/24 Unknown History
mg-180 mg capsule (Fish Oil)
fluticasone 100 mcg-salmeterol 50 1 inh inhalation R BIDPRN PRN sob 07/08/24 11/06/24 Unknown History
mcg/dose blistr powdr for
inhalation (Advair Diskus)
hydroxychloroquine 200 mg tablet 200 mg PO DAILY Rheumatoid 07/08/24 11/06/24 Unknown History
arthritis
melatonin 5 mg tablet 5 mg PO HS #30 tabs 07/22/24 11/06/24 Unknown Rx
Saccharomyces boulardii 250 mg 250 mg PO DAILY Gastrointestinal 10/28/24 11/06/24 Unknown History
capsule (Florastor) Issue
lidocaine 4 % topical patch 1 patch topical DAILY both knees 10/28/24 11/06/24 Unknown History
loperamide 2 mg tablet (Imodium 2 mg PO USEASDIRECTD PRN loose 10/28/24 11/06/24 Unknown History
A-D) stool
ondansetron 4 mg disintegrating 4 mg PO Q6HPRN PRN nausea/vomiting 10/28/24 11/06/24 Unknown History
tablet
simethicone 80 mg chewable tablet 80 mg PO Q6HPRN PRN gas 10/28/24 11/06/24 Unknown History
aspirin 81 mg tablet,delayed 81 mg PO DAILY #30 tabs 11/05/24 11/06/24 Unknown Rx
release
bisacodyl 5 mg tablet,delayed 10 mg (2 x 5 mg) PO DAILYPRN PRN 11/05/24 11/06/24 Unknown Rx
release no BM with oral meds #14 tabs
famotidine 20 mg tablet 20 mg PO Q48H #30 tabs 11/05/24 11/06/24 Unknown Rx
metoprolol succinate 25 mg 25 mg PO DAILY #30 tabs 11/05/24 11/06/24 Unknown Rx
tablet,extended release 24 hr
rosuvastatin 5 mg tablet 10 mg (2 x 5 mg) PO DAILY High 11/05/24 11/06/24 Unknown Rx
Cholesterol #0 tabs
sennosides 8.6 mg-docusate sodium 1 tab PO BID #60 tabs 11/05/24 11/06/24 Unknown Rx
50 mg tablet
tamsulosin 0.4 mg capsule 0.4 mg PO DAILY #14 caps 11/05/24 11/06/24 Unknown Rx
Review of Systems
-
Hematologic/Lymphatic: Other (All 14 systems reviewed and negative except as stated above in the history of present illness. No reported chest pain, cough or shortness of breath.)
Vitals / Labs / Diagnostic Testing
Vital Signs
Temp Pulse Resp BP Pulse Ox
98.5 F 66 19 109/61 97
11/07/24 15:35 11/07/24 17:00 11/07/24 17:00 11/07/24 17:00 11/07/24 17:00
Lab Data
11/07/24 03:19
11/07/24 03:19
Laboratory Results
11/07/24
03:19
PT 13.7
INR 1.02
APTT 22.8 L
Microbiology
11/06/24 18:11 Nasal Swab Influenza Types A & B (FEDERICO) - Final
Negative for Influenza A & B, NAAT
Negative results must be combined with clinical observations
and patient history.
Nucleic Acid Amplification test (NAAT)performed on the
[employer] platform.
Diagnostic Testing:
Physical Exam
-
HEENT: Normocephalic
Cardiovascular: S1/S2
Respiratory: Clear
GI: Soft and Non Distended
Neurology: Awake and Alert
Skin: Warm
General: Comfortable
Assessment
-
#1. Fatigue with hypotension.
-Suspect patient's hypotension is related to mild hypovolemia as well as medication, she was on metoprolol.
-Patient is afebrile, has normal WBC count, has normal lactate of 0.7. Chest x-ray is essentially unremarkable. Review of system is essentially negative for any acute infectious process. UA is also unremarkable.
-Continue to monitor off antibiotics for now. Stay off metoprolol. As needed Levophed, currently off pressors during my evaluation.
-Patient is s/p IV fluids, about 1.5 L in total. Output not fully charted.
#2. Mild KAREN. Again I suspect this is prerenal and additional contribution from hypotension.
-S/p volume resuscitation
-Avoid hypotension, keep MAP above 65, as needed pressors
-Labs in the a.m.
-Diarrhea also likely contributing to volume loss
#3. Diarrhea, h/o IBS-D
- Patient has chronic loose stools and takes Imodium PRN.
- Developed constipation during recent hospital stay requiring bowel regimen / enema.
- If develops additional loose stools, will check for C. difficile considering recent antibiotic use for pneumonia.
#4. Takotsubo cardiomyopathy with recent non-ST elevation MO, 10/2024.
- Currently chest pain-free, continue aspirin and statins.
- Troponin improved from last hospitalization. Only minimal single-vessel coronary artery disease was noted on angiogram. Stay off metoprolol for now
- Patient does not appear to be volume overloaded, rather looks somewhat hypovolemic. Reviewed right heart catheterization from about a week ago, filling pressures were low with normal pulmonary capillary wedge pressure.
#5. h/o Asthma.
-No wheezing on exam. She recently completed steroid course
- On Advair as needed
#6. History of rheumatoid arthritis.
- Takes Plaquenil at home.
DVT prophylaxis with subcu heparin.
Critical Care time 71 mins -- The patient is admitted for acute critical illness for the treatment of vital organ failure and/or prevention of further life-threatening conditions. Total care includes time spent in review of history, physical exam,
medications, hemodynamic/ventilator parameters, laboratory data, imaging and discussion with house staff, pharmacy, respiratory therapy, senior research project manager, and nursing.
Data:
CXR 11/07/2024: No acute abnormality
Left and right heart catheterization, 10/2024. Normal filling pressures. Mean pulmonary artery pressure of 12, pulmonary capillary wedge pressure of 6. RA pressure of 3. Cardiac output 3.47, cardiac index 2.19. PVR of 1.7. Also noted
single-vessel coronary artery disease in the right dominant system. Medical management was recommended.
ECHO 10/2024: Normal LV size with moderate to severely reduced systolic function.
LVEF is approximately 30% by visual estimation.
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
LV.
Normal RV size and function.
Mild to moderate mitral regurgitation.
Mild to moderate tricuspid regurgitation.
Estimated pulmonary artery pressure of 30 mmHg, assuming a right atrial
pressure of 3 mmHg.
Compared to prior from June 18, 2023, LVEF is now moderate to severely
reduced at 30%, previously normal, with concern for possible Takotsubo
cardiomyopathy.
--- NOTE | 2024-11-07 17:27 | CM ---
manager services reviewed patient's chart and met with patient and patient is aware that she was admitted under OBS, Patient was admitted from [facility] however if patient needs skilled she would like to return to [facility].
Prior to skilled placement, patient lives in a in law suite attached to daughter's home patient requires some assist with adl's and has a caregiver along with daughter to assist, patient has a walker for ambulation.
Plan; If patient needs skilled patient is requesting [facility].
[2024-11-07] MEDS: LEVOPHED 250 IV (18:40)
[2024-11-07] MEDS: HEPARIN 5000 UNITS SC (20:08)
--- NOTE | 2024-11-07 20:42 | PTCARENOTE ---
Received pt from previous RN. Pt is AAOx3, anxious at times. Apaced on the monitor. On RA O2 sat 97%, lungs diminished. Pt rings for the BP. Received pt on 2 mcgs of levo, pt titrated to keep MAP >65 (see worklist). Call yang in reach. Safe
environment maintained.
[2024-11-07] MEDS: MELATONIN 5 MG PO (21:51)
--- NOTE | 2024-11-07 22:55 | PTCARENOTE ---
Systems reviewed, no new changes in assessment. Pt forgetful at times throughout this shift. Pt incont, saturated. CHG bath provided, mouth care provided. Safe environment maintained.
[2024-11-08] VITALS (25 sets, daily range): BP systolic 86–173; BP diastolic 52–94; PULSE 71–75; BMI 19.5
[2024-11-08] MEDS: TYLENOL 650 MG PO (02:44)
[2024-11-08 04:25] LABS: Hemoglobin 10.3 g/dL (12.0-16.0); Mean Corp Hgb Conc. 34.3 g/dL (33.0-37.0); Mean Corpuscular Hgb 30.9 pg (27.0-31.0); Mean Corpuscular Volume 90.1 fL (81.0-99.0); Mean Platelet Volume 10.5 fL (7.4-10.4); Platelet Count 176 10^3/uL (130-400); Red Blood Cell Count 3.33 10^6/uL (4.20-5.40); Red Cell Dist. Width 13.4 % (11.5-14.5); White Blood Cell Count 7.3 10^3/uL (4.8-10.8)
[2024-11-08 04:47] LABS: ALT (SGPT) 27 U/L (0-35); AST (SGOT) 27 U/L (14-36); Albumin 2.7 g/dl (3.5-5.0); Alkaline Phosphatase 71 U/L (38-126); Blood Urea Nitrogen 29 mg/dl (7-17); Carbon Dioxide 23 mmol/L (22-30); Chloride 113 mmol/L (98-107); Estimated Creatinine Clearance 34 ml/min; Glucose 94 mg/dl (70-99); Magnesium 1.8 mg/dl (1.6-2.3); Potassium 5.5 mmol/L (3.5-5.1); Sodium 138 mmol/L (135-145); Total Bilirubin 0.4 mg/dl (0.2-1.3); Total Protein 4.7 g/dl (6.3-8.2)
--- NOTE | 2024-11-08 04:58 | PTCARENOTE ---
Systems reviewed, no new changes in assessment. AM labs provided. Safe environment maintained.
[2024-11-08] MEDS: VITAMIN D3 (cholecalciferol) 50 MCG PO (07:57)
[2024-11-08] MEDS: ASPIR LOW (ENTERIC COATED) 81 MG PO (07:58)
[2024-11-08] MEDS: FLORASTOR 250 MG PO (07:58)
[2024-11-08] MEDS: CRESTOR 10 MG PO (07:58)
[2024-11-08] MEDS: PEPCID 20 MG PO (07:58)
[2024-11-08] MEDS: PLAQUENIL 200 MG PO (07:58)
[2024-11-08] MEDS: VITAMIN B-12 100 MCG PO (07:58)
[2024-11-08] MEDS: TIMOPTIC 0.5% OPHTHALMIC SOLUTION 1 DROP BOTH EYES ×2 (07:59→20:22)
[2024-11-08] MEDS: HEPARIN 5000 UNITS SC ×2 (07:59→20:21)
[2024-11-08] MEDS: ALPHAGAN 0.2% EYE DROPS 1 DROP BOTH EYES ×2 (07:59→20:22)
[2024-11-08] MEDS: LIDOCAINE 4% PATCH 1 PATCH TOPICAL (07:59)
--- NOTE | 2024-11-08 08:22 | PTCARENOTE ---
Assumed care of pt. approx 0700.
Taken off norepi late am by night team.
Eating, offers no complaints at this time.
Hemodynamically stable, maintaining own airway RA 98%.
[2024-11-08] MEDS: LOKELMA 10 GRAM PO (09:48)
--- NOTE | 2024-11-08 11:00 | PTCARENOTE ---
Hyperkalemia treated per orders
Hospitalist rounded, will start midodrine if needed, TSH/Cortisol labs added.
Norepi remains off.
--- NOTE | 2024-11-08 13:48 | W.PN.HOSP.TC ---
Today's Communication/Plan
-
f/u cultures
lokelma
monitor BP, renal function, K
F/u TFTs, cortisol in am
Assessment / Plan
Assessment / Plan
Physical Exam
General: Other (78y F in no acute distress.)
HEENT: Moist mucous membranes and PERRLA
Respiratory: Clear; No Wheezes, Rales or Rhonchi
Cardiac: S1/S2 and Regular Rhythm; No Murmur
GI: Soft, Non Tender, Non Distended and Normal Bowel Sounds
Musculoskeletal: No Clubbing, No Cyanosis and No Edema
Neuro: AO x 3
A/P: Patient is an 78y F with PMH significant for RA, asthma and recent complicated hospitalization who presents to ED for evaluation of hypotension and fatigue.
Hypotension
KAREN
Shock, unknown type
- Hold metoprolol which was newly added during her recent admission.
- Continue IVF overnight and follow for stable BP.
- SCr = 1.8 compared to recent discharge value of 1.5 and prior baseline of 0.9. Improving
- Follow for improvement with IVFs / avoidance of hypotension.
-Wean pressors, quickly weaned off
-F/u Cultures - ngtd
-MAP goal >65
-Empiric abx spikes temp
-MRSA swab
�Follow-up TSH, cortisol in a.m.
Diarrhea
IBS-D
- Patient has chronic loose stools and takes Imodium PRN.
- Developed constipation during recent hospital stay requiring bowel regimen / enema.
- Now with diarrhea again.
- Would avoid aggressive bowel regimen or anti-diarrheals for now and follow clinically.
-F/u stool cultures; has not had diarrhea yet - dc c diff
#Hyperkalemia
� Probably secondary to KAREN
� Given Lokelma
-monitor
NSTEMI
Takotsubo's Cardiomyopathy
ASCVD
- Stable. No chest pain or dyspnea.
- Troponin continues to trend down (0.061 today compared to discharge value of 1.15 and peak of 2.66).
- Cath done during recent admission showed single-vessel coronary disease - no intervention performed.
- Hold metoprolol as noted above due to hypotension.
- Continue daily ASA, statin, etc.
-Holding BB with hypotension
Asthma
- No wheezing or complaints of dyspnea at present.
- s/p steroid course during recent hospital stay.
- Continue usual Advair. Albuterol PRN.
Rheumatoid Arthritis
- Stable. No active joint pain, swelling, etc.
- Continue Plaquenil.
DVT Prophylaxis: hsq
Code Status: Full
Anticipated Discharge: 24 - 48 hours
Subjective/Interval History
-
Date of Service: November 08, 2024
Still required low-dose norepinephrine overnight
Objective Data
-
Labs:
Laboratory Results
11/08/24 11/08/24 11/08/24
04:01 04:02 04:05
WBC 7.3
Hgb 10.3 L
Hct 30.0 L
Plt Count 176
Sodium Cancelled 138
Potassium Cancelled 5.5 H
Chloride Cancelled 113 H
Carbon Dioxide Cancelled 23
BUN Cancelled 29 H
Creatinine Cancelled 1.1 H
Glucose Cancelled 94
Calcium Cancelled 9.0
Total Bilirubin Cancelled 0.4
AST Cancelled 27
ALT Cancelled 27
Alkaline Phosphatase Cancelled 71
Vital Signs:
Vital Signs
Temp Pulse Resp BP Pulse Ox
98.3 F 87 18 150/94 97
11/08/24 11:39 11/08/24 12:00 11/08/24 12:00 11/08/24 12:00 11/08/24 10:00
I&O
11/07/24 11/08/24 11/09/24
06:59 06:59 06:59
Intake Total 597.5 / 685.0 1198.0 / 1198.0 450 / 450
Output Total 400 / 400
Balance 597.5 / 685.0 1198.0 / 1198.0 50 / 50
Review of Systems
-
History Source: Patient
All other systems: Not reviewed unless documented
Data Reviewed
-
Diagnostic Radiology: Report Reviewed by me
Labs: Labs Reviewed by me
--- NOTE | 2024-11-08 13:55 | W.PN.INTV ---
Addendum entered and electronically signed by Winifred Coleman MD 11/08/24 15:47:
- Patient continues to stay off pressors
- Infectious workup continues to be negative. Afebrile, hemodynamically stable
- Initiate midodrine as needed
- Patient can be transferred to telemetry. File Drawer Finisher service will sign off, please call as needed
Original Note:
Today's Communication / Plan
Recommendations
- Continue to monitor off antibiotics, follow-up on cultures
- Encouraged p.o. fluid intake
- Trial of midodrine as needed rather than Levophed
Assessment
-
Patient is a very pleasant 78-year-old female with known history of rheumatoid arthritis, hypertension who was recently admitted at [facility] for pneumonia and septic shock. Patient was admitted for about 10 days and stay was complicated by
elevated troponin and diagnosis of non-ST elevation WI. Patient had an echocardiogram which was suggestive of Takotsubo cardiomyopathy and subsequent angiogram showed single-vessel coronary artery disease which was managed medically. Patient was
treated with aspirin and heparin during hospitalization as well as antibiotics for pneumonia. After patient was discharged on 11/05, patient reports feeling fatigued tired and blood pressure at intermediate was reported to be low in mid 60s. That
led to return to the emergency room for further evaluation. Patient did receive some fluid resuscitation and was subsequently started on low-dose pressors and admitted to the ICU. File Drawer Finisher consult was requested for further input. Patient does
report some diarrhea lately without any hematochezia, melena or abdominal pain.
#1. Fatigue with hypotension.
-Suspect patient's hypotension is related to mild hypovolemia as well as medication, she was on metoprolol.
-Patient is afebrile, has normal WBC count, has normal lactate of 0.7. Chest x-ray is essentially unremarkable. Review of system is essentially negative for any acute infectious process. UA is also unremarkable.
-Continue to monitor off antibiotics for now. Stay off metoprolol. As needed Levophed, currently off pressors during my evaluation.
-Patient is s/p IV fluids, off IVF now
-PRN Midodrine
#2. Mild KAREN. Again I suspect this is prerenal and additional contribution from hypotension.
-S/p volume resuscitation
-Avoid hypotension, keep MAP above 65, as needed pressors
-Cr down to 1.1 now, from 1.5 on 11/07.
-Diarrhea also likely contributed to volume loss
-Lokelma 1 dose given for mild hyperkalemia.
#3. Diarrhea, h/o IBS-D
- Patient has chronic loose stools and takes Imodium PRN.
- Developed constipation during recent hospital stay requiring bowel regimen / enema.
- If develops additional loose stools, will check for C. difficile considering recent antibiotic use for pneumonia.
#4. Takotsubo cardiomyopathy with recent non-ST elevation WI, 10/2024.
- Currently chest pain-free, continue aspirin and statins.
- Troponin improved from last hospitalization. Only minimal single-vessel coronary artery disease was noted on angiogram. Stay off metoprolol for now
- Patient does not appear to be volume overloaded, rather looks somewhat hypovolemic. Reviewed right heart catheterization from about a week ago, filling pressures were low with normal pulmonary capillary wedge pressure.
#5. h/o Asthma.
-No wheezing on exam. She recently completed steroid course
- On Advair as needed
#6. History of rheumatoid arthritis.
- Takes Plaquenil at home.
DVT prophylaxis with subcu heparin.
Critical Care time 45 mins -- The patient is admitted for acute critical illness for the treatment of vital organ failure and/or prevention of further life-threatening conditions. Total care includes time spent in review of history, physical exam,
medications, hemodynamic/ventilator parameters, laboratory data, imaging and discussion with house staff, pharmacy, respiratory therapy, ase master mechanic, and nursing.
Data:
CXR 11/07/2024: No acute abnormality
Left and right heart catheterization, 10/2024. Normal filling pressures. Mean pulmonary artery pressure of 12, pulmonary capillary wedge pressure of 6. RA pressure of 3. Cardiac output 3.47, cardiac index 2.19. PVR of 1.7. Also noted
single-vessel coronary artery disease in the right dominant system. Medical management was recommended.
ECHO 10/2024: Normal LV size with moderate to severely reduced systolic function.
LVEF is approximately 30% by visual estimation.
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
LV.
Normal RV size and function.
Mild to moderate mitral regurgitation.
Mild to moderate tricuspid regurgitation.
Estimated pulmonary artery pressure of 30 mmHg, assuming a right atrial
pressure of 3 mmHg.
Compared to prior from June 18, 2023, LVEF is now moderate to severely
reduced at 30%, previously normal, with concern for possible Takotsubo
cardiomyopathy.
Subjective Dataa
Subjective Data
Date of Service:
Date of Service: November 08, 2024
Subjective:
Patient comfortably sitting in bed in no acute distress. No cough, shortness of breath, chest pain or other new symptoms.
Review of Systems
Genitourinary: Other (All 14 systems reviewed and negative except as stated above in the history of present illness.)
Objective Data
Data Reviewed
Vital Signs / I&O / Oxygen:
Vital Signs
Temp Pulse Resp BP Pulse Ox
98.3 F 87 18 150/94 97
11/08/24 11:39 11/08/24 12:00 11/08/24 12:00 11/08/24 12:00 11/08/24 10:00
Intake and Output
11/07/24 11/08/24 11/09/24
06:59 06:59 06:59
Intake Total 597.5 / 685.0 1198.0 / 1198.0 450 / 450
Output Total 400 / 400
Balance 597.5 / 685.0 1198.0 / 1198.0 50 / 50
SaO2 97
Physical Exam
General: Comfortable
HEENT: Normocephalic
Cardiovascular: S1-S2
Respiratory: Clear and Non-Labored Respirations
GI: Soft and Non Distended
Neurology: Awake and Alert
Skin: Warm
Labs/Micro/Reports
Lab Data
11/08/24 04:02
11/08/24 04:05
Microbiology
11/07/24 04:42 Urine Urine Culture - Final
NO GROWTH
11/07/24 03:19 Nose MRSA Screen - Final
No Methicillin Resistant Staphylococcus aureus isolated.
11/06/24 19:05 Blood/Venous Blood Culture - Preliminary
No Growth in 24 hours- Final report to follow
11/06/24 18:11 Blood/Venous Blood Culture - Preliminary
No Growth in 24 hours- Final report to follow
11/06/24 18:11 Nasal Swab Influenza Types A & B ([facility]ED[facility]) - Final
Negative for Influenza A & B, NAAT
Negative results must be combined with clinical observations
and patient history.
Nucleic Acid Amplification test (NAAT)performed on the
[employer] platform.
--- NOTE | 2024-11-08 14:41 | PTCARENOTE ---
No changes in pt. assessment.
[2024-11-08 15:01] LABS: TSH Reflex To Free T4 4.68 uIU/ml (0.47-4.68)
--- NOTE | 2024-11-08 15:27 | PTCARENOTE ---
marketing community liaison and hospitalist to downgrade to tele.
--- NOTE | 2024-11-08 15:45 | CM ---
chart reviewed
[facility] prefers [facility] does not wish to return to [facility], [facility], pending bed availability
no pre auth needed
PLAN: SNF, pending bed availability
[2024-11-08] MEDS: MELATONIN 5 MG PO (22:48)
[2024-11-09] VITALS (10 sets, daily range): BP systolic 97–149; BP diastolic 55–99; PULSE 72–105; O2SAT 98–99; BMI 19.0
[2024-11-09 07:07] LABS: Hematocrit 30.3 % (37.0-47.0); Hemoglobin 9.9 g/dL (12.0-16.0); Mean Corp Hgb Conc. 32.7 g/dL (33.0-37.0); Mean Corpuscular Hgb 30.3 pg (27.0-31.0); Mean Corpuscular Volume 92.7 fL (81.0-99.0); Mean Platelet Volume 10.3 fL (7.4-10.4); Platelet Count 181 10^3/uL (130-400); Red Blood Cell Count 3.27 10^6/uL (4.20-5.40); Red Cell Dist. Width 13.3 % (11.5-14.5); White Blood Cell Count 6.8 10^3/uL (4.8-10.8)
[2024-11-09 07:40] LABS: ALT (SGPT) 30 U/L (0-35); AST (SGOT) 27 U/L (14-36); Albumin 2.8 g/dl (3.5-5.0); Alkaline Phosphatase 94 U/L (38-126); Blood Urea Nitrogen 24 mg/dl (7-17); Calcium 9.4 mg/dl (8.4-10.2); Carbon Dioxide 26 mmol/L (22-30); Chloride 111 mmol/L (98-107); Estimated Creatinine Clearance 37 ml/min; Glucose 90 mg/dl (70-99); Magnesium 1.7 mg/dl (1.6-2.3); Sodium 140 mmol/L (135-145); Total Bilirubin 0.4 mg/dl (0.2-1.3); Total Protein 4.8 g/dl (6.3-8.2); eGFR 56.95
[2024-11-09] MEDS: FLORASTOR 250 MG PO (07:40)
[2024-11-09] MEDS: VITAMIN B-12 100 MCG PO (07:40)
[2024-11-09] MEDS: ALPHAGAN 0.2% EYE DROPS 1 DROP BOTH EYES ×2 (07:40→20:37)
[2024-11-09] MEDS: CRESTOR 10 MG PO (07:40)
[2024-11-09] MEDS: PLAQUENIL 200 MG PO (07:41)
[2024-11-09] MEDS: VITAMIN D3 (cholecalciferol) 50 MCG PO (07:41)
[2024-11-09] MEDS: LIDOCAINE 4% PATCH 1 PATCH TOPICAL (07:41)
[2024-11-09] MEDS: HEPARIN 5000 UNITS SC ×2 (07:41→20:13)
[2024-11-09] MEDS: ASPIR LOW (ENTERIC COATED) 81 MG PO (07:41)
[2024-11-09] MEDS: TIMOPTIC 0.5% OPHTHALMIC SOLUTION 1 DROP BOTH EYES ×2 (07:42→20:13)
[2024-11-09 08:06] LABS: Cortisol, Random 11.8 ug/dl
--- NOTE | 2024-11-09 14:20 | W.PN.HOSP.TC ---
Addendum entered and electronically signed by Nghia Rg MD 11/09/24 14:33:
can add midodrine standing if persistently hypotension
Original Note:
Today's Communication/Plan
-
Trial restarting Toprol at 12.5mg and monitor
Assessment / Plan
Assessment / Plan
Physical Exam
General: Other (78y F in no acute distress.)
HEENT: Moist mucous membranes and PERRLA
Respiratory: Clear; No Wheezes, Rales or Rhonchi
Cardiac: S1/S2 and Regular Rhythm; No Murmur
GI: Soft, Non Tender, Non Distended and Normal Bowel Sounds
Musculoskeletal: No Clubbing, No Cyanosis and No Edema
Neuro: AO x 3
A/P: Patient is an 78y F with PMH significant for RA, asthma and recent complicated hospitalization who presents to ED for evaluation of hypotension and fatigue.
Hypotension
KAREN
Shock, unknown type - possible hypovolemic
- Hold metoprolol which was newly added during her recent admission.
- Continue IVF overnight and follow for stable BP.
- SCr = 1.8 compared to recent discharge value of 1.5 and prior baseline of 0.9. Improving
- Follow for improvement with IVFs / avoidance of hypotension.
-Wean pressors, was on and off in 24 hours of admission
-F/u Cultures - ngtd
-MAP goal >65
-Empiric abx spikes temp
�TSH, cortisol in a.m WNL
Diarrhea
IBS-D
- Patient has chronic loose stools and takes Imodium PRN.
- Developed constipation during recent hospital stay requiring bowel regimen / enema.
- Now with diarrhea again.
- Would avoid aggressive bowel regimen or anti-diarrheals for now and follow clinically.
-F/u stool cultures; has not had diarrhea yet - dc c diff
#Hyperkalemia
� Probably secondary to KAREN
� Given Lokelma
-monitor
NSTEMI
Takotsubo's Cardiomyopathy, ED 30%
ASCVD
- Stable. No chest pain or dyspnea.
- Troponin continues to trend down (0.061 today compared to discharge value of 1.15 and peak of 2.66).
- Cath done during recent admission showed single-vessel coronary disease - no intervention performed. EF 30%
- Continue daily ASA, statin, etc.
-Holding BB with hypotension; trialing restart today
Asthma
- No wheezing or complaints of dyspnea at present.
- s/p steroid course during recent hospital stay.
- Continue usual Advair. Albuterol PRN.
Rheumatoid Arthritis
- Stable. No active joint pain, swelling, etc.
- Continue Plaquenil.
DVT Prophylaxis: hsq
Code Status: Full
Anticipated Discharge: Within 24 hours
Subjective/Interval History
-
Date of Service: November 09, 2024
bps improved, not needing pressors. bp labile
Objective Data
-
Labs:
Laboratory Results
11/09/24
06:46
WBC 6.8
Hgb 9.9 L
Hct 30.3 L
Plt Count 181
Sodium 140
Potassium 5.0
Chloride 111 H
Carbon Dioxide 26
BUN 24 H
Creatinine 1.0
Glucose 90
Calcium 9.4
Total Bilirubin 0.4
AST 27
ALT 30
Alkaline Phosphatase 94
Vital Signs:
Vital Signs
Temp Pulse Resp BP Pulse Ox
98.4 F 74 18 99/55 100
11/09/24 11:38 11/09/24 11:38 11/09/24 11:38 11/09/24 11:38 11/09/24 11:38
I&O
11/08/24 11/09/24 11/10/24
06:59 06:59 06:59
Intake Total 1198.0 / 1198.0 980 / 980
Output Total 400 / 400
Balance 1198.0 / 1198.0 580 / 580
Review of Systems
-
History Source: Patient
All other systems: Not reviewed unless documented
Physical Exam
-
General: Negative Appears in Distress
HEENT: Negative Oxygen
GI: Soft, Normal Bowel Sounds, Tender and Distended
Musculoskeletal: No Edema
Neuro: Awake, Alert, Oriented and No Motor Deficits
Psych: Calm
Data Reviewed
-
Diagnostic Radiology: Report Reviewed by me
Labs: Labs Reviewed by me
[2024-11-09] MEDS: TOPROL XL 12.5 MG PO (15:48)
[2024-11-09] MEDS: DULCOLAX 10 MG PO (16:11)
[2024-11-09] MEDS: MELATONIN 5 MG PO (22:26)
[2024-11-10 03:25] VITALS: BP 111/76
[2024-11-10 06:00] VITALS: BMI 19.3
[2024-11-10 07:00] VITALS: BP 113/69
[2024-11-10] MEDS: ALPHAGAN 0.2% EYE DROPS 1 DROP BOTH EYES ×2 (07:27→20:02)
[2024-11-10] MEDS: ASPIR LOW (ENTERIC COATED) 81 MG PO (07:27)
[2024-11-10] MEDS: TOPROL XL 12.5 MG PO (07:27)
[2024-11-10] MEDS: TIMOPTIC 0.5% OPHTHALMIC SOLUTION 1 DROP BOTH EYES ×2 (07:27→20:02)
[2024-11-10] MEDS: VITAMIN B-12 100 MCG PO (07:28)
[2024-11-10] MEDS: PLAQUENIL 200 MG PO (07:28)
[2024-11-10] MEDS: PEPCID 20 MG PO (07:28)
[2024-11-10] MEDS: CRESTOR 10 MG PO (07:28)
[2024-11-10] MEDS: VITAMIN D3 (cholecalciferol) 50 MCG PO (07:29)
[2024-11-10] MEDS: FLORASTOR 250 MG PO (07:29)
[2024-11-10] MEDS: HEPARIN 5000 UNITS SC ×2 (07:29→20:02)
[2024-11-10] MEDS: LIDOCAINE 4% PATCH 1 PATCH TOPICAL (07:31)
[2024-11-10] MEDS: DULCOLAX 10 MG PO (07:53)
[2024-11-10] MEDS: MIRALAX 17 GRAMS PO (07:54)
[2024-11-10 11:29] VITALS: BP 104/67
--- NOTE | 2024-11-10 12:41 | W.PN.HOSP.TC ---
Addendum entered and electronically signed by Nghia Rg MD 11/10/24 13:04:
add midodrine standing for now, and can wean as tolerated
Original Note:
Today's Communication/Plan
-
Trialing Toprol 12.5 mg Daily
Midodrine if needed
F/u CBC and CMP in 3-5 days with PCP
Assessment / Plan
Assessment / Plan
Physical Exam
General: Other (78y F in no acute distress.)
HEENT: Moist mucous membranes and PERRLA
Respiratory: Clear; No Wheezes, Rales or Rhonchi
Cardiac: S1/S2 and Regular Rhythm; No Murmur
GI: Soft, Non Tender, Non Distended and Normal Bowel Sounds
Musculoskeletal: No Clubbing, No Cyanosis and No Edema
Neuro: AO x 3
A/P: Patient is an 78y F with PMH significant for RA, asthma and recent complicated hospitalization who presents to ED for evaluation of hypotension and fatigue.
Hypotension
KAREN
Shock, unknown type - possible hypovolemic
- held 25mg metoprolol
- Continue IVF overnight and follow for stable BP.
- SCr = 1.8 compared to recent discharge value of 1.5 and prior baseline of 0.9. Improving
- Follow for improvement with IVFs / avoidance of hypotension.
-Weaned pressors, was on and off in 24 hours of admission
-F/u Cultures - ngtd
-MAP goal >65
-Empiric abx spikes temp
�TSH, cortisol in a.m WNL
Diarrhea
IBS-D
- Patient has chronic loose stools and takes Imodium PRN.
- Developed constipation during recent hospital stay requiring bowel regimen / enema.
- Now with diarrhea again.
- Would avoid aggressive bowel regimen or anti-diarrheals for now and follow clinically.
-F/u stool cultures; has not had diarrhea yet - dc c diff
#Hyperkalemia
� Probably secondary to KAREN
� Given Lokelma
-monitor
NSTEMI
Takotsubo's Cardiomyopathy, ED 30%
ASCVD
- Stable. No chest pain or dyspnea.
- Troponin continues to trend down (0.061 today compared to discharge value of 1.15 and peak of 2.66).
- Cath done during recent admission showed single-vessel coronary disease - no intervention performed. EF 30%
- Continue daily ASA, statin, etc.
-spoke to cards - should be on BB for cardiac remodeling; Trailing Toprol at 12.5mg Daily; Can use midodrine if needed
Asthma
- No wheezing or complaints of dyspnea at present.
- s/p steroid course during recent hospital stay.
- Continue usual Advair. Albuterol PRN.
Rheumatoid Arthritis
- Stable. No active joint pain, swelling, etc.
- Continue Plaquenil.
DVT Prophylaxis: hsq
Code Status: Full
More than 30 minutes spent in discharge including
Final examination of the patient
Summarizing hospital stay
Instructions for continuing care to all relevant caregivers
Preparation of discharge records, prescriptions, and referral forms
Total time spent (in minutes): 36
Anticipated Discharge: Today
Subjective/Interval History
-
Date of Service: November 10, 2024
no acute events, tolerating lower dose BB
Objective Data
-
Vital Signs:
Vital Signs
Temp Pulse Resp BP Pulse Ox
98.3 F 69 19 104/67 97
11/10/24 11:29 11/10/24 11:29 11/10/24 11:29 11/10/24 11:29 11/10/24 11:29
I&O
11/09/24 11/10/24 11/11/24
06:59 06:59 06:59
Intake Total 980 / 980 1440 / 1440
Output Total 400 / 400
Balance 580 / 580 1440 / 1440
Review of Systems
-
History Source: Patient
All other systems: Not reviewed unless documented
Physical Exam
-
General: Negative Appears in Distress
HEENT: Negative Oxygen
GI: Soft, Normal Bowel Sounds, Tender and Distended
Musculoskeletal: No Edema
Neuro: Awake, Alert, Oriented and No Motor Deficits
Psych: Calm
--- NOTE | 2024-11-10 12:50 | W.DS.TRANS ---
DC Summary - Patcher Helper
-
Discharge Instructions:
Discharge Diagnosis/Procedures hypotension
Diet Low Fat,Low Cholesterol,Restrict fluids to 48 oz
Activity As tolerated
Blood Work cbc and bmp in 3-5 days with pcp
Instructions:
Stand-Alone Forms:
Changes to Home Medications: Yes
Discharge Medications:
DC Medications w/original date entered in [employer]
brimonidine 0.2 %-timolol 0.5 % eye drops 1 drp BOTH EYES BID Eye Condition 07/08/24
cholecalciferol (vitamin D3) 50 mcg (2,000 unit) capsule (Vitamin D3) 50 mcg PO DAILY Supplement 07/08/24
cyanocobalamin (vitamin B-12) 100 mcg tablet (Vitamin B-12) 100 mcg PO DAILY Supplement 07/08/24
docosahexaenoic acid (dha)-epa 120 mg-180 mg capsule (Fish Oil) 1 cap PO DAILY Supplement 07/08/24
fluticasone 100 mcg-salmeterol 50 mcg/dose blistr powdr for inhalation (Advair Diskus) 1 inh inhalation R BIDPRN PRN sob 07/08/24
hydroxychloroquine 200 mg tablet 200 mg PO DAILY Rheumatoid arthritis 07/08/24
melatonin 5 mg tablet 5 mg PO HS #30 tabs 07/22/24
Saccharomyces boulardii 250 mg capsule (Florastor) 250 mg PO DAILY Gastrointestinal Issue 10/28/24
lidocaine 4 % topical patch 1 patch topical DAILY both knees 10/28/24
loperamide 2 mg tablet (Imodium A-D) 2 mg PO USEASDIRECTD PRN loose stool 10/28/24
ondansetron 4 mg disintegrating tablet 4 mg PO Q6HPRN PRN nausea/vomiting 10/28/24
simethicone 80 mg chewable tablet 80 mg PO Q6HPRN PRN gas 10/28/24
aspirin 81 mg tablet,delayed release 81 mg PO DAILY #30 tabs 11/05/24
bisacodyl 5 mg tablet,delayed release 10 mg (2 x 5 mg) PO DAILYPRN PRN no BM with oral meds #14 tabs 11/05/24
famotidine 20 mg tablet 20 mg PO Q48H #30 tabs 11/05/24
rosuvastatin 5 mg tablet 10 mg (2 x 5 mg) PO DAILY High Cholesterol #0 tabs 11/05/24
sennosides 8.6 mg-docusate sodium 50 mg tablet 1 tab PO BID #60 tabs 11/05/24
tamsulosin 0.4 mg capsule 0.4 mg PO DAILY #14 caps 11/05/24
metoprolol succinate 25 mg tablet,extended release 24 hr 12.5 mg (1/2 x 25 mg) PO DAILY #0 tabs 11/10/24
midodrine 5 mg tablet 5 mg PO TID@0800,1300,1800 PRN SBP<90 or DBP <60 #10 tabs 11/10/24
Home Medication Changes
metoprolol succinate 25 mg tablet,extended release 24 hr 12.5 mg (1/2 x 25 mg) PO DAILY #0 tabs 11/10/24
midodrine 5 mg tablet 5 mg PO TID@0800,1300,1800 PRN SBP<90 or DBP <60 #10 tabs 11/10/24
Pending Results: No
[2024-11-10 12:59] LABS: Hematocrit 31.8 % (37.0-47.0); Hemoglobin 10.6 g/dL (12.0-16.0); Mean Corp Hgb Conc. 33.3 g/dL (33.0-37.0); Mean Corpuscular Hgb 30.6 pg (27.0-31.0); Mean Corpuscular Volume 91.9 fL (81.0-99.0); Mean Platelet Volume 10.1 fL (7.4-10.4); Platelet Count 198 10^3/uL (130-400); Red Blood Cell Count 3.46 10^6/uL (4.20-5.40); Red Cell Dist. Width 13.6 % (11.5-14.5); White Blood Cell Count 11.1 10^3/uL (4.8-10.8)
--- NOTE | 2024-11-10 13:09 | W.DS.TRANS ---
DC Summary - Spanish Translator
-
Discharge Instructions:
Discharge Diagnosis/Procedures hypotension
Diet Low Fat,Low Cholesterol,Restrict fluids to 48 oz
Activity As tolerated
Blood Work cbc and bmp in 3-5 days with pcp
Others Tests as per cardiology
Instructions:
Stand-Alone Forms:
Changes to Home Medications: Yes
Discharge Medications:
DC Medications w/original date entered in [employer]
brimonidine 0.2 %-timolol 0.5 % eye drops 1 drp BOTH EYES BID Eye Condition 07/08/24
cholecalciferol (vitamin D3) 50 mcg (2,000 unit) capsule (Vitamin D3) 50 mcg PO DAILY Supplement 07/08/24
cyanocobalamin (vitamin B-12) 100 mcg tablet (Vitamin B-12) 100 mcg PO DAILY Supplement 07/08/24
docosahexaenoic acid (dha)-epa 120 mg-180 mg capsule (Fish Oil) 1 cap PO DAILY Supplement 07/08/24
fluticasone 100 mcg-salmeterol 50 mcg/dose blistr powdr for inhalation (Advair Diskus) 1 inh inhalation R BIDPRN PRN sob 07/08/24
hydroxychloroquine 200 mg tablet 200 mg PO DAILY Rheumatoid arthritis 07/08/24
melatonin 5 mg tablet 5 mg PO HS #30 tabs 07/22/24
Saccharomyces boulardii 250 mg capsule (Florastor) 250 mg PO DAILY Gastrointestinal Issue 10/28/24
lidocaine 4 % topical patch 1 patch topical DAILY both knees 10/28/24
loperamide 2 mg tablet (Imodium A-D) 2 mg PO USEASDIRECTD PRN loose stool 10/28/24
ondansetron 4 mg disintegrating tablet 4 mg PO Q6HPRN PRN nausea/vomiting 10/28/24
simethicone 80 mg chewable tablet 80 mg PO Q6HPRN PRN gas 10/28/24
aspirin 81 mg tablet,delayed release 81 mg PO DAILY #30 tabs 11/05/24
bisacodyl 5 mg tablet,delayed release 10 mg (2 x 5 mg) PO DAILYPRN PRN no BM with oral meds #14 tabs 11/05/24
famotidine 20 mg tablet 20 mg PO Q48H #30 tabs 11/05/24
rosuvastatin 5 mg tablet 10 mg (2 x 5 mg) PO DAILY High Cholesterol #0 tabs 11/05/24
sennosides 8.6 mg-docusate sodium 50 mg tablet 1 tab PO BID #60 tabs 11/05/24
tamsulosin 0.4 mg capsule 0.4 mg PO DAILY #14 caps 11/05/24
metoprolol succinate 25 mg tablet,extended release 24 hr 12.5 mg (1/2 x 25 mg) PO DAILY #0 tabs 11/10/24
midodrine 2.5 mg tablet 2.5 mg PO TID #30 tabs 11/10/24
midodrine 5 mg tablet 5 mg PO TID@0800,1300,1800 PRN SBP<90 or DBP <60 #10 tabs 11/10/24
Home Medication Changes
metoprolol succinate 25 mg tablet,extended release 24 hr 12.5 mg (1/2 x 25 mg) PO DAILY #0 tabs 11/10/24
midodrine 2.5 mg tablet 2.5 mg PO TID #30 tabs 11/10/24
midodrine 5 mg tablet 5 mg PO TID@0800,1300,1800 PRN SBP<90 or DBP <60 #10 tabs 11/10/24
Pending Results: No
[2024-11-10 13:35] LABS: ALT (SGPT) 29 U/L (0-35); AST (SGOT) 27 U/L (14-36); Albumin 3.1 g/dl (3.5-5.0); Alkaline Phosphatase 62 U/L (38-126); Blood Urea Nitrogen 23 mg/dl (7-17); Calcium 9.2 mg/dl (8.4-10.2); Carbon Dioxide 24 mmol/L (22-30); Chloride 107 mmol/L (98-107); Estimated Creatinine Clearance 42 ml/min; Glucose 115 mg/dl (70-99); Magnesium 1.5 mg/dl (1.6-2.3); Potassium 4.3 mmol/L (3.5-5.1); Sodium 137 mmol/L (135-145); Total Bilirubin 0.6 mg/dl (0.2-1.3); Total Protein 5.2 g/dl (6.3-8.2); eGFR > 60.00
[2024-11-10 15:00] VITALS: BP 128/83
--- NOTE | 2024-11-10 15:20 | CM ---
Patient is stable for d/c today. Hospitalist spoke w/ patient's daughter, Winifred, w/ updates and readiness for d/c.
Therapy rec [facility] but due to staffing, unable to admit patient today but can tomorrow per [place]/tirso. Winifred inquired if she can take patient home then admit her to [facility] tomorrow since patient
has d/c placed for today. Per [facility], patient can admit from home tomorrow. Confirmed this w/ Winifred. Per Winifred, she is able to pick patient up later tonight.
Updated hospitalist
IMM verbally reviewed, copy on chart
Plan: Home. Daughter will take patient tomorrow to [facility] from home
[2024-11-10 19:30] VITALS: BP 140/92
[2024-11-10] MEDS: MELATONIN 5 MG PO (22:11)
[2024-11-10 23:55] VITALS: BP 133/75
[2024-11-11 03:44] VITALS: BP 131/77
[2024-11-11 06:00] VITALS: BMI 19.0
[2024-11-11 07:00] VITALS: BP 155/98
[2024-11-11] MEDS: TYLENOL 650 MG PO ×3 (08:07→20:41)
[2024-11-11 09:35] LABS: Hematocrit 29.9 % (37.0-47.0); Hemoglobin 10.3 g/dL (12.0-16.0); Mean Corp Hgb Conc. 34.4 g/dL (33.0-37.0); Mean Corpuscular Hgb 30.8 pg (27.0-31.0); Mean Corpuscular Volume 89.5 fL (81.0-99.0); Mean Platelet Volume 9.9 fL (7.4-10.4); Platelet Count 192 10^3/uL (130-400); Red Blood Cell Count 3.34 10^6/uL (4.20-5.40); Red Cell Dist. Width 13.2 % (11.5-14.5); White Blood Cell Count 5.9 10^3/uL (4.8-10.8)
[2024-11-11 09:50] LABS: ALT (SGPT) 31 U/L (0-35); AST (SGOT) 31 U/L (14-36); Albumin 3.2 g/dl (3.5-5.0); Alkaline Phosphatase 60 U/L (38-126); Blood Urea Nitrogen 18 mg/dl (7-17); Calcium 8.8 mg/dl (8.4-10.2); Carbon Dioxide 26 mmol/L (22-30); Chloride 107 mmol/L (98-107); Estimated Creatinine Clearance 41 ml/min; Glucose 97 mg/dl (70-99); Magnesium 1.5 mg/dl (1.6-2.3); Potassium 4.6 mmol/L (3.5-5.1); Sodium 137 mmol/L (135-145); Total Bilirubin 0.6 mg/dl (0.2-1.3); Total Protein 5.1 g/dl (6.3-8.2); eGFR > 60.00
--- NOTE | 2024-11-11 10:27 | CM ---
Addendum entered by Radha Razo 11/11/24 15:59:
D/c held- update to [facility]. Unable to accept over weekend as patient is considered a new admission and they don't accept new admissions over weekend.
Original Note:
CM reviewed chart, spoke with patients daughter, reports she was unable to get patient last night as it was raining/too late. Daughter requesting [facility] to be set up for patient, requesting CM text her with cost and number to call for payment.
Patient scheduled for 4:30 p.m. [employer], $95, number to call [phone]. [facility] at [facility] updated. CM will continue to follow for all discharge planning needs.
Plan; [facility], 4:30 p.m. [employer] transport
[facility]
Report: [phone]
[2024-11-11] MEDS: ALPHAGAN 0.2% EYE DROPS 1 DROP BOTH EYES ×2 (10:43→20:48)
[2024-11-11] MEDS: LIDOCAINE 4% PATCH 1 PATCH TOPICAL (10:43)
[2024-11-11] MEDS: HEPARIN 5000 UNITS SC ×2 (10:44→20:44)
[2024-11-11] MEDS: CRESTOR 10 MG PO (10:46)
[2024-11-11] MEDS: TIMOPTIC 0.5% OPHTHALMIC SOLUTION 1 DROP BOTH EYES ×2 (10:47→21:04)
[2024-11-11] MEDS: TOPROL XL 12.5 MG PO (10:47)
[2024-11-11] MEDS: VITAMIN D3 (cholecalciferol) 50 MCG PO (10:47)
[2024-11-11] MEDS: ASPIR LOW (ENTERIC COATED) 81 MG PO (10:47)
[2024-11-11] MEDS: PLAQUENIL 200 MG PO (10:48)
[2024-11-11] MEDS: FLORASTOR 250 MG PO (10:49)
[2024-11-11] MEDS: VITAMIN B-12 100 MCG PO (10:49)
[2024-11-11 11:00] VITALS: BP 141/80
[2024-11-11 11:35] VITALS: BP 141/80
--- NOTE | 2024-11-11 13:33 | W.PN.HOSP.TC ---
Today's Communication/Plan
-
Trialing Toprol 12.5 mg Daily
Midodrine if needed
F/u CBC and CMP in 3-5 days with PCP
Enema, and disimpaction if needed
Assessment / Plan
Assessment / Plan
Physical Exam
General: Other (78y F in no acute distress.)
HEENT: Moist mucous membranes and PERRLA
Respiratory: Clear; No Wheezes, Rales or Rhonchi
Cardiac: S1/S2 and Regular Rhythm; No Murmur
GI: Soft, Non Tender, Non Distended and Normal Bowel Sounds
Musculoskeletal: No Clubbing, No Cyanosis and No Edema
Neuro: AO x 3
A/P: Patient is an 78y F with PMH significant for RA, asthma and recent complicated hospitalization who presents to ED for evaluation of hypotension and fatigue.
Hypotension
KAREN
Shock, unknown type - possible hypovolemic
- held 25mg metoprolol - restat at half dose
- Continue IVF overnight and follow for stable BP.
- SCr = 1.8 compared to recent discharge value of 1.5 and prior baseline of 0.9. Improving
- Follow for improvement with IVFs / avoidance of hypotension.
-Weaned pressors, was on and off in 24 hours of admission
-F/u Cultures - ngtd
-MAP goal >65
-Empiric abx spikes temp
�TSH, cortisol in a.m WNL
Diarrhea
IBS-D
- Patient has chronic loose stools and takes Imodium PRN.
- Developed constipation during recent hospital stay requiring bowel regimen / enema.
- Would avoid aggressive bowel regimen or anti-diarrheals for now and follow clinically.
-F/u stool cultures; has not had diarrhea yet - dc c diff
�Repeat enema today, otherwise disimpaction by GI
#Hyperkalemia
� Probably secondary to KAREN
� Given Lokelma
-monitor
NSTEMI
Takotsubo's Cardiomyopathy, ED 30%
ASCVD
- Stable. No chest pain or dyspnea.
- Troponin continues to trend down (0.061 today compared to discharge value of 1.15 and peak of 2.66).
- Cath done during recent admission showed single-vessel coronary disease - no intervention performed. EF 30%
- Continue daily ASA, statin, etc.
-spoke to cards - should be on BB for cardiac remodeling; Trailing Toprol at 12.5mg Daily; Can use midodrine if needed
Asthma
- No wheezing or complaints of dyspnea at present.
- s/p steroid course during recent hospital stay.
- Continue usual Advair. Albuterol PRN.
Rheumatoid Arthritis
- Stable. No active joint pain, swelling, etc.
- Continue Plaquenil.
DVT Prophylaxis: hsq
Code Status: Full
More than 30 minutes spent in discharge including
Final examination of the patient
Summarizing hospital stay
Instructions for continuing care to all relevant caregivers
Preparation of discharge records, prescriptions, and referral forms
Total time spent (in minutes): 36
Anticipated Discharge: Today
Subjective/Interval History
-
Date of Service: November 11, 2024
Some cramping, improved with enema
Objective Data
-
Labs:
Laboratory Results
11/11/24
09:23
WBC 5.9
Hgb 10.3 L
Hct 29.9 L
Plt Count 192
Sodium 137
Potassium 4.6
Chloride 107
Carbon Dioxide 26
BUN 18 H
Creatinine 0.9
Glucose 97
Calcium 8.8
Total Bilirubin 0.6
AST 31
ALT 31
Alkaline Phosphatase 60
Vital Signs:
Vital Signs
Temp Pulse Resp BP Pulse Ox
98.4 F 76 16 141/80 97
05/09/25 11:00 11/11/24 11:00 11/11/24 11:00 11/11/24 11:00 11/11/24 11:00
I&O
11/10/24 11/11/24 11/12/24
06:59 06:59 06:59
Intake Total 1440 / 1440 200 / 200
Output Total 300 / 300
Balance 1440 / 1440 -100 / -100
Review of Systems
-
History Source: Patient
All other systems: Not reviewed unless documented
Data Reviewed
-
Diagnostic Radiology: Report Reviewed by me
Labs: Labs Reviewed by me
--- NOTE | 2024-11-11 13:37 | W.DS.TRANS ---
DC Summary - Data Center [employer]
-
Discharge Instructions:
Discharge Diagnosis/Procedures hypotension
Diet Low Fat,Low Cholesterol,Restrict fluids to 48 oz
Activity As tolerated
Blood Work cbc and bmp in 3-5 days with pcp
Others Tests as per cardiology
Instructions:
Stand-Alone Forms:
Changes to Home Medications: Yes
Discharge Medications:
DC Medications w/original date entered in [employer]
brimonidine 0.2 %-timolol 0.5 % eye drops 1 drp BOTH EYES BID Eye Condition 07/08/24
cholecalciferol (vitamin D3) 50 mcg (2,000 unit) capsule (Vitamin D3) 50 mcg PO DAILY Supplement 07/08/24
cyanocobalamin (vitamin B-12) 100 mcg tablet (Vitamin B-12) 100 mcg PO DAILY Supplement 07/08/24
docosahexaenoic acid (dha)-epa 120 mg-180 mg capsule (Fish Oil) 1 cap PO DAILY Supplement 07/08/24
fluticasone 100 mcg-salmeterol 50 mcg/dose blistr powdr for inhalation (Advair Diskus) 1 inh inhalation R BIDPRN PRN sob 07/08/24
hydroxychloroquine 200 mg tablet 200 mg PO DAILY Rheumatoid arthritis 07/08/24
melatonin 5 mg tablet 5 mg PO HS #30 tabs 07/22/24
Saccharomyces boulardii 250 mg capsule (Florastor) 250 mg PO DAILY Gastrointestinal Issue 10/28/24
lidocaine 4 % topical patch 1 patch topical DAILY both knees 10/28/24
loperamide 2 mg tablet (Imodium A-D) 2 mg PO USEASDIRECTD PRN loose stool 10/28/24
ondansetron 4 mg disintegrating tablet 4 mg PO Q6HPRN PRN nausea/vomiting 10/28/24
simethicone 80 mg chewable tablet 80 mg PO Q6HPRN PRN gas 10/28/24
aspirin 81 mg tablet,delayed release 81 mg PO DAILY #30 tabs 11/05/24
bisacodyl 5 mg tablet,delayed release 10 mg (2 x 5 mg) PO DAILYPRN PRN no BM with oral meds #14 tabs 11/05/24
famotidine 20 mg tablet 20 mg PO Q48H #30 tabs 11/05/24
rosuvastatin 5 mg tablet 10 mg (2 x 5 mg) PO DAILY High Cholesterol #0 tabs 11/05/24
sennosides 8.6 mg-docusate sodium 50 mg tablet 1 tab PO BID #60 tabs 11/05/24
tamsulosin 0.4 mg capsule 0.4 mg PO DAILY #14 caps 11/05/24
metoprolol succinate 25 mg tablet,extended release 24 hr 12.5 mg (1/2 x 25 mg) PO DAILY #0 tabs 11/10/24
midodrine 5 mg tablet 5 mg PO TID@0800,1300,1800 PRN SBP<90 or DBP <60 #10 tabs 11/10/24
Home Medication Changes
metoprolol succinate 25 mg tablet,extended release 24 hr 12.5 mg (1/2 x 25 mg) PO DAILY #0 tabs 11/10/24
midodrine 5 mg tablet 5 mg PO TID@0800,1300,1800 PRN SBP<90 or DBP <60 #10 tabs 11/10/24
Pending Results: No
[2024-11-11 15:00] VITALS: BP 142/76
--- NOTE | 2024-11-11 20:48 | PTCARENOTE ---
Addendum entered by Hayley Frost RN 11/11/24 20:59:
1700 DR. Rg notified by deanna text, pt refusing second enema and requesting a med for abdominal cramping. MD huerta text back and mention currently pt can only take tylenol as ordered at this time. Explain to pt.
Original Note:
1330 Pt continue to c/o abdominal cramping, Tylenol given as ordered with some relief. Notified Dr. Rg and ordered Milk and molasses enema. Explain to pt and given with moderate results. Sent pt to abdominal x-ray via stretcher.
[address] Rg and aware of x-ray results. Cancel pt discharge today and ordered second milk and molasses enema.
1630 Explain to pt second enema ordered. Pt refused enema and requesting to have medication for abdominal cramping.
1630
[2024-11-11] MEDS: MELATONIN 5 MG PO (20:50)
[2024-11-11 23:20] VITALS: BP 98/58
[2024-11-12 03:00] VITALS: BP 104/71
[2024-11-12 05:33] VITALS: BMI 18.9
[2024-11-12 07:29] VITALS: BP 109/65
[2024-11-12 07:40] LABS: Hematocrit 30.4 % (37.0-47.0); Hemoglobin 10.2 g/dL (12.0-16.0); Mean Corp Hgb Conc. 33.6 g/dL (33.0-37.0); Mean Corpuscular Hgb 30.4 pg (27.0-31.0); Mean Corpuscular Volume 90.7 fL (81.0-99.0); Mean Platelet Volume 10.3 fL (7.4-10.4); Platelet Count 199 10^3/uL (130-400); Red Blood Cell Count 3.35 10^6/uL (4.20-5.40); Red Cell Dist. Width 13.3 % (11.5-14.5); White Blood Cell Count 5.2 10^3/uL (4.8-10.8)
[2024-11-12 08:21] LABS: ALT (SGPT) 28 U/L (0-35); AST (SGOT) 29 U/L (14-36); Albumin 3.1 g/dl (3.5-5.0); Alkaline Phosphatase 60 U/L (38-126); Blood Urea Nitrogen 21 mg/dl (7-17); Calcium 8.8 mg/dl (8.4-10.2); Carbon Dioxide 21 mmol/L (22-30); Chloride 107 mmol/L (98-107); Estimated Creatinine Clearance 36 ml/min; Glucose 59 mg/dl (70-99); Magnesium 1.6 mg/dl (1.6-2.3); Potassium 4.5 mmol/L (3.5-5.1); Sodium 135 mmol/L (135-145); Total Bilirubin 0.8 mg/dl (0.2-1.3); eGFR 56.95
[2024-11-12] MEDS: ALPHAGAN 0.2% EYE DROPS 1 DROP BOTH EYES ×2 (11:00→20:25)
[2024-11-12] MEDS: CRESTOR 10 MG PO (11:00)
[2024-11-12] MEDS: HEPARIN 5000 UNITS SC ×2 (11:00→20:28)
[2024-11-12] MEDS: DESENEX/MITRAZOL/ZEASORB 1 APPLIC TOPICAL ×2 (11:00→20:35)
[2024-11-12] MEDS: TIMOPTIC 0.5% OPHTHALMIC SOLUTION 1 DROP BOTH EYES ×2 (11:00→20:26)
[2024-11-12] MEDS: LIDOCAINE 4% PATCH 1 PATCH TOPICAL (11:00)
[2024-11-12] MEDS: FLORASTOR 250 MG PO (11:00)
[2024-11-12] MEDS: VITAMIN B-12 100 MCG PO (11:04)
[2024-11-12] MEDS: TOPROL XL 12.5 MG PO (11:04)
[2024-11-12] MEDS: PEPCID 20 MG PO (11:05)
[2024-11-12] MEDS: PLAQUENIL 200 MG PO (11:05)
[2024-11-12] MEDS: ASPIR LOW (ENTERIC COATED) 81 MG PO (11:05)
[2024-11-12] MEDS: VITAMIN D3 (cholecalciferol) 50 MCG PO (11:05)
--- NOTE | 2024-11-12 14:08 | W.PN.HOSP.TC ---
Today's Communication/Plan
-
DC ready
awaiting Bed
Assessment / Plan
Assessment / Plan
Physical Exam
General: Other (78y F in no acute distress.)
HEENT: Moist mucous membranes and PERRLA
Respiratory: Clear; No Wheezes, Rales or Rhonchi
Cardiac: S1/S2 and Regular Rhythm; No Murmur
GI: Soft, Non Tender, Non Distended and Normal Bowel Sounds
Musculoskeletal: No Clubbing, No Cyanosis and No Edema
Neuro: AO x 3
A/P: Patient is an 78y F with PMH significant for RA, asthma and recent complicated hospitalization who presents to ED for evaluation of hypotension and fatigue.
Hypotension
KAREN
Shock, unknown type - possible hypovolemic
- held 25mg metoprolol - restat at half dose
- Continue IVF overnight and follow for stable BP.
- SCr = 1.8 compared to recent discharge value of 1.5 and prior baseline of 0.9. Improving
- Follow for improvement with IVFs / avoidance of hypotension.
-Weaned pressors, was on and off in 24 hours of admission
-F/u Cultures - ngtd
-MAP goal >65
-Empiric abx spikes temp
�TSH, cortisol in a.m WNL
Diarrhea
IBS-D
- Patient has chronic loose stools and takes Imodium PRN.
- Developed constipation during recent hospital stay requiring bowel regimen / enema.
- Would avoid aggressive bowel regimen or anti-diarrheals for now and follow clinically.
-F/u stool cultures; has not had diarrhea yet - dc c diff
�Repeat enema 11/11 - symptoms have resolved overnight with multiple bowel movements
#Hyperkalemia
� Probably secondary to KAREN
� Given Lokelma
-monitor
NSTEMI
Takotsubo's Cardiomyopathy, ED 30%
ASCVD
- Stable. No chest pain or dyspnea.
- Troponin continues to trend down (0.061 today compared to discharge value of 1.15 and peak of 2.66).
- Cath done during recent admission showed single-vessel coronary disease - no intervention performed. EF 30%
- Continue daily ASA, statin, etc.
-spoke to cards - should be on BB for cardiac remodeling; Trailing Toprol at 12.5mg Daily; Can use midodrine if needed
Asthma
- No wheezing or complaints of dyspnea at present.
- s/p steroid course during recent hospital stay.
- Continue usual Advair. Albuterol PRN.
Rheumatoid Arthritis
- Stable. No active joint pain, swelling, etc.
- Continue Plaquenil.
DVT Prophylaxis: hsq
Code Status: Full
Anticipated Discharge: 24 - 48 hours
Subjective/Interval History
-
Date of Service: November 12, 2024
symptoms have resolved
Objective Data
-
Labs:
Laboratory Results
11/12/24
07:20
WBC 5.2
Hgb 10.2 L
Hct 30.4 L
Plt Count 199
Sodium 135
Potassium 4.5
Chloride 107
Carbon Dioxide 21 L
BUN 21 H
Creatinine 1.0
Glucose 59 L
Calcium 8.8
Total Bilirubin 0.8
AST 29
ALT 28
Alkaline Phosphatase 60
Vital Signs:
Vital Signs
Temp Pulse Resp BP Pulse Ox
97.9 F 72 18 109/65 96
11/12/24 07:29 11/12/24 07:29 11/12/24 07:29 11/12/24 07:29 11/12/24 07:29
I&O
11/11/24 11/12/24 11/13/24
06:59 06:59 06:59
Intake Total 200 / 200 62 / 62
Output Total 300 / 300
Balance -100 / -100
Review of Systems
-
History Source: Patient
All other systems: Not reviewed unless documented
Physical Exam
-
General: Negative Appears in Distress
HEENT: Negative Oxygen
GI: Soft, Normal Bowel Sounds, Tender and Distended
Musculoskeletal: No Edema
Neuro: Awake, Alert, Oriented and No Motor Deficits
Psych: Calm
[2024-11-12 15:18] VITALS: BP 92/58
[2024-11-12 15:32] VITALS: BMI 18.9
[2024-11-12] MEDS: MELATONIN 5 MG PO (20:35)
[2024-11-12 23:05] VITALS: BP 70/40
[2024-11-12] MEDS: NSS 500 IV (23:12)
[2024-11-12] MEDS: FLUSH (NSS) 1 FLUSH IV (23:15)
--- NOTE | 2024-11-12 23:15 | PTCARENOTE ---
Pt's B/P 70/40 manually both arms, pt. asymptomatic, notified GIL Mathew, ordered 500 ml bolus, will continue to monitor.
[2024-11-12] MEDS: ProAmatine 5 MG PO (23:29)
--- NOTE | 2024-11-12 23:35 | W.PN.UPDATE ---
Update Note
Progress Note Update
~ 23:00 Patient hypotensive, BP 70/40, manually in b/l upper extremities, HR 69. Patient easily arousable, Ox3. Pt denies SOB, dizziness, lightheadedness, palpitations. Ordered NSS 500 mls bolus and PRN midodrine. Recheck BP after bolus and
midodrine, BP 106/58, HR 68.
[2024-11-13 00:47] VITALS: BP 106/58
--- NOTE | 2024-11-13 00:47 | PTCARENOTE ---
GIL Mathew came to see pt., pt. after given 500 ml NSS bolus and Midodrine, pt's blood pressure was 106/58, will continue to monitor.
[2024-11-13 05:15] VITALS: BMI 20.5
[2024-11-13 07:38] VITALS: BP 119/64
[2024-11-13] MEDS: ASPIR LOW (ENTERIC COATED) 81 MG PO (08:44)
[2024-11-13] MEDS: TOPROL XL 12.5 MG PO (08:44)
[2024-11-13] MEDS: ALPHAGAN 0.2% EYE DROPS 1 DROP BOTH EYES ×2 (08:44→21:07)
[2024-11-13] MEDS: TIMOPTIC 0.5% OPHTHALMIC SOLUTION 1 DROP BOTH EYES ×2 (08:46→21:07)
[2024-11-13] MEDS: PLAQUENIL 200 MG PO (08:46)
[2024-11-13] MEDS: CRESTOR 10 MG PO (08:47)
[2024-11-13] MEDS: VITAMIN D3 (cholecalciferol) 50 MCG PO (08:47)
[2024-11-13] MEDS: VITAMIN B-12 100 MCG PO (08:47)
[2024-11-13] MEDS: FLORASTOR 250 MG PO (08:48)
[2024-11-13] MEDS: LIDOCAINE 4% PATCH 1 PATCH TOPICAL (08:48)
[2024-11-13] MEDS: HEPARIN 5000 UNITS SC ×2 (08:49→21:07)
[2024-11-13] MEDS: MIRALAX 17 GRAMS PO (08:57)
[2024-11-13] MEDS: DESENEX/MITRAZOL/ZEASORB 1 APPLIC TOPICAL ×2 (08:58→21:06)
--- NOTE | 2024-11-13 14:03 | W.PN.HOSP.TC ---
Today's Communication/Plan
-
clear for dc
awaiting bed
Assessment / Plan
Assessment / Plan
Physical Exam
General: Other (78y F in no acute distress.)
HEENT: Moist mucous membranes and PERRLA
Respiratory: Clear; No Wheezes, Rales or Rhonchi
Cardiac: S1/S2 and Regular Rhythm; No Murmur
GI: Soft, Non Tender, Non Distended and Normal Bowel Sounds
Musculoskeletal: No Clubbing, No Cyanosis and No Edema
Neuro: AO x 3
A/P: Patient is an 78y F with PMH significant for RA, asthma and recent complicated hospitalization who presents to ED for evaluation of hypotension and fatigue.
Hypotension
KAREN
Shock, unknown type - possible hypovolemic
- held 25mg metoprolol - restat at half dose
- Continue IVF overnight and follow for stable BP.
- SCr = 1.8 compared to recent discharge value of 1.5 and prior baseline of 0.9. Improving
- Follow for improvement with IVFs / avoidance of hypotension.
-Weaned pressors, was on and off in 24 hours of admission
-F/u Cultures - ngtd
-MAP goal >65
-Empiric abx spikes temp
�TSH, cortisol in a.m WNL
Diarrhea
IBS-D
- Patient has chronic loose stools and takes Imodium PRN.
- Developed constipation during recent hospital stay requiring bowel regimen / enema.
- Would avoid aggressive bowel regimen or anti-diarrheals for now and follow clinically.
-F/u stool cultures; has not had diarrhea yet - dc c diff
�Repeat enema 11/11 - symptoms have resolved with multiple bowel movements
-tolerating diet
#Hyperkalemia
� Probably secondary to KAREN
� Given Lokelma
-monitor
NSTEMI
Takotsubo's Cardiomyopathy, ED 30%
ASCVD
- Stable. No chest pain or dyspnea.
- Troponin continues to trend down (0.061 today compared to discharge value of 1.15 and peak of 2.66).
- Cath done during recent admission showed single-vessel coronary disease - no intervention performed. EF 30%
- Continue daily ASA, statin, etc.
-spoke to cards - should be on BB for cardiac remodeling; Trailing Toprol at 12.5mg Daily; Can use midodrine if needed
Asthma
- No wheezing or complaints of dyspnea at present.
- s/p steroid course during recent hospital stay.
- Continue usual Advair. Albuterol PRN.
Rheumatoid Arthritis
- Stable. No active joint pain, swelling, etc.
- Continue Plaquenil.
DVT Prophylaxis: hsq
Code Status: Full
Anticipated Discharge: Within 24 hours
Subjective/Interval History
-
Date of Service: November 13, 2024
no acute events
Objective Data
-
Vital Signs:
Vital Signs
Temp Pulse Resp BP Pulse Ox
98.6 F 70 18 119/64 98
11/13/24 07:38 11/13/24 08:44 11/13/24 07:38 11/13/24 08:44 11/13/24 07:38
I&O
11/12/24 11/13/24 11/14/24
06:59 06:59 06:59
Intake Total 1460 / 1460
Balance 1460 / 1460
Review of Systems
-
History Source: Patient
All other systems: Not reviewed unless documented
Physical Exam
-
General: Negative Appears in Distress
HEENT: Negative Oxygen
GI: Soft, Normal Bowel Sounds, Tender and Distended
Musculoskeletal: No Edema
Neuro: Awake, Alert, Oriented and No Motor Deficits
Psych: Calm
Data Reviewed
-
Diagnostic Radiology: Report Reviewed by me
Labs: Labs Reviewed by me
[2024-11-13 15:10] VITALS: BP 103/55
[2024-11-13] MEDS: MELATONIN 5 MG PO (21:07)
[2024-11-13 23:12] VITALS: BP 102/58
[2024-11-14 06:00] VITALS: BMI 18.4
[2024-11-14 07:00] VITALS: BP 148/88
[2024-11-14 09:44] VITALS: BP 148/88; PULSE 72
[2024-11-14] MEDS: FLORASTOR 250 MG PO (09:48)
[2024-11-14] MEDS: PLAQUENIL 200 MG PO (09:49)
[2024-11-14] MEDS: PEPCID 20 MG PO (09:49)
[2024-11-14] MEDS: CRESTOR 10 MG PO (09:49)
[2024-11-14] MEDS: VITAMIN D3 (cholecalciferol) 50 MCG PO (09:50)
[2024-11-14] MEDS: VITAMIN B-12 100 MCG PO (09:50)
[2024-11-14] MEDS: TOPROL XL 12.5 MG PO (09:50)
[2024-11-14] MEDS: ASPIR LOW (ENTERIC COATED) 81 MG PO (09:50)
[2024-11-14] MEDS: ALPHAGAN 0.2% EYE DROPS 1 DROP BOTH EYES (09:51)
[2024-11-14] MEDS: HEPARIN 5000 UNITS SC (09:51)
[2024-11-14] MEDS: LIDOCAINE 4% PATCH 1 PATCH TOPICAL (09:51)
[2024-11-14] MEDS: DESENEX/MITRAZOL/ZEASORB 1 APPLIC TOPICAL (09:51)
[2024-11-14] MEDS: TIMOPTIC 0.5% OPHTHALMIC SOLUTION 1 DROP BOTH EYES (10:32)
--- NOTE | 2024-11-14 11:33 | W.PN.HOSP.TC ---
Today's Communication/Plan
-
d/c
Assessment / Plan
Assessment / Plan
78y F with PMH significant for RA, asthma and recent complicated hospitalization who presents to ED for evaluation of hypotension and fatigue.
Gen: NAD, AAOx3.
Eyes: EOMI, PERRLA, no scleral icterus.
Neck: supple.
CV: RRR, +S1/S2, no m/r/g.
Resp: CTAB, no rales, wheezes, or rhonchi.
Abd: +BS, soft, NT, ND
Skin: No rashes.
Neuro: CN 2-12 intact, non-focal.
Psych: Normal mood and affect.
11/06/24 19:05 Blood/Venous Blood Culture - Final
No Growth - Final Report
11/06/24 18:11 Blood/Venous Blood Culture - Final
No Growth - Final Report
11/07/24 04:42 Urine Urine Culture - Final
NO GROWTH
11/07/24 03:19 Nose MRSA Screen - Final
No Methicillin Resistant Staphylococcus aureus isolated.
11/06/24 18:11 Nasal Swab Influenza Types A & B ([facility]) - Final
Negative for Influenza A & B, NAAT
Negative results must be combined with clinical observations
and patient history.
Nucleic Acid Amplification test (NAAT)performed on the
[employer] platform.
Hypotension and acute kidney injury likely due to hypovolemic shock:
-patient's home metoprolol was initially held and has been restarted at half the prior home dose
-was on vasopressors intermittently during the first 24 hours of admission
-TSH/cortisol normal
-Patient received aggressive IVFs
-Cr improved from 1.8 to 1.0
-Hyperkalemia due to KAREN, resolved
Recent NSTEMI:
-h/o Takotsubo's Cardiomyopathy, EF 30%
-h/o CAD
-no CP or dyspnea
-trop down on admission from prior
-cont BB at lower dose to prevent cardiac remodeling
-cont ASA/statin
Asthma, not in acute exac: Advair ordered PRN, change to standing
Rheumatoid Arthritis: cont Plaquenil
FULL/Heparin
Medically cleared for d/c. Case management aware.
Total time spent on d/c = 31 min. This included today's physical exam, progress note, review of laboratory and diagnostic data, preparation of discharge documents and prescriptions, and discussions about the pt's hospital course and discharge plan
with the patient and other medical territory manager involved in the patient's care.
Anticipated Discharge: Today
Subjective/Interval History
-
Date of Service: November 14, 2024
Denies CP/SOB.
Objective Data
-
Vital Signs:
Vital Signs
Temp Pulse Resp BP Pulse Ox
97.9 F 72 20 148/88 100
11/14/24 07:00 11/14/24 07:00 11/14/24 07:00 11/14/24 07:00 11/14/24 07:00
I&O
11/13/24 11/14/24 11/15/24
06:59 06:59 06:59
Intake Total 1460 / 1460 720 / 720
Balance 1460 / 1460 720 / 720
--- NOTE | 2024-11-14 12:26 | CM ---
Patient stable for d/c today
Spoke w/ [facility], can accept patient today
Spoke w/ patient's daughter, Araceli, who stated patient will need w/c van. Araceli shared she paid for w/c van on Thursday but d/c was cancelled. CM provided acute care number for Araceli to arrange payment for today and ensure she was not charged already
from Thursday
Met w/ patient bedside, shared she is feeling better and agreeable to d/c today. IMM verbally reviewed, copy given to patient, copy on chart.
[facility] to arrange w/c van, form on chart
[facility]
Report: [phone]

Plan: D/c to [facility] today
[2024-11-14 15:00] VITALS: BP 99/62
--- NOTE | 2024-11-14 16:55 | W.DCSUMMARY ---
Discharge Summary
Discharge Data
Date of Admission: 11/06/24
Date of Discharge: 11/14/24
-
Pending Results: No
Hospital Course
Primary Diagnoses:
Hypotension and acute kidney injury likely due to hypovolemic shock
Secondary Diagnoses:
Coronary disease with history of recent non-ST elevation myocardial infarction
Takotsubo's cardiomyopathy
Asthma
Rheumatoid arthritis
Hyperkalemia
Consultants:
None
Imaging:
CXR 11/06/24: No acute cardiopulmonary process.
OBST series 11/11/24: Thin horizontal density within the right midlung, unchanged, compatible with linear atelectasis or scarring. Large amount of stool present within the rectum and descending colon. Rectal distention is without significant interval
change from November 10 examination. Probably slight improvement in the amount of stool within the splenic flexure. Mild gaseous distention of the transverse colon.
Hospital course: 78-year-old female who presented with chief complaints of fatigue and hypotension as outlined in the H&P done on admission. Patient's beta-abiola was held on admission. She was intermittently on vasopressors during the first 24
hours of admission. She was given aggressive IV fluids. Her TSH and cortisol were normal. Her creatinine improved from 1.8-1.0. She had hyperkalemia due to acute kidney injury that resolved. She was discharged in medically stable condition.
Discharge Plan
-
Patient Disposition: Care Home/SNF
Discharge Diagnosis/Procedures: hypotension
Condition: Fair
Diet: Low Fat, Low Cholesterol and Restrict fluids to 48 oz
Activity: As tolerated
Blood Work: cbc and bmp in 3-5 days, script from PCP
Others Tests: as per cardiology
Activity Restrictions/Additional Instructions:
Can wean or up titrate midodrine as needed; Should be on Beta abiola for cardiac remodeling purposes
Referrals:
Edwar Markham MD [Active] - in one to two weeks (or your own flat sorter processor)
Angela Baird DO [Family Provider] - in less than 1 week
Prescriptions:
New
midodrine 5 mg Tablet
5 mg PO TID@0800,1300,1800 PRN (Reason: SBP<90 or DBP <60) Qty: 10 0RF
Rx Instructions:
can consider standing if needed
metoprolol succinate 25 mg Tablet Extended Release 24 Hr
12.5 mg PO DAILY Qty: 0 0RF
Continued
hydroxychloroquine 200 mg tablet
200 mg PO DAILY
brimonidine-timolol 0.2-0.5 % drops
1 drp BOTH EYES BID
cyanocobalamin (vitamin B-12) [Vitamin B-12] 100 mcg Tablet
100 mcg PO DAILY
fluticasone propion-salmeterol [Advair Diskus] 100-50 mcg/dose Blister With Device
1 inh INHALATION R BIDPRN PRN (Reason: sob)
Fish Oil 120-180 mg Capsule
1 cap PO DAILY
cholecalciferol (vitamin D3) [Vitamin D3] 50 mcg (2,000 unit) Capsule
50 mcg PO DAILY
melatonin 5 mg Tablet
5 mg PO HS Qty: 30 0RF
lidocaine 4 % Adhesive Patch,Medicated
1 patch TOPICAL DAILY
loperamide [Imodium A-D] 2 mg Tablet
2 mg PO USEASDIRECTD MDD 8mg/24hrs PRN (Reason: loose stool)
Rx Instructions:
take 2 caps after first loose stool, 1 cap after each subsequent loose stool. no more tahn 4 caps in 24hrs
ondansetron 4 mg Tablet,Disintegrating
4 mg PO Q6HPRN PRN (Reason: nausea/vomiting)
simethicone 80 mg Tablet,Chewable
80 mg PO Q6HPRN PRN (Reason: gas)
Saccharomyces boulardii [Florastor] 250 mg capsule
250 mg PO DAILY
bisacodyl 5 mg Tablet,Delayed Release (Dr/Ec)
10 mg PO DAILYPRN PRN (Reason: no BM with oral meds) Qty: 14 0RF
famotidine 20 mg Tablet
20 mg PO Q48H Qty: 30 0RF
sennosides-docusate sodium 8.6-50 mg Tablet
1 tab PO BID Qty: 60 0RF
aspirin 81 mg Tablet,Delayed Release (/Ec)
81 mg PO DAILY Qty: 30 0RF
rosuvastatin 5 mg tablet
10 mg PO DAILY Qty: 0 0RF
Discontinued
tamsulosin 0.4 mg Capsule
0.4 mg PO DAILY Qty: 14 0RF
Rx Instructions:
Can discontinue once discharged from rehab
metoprolol succinate 25 mg Tablet Extended Release 24 Hr
25 mg PO DAILY Qty: 30 0RF
Discharge Orders:
Discharge Patient (As Directed); Ordered 11/14/24
Ordered By: David Booker
Discharge Date and Time
Print Language: STATELESS
== END 2024-11-14 18:14 | DRG 871 ==
LOC: 4 WEST ACU 08:27
PROVIDERS: Internal Medicine; Nurse Practitioner Family; ADMITTING PHYSICIAN Hospitalist; ATTENDING PHYSICIAN Internal Medicine; EMERGENCY PHYSICIAN Emergency Medicine; FAMILY PHYSICIAN Family Medicine; OTHER PHYSICIAN Internal Medicine
DX: R57.1 Hypovolemic shock (principal); I21.4 Non-ST elevation (NSTEMI) myocardial infarction; N17.9 Acute kidney failure, unspecified; I51.81 Takotsubo syndrome; E87.5 Hyperkalemia; I10 Essential (primary) hypertension; I25.10 Atherosclerotic heart disease of native coronary artery without angina pectoris; Z95.0 Presence of cardiac pacemaker; Z79.899 Other long term (current) drug therapy; Z79.82 Long term (current) use of aspirin; Z79.51 Long term (current) use of inhaled steroids; Z11.52 Encounter for screening for COVID-19; J45.909 Unspecified asthma, uncomplicated; M06.9 Rheumatoid arthritis, unspecified; K58.0 Irritable bowel syndrome with diarrhea; Z88.1 Allergy status to other antibiotic agents; E78.5 Hyperlipidemia, unspecified
CPT/HCPCS: 71045; 74022; 80048; 80053; 81003; 81015; 82533; 82962; 83605; 83690; 83735; 83880; 84100; 84443; 84484; 85025; 85027; 85610; 85730; 87040; 87070; 87086; 87502; 87811; 93005; 96360; 97116; 97163; 97167; 97530; 97535; 99291; J1610

== ENCOUNTER → 2024-11-17 08:40 | Outpatient (REF) | payer OTHER, MEDICARE, SELFPAY ==
[2024-11-17 10:41] LABS: Hematocrit 32.1 % (37.0-47.0); Hemoglobin 10.3 g/dL (12.0-16.0); Mean Corp Hgb Conc. 32.1 g/dL (33.0-37.0); Mean Corpuscular Hgb 29.8 pg (27.0-31.0); Mean Corpuscular Volume 92.8 fL (81.0-99.0); Mean Platelet Volume 10.7 fL (7.4-10.4); Platelet Count 185 10^3/uL (130-400); Red Blood Cell Count 3.46 10^6/uL (4.20-5.40); Red Cell Dist. Width 13.9 % (11.5-14.5); White Blood Cell Count 4.3 10^3/uL (4.8-10.8)
[2024-11-17 10:50] LABS: Blood Urea Nitrogen 25 mg/dl (7-17); Calcium 9.1 mg/dl (8.4-10.2); Carbon Dioxide 25 mmol/L (22-30); Chloride 109 mmol/L (98-107); Glucose 81 mg/dl (70-99); Potassium 5.3 mmol/L (3.5-5.1); Sodium 138 mmol/L (135-145); eGFR 45.76
== END ==
LOC: OLABN 08:40
PROVIDERS: ATTENDING PHYSICIAN Student in an Organized Health Care Education/Training Program
DX: N18.30 Chronic kidney disease, stage 3 unspecified (principal)
CPT/HCPCS: 36415; 80048; 85027

== ENCOUNTER → 2024-11-24 09:41 | Outpatient (REF) | payer OTHER, MEDICARE, SELFPAY ==
[2024-11-24 11:20] LABS: Blood Urea Nitrogen 24 mg/dl (7-17); Calcium 8.7 mg/dl (8.4-10.2); Carbon Dioxide 26 mmol/L (22-30); Chloride 108 mmol/L (98-107); Glucose 88 mg/dl (70-99); Potassium 4.3 mmol/L (3.5-5.1); Sodium 138 mmol/L (135-145); eGFR 41.57
== END ==
LOC: OLABN 09:41
PROVIDERS: ATTENDING PHYSICIAN Student in an Organized Health Care Education/Training Program
DX: E78.5 Hyperlipidemia, unspecified (principal)
CPT/HCPCS: 36415; 80048

== ENCOUNTER → 2024-11-29 09:58 | Outpatient (REF) | payer OTHER, MEDICARE, SELFPAY ==
[2024-11-29 12:54] LABS: % Basophils 1.2 % (0-2); % Eosinophils 4.3 % (0-6); % Immature Granulocytes 0.3 % (0-0.5); % Lymphocytes 39.5 % (20.5-51.1); % Neutrophils 42.7 % (42.2-75.2); Absolute Eosinophils 0.1 10^3/uL (0-0.7); Absolute Lymphocytes 1.3 10^3/uL (1.2-3.4); Absolute Monocytes 0.4 10^3/uL (0.1-0.6); Absolute Neutrophils 1.4 10^3/uL (1.4-6.5); Hematocrit 30.6 % (37.0-47.0); Hemoglobin 9.7 g/dL (12.0-16.0); Mean Corp Hgb Conc. 31.7 g/dL (33.0-37.0); Mean Corpuscular Hgb 30.1 pg (27.0-31.0); Mean Platelet Volume 10.6 fL (7.4-10.4); Nucleated Red Blood Cells % 0 %; Platelet Count 166 10^3/uL (130-400); Red Blood Cell Count 3.22 10^6/uL (4.20-5.40); Red Cell Dist. Width 13.4 % (11.5-14.5); White Blood Cell Count 3.2 10^3/uL (4.8-10.8)
[2024-11-29 13:27] LABS: Vitamin D, 25-OH*** 54.1 ng/mL (30-80)
[2024-11-29 14:00] LABS: Vitamin B12 276 pg/ml (239-931)
== END ==
LOC: OLABN 09:58
PROVIDERS: ATTENDING PHYSICIAN Student in an Organized Health Care Education/Training Program
DX: Z79.899 Other long term (current) drug therapy (principal); E55.9 Vitamin D deficiency, unspecified; I10 Essential (primary) hypertension; E53.8 Deficiency of other specified B group vitamins
CPT/HCPCS: 36415; 82306; 82607; 85025

== ENCOUNTER → 2024-12-08 09:42 | Outpatient (REF) | payer OTHER, MEDICARE, SELFPAY ==
[2024-12-08 10:53] LABS: Hematocrit 28.8 % (37.0-47.0); Hemoglobin 9.3 g/dL (12.0-16.0); Mean Corp Hgb Conc. 32.3 g/dL (33.0-37.0); Mean Corpuscular Volume 92.9 fL (81.0-99.0); Mean Platelet Volume 10.6 fL (7.4-10.4); Platelet Count 143 10^3/uL (130-400); Red Cell Dist. Width 13.3 % (11.5-14.5); White Blood Cell Count 3.6 10^3/uL (4.8-10.8)
[2024-12-08 11:16] LABS: ALT (SGPT) 11 U/L (0-35); AST (SGOT) 19 U/L (14-36); Alkaline Phosphatase 58 U/L (38-126); Blood Urea Nitrogen 19 mg/dl (7-17); Carbon Dioxide 23 mmol/L (22-30); Chloride 113 mmol/L (98-107); Glucose 115 mg/dl (70-99); Potassium 4.1 mmol/L (3.5-5.1); Sodium 141 mmol/L (135-145); Total Bilirubin 0.4 mg/dl (0.2-1.3); Total Protein 4.9 g/dl (6.3-8.2)
[2024-12-08 11:33] LABS: Free T4 1.41 ng/dl (0.78-2.19)
[2024-12-08 11:47] LABS: Erythrocyte Sed Rate 11 mm/hour (0-20)
== END ==
LOC: OLABN 09:42
PROVIDERS: ATTENDING PHYSICIAN Student in an Organized Health Care Education/Training Program
DX: K52.9 Noninfective gastroenteritis and colitis, unspecified (principal); I10 Essential (primary) hypertension; M05.9 Rheumatoid arthritis with rheumatoid factor, unspecified; E55.9 Vitamin D deficiency, unspecified; N18.31 Chronic kidney disease, stage 3a
CPT/HCPCS: 36415; 80053; 84439; 84443; 85027; 85652; 86140

== ENCOUNTER → 2024-12-09 09:58 | Outpatient (REF) | payer OTHER, MEDICARE, SELFPAY ==
[2024-12-09 11:49] LABS: AST (SGOT) 19 U/L (14-36); Alkaline Phosphatase 59 U/L (38-126); GGTP 11 U/L (12-43); Total Bilirubin 0.3 mg/dl (0.2-1.3)
[2024-12-09 11:59] LABS: ALT (SGPT) 11 U/L (0-35)
== END ==
LOC: OLABN 09:58
PROVIDERS: ATTENDING PHYSICIAN Student in an Organized Health Care Education/Training Program
DX: K58.0 Irritable bowel syndrome with diarrhea (principal); K52.9 Noninfective gastroenteritis and colitis, unspecified
CPT/HCPCS: 36415; 82247; 82977; 84075; 84450; 84460

== ENCOUNTER → 2024-12-12 15:37 | Outpatient (REF) | payer OTHER, MEDICARE, SELFPAY | LOC: OLABN 15:37 | PROVIDERS: ATTENDING PHYSICIAN Student in an Organized Health Care Education/Training Program | DX: K52.9 Noninfective gastroenteritis and colitis, unspecified (principal) | CPT/HCPCS: 87045; 87046; 87324; 87328; 87329; 87427; 87449 ==

== ENCOUNTER → 2025-01-30 14:41 | Outpatient (REF) | payer MEDICARE, SELFPAY | LOC: RAD 14:41 | PROVIDERS: ATTENDING PHYSICIAN Nurse Practitioner Adult Health | DX: I51.81 Takotsubo syndrome (principal); J45.20 Mild intermittent asthma, uncomplicated; Z87.01 Personal history of pneumonia (recurrent) | CPT/HCPCS: 71046 ==

== ENCOUNTER → 2025-02-01 12:46 | Outpatient (REF) | payer MEDICARE, SELFPAY | LOC: RCS 12:46 | PROVIDERS: ATTENDING PHYSICIAN Nurse Practitioner; FAMILY PHYSICIAN Nurse Practitioner Adult Health | DX: I51.81 Takotsubo syndrome (principal) | CPT/HCPCS: 93308; 93321; 93325 ==